=== PATIENT | female | born 1950 | race Caucasian/White ===

== ENCOUNTER → 2018-01-07 12:28 | Outpatient (CLI) | payer OTHER, SELFPAY ==
--- NOTE | 2018-01-07 | DI.US.S_ITS ---
PROCEDURE: US BREAST RT LIMITED COMPARISON: None. INDICATIONS: RIGHT BREAST LUMP FINDINGS: IMPRESSION: Dictated by: Sheldon Bermeo M.D. on 01/08/2018 at 7:51 Approved by: Sheldon Bermeo M.D. on 01/08/2018 at 7:52
--- NOTE | 2018-01-07 | DI.MG.S_ITS ---
BILATERAL DIGITAL DIAGNOSTIC MAMMOGRAM 3D/2D: 01/07/2018 CLINICAL: Right breast lump. Comparison is made to exams dated: 04/10/2016 mammogram, 08/15/2011 mammogram, and 07/10/2010 mammogram - [facility]. The tissue of both breasts is predominantly fatty. No significant masses, calcifications, or other findings are seen in either breast. IMPRESSION: INCOMPLETE: NEEDS ADDITIONAL IMAGING EVALUATION There is no abnormality seen in the right breast to correspond with the area of clinical concern, however, ultrasound is recommended. NOTE: For mammograms, a report in lay terms will be sent to the patient. Approximately 15% of breast malignancies will not be visualized mammographically. In the management of a palpable breast mass, a negative mammogram must not discourage biopsy of a clinically suspicious lesion. Electronically Signed By: Sheldon cloud/mague:01/08/2018 08:51:22 ACR BI-RADS Category 0: Incomplete [id number]
== END ==
PROVIDERS: PCP Internal Medicine; Visit Provider Internal Medicine
DX: R92.8 Other abnormal and inconclusive findings on diagnostic imaging of breast (principal); N63.10 Unspecified lump in the right breast, unspecified quadrant
CPT/HCPCS: 76642; 77066; G0279

== ENCOUNTER → 2019-03-03 09:32 | Outpatient (CLI) | payer OTHER, SELFPAY ==
--- NOTE | 2019-03-03 | DI.US.S_ITS ---
PROCEDURE: US PERIPH VENOUS LOW EXTREM RT INDICATIONS: RIGHT LEG PAIN TECHNIQUE: Real-time imaging, as well as color and pulse Doppler interrogation, were performed of the lower extremity deep veins from the inguinal ligament to the popliteal fossa. COMPARISON: None. FINDINGS: The common femoral, femoral and popliteal veins are normally compressible, and free of intraluminal thrombus. Color and pulse Doppler demonstrate normal phasic intraluminal flow. There is normal augmentation response to distal compression maneuver. IMPRESSION: No evidence of deep vein thrombosis of the right lower extremity. Dictated by: Rui Preston M.D. on 03/03/2019 at 13:15 Approved by: Rui Preston M.D. on 03/03/2019 at 13:19
== END ==
PROVIDERS: PCP Internal Medicine; Visit Provider Internal Medicine
DX: M79.604 Pain in right leg (principal)
CPT/HCPCS: 93971

== ENCOUNTER 2019-08-07 13:34 | Inpatient (IN) | payer MEDICARE, SELFPAY ==
[2019-08-07] VITALS (11 sets, daily range): BP systolic 106–157; BP diastolic 57–96; PULSE 70–188; RESP 18–38; TEMP 36.5–36.8; O2SAT 80–100; BMI 49.5; BMI 50.5
--- NOTE | 2019-08-07 13:57 | DI.CT.S_ITS ---
PROCEDURE: CT ANGIO CHEST PE PROTOCOL INDICATIONS: short of breath TECHNIQUE: After the administration of intravenous contrast, 2 mm thick sections acquired from the pulmonary apices to the posterior costophrenic angles. 3-dimensional maximum intensity projection (MIP) coronal and sagittal reformats were then acquired through the thorax. For radiation dose reduction, the following was used: automated exposure control, adjustment of mA and/or kV according to patient size. COMPARISON: None. FINDINGS: Image quality: Excellent. Pulmonary arteries: Segmental subsegmental emboli are present within the right lower lobe and the left lower lobe. No filling defects within the main right and left pulmonary arteries. No filling defects within the main pulmonary trunk. Lungs and pleura: Lungs are clear. No pleural effusions or pneumothorax. Central and peripheral airways are patent. Mediastinum: Heart size is mildly enlarged, without pericardial effusion. No leftward interventricular septal bowing. No mediastinal or hilar adenopathy. Thoracic aorta is normal in caliber and enhancement. Scattered atheromatous calcifications are present within the aortic arch. Esophagus is normal in caliber, without hiatal hernia. Bones and chest wall: No suspicious bony lesions. Ribs and thoracic spine appear intact throughout. Thyroid gland is partially visualized and is unremarkable. No axillary or supraclavicular adenopathy. Abdomen: Visualized upper abdominal solid organs appear normal in the early arterial phase of enhancement. IMPRESSION: 1. Bilateral lower lobe segmental and subsegmental pulmonary emboli as above. No leftward septal bowing to suggest right heart strain. However, echocardiogram recommended. This finding was discussed with Dr. Wiley at 1:59 PM on 08/07/19 [place] time. Dictated by: Corrine Zaman M.D. on 08/07/2019 at 13:54 Approved by: Corrine Zaman M.D. on 08/07/2019 at 14:00
[2019-08-07 14:04] LABS: Add Manual Diff / Slide Review NO; Basophils Absolute Auto 0 /uL (0-100); Basophils Percent Auto 0.4 % (0-2); Eosinophils Absolute Auto 100 /uL (0-450); Eosinophils Percent Auto 0.5 % (2-4); Hematocrit 38.3 % (36-46); Hemoglobin 12.9 g/dL (12.0-16.0); Lymphocytes Absolute Auto 2000 /uL (1100-4500); Lymphocytes Percent Auto 20.2 % (25-40); Mean Corpuscular HGB Conc 33.6 % (30-36); Mean Corpuscular Hemoglobin 28.6 PG (26-34); Mean Corpuscular Volume 84.9 fL (80-100); Monocytes Absolute Auto 800 /uL (0-900); Monocytes Percent Auto 8.4 % (3-14); Neutrophils Absolute Auto 6800 /uL (1500-7000); Neutrophils Percent Auto 70.5 % (50-75); Platelet Count 328 X10^3/uL (150-400); Red Blood Cell Count 4.51 X10^6/uL (4.0-5.2); Red Cell Distribution Width 15.3 % (11.6-14.8); White Blood Cell Count 9.7 X10^3/uL (4.5-11.0)
--- NOTE | 2019-08-07 14:05 | ED_ITS ---
HPI - SOB/Dyspnea General Chief Complaint: Shortness of Breath/Dyspnea Stated Complaint: shortness of breath Time Seen by Provider: 08/07/19 13:37 Source: patient Mode of arrival: Ambulatory Limitations: no limitations History of Present Illness HPI Narrative: Patient is a 68-year-old female with no known past medical history presenting with increasing shortness of breath with exertion. She says previously she has had some shortness of breath with exertion but it's been when she has been ill with a bronchitis. She does have a nebulizer at home her medicine but she did try using it last night she said it didn't help much. She has not had any fever or chills she has she denies any orthopnea no chest pain. However with very minimal exertion she gets extremely short of breath and this is very atypical for her. She denies any recent travel. Complaint: shortness of breath Relieving factors: oxygen and rest Exacerbating factors: exertion Related Data Home Medications Medication Instructions Recorded Confirmed Respironics Dreamstation BIPAP #1 ea 12/23/18 12/23/18 thyroid (pork) [[employer] Thyroid] 90 mg PO DAILY 08/07/19 08/07/19 venlafaxine [Effexor XR] 225 mg PO QAM 08/07/19 08/07/19 Previous Rx's Medication Instructions Recorded montelukast 10 mg tablet 10 mg PO DAILY #30 tab 02/09/18 Allergies Allergy/AdvReac Type Severity Reaction Status Date / Time amoxicillin [AMOXICILLIN] Allergy Severe HIVES Verified 08/07/19 13:40 NSAIDS (Non-Steroidal Allergy Severe ANAPHYLAXIS Verified 08/07/19 13:40 Anti-Inflamma [NSAIDS (NON-STEROIDAL ANTI-INFLAMMA] oxycodone [OXYCODONE] Allergy Intermediate AMNESIA Verified 08/07/19 13:40 Penicillins [PENICILLINS] Allergy Intermediate HIVES Verified 08/07/19 13:40 Sulfa (Sulfonamide Allergy Intermediate ITCH Verified 08/07/19 13:40 Antibiotics) [SULFA (SULFONAMIDE ANTIBIOTICS)] cephalexin [From KEFLEX] Allergy Mild ITCHY Verified 08/07/19 13:40 meperidine [MEPERIDINE] AdvReac Mild AMNESIA Verified 08/07/19 13:40 Review of Systems Review of Systems ROS Unobtainable: All systems reviewed & are unremarkable except as noted in HPI and below Constitutional Constitutional: Denies chills, Denies fever(s), Denies lethargy and Denies weakness Eyes Eyes: Denies change in vision, Denies eye discharge, Denies irritation and Denies loss of vision ENT Ears, Nose, Mouth, and Throat: Denies change in voice, Denies neck pain and Denies sore throat Cardiovascular Cardiovascular: Denies chest pain, Denies irregular heart rhythm, Denies lightheadedness, Denies palpitations, Reports dyspnea on exertion and Denies orthopnea Respiratory Respiratory: Denies cough, Denies hemoptysis, Denies excessive phlegm production, Reports dyspnea on exertion and Denies wheezing Gastrointestinal Gastrointestinal: Denies abdominal pain, Denies change in bowel habits, Denies diarrhea, Denies nausea and Denies vomiting Genitourinary Genitourinary: Denies hematuria, Denies flank pain, Denies urinary incontinence and Denies urinary urgency Musculoskeletal Musculoskeletal: Denies neck pain Integumentary/Breasts Skin/Breast: Denies pruritus, Denies erythema, Denies rash and Denies wounds Neurologic Neurologic: Denies loss of vision and Denies weakness Endocrine Endocrine: Denies palpitations Allergic/Immunologic Allergic/Immunologic: Denies wheezing Patient History Medical History (Updated 08/07/19 @ 17:24 by Merle Neville MD) Depression (Acute) Hypothyroidism (Acute) Morbid obesity with BMI of 40.0-44.9, adult (Inactive) Morbid obesity with body mass index (BMI) of 50.0 to 59.9 in adult (Chronic) Obstructive sleep apnea of adult (Chronic) Primary insomnia (Resolved) Snoring (Resolved) Surgical History (Updated 08/07/19 @ 17:21 by Merle Neville MD) H/O exploratory laparotomy (Acute) Family History (Updated 08/07/19 @ 17:23 by Merle Neville MD) Father Leukemia Brother Diabetes mellitus Sister Diabetes mellitus Breast cancer Mother Ovarian cancer Social History household members: none lives independently: Yes caregiver/support person: No Smoking Status: Never smoker alcohol intake: current substance use type: does not use Smoking Status: Never smoker Substance Use Type: does not use Exam Initial Vital Signs Initial Vital Signs: Vital Signs Temperature 98.2 F 08/07/19 13:41 Pulse Rate 130 H 08/07/19 13:41 Respiratory Rate 38 H 08/07/19 13:41 Blood Pressure 157/87 H 08/07/19 13:41 Pulse Oximetry 80 L 08/07/19 13:41 GENERAL: Overweight female and in [no acute] distress. HEENT: Head atraumatic,EOMI, pupils reactive, asymmetric CARDIOVASCULAR: Regular rate and rhythm without murmurs, rubs or gallops. RESPIRATORY: Breath sounds equal bilaterally, no wheezes rales or rhonchi. Patient was ambulatory to her room in the emergency department and was obviously extremely dyspneic ABDOMEN: Soft, nontender. Normoactive bowel sounds all 4 quadrants. No guarding or rebound. EXTREMITIES: Normal range of motion, no clubbing or edema. Neurovascularly intact NEUROLOGICAL: Alert and oriented x4.Normal gait and speech. SKIN: Warm, dry, no laceration, no petechiae, no rashes or lesions. Course Orders Ordered: ED Orders 08/07/19 13:50 B Type Natriuretic Peptide Stat Complete Blood Count AUTO DIFF Stat Comprehensive Metabolic Panel Stat Lactate (Lactic Acid) Stat Magnesium Stat Partial Thromboplastin Time Stat Procalcitonin Stat Prothrombin Time INR Stat Troponin & CK Cardiac Panel Stat 08/07/19 13:55 Consult to Respiratory Therapy Evaluate & Treat Arterial Blood Gas Stat 08/07/19 13:57 CT angio chest PE protocol Stat 08/07/19 15:00 PTT [Partial Thromboplastin Time] Q6H Urine Microscopic Stat 08/07/19 21:00 PTT [Partial Thromboplastin Time] Q6H Enoxaparin Sodium (Lovenox) 140 mg 1 mg/kg (140 mg) SUBCUT Q12H [facility] Montelukast Sodium (Singulair) 10 mg PO DAILY [facility] Discontinued Medications Enoxaparin Sodium (Lovenox) 140 mg 1 mg/kg (140 mg) SUBCUT NOW ONE Stop: 08/07/19 15:31 Last Admin: 08/07/19 15:21 Dose: 140 mg Documented by: RINA Enoxaparin Sodium (Lovenox) 140 mg 1 mg/kg (140 mg) SUBCUT BID [facility] Heparin Sodium (Porcine) (Heparin) 7,500 unit IV NOW ONE Stop: 08/07/19 14:55 Last Admin: 08/07/19 18:17 Dose: Not Given Documented by: BALDEMAR Heparin Sodium/Dextrose (Heparin Drip) 25,000 unit in 500 mls @ 24 mls/hr IV CONT ANA; Protocol Last Admin: 08/07/19 18:18 Dose: Not Given Documented by: CGIBSON Vital Signs Vital signs: Vital Signs - 8 hr 08/07/19 13:41 08/07/19 15:00 Temperature 98.2 F Pulse Rate 130 H 91 H Respiratory Rate 38 H 23 Blood Pressure 157/87 H Pulse Oximetry 80 L 94 MDM - SOB/Dyspnea Lab Data Attestation: I reviewed the patient's lab results. Result diagrams: 08/07/19 13:50 08/07/19 13:50 Labs: Lab Results 08/07/19 08/07/19 08/07/19 Range/Units 13:50 13:50 13:50 WBC 9.7 (4.5-11.0) X10^3/uL RBC 4.51 (4.0-5.2) X10^6/uL Hgb 12.9 (12.0-16.0) g/dL Hct 38.3 (36-46) % MCV 84.9 (80-100) fL MCH 28.6 (26-34) PG MCHC 33.6 (30-36) % RDW 15.3 H (11.6-14.8) % Plt Count 328 (150-400) X10^3/uL Neut % (Auto) 70.5 (50-75) % Lymph % (Auto) 20.2 L (25-40) % [place] % (Auto) 8.4 (3-14) % Eos % (Auto) 0.5 L (2-4) % Baso % (Auto) 0.4 (0-2) % Neut # (Auto) 6800 (5875-1123) /uL Lymph # (Auto) 2000 (5492-3230) /uL [place] # (Auto) 800 (0-900) /uL Eos # (Auto) 100 (0-450) /uL Baso # (Auto) 0 (0-100) /uL PT 13.0 H (10.1-12.7) SECONDS INR 1.1 (0.9-1.3) APTT 36 (26.4-36.2) SECONDS ABG pH (7.35-7.45) ABG pCO2 (35-45) mmHg ABG pO2 (80-100) mmHg ABG HCO3 (22-26) mmol/L ABG Total CO2 (21-31) mmol/L ABG O2 Saturation (95-100) % ABG Base Excess (-2-2) mmol/L FiO2 Sodium (137-145) mmol/L Potassium (3.4-5.1) mmol/L Chloride (98-107) mmol/L Carbon Dioxide (22-32) mmol/L BUN (7-17) mg/dL Creatinine (0.52-1.04) mg/dL Estimated GFR (>60) mL/min BUN/Creatinine Ratio (6-22) Glucose (80-110) mg/dL Lactate (0.7-2.1) mmol/L Calcium (8.4-10.2) mg/dL Magnesium 2.2 (1.6-2.3) mg/dL Total Bilirubin (0.2-1.3) mg/dL AST (14-36) IU/L ALT (<35) IU/L Alkaline Phosphatase (38-126) U/L Total Creatine Kinase 74 (30-135) U/L CK-MB (CK-2) TNP CK-MB (CK-2) Rel Index TNP Troponin I 0.330 H* (0.01-0.034) ng/mL B-Natriuretic Peptide 210 H (<100) Total Protein (6.3-8.2) g/dL Albumin (3.5-5.0) g/dL Globulin (1.7-4.1) g/dL Albumin/Globulin Ratio (1.0-2.8) Procalcitonin (<0.5) ng/mL Urine RBC (0-5/HPF) Urine WBC (0-5/HPF) Ur Squamous Epith Cells (0-5/HPF) Urine Bacteria (None) Ur Culture Indicated? 08/07/19 08/07/19 08/07/19 Range/Units 13:50 13:50 13:50 WBC (4.5-11.0) X10^3/uL RBC (4.0-5.2) X10^6/uL Hgb (12.0-16.0) g/dL Hct (36-46) % MCV (80-100) fL MCH (26-34) PG MCHC (30-36) % RDW (11.6-14.8) % Plt Count (150-400) X10^3/uL Neut % (Auto) (50-75) % Lymph % (Auto) (25-40) % [place] % (Auto) (3-14) % Eos % (Auto) (2-4) % Baso % (Auto) (0-2) % Neut # (Auto) (6492-9102) /uL Lymph # (Auto) (4795-4981) /uL [place] # (Auto) (0-900) /uL Eos # (Auto) (0-450) /uL Baso # (Auto) (0-100) /uL PT (10.1-12.7) SECONDS INR (0.9-1.3) APTT (26.4-36.2) SECONDS ABG pH (7.35-7.45) ABG pCO2 (35-45) mmHg ABG pO2 (80-100) mmHg ABG HCO3 (22-26) mmol/L ABG Total CO2 (21-31) mmol/L ABG O2 Saturation (95-100) % ABG Base Excess (-2-2) mmol/L FiO2 Sodium 140 (137-145) mmol/L Potassium 4.3 (3.4-5.1) mmol/L Chloride 102 (98-107) mmol/L Carbon Dioxide 24 (22-32) mmol/L BUN 20 H (7-17) mg/dL Creatinine 0.90 (0.52-1.04) mg/dL Estimated GFR > 60.0 (>60) mL/min BUN/Creatinine Ratio 22.2 H (6-22) Glucose 133 H (80-110) mg/dL Lactate 2.6 H (0.7-2.1) mmol/L Calcium 9.7 (8.4-10.2) mg/dL Magnesium (1.6-2.3) mg/dL Total Bilirubin 1.1 (0.2-1.3) mg/dL AST 34 (14-36) IU/L ALT 32 (<35) IU/L Alkaline Phosphatase 118 (38-126) U/L Total Creatine Kinase (30-135) U/L CK-MB (CK-2) CK-MB (CK-2) Rel Index Troponin I (0.01-0.034) ng/mL B-Natriuretic Peptide (<100) Total Protein 7.9 (6.3-8.2) g/dL Albumin 4.8 (3.5-5.0) g/dL Globulin 3.1 (1.7-4.1) g/dL Albumin/Globulin Ratio 1.5 (1.0-2.8) Procalcitonin < 0.05 (<0.5) ng/mL Urine RBC (0-5/HPF) Urine WBC (0-5/HPF) Ur Squamous Epith Cells (0-5/HPF) Urine Bacteria (None) Ur Culture Indicated? 08/07/19 08/07/19 Range/Units 13:55 15:00 WBC (4.5-11.0) X10^3/uL RBC (4.0-5.2) X10^6/uL Hgb (12.0-16.0) g/dL Hct (36-46) % MCV (80-100) fL MCH (26-34) PG MCHC (30-36) % RDW (11.6-14.8) % Plt Count (150-400) X10^3/uL Neut % (Auto) (50-75) % Lymph % (Auto) (25-40) % [place] % (Auto) (3-14) % Eos % (Auto) (2-4) % Baso % (Auto) (0-2) % Neut # (Auto) (7446-7640) /uL Lymph # (Auto) (0359-0949) /uL [place] # (Auto) (0-900) /uL Eos # (Auto) (0-450) /uL Baso # (Auto) (0-100) /uL PT (10.1-12.7) SECONDS INR (0.9-1.3) APTT (26.4-36.2) SECONDS ABG pH 7.46 H (7.35-7.45) ABG pCO2 31.1 L (35-45) mmHg ABG pO2 59 L (80-100) mmHg ABG HCO3 22 (22-26) mmol/L ABG Total CO2 23 (21-31) mmol/L ABG O2 Saturation 92 L (95-100) % ABG Base Excess -2.0 (-2-2) mmol/L FiO2 21 Sodium (137-145) mmol/L Potassium (3.4-5.1) mmol/L Chloride (98-107) mmol/L Carbon Dioxide (22-32) mmol/L BUN (7-17) mg/dL Creatinine (0.52-1.04) mg/dL Estimated GFR (>60) mL/min BUN/Creatinine Ratio (6-22) Glucose (80-110) mg/dL Lactate (0.7-2.1) mmol/L Calcium (8.4-10.2) mg/dL Magnesium (1.6-2.3) mg/dL Total Bilirubin (0.2-1.3) mg/dL AST (14-36) IU/L ALT (<35) IU/L Alkaline Phosphatase (38-126) U/L Total Creatine Kinase (30-135) U/L CK-MB (CK-2) CK-MB (CK-2) Rel Index Troponin I (0.01-0.034) ng/mL B-Natriuretic Peptide (<100) Total Protein (6.3-8.2) g/dL Albumin (3.5-5.0) g/dL Globulin (1.7-4.1) g/dL Albumin/Globulin Ratio (1.0-2.8) Procalcitonin (<0.5) ng/mL Urine RBC None seen (0-5/HPF) Urine WBC 0-1/hpf (0-5/HPF) Ur Squamous Epith Cells 1-5 /hpf (0-5/HPF) Urine Bacteria Few (2-10) H (None) Ur Culture Indicated? Cult not indicated Urine Dip Bedside Urine Glucose Negative Bedside Urine Bilirubin - Negative Bedside Urine Ketone - Negative Urine Specific Reubens 1.005 Bedside Urine Occult Blood ++ Bedside Urine pH 6.5 Bedside Urine Protein +/- 15 Bedside Urine Urobilinogen - Negative Bedside Urine Nitrite - Negative Bedside Urine Leukocytes - Negative Esterase Imaging Data CT scan - chest: Radiologist's impression: PROCEDURE: CT ANGIO CHEST PE PROTOCOL INDICATIONS: short of breath TECHNIQUE: After the administration of intravenous contrast, 2 mm thick sections acquired from the pulmonary apices to the posterior costophrenic angles. 3-dimensional maximum intensity projection (MIP) coronal and sagittal reformats were then acquired through the thorax. For radiation dose reduction, the following was used: automated exposure control, adjustment of mA and/or kV according to patient size. COMPARISON: None. FINDINGS: Image quality: Excellent. Pulmonary arteries: Segmental subsegmental emboli are present within the right lower lobe and the left lower lobe. No filling defects within the main right and left pulmonary arteries. No filling defects within the main pulmonary trunk. Lungs and pleura: Lungs are clear. No pleural effusions or pneumothorax. Central and peripheral airways are patent. Mediastinum: Heart size is mildly enlarged, without pericardial effusion. No leftward interventricular septal bowing. No mediastinal or hilar adenopathy. Thoracic aorta is normal in caliber and enhancement. Scattered atheromatous calcifications are pre sent within the aortic arch. Esophagus is normal in caliber, without hiatal hernia. Bones and chest wall: No suspicious bony lesions. Ribs and thoracic spine appear intact throughout. Thyroid gland is partially visualized and is unremarkable. No axillary or supraclavicular adenopathy. Abdomen: Visualized upper abdominal solid organs appear normal in the early arterial phase of enhancement. IMPRESSION: 1. Bilateral lower lobe segmental and subsegmental pulmonary emboli as above. No leftward septal bowing to suggest right heart strain. However, echocardiogram recommended. This finding was discussed with Dr. Wiley at 1:59 PM on 08/07/19 [place] time. Dictated by: Corrine Zaman M.D. on 08/07/2019 at 13:54 Approved by: Corrine Zaman M.D. on 08/07/2019 at 14:00 ECG Data Attestation: I personally reviewed and interpreted this ECG as follows: Prior ECG tracings: available for review Interpretation: Sinus rhythm rate 97 p.r. interval 157 QRS [address] elevation depression or T-wave inversions similar to previous EKG in [facility] Narrative Medical decision making narrative: Patient upon arrival was quite dyspneic with exertion. She is found to have bilateral subsegmental PEs with elevated troponin. Troponin release thought to be due secondary to his stress. There are no signs of right heart strain on CT. She is normotensive and at rest does not require any oxygen. She has no known risk factors for pulmonary embolism. Dr. neville updated on patient's symptoms test results requested Lovenox 140 mg twice a day. Discharge Plan Departure Patient Disposition: Admitted As Inpatient Clinical Impression: Pulmonary embolism Qualifiers: Pulmonary embolism type: other Chronicity: acute Acute cor pulmonale presence: without acute cor pulmonale Qualified Code(s): I26.99 - Other pulmonary embolism without acute cor pulmonale Discharge Date/Time: 08/07/19 16:40 Admit Date/Time: 08/07/19 15:15 Admit Provider: Merle Neville
[2019-08-07 14:08] LABS: INR 1.1 (0.9-1.3)
[2019-08-07 14:09] LABS: Lactate (Lactic Acid) 2.6 mmol/L (0.7-2.1)
[2019-08-07 14:11] LABS: PTT Partial Thromboplastin Tim 36 SECONDS (26.4-36.2)
[2019-08-07 14:12] LABS: Fractionated Inspired Oxygen 21; HCO3 ABG 22 mmol/L (22-26); Oxygen Saturation ABG 92 % (95-100); PCO2 ABG 31.1 mmHg (35-45); PO2 ABG 59 mmHg (80-100); TCO2 ABG 23 mmol/L (21-31); pH ABG 7.46 (7.35-7.45)
[2019-08-07 14:14] LABS: Alanine Aminotransferase 32 IU/L (<35); Albumin 4.8 g/dL (3.5-5.0); Albumin Globulin Ratio 1.5 (1.0-2.8); Alkaline Phosphatase 118 U/L (38-126); Aspartate Aminotransferase 34 IU/L (14-36); BUN Creatinine Ratio 22.2 (6-22); Bilirubin Total 1.1 mg/dL (0.2-1.3); Blood Urea Nitrogen 20 mg/dL (7-17); Calcium 9.7 mg/dL (8.4-10.2); Carbon Dioxide 24 mmol/L (22-32); Chloride 102 mmol/L (98-107); Creatine Kinase 74 U/L (30-135); Estimated Glomerular Filt Rate > 60.0 mL/min (>60); Globulin 3.1 g/dL (1.7-4.1); Glucose 133 mg/dL (80-110); HEMOLYSIS < 15 (0-50); Magnesium 2.2 mg/dL (1.6-2.3); Potassium 4.3 mmol/L (3.4-5.1); Sodium 140 mmol/L (137-145); Total Protein 7.9 g/dL (6.3-8.2)
[2019-08-07 14:28] LABS: B Type Natriuretic Peptide 210 (<100)
[2019-08-07 14:32] LABS: Procalcitonin < 0.05 ng/mL (<0.5)
[2019-08-07 15:14] LABS: RBC Urine None Seen (0-5/HPF)
[2019-08-07] MEDS: ENOXAPARIN 150 MG/ML SYRINGE 140 MG SUBCUT (15:21)
[2019-08-07 15:36] LABS: Bacteria Urine Few (2-10); Culture Indicated Urine Cult Not Indicated; Squamous Epithelial Cell Urine 1-5 /HPF (0-5/HPF); WBC Urine 0-1/HPF (0-5/HPF)
[2019-08-07 15:59] LABS: Reflexed Lactate in 2 Hours Y
--- NOTE | 2019-08-07 17:19 | PM.HP.1 ---
History of Present Illness History of Present Illness Date Patient Seen: 08/07/19 Chief complaint: shortness of breath Narrative: The patient is a 68-year-old female with a history of obstructive sleep apnea, depression, allergic rhinitis, morbid obesity who was in her usual state of health until 3 days prior to admission. Patient describes feeling fatigued, 2 days ago she noted being very short of breath with minimal activity. She has not had any chest pain or palpitations. She denies any fever or chills. She was seen in February for a right lower extremity pain following a fall but has had no swelling or pain in her lower extremities since that time. She does have chronic arthritis throughout her body. Otherwise she has no or other complaints. Patient has had no recent travel, surgeries, or other risk factors for DVT and PE. The patient was evaluated in the emergency department. She was found to be hypoxic with activity. She underwent a CT angio which revealed bilateral subsegmental pulmonary emboli. Patient is admitted to the hospital at this time for further evaluation. Patient History Medical History (Updated 08/07/19 @ 17:24 by Merle Neville MD) Depression (Acute) Hypothyroidism (Acute) Morbid obesity with BMI of 40.0-44.9, adult (Inactive) Morbid obesity with body mass index (BMI) of 50.0 to 59.9 in adult (Chronic) Obstructive sleep apnea of adult (Chronic) Primary insomnia (Resolved) Snoring (Resolved) Surgical History (Updated 08/07/19 @ 17:21 by Merle Neville MD) H/O exploratory laparotomy (Acute) Family & Social History Family History (Updated 08/07/19 @ 17:23 by Merle Neville MD) Father Leukemia Brother Diabetes mellitus Sister Diabetes mellitus Breast cancer Mother Ovarian cancer Social History: lives independently Yes caregiver/support person No Safety & Behavioral: Feels Safe in Current Yes Environment Been Physically Hurt or No Threatened By a Person Tobacco & Substance use: Smoking Status Never smoker alcohol intake current Substance Use Type does not use Meds Home Medications and Allergies Home Medications Medication Instructions Recorded Confirmed Type montelukast 10 mg tablet 10 mg PO DAILY #30 tab 02/09/18 12/23/18 Rx Respironics Dreamstation BIPAP #1 ea 12/23/18 12/23/18 History Allergies Allergy/AdvReac Type Severity Reaction Status Date / Time amoxicillin [AMOXICILLIN] Allergy Severe HIVES Verified 08/07/19 13:40 NSAIDS (Non-Steroidal Allergy Severe ANAPHYLAXIS Verified 08/07/19 13:40 Anti-Inflamma [NSAIDS (NON-STEROIDAL ANTI-INFLAMMA] oxycodone [OXYCODONE] Allergy Intermediate AMNESIA Verified 08/07/19 13:40 Penicillins [PENICILLINS] Allergy Intermediate HIVES Verified 08/07/19 13:40 Sulfa (Sulfonamide Allergy Intermediate ITCH Verified 08/07/19 13:40 Antibiotics) [SULFA (SULFONAMIDE ANTIBIOTICS)] cephalexin [From KEFLEX] Allergy Mild ITCHY Verified 08/07/19 13:40 meperidine [MEPERIDINE] AdvReac Mild AMNESIA Verified 08/07/19 13:40 Review of Systems Review of Systems ROS Unobtainable: All systems reviewed & are unremarkable except as noted in HPI and below Exam Vital Signs (past 8 hours): - 08/07/19 13:41 08/07/19 15:00 08/07/19 15:28 Temperature 98.2 F Pulse Rate 130 H 91 H 90 Respiratory Rate 38 H 23 18 Blood Pressure 157/87 H Blood Pressure [Left Arm] Blood Pressure [Right Arm] 140/87 Pulse Oximetry 80 L 94 94 08/07/19 15:29 08/07/19 16:35 Temperature 97.7 F Pulse Rate 86 Respiratory Rate 25 H 19 Blood Pressure 133/84 Blood Pressure [Left Arm] 126/65 Blood Pressure [Right Arm] Pulse Oximetry 95 98 Oxygen Delivery Method Room Air Oxygen Flow Rate 2 Narrative Exam Narrative: Pleasant female resting comfortably in no obvious distress on oxygen HEENT: Normocephalic atraumatic, extraocular muscles are intact, oropharynx is clear, neck is supple, there is no adenopathy, no JVD Lungs: Clear to auscultation Cardiac exam: Regular rate and rhythm normal S1-S2 with a 2/6 systolic ejection murmur Abdomen: Soft nontender nondistended, midline surgical incision well-healed, small ventral hernia easily palpated, soft, no hepatosplenomegaly Lower extremities: No edema Neuro exam: Cranial nerves 2 12 are intact, sensation grossly intact, strength is symmetric and equal in upper and lower extremities reflexes are brisk and equal, gait is non Psychiatric exam: Patient is awake alert and appropriate, mood is normal, no hallucinations, no active delusions. Objective Labs Result Diagrams: 08/07/19 13:50 08/07/19 13:50 Labs: Laboratory Results - last 24 hr 08/07/19 08/07/19 08/07/19 13:50 13:50 13:50 WBC 9.7 RBC 4.51 Hgb 12.9 Hct 38.3 MCV 84.9 MCH 28.6 MCHC 33.6 RDW 15.3 H Plt Count 328 Neut % (Auto) 70.5 Lymph % (Auto) 20.2 L [place] % (Auto) 8.4 Eos % (Auto) 0.5 L Baso % (Auto) 0.4 Neut # (Auto) 6800 Lymph # (Auto) 2000 [place] # (Auto) 800 Eos # (Auto) 100 Baso # (Auto) 0 PT 13.0 H INR 1.1 APTT 36 ABG pH ABG pCO2 ABG pO2 ABG HCO3 ABG Total CO2 ABG O2 Saturation ABG Base Excess FiO2 Sodium Potassium Chloride Carbon Dioxide BUN Creatinine Estimated GFR BUN/Creatinine Ratio Glucose Lactate Calcium Magnesium 2.2 Total Bilirubin AST ALT Alkaline Phosphatase Total Creatine Kinase 74 CK-MB (CK-2) TNP CK-MB (CK-2) Rel Index TNP Troponin I 0.330 H* B-Natriuretic Peptide 210 H Total Protein Albumin Globulin Albumin/Globulin Ratio Procalcitonin Urine RBC Urine WBC Ur Squamous Epith Cells Urine Bacteria Ur Culture Indicated? 08/07/19 08/07/19 08/07/19 13:50 13:50 13:50 WBC RBC Hgb Hct MCV MCH MCHC RDW Plt Count Neut % (Auto) Lymph % (Auto) [place] % (Auto) Eos % (Auto) Baso % (Auto) Neut # (Auto) Lymph # (Auto) [place] # (Auto) Eos # (Auto) Baso # (Auto) PT INR APTT ABG pH ABG pCO2 ABG pO2 ABG HCO3 ABG Total CO2 ABG O2 Saturation ABG Base Excess FiO2 Sodium 140 Potassium 4.3 Chloride 102 Carbon Dioxide 24 BUN 20 H Creatinine 0.90 Estimated GFR > 60.0 BUN/Creatinine Ratio 22.2 H Glucose 133 H Lactate 2.6 H Calcium 9.7 Magnesium Total Bilirubin 1.1 AST 34 ALT 32 Alkaline Phosphatase 118 Total Creatine Kinase CK-MB (CK-2) CK-MB (CK-2) Rel Index Troponin I B-Natriuretic Peptide Total Protein 7.9 Albumin 4.8 Globulin 3.1 Albumin/Globulin Ratio 1.5 Procalcitonin < 0.05 Urine RBC Urine WBC Ur Squamous Epith Cells Urine Bacteria Ur Culture Indicated? 08/07/19 08/07/19 13:55 15:00 WBC RBC Hgb Hct MCV MCH MCHC RDW Plt Count Neut % (Auto) Lymph % (Auto) [place] % (Auto) Eos % (Auto) Baso % (Auto) Neut # (Auto) Lymph # (Auto) [place] # (Auto) Eos # (Auto) Baso # (Auto) PT INR APTT ABG pH 7.46 H ABG pCO2 31.1 L ABG pO2 59 L ABG HCO3 22 ABG Total CO2 23 ABG O2 Saturation 92 L ABG Base Excess -2.0 FiO2 21 Sodium Potassium Chloride Carbon Dioxide BUN Creatinine Estimated GFR BUN/Creatinine Ratio Glucose Lactate Calcium Magnesium Total Bilirubin AST ALT Alkaline Phosphatase Total Creatine Kinase CK-MB (CK-2) CK-MB (CK-2) Rel Index Troponin I B-Natriuretic Peptide Total Protein Albumin Globulin Albumin/Globulin Ratio Procalcitonin Urine RBC None seen Urine WBC 0-1/hpf Ur Squamous Epith Cells 1-5 /hpf Urine Bacteria Few (2-10) H Ur Culture Indicated? Cult not indicated Assessment & Plan Assessment & Plan narrative: Impression 1. Acute respiratory failure, secondary to bilateral pulmonary emboli -patient is been markedly symptomatic with activity -patient desaturated to 80% with walking in the emergency department, oxygen level improved with 2 L of oxygen -patient has been started on Lovenox 140 milligrams/kilogram b.i.d. -will obtain cardiac echo in the morning -will obtain ultrasound of her lower extremity to rule out significant clot burden in the need for possible IVC filter placement 2. Obstructive sleep apnea, present on admission -patient typically uses BiPAP at night which is with her sister. She will have the BiPAP machine brought in. -continue oxygen for now 3. Depression, chronic -will continue Effexor, will await med reconciliation to resume her home dose 4. Hypothyroidism, present on admission -resume armor thyroid once her doses available 5. Morbid obesity Patient will be brought in under observation. Anticipate she'll be discharged within 48 hours. Patient will be ready to discharge home once she is no longer requiring oxygen for activity. Will obtain her ultrasound and echo tomorrow. Consider Xarelto for home therapy once her oxygenation has improved.
--- NOTE | 2019-08-07 17:38 | PC.NURSE ---
Pt placed on tele. From ICU- tele shows NSR 87 No ectopy
--- NOTE | 2019-08-07 18:12 | PC.NURSE ---
Admit note: Joy brought to rm 211 via gurney, able to ambulate from door to bed, slightly SOB with activity. 2L O2 saturation 98%, she denies SOB after rest period. Other VS stable. Denies pain. Dr Neville in room to see her, new orders given. PT/PTT cancelled as heparin drip was not initiated in ER. Patient oriented x 3 and situation. I instructed her to call nurse before getting OOB for safety reasons, instructed to call staff for any other needs/concerns. Denies recent falls. Denies any wounds to skin. 2 IV's to her AC's are saline locked, sites CDI. Oriented to call button & hospital room. Alarm active for safety.
[2019-08-07 18:48] LABS: Lactate 2HR (Lactic Acid Rflx) 1.3 mmol/L (0.7-2.1)
[2019-08-07] MEDS: SODIUM CHLORIDE 0.9% FLUSH 10 ML IV (20:40)
--- NOTE | 2019-08-07 21:01 | PC.NURSE ---
Pt with HR sustained SVT 190s. Nurse called and notified on acute care. Print out in binder.
[2019-08-07] MEDS: METOPROLOL TARTRATE 5 MG/5 ML INJ IV (21:10)
[2019-08-07 21:17] LABS: Add Manual Diff / Slide Review NO; Basophils Absolute Auto 100 /uL (0-100); Basophils Percent Auto 0.5 % (0-2); Eosinophils Absolute Auto 100 /uL (0-450); Hematocrit 36.1 % (36-46); Hemoglobin 12.3 g/dL (12.0-16.0); Lymphocytes Absolute Auto 2900 /uL (1100-4500); Lymphocytes Percent Auto 26.8 % (25-40); Mean Corpuscular HGB Conc 34.2 % (30-36); Mean Corpuscular Hemoglobin 28.6 PG (26-34); Mean Corpuscular Volume 83.8 fL (80-100); Monocytes Absolute Auto 1300 /uL (0-900); Monocytes Percent Auto 11.5 % (3-14); Neutrophils Absolute Auto 6600 /uL (1500-7000); Neutrophils Percent Auto 60.2 % (50-75); Platelet Count 291 X10^3/uL (150-400); Red Cell Distribution Width 15.2 % (11.6-14.8); White Blood Cell Count 10.9 X10^3/uL (4.5-11.0)
[2019-08-07 21:32] LABS: Alanine Aminotransferase 28 IU/L (<35); Albumin 4.2 g/dL (3.5-5.0); Albumin Globulin Ratio 1.4 (1.0-2.8); Alkaline Phosphatase 92 U/L (38-126); Aspartate Aminotransferase 31 IU/L (14-36); BUN Creatinine Ratio 23.8 (6-22); Bilirubin Total 0.8 mg/dL (0.2-1.3); Blood Urea Nitrogen 19 mg/dL (7-17); Calcium 9.3 mg/dL (8.4-10.2); Carbon Dioxide 26 mmol/L (22-32); Chloride 103 mmol/L (98-107); Estimated Glomerular Filt Rate > 60.0 mL/min (>60); Glucose 126 mg/dL (80-110); HEMOLYSIS 20 (0-50); Potassium 4.2 mmol/L (3.4-5.1); Sodium 137 mmol/L (137-145); Total Protein 7.2 g/dL (6.3-8.2)
[2019-08-07 21:45] LABS: Troponin I 0.248 ng/mL (0.01-0.034)
--- NOTE | 2019-08-07 21:45 | PM.EVENT ---
Event Note Date Patient Seen: 08/07/19 Time Patient Seen: 21:20 Event Note: Rapid response called due to patient going into SVT in the 180s. Patient seen and examined, she is in no distress, stating she is confused as to why this is happening. Stated she was upset at her mobile phone, otherwise just resting in bed. She denies chest pain or feeling palpitations and is on oxygen. She reports very mild shortness of breath. ECG reviewed by me indicated SVT. CBC, and TSH ordered and are pending. Troponin was 0.243 decreased from her admission Troponin of 0.333. She was administered Lopressor 5 mg IV X 1 and her rate dropped into the 70s. Will assess whether she should be transferred to the unit for closer monitoring. Currently, she is in sinus rhythm and appears stable.
--- NOTE | 2019-08-07 22:00 | PC.NURSE ---
Addendum entered by Kary Fournier R.N. 08/07/19 23:23: Since rapid response, this patient's HR has been in the 70's & 80's. Rhythm sinus. SOB with conversation, denies SOB at rest. Remains on 2.5L O2 with saturation 97%, respirations 18-20/minute at rest. RT in room to help her set up & put on BiPap. Full report handed off to Taina LOPEZ RN. Original Note: RAPID RESPONSE: At 2105 MAINTENANCE ENGINEER [employer] called to report 211's heart rate was tachy up to 190's. I found patient awake, alert, speech clear, denied chest pain or increased SOB, denied dizziness. Apical HR fast, unable to count accurate HR with stethoscope, per pulse ox HR is 180-188 bpm. Rapid response initiated by Zahra VALENTIN. 2L O2 sat 95%, O2 increased to 4L. Gen JAVED responded to rapid response in addition to CORN HUSKER MACHINE OPERATOR, lab engineer, RT & charge loader. I was unable to obtain BP via auto cuff/monitor, manual BP 152/96. RT did EKG. Heart rhythm sinus tach per code cart monitor. Niranjan ordered me to give Metoprolol 5 mg IV which I did. While pushing med HR slowed to 130's, after med pushed I flushed IV slowly with NS, when flushing IV HR dropped quickly to 70 bpm, rhythm sinus. Gen Ureña ordered stat TSH which I notified lab about. BP's stable at 122/70, 140/86 & 145/57. Pulse 85 per quality engineering manager, rhythm sinus. Patient never lost consciousness, after event I explained what happened. I asked her to rest, and asked if she would like me to call anyone for her. She said no--not unless I am moved to ICU--there is no reason to make them worry. Eliseo Fracno from lab called to notify of repeat Troponin result of 0.248.
[2019-08-07 22:27] LABS: Thyroid Stimulating Hormone 4.34 uIU/mL (0.47-4.68)
[2019-08-08] VITALS (10 sets, daily range): BP systolic 117–158; BP diastolic 56–83; PULSE 78–91; RESP 16–20; TEMP 36.2–37.3; O2SAT 92–97
--- NOTE | 2019-08-08 01:52 | PC.NURSE ---
Patient is alert and oriented. Breath sounds CTA with sat of 95-95% on oxygen at 2.5L/min bled into home bipap. Denies SOB at rest but does still get SOB with exertion. HRR and telemetry reading was SR. BP elevated at 152/74. Denies nausea. BT present and abdomen is soft. Voiding on toilet; denies dysuria or frequency but states she does have urgency with incontinence at times. Able to turn self in bed. Out of bed with 1 assist + walker as has some weakness/unsteadiness due to bad knee. Trace bilateral ankle edema. Denies pain. Fall risk score is moderate; bed alarm is activated.
[2019-08-08 05:22] LABS: Add Manual Diff / Slide Review NO; Basophils Absolute Auto 0 /uL (0-100); Basophils Percent Auto 0.3 % (0-2); Eosinophils Absolute Auto 100 /uL (0-450); Eosinophils Percent Auto 1.9 % (2-4); Hematocrit 36.1 % (36-46); Hemoglobin 11.8 g/dL (12.0-16.0); Lymphocytes Absolute Auto 2500 /uL (1100-4500); Lymphocytes Percent Auto 31.2 % (25-40); Mean Corpuscular HGB Conc 32.8 % (30-36); Mean Corpuscular Hemoglobin 28.1 PG (26-34); Mean Corpuscular Volume 85.7 fL (80-100); Monocytes Absolute Auto 1000 /uL (0-900); Monocytes Percent Auto 12.2 % (3-14); Neutrophils Absolute Auto 4400 /uL (1500-7000); Neutrophils Percent Auto 54.4 % (50-75); Platelet Count 277 X10^3/uL (150-400); Red Blood Cell Count 4.21 X10^6/uL (4.0-5.2); Red Cell Distribution Width 15.7 % (11.6-14.8)
[2019-08-08 05:23] LABS: INR 1.2 (0.9-1.3); Prothrombin Time 13.4 SECONDS (10.1-12.7)
[2019-08-08 05:26] LABS: PTT Partial Thromboplastin Tim 38 SECONDS (26.4-36.2)
[2019-08-08 05:28] LABS: BUN Creatinine Ratio 24.4 (6-22); Blood Urea Nitrogen 22 mg/dL (7-17); Calcium 9.6 mg/dL (8.4-10.2); Carbon Dioxide 30 mmol/L (22-32); Chloride 104 mmol/L (98-107); Estimated Glomerular Filt Rate > 60.0 mL/min (>60); Glucose 128 mg/dL (80-110); HEMOLYSIS < 15 (0-50); Potassium 4.4 mmol/L (3.4-5.1); Sodium 140 mmol/L (137-145)
[2019-08-08 05:46] LABS: Troponin I 0.149 ng/mL (0.01-0.034)
[2019-08-08] MEDS: SODIUM CHLORIDE 0.9% FLUSH 10 ML IV ×3 (08:30→21:50)
[2019-08-08] MEDS: ENOXAPARIN 150 MG/ML SYRINGE 140 MG SUBCUT (08:35)
--- NOTE | 2019-08-08 12:22 | DIET.PN ---
Dietary Progress Note Assessment: Mrs. Chung is a 68 yof with a history of obstructive sleep apnea, depression, allergic rhinitis, morbid obesity. Patient describes feeling fatigued, and a few days ago she noted being very short of breath with minimal activity. She has had a moderate decrease in intake with some mild nausea and recent weight loss, but feels this is improving. She states most of her weight loss has been intentional. She reports following a generally healthy, vegetarian diet. She does use butter and cheese. HT: 167.64 cm WT: 140.3 kg BMI: 49.9 Labs: Gluc: 133, 126, 128 Trop 1: 0.248, 0.149 MNA: 10 Cristhian: 21 Nutrition Diagnosis: Inadequate energy intake r/t decreased ability to consume sufficient energy aeb pt report estimated energy intake from diet less than needs based on EER, decreased appetite/lack of interest in food, nausea, DX shortness of breath. Interventions: Discussed patients usual intake. Pt reports improvement in appetite. Will provide ONS if PO's <70%. Diet Order: General (vegetarian) EER: 1800 elvira 2 30call/kg IBW; 77g pro @ 1.3 g/kg IBW Monitoring/Evaluations: PO's, weight, need for ONS
--- NOTE | 2019-08-08 14:06 | DI.US.S_ITS ---
PROCEDURE: US [facility] VENOUS LOW EXTREM BI INDICATIONS: P.E. TECHNIQUE: Real-time imaging, as well as color and pulse Doppler interrogation, were performed of the deep veins of both legs from the inguinal ligament to the popliteal fossa. COMPARISON: [facility], , [facility] VENOUS LOW EXTREM RT, 03/03/2019, 9:42. FINDINGS: Right: The common femoral, femoral and popliteal veins are normally compressible, and free of intraluminal thrombus. Color and pulse Doppler demonstrate normal phasic intravascular flow. There is normal augmentation response to distal compression maneuver. Left: The common femoral, femoral and popliteal veins are normally compressible, and free of intraluminal thrombus. Color and pulse Doppler demonstrate normal phasic intravascular flow. There is normal augmentation response to distal compression maneuver. IMPRESSION: No evidence of deep vein thrombosis of the bilateral lower extremities. Dictated by: Rui Preston M.D. on 08/08/2019 at 14:26 Approved by: Rui Preston M.D. on 08/08/2019 at 14:26
--- NOTE | 2019-08-08 14:07 | PM.PN.1 ---
Subjective Subjective Date Patient Seen: 08/08/19 Interval history: Patient is 68-year-old female admitted with symptoms of acute dyspnea due to unprovoked pulmonary embolism. Patient reports improvement in her breathing. She had episode of acute SVT last night terminated with IV metoprolol. She has not had any recurrent SVT. She has not had chest pain. Exam Vital Signs (past 8 hours): - 08/08/19 08:00 08/08/19 11:51 Temperature 97.1 F L 97.5 F L Pulse Rate 78 82 Respiratory Rate 18 18 Blood Pressure 141/75 H 135/64 Pulse Oximetry 97 94 Oxygen Delivery Method Room Air Oxygen Flow Rate 0 Narrative Exam Narrative: General: Alert and pleasant female in no acute distress Lungs: Clear to auscultation Heart: Regular rhythm Abdomen: Soft and nontender Extremities: No edema Objective Labs Result Diagrams: 08/08/19 04:55 08/08/19 04:55 Labs: Laboratory Results - last 24 hr 08/07/19 08/07/19 08/07/19 13:50 13:50 13:50 WBC 9.7 RBC 4.51 Hgb 12.9 Hct 38.3 MCV 84.9 MCH 28.6 MCHC 33.6 RDW 15.3 H Plt Count 328 Neut % (Auto) 70.5 Lymph % (Auto) 20.2 L [place] % (Auto) 8.4 Eos % (Auto) 0.5 L Baso % (Auto) 0.4 Neut # (Auto) 6800 Lymph # (Auto) 2000 [place] # (Auto) 800 Eos # (Auto) 100 Baso # (Auto) 0 PT 13.0 H INR 1.1 APTT 36 ABG pH ABG pCO2 ABG pO2 ABG HCO3 ABG Total CO2 ABG O2 Saturation ABG Base Excess FiO2 Sodium Potassium Chloride Carbon Dioxide BUN Creatinine Estimated GFR BUN/Creatinine Ratio Glucose Lactate Calcium Magnesium 2.2 Total Bilirubin AST ALT Alkaline Phosphatase Total Creatine Kinase 74 CK-MB (CK-2) TNP CK-MB (CK-2) Rel Index TNP Troponin I 0.330 H* B-Natriuretic Peptide 210 H Total Protein Albumin Globulin Albumin/Globulin Ratio Procalcitonin TSH Urine RBC Urine WBC Ur Squamous Epith Cells Urine Bacteria Ur Culture Indicated? 08/07/19 08/07/19 08/07/19 13:50 13:50 13:50 WBC RBC Hgb Hct MCV MCH MCHC RDW Plt Count Neut % (Auto) Lymph % (Auto) [place] % (Auto) Eos % (Auto) Baso % (Auto) Neut # (Auto) Lymph # (Auto) [place] # (Auto) Eos # (Auto) Baso # (Auto) PT INR APTT ABG pH ABG pCO2 ABG pO2 ABG HCO3 ABG Total CO2 ABG O2 Saturation ABG Base Excess FiO2 Sodium 140 Potassium 4.3 Chloride 102 Carbon Dioxide 24 BUN 20 H Creatinine 0.90 Estimated GFR > 60.0 BUN/Creatinine Ratio 22.2 H Glucose 133 H Lactate 2.6 H Calcium 9.7 Magnesium Total Bilirubin 1.1 AST 34 ALT 32 Alkaline Phosphatase 118 Total Creatine Kinase CK-MB (CK-2) CK-MB (CK-2) Rel Index Troponin I B-Natriuretic Peptide Total Protein 7.9 Albumin 4.8 Globulin 3.1 Albumin/Globulin Ratio 1.5 Procalcitonin < 0.05 TSH Urine RBC Urine WBC Ur Squamous Epith Cells Urine Bacteria Ur Culture Indicated? 08/07/19 08/07/19 08/07/19 13:55 15:00 16:25 WBC RBC Hgb Hct MCV MCH MCHC RDW Plt Count Neut % (Auto) Lymph % (Auto) [place] % (Auto) Eos % (Auto) Baso % (Auto) Neut # (Auto) Lymph # (Auto) [place] # (Auto) Eos # (Auto) Baso # (Auto) PT INR APTT ABG pH 7.46 H ABG pCO2 31.1 L ABG pO2 59 L ABG HCO3 22 ABG Total CO2 23 ABG O2 Saturation 92 L ABG Base Excess -2.0 FiO2 21 Sodium Potassium Chloride Carbon Dioxide BUN Creatinine Estimated GFR BUN/Creatinine Ratio Glucose Lactate 1.3 Calcium Magnesium Total Bilirubin AST ALT Alkaline Phosphatase Total Creatine Kinase CK-MB (CK-2) CK-MB (CK-2) Rel Index Troponin I B-Natriuretic Peptide Total Protein Albumin Globulin Albumin/Globulin Ratio Procalcitonin TSH Urine RBC None seen Urine WBC 0-1/hpf Ur Squamous Epith Cells 1-5 /hpf Urine Bacteria Few (2-10) H Ur Culture Indicated? Cult not indicated 08/07/19 08/07/19 08/07/19 21:05 21:05 21:05 WBC 10.9 RBC 4.30 Hgb 12.3 Hct 36.1 MCV 83.8 MCH 28.6 MCHC 34.2 RDW 15.2 H Plt Count 291 Neut % (Auto) 60.2 Lymph % (Auto) 26.8 [place] % (Auto) 11.5 Eos % (Auto) 1.0 L Baso % (Auto) 0.5 Neut # (Auto) 6600 Lymph # (Auto) 2900 [place] # (Auto) 1300 H Eos # (Auto) 100 Baso # (Auto) 100 PT INR APTT ABG pH ABG pCO2 ABG pO2 ABG HCO3 ABG Total CO2 ABG O2 Saturation ABG Base Excess FiO2 Sodium 137 Potassium 4.2 Chloride 103 Carbon Dioxide 26 BUN 19 H Creatinine 0.80 Estimated GFR > 60.0 BUN/Creatinine Ratio 23.8 H Glucose 126 H Lactate Calcium 9.3 Magnesium Total Bilirubin 0.8 AST 31 ALT 28 Alkaline Phosphatase 92 Total Creatine Kinase CK-MB (CK-2) CK-MB (CK-2) Rel Index Troponin I 0.248 H* B-Natriuretic Peptide Total Protein 7.2 Albumin 4.2 Globulin 3.0 Albumin/Globulin Ratio 1.4 Procalcitonin TSH 4.34 Urine RBC Urine WBC Ur Squamous Epith Cells Urine Bacteria Ur Culture Indicated? 08/08/19 08/08/19 08/08/19 04:55 04:55 04:55 WBC 8.0 RBC 4.21 Hgb 11.8 L Hct 36.1 MCV 85.7 MCH 28.1 MCHC 32.8 RDW 15.7 H Plt Count 277 Neut % (Auto) 54.4 Lymph % (Auto) 31.2 [place] % (Auto) 12.2 Eos % (Auto) 1.9 L Baso % (Auto) 0.3 Neut # (Auto) 4400 Lymph # (Auto) 2500 [place] # (Auto) 1000 H Eos # (Auto) 100 Baso # (Auto) 0 PT 13.4 H INR 1.2 APTT 38 H D ABG pH ABG pCO2 ABG pO2 ABG HCO3 ABG Total CO2 ABG O2 Saturation ABG Base Excess FiO2 Sodium 140 Potassium 4.4 Chloride 104 Carbon Dioxide 30 BUN 22 H Creatinine 0.90 Estimated GFR > 60.0 BUN/Creatinine Ratio 24.4 H Glucose 128 H Lactate Calcium 9.6 Magnesium Total Bilirubin AST ALT Alkaline Phosphatase Total Creatine Kinase CK-MB (CK-2) CK-MB (CK-2) Rel Index Troponin I 0.149 H* B-Natriuretic Peptide Total Protein Albumin Globulin Albumin/Globulin Ratio Procalcitonin TSH Urine RBC Urine WBC Ur Squamous Epith Cells Urine Bacteria Ur Culture Indicated? Assessment & Plan Assessment & Plan narrative: Patient is 68-year-old female admitted with symptoms of acute dyspnea due to unprovoked pulmonary embolism. 1. Acute pulmonary embolism, present on admission -bilateral segmental and subsegmental pulmonary embolism on CT angio, no evidence of right heart strain on CT -shortness of breath and hypoxia are improving with therapy -no obvious precipitating factors the patient has severe obesity and knee OA but states she has remained active and has not been sedentary -bilateral venous duplex lower extremity ultrasound, rule out DVT -ambulate as tolerated 2. Acute hypoxic respiratory failure, present on admission -secondary to pulmonary embolism -patient desaturated to 80% with walking in the emergency department, oxygen level improved with 2 L of oxygen -improving, current O2 sat 93% on room air 3. Obstructive sleep apnea, present on admission -continue patient's BiPAP therapy 4. Depression, chronic -continue Effexor, will await med reconciliation to resume her home dose 5. Hypothyroidism, present on admission -resume armor thyroid once her doses available 6. Severe obesity 7. Paroxysmal SVT -patient had episode of acute SVT on night of admission with ventricular rate 180, this was terminated by IV metoprolol, and has not recurred, this is likely secondary to acute PE and hypoxia -continue telemetry monitoring Continue hospital care for acute PE. Patient improving and likely will be able to discharge tomorrow 08/09. Quality VTE Deep Vein Thrombosis/Pulmonary Embolism Present on Admission: Yes
--- NOTE | 2019-08-08 14:52 | CM.DPC ---
Addendum entered by Hodan Smith 08/08/19 14:57: Patient has h/o depression, morbid obesity, and sleep apnea. Original Note: DCP/continued: Reviewed chart. Patient is a 68yr old female admitted to [facility] with SOB. PCP is Lisa Colon. Primary payor is 1)Medicare 2)Self Pay. Met with patient explained CM/SW role. Patient napping at time of visit. Patient took off Bipap during assessment. Patient reports that she resides alone in [place]. Patient has all needed DME and uses cane on occasion. Patient drives on regular basis. At this time there are no identified d/c planning needs. CM team to continue to follow. P: Anticipate home when stable. [facility] Discharge Planning/Care Management CM Discharge Assessment Start: 08/08/19 14:48 Freq: Status: Active Protocol: Document 08/08/19 14:49 KJS (Rec: 08/08/19 14:52 KJS [id number]) Discharge Planning Assessment Assigned Defective Cigarette Slitter [facility] Contact Information Marlene Snow (sister) [phone] Advance Directives? Yes History Provided By Patient,Medical Record Prior Living Arrangements House Household Members none Type of transporation used prior to Drives own vehicle admit Independent with ADL's Yes: Uses cane prn Is patient alert and oriented? Yes Caregiver for Another No DME Already Rented / Owned Cane Comment Bipap for night/sleep use. Barriers to Discharge No Discharge Plan Home Transportation Arrangement Family can provide transport. Whiteboard Updated in Patient Room with Yes name and ext. # of Defective Cigarette Slitter Review Status In Process Next Review Type Continued Stay Review
[2019-08-08] MEDS: VENLAFAXINE ER 75 MG CAP 225 MG PO (18:38)
[2019-08-08] MEDS: APIXABAN 5 MG TABLET 10 MG PO (21:50)
--- NOTE | 2019-08-08 23:32 | PC.NURSE ---
Addendum entered by Taina Ko R.N. 08/09/19 02:59: O2 sat still at 94% on bipap 1L/min oxygen so decreased O2 to 0.5L/min Addendum entered by Taina Ko R.N. 08/09/19 01:59: Currently asleep with bipap + 2L/min oxygen bled in and sat is 94% so decreased oxygen to 1L/min Addendum entered by Taina Ko R.N. 08/09/19 01:21: Noted to have sat of 89-90% while asleep on bipap so O2 started and bled into bipap line. Patient up to bathroom and when back to bed O2 sat on RA was 83% and took 3 minutes resting for sat to be back at 92%. Placed back on bipap + oxygen. Original Note: Patient is alert and oriented. Breath sounds CTA (did have expiratory wheezing initially but resolved with rest); RA sat is 90-93%. Still has SOB with activity and conversation. Will be going on home bipap overnight and will leave on continuous pulse oximetry to monitor for any desats. HRR with last telemetry reading of SR. BP elevated at 150/80. Denies nausea. BT present and abdomen is soft. Chronic urinary urgency and stress incontinence but denies dysuria or frequency. Able to move self in bed. Assisted when out of bed using walker and SBA due to weakness in right knee (chronic). Denies pain. Trace bilateral ankle edema. Fall risk score is moderate; bed alarm is activated for safety.
[2019-08-09 04:55] VITALS: BP 155/81; PULSE 77; RESP 22; TEMP 36.6; O2SAT 97
[2019-08-09 07:40] VITALS: BP 143/75; PULSE 77; RESP 20; TEMP 36.3; O2SAT 94
[2019-08-09] MEDS: SODIUM CHLORIDE 0.9% FLUSH 10 ML IV (08:38)
[2019-08-09] MEDS: MONTELUKAST 10 MG TABLET PO (08:41)
[2019-08-09] MEDS: VENLAFAXINE ER 75 MG CAP 225 MG PO (08:41)
[2019-08-09] MEDS: ENOXAPARIN 80 MG/0.8 ML SYRINGE 140 MG SUBCUT (08:43)
[2019-08-09 09:32] VITALS: O2SAT 94
--- NOTE | 2019-08-09 09:32 | PM.DS.1 ---
History of Present Illness History of Present Illness Chief complaint: shortness of breath Narrative: The patient is a 68-year-old female with a history of obstructive sleep apnea, depression, allergic rhinitis, morbid obesity who was in her usual state of health until 3 days prior to admission. Patient describes feeling fatigued, 2 days ago she noted being very short of breath with minimal activity. She has not had any chest pain or palpitations. She denies any fever or chills. She was seen in February for a right lower extremity pain following a fall but has had no swelling or pain in her lower extremities since that time. She does have chronic arthritis throughout her body. Otherwise she has no or other complaints. Patient has had no recent travel, surgeries, or other risk factors for DVT and PE. The patient was evaluated in the emergency department. She was found to be hypoxic with activity. She underwent a CT angio which revealed bilateral subsegmental pulmonary emboli. Patient is admitted to the hospital at this time for further evaluation. Discharge Providers Provider Date of admission: 08/07/19 15:15 Discharge Date: 08/09/19 Primary care physician: Lisa Colon MD Consults: 08/07/19 13:55 Consult to Respiratory Therapy Evaluate & Treat Comment: Physician Instructions: Evaluate and treat 08/07/19 17:32 Consult to Dietitian, Adult Routine Comment: Reason For Exam: recent weight loss without trying Discharge provider: Alexis Sadler MD Summary Hospital Course Discharge Diagnosis: 1. Acute pulmonary embolism, bilateral lower lobe segmental and subsegmental 2. Acute hypoxic respiratory failure 3. Obstructive sleep apnea 4. Paroxysmal SVT secondary to PE and hypoxia 5. Depression 6. Severe obesity Hospital Course: Patient admitted due to PE and hypoxia with respiratory failure. She presented with dyspnea without pleuritic chest pain. She was started on Lovenox injections then switched to Eliquis on day 2 of hospitalization. Patient felt she had more improvement of symptoms on the Lovenox and requested to go back on Lovenox and then switch to Eliquis once she completes Lovenox treatment. She also had episode of SVT on the evening of admission which has not recurred. Vascular ultrasound was negative for DVT. She is being discharged on 6 more days of Lovenox injection then instructed to start on Eliquis 12 hours after her Lovenox dose. There were no clear precipitating factors for her pulmonary embolism. Patient is advised to remain on anticoagulant therapy for at least 6 months but to consider indefinite anticoagulation therapy due to her higher risk of recurrent thromboembolism. Further management and direction of PCP. On day of discharge patient had O2 sat of 94% at rest. She drops her O2 sats to low 80s with exertion but recovers quickly within a few minutes of rest. I expect her dyspnea and O2 sats to gradually improve over the course of the next couple weeks. She is instructed to take it easy with light activity as tolerated until recheck by her PCP next week. Status at Discharge Cognitive/behavioral status at discharge: oriented Functional status at discharge: independent ambulation Time Spent with Patient Time spent: Greater than 30 minutes Exam Vital Signs (past 8 hours): - 08/09/19 04:55 08/09/19 07:40 08/09/19 09:32 Temperature 97.9 F 97.4 F L Pulse Rate 77 77 Respiratory Rate 22 20 Blood Pressure 155/81 H 143/75 H Pulse Oximetry 97 94 94 Oxygen Delivery Method Room Air Oxygen Flow Rate 0 Objective Labs Result Diagrams: 08/08/19 04:55 08/08/19 04:55 Discharge Plan Discharge Plan Patient Disposition: Home Discharge orders & Medications Prescriptions: New enoxaparin [Lovenox] 80 mg/0.8 mL syringe 140 mg SUBCUT Q12H 6 Days Qty: 16.8 RF: 0 Eliquis 5 mg tablet 5 mg PO BID Qty: 60 RF: 0 Continued montelukast 10 mg tablet 10 mg PO DAILY Qty: 30 RF: 2 venlafaxine [Effexor XR] 150 mg Capsule,Extended Release 24hr 225 mg PO QAM RF: 0 thyroid (pork) [[employer] Thyroid] 90 mg Tablet 90 mg PO DAILY RF: 0 (DME) Respironics Dreamstation BIPAP Qty: 1 RF: 0 Follow up/Referrals: Lisa Colon MD [Primary Care Provider] - Diet/Activity/Treatments Diet: Diet as Tolerated Visit Report/Discharge Packet Instructions: DI for Pulmonary Embolism, How to Prevent Falls, Enoxaparin Injection, Apixaban Visit Report Forms: Stroke Signs & Symptoms Discharge Data Primary Care Provider: Lisa Colon Quality VTE Deep Vein Thrombosis/Pulmonary Embolism Present on Admission: Yes
--- NOTE | 2019-08-09 09:43 | PC.NURSE ---
Assisted pt OOB with SBA. Pt demonstrated proper use of FWW. She denies dizziness/lightheadedness upon standing and with ambulation. Pt was on RA during ambulation with SPO2 monitoring. Pt walked to BR and then hallway and back to bed (~50ft). Breathing was labored/tachypneic with RR 30s. SPO2 decreased to 85% and sustained there during walking. Pt was able to walk back to her room and positioned in bed for comfort with HOB semi-fowlers. Pt required approximately 3 minutes of recovery time before SPO2 increased back to 90%, but remains on RA. Reported to Dr. Sadler and primary RN who is on rounds at bedside at this time.
--- NOTE | 2019-08-09 09:52 | PC.NURSE ---
Addendum entered by Dara Morales R.N. 08/09/19 14:47: Pt left unit at 1447 via wheelchair with JENELLE Vega escort. Pt in no distress. Addendum entered by Dara Morales R.N. 08/09/19 14:42: At 1437, Dr. Sadler notified of CT scan results, Dr in to see pt. Pt does have slight small bump and slight pink to right anterior forehead. VSS, afebrile. Addendum entered by Dara Morales R.N. 08/09/19 14:34: After CT scan, pt brought back to unit into room 211, settled into chair. Awaiting CT scan results. Addendum entered by Dara Morales R.N. 08/09/19 14:19: JENELLE Vega who brought pt down to ED entrance for discharge, helped pt into car and Gary reports that pt had said she had hit her head on the metal support bars while in the shower. Pt remained waiting in car while JENELLE Vega updates this RN with current information of pt hitting her head. Dr. Sadler notified at 1412, order for CT head placed by Dr. VegaRN notified to bring pt back out of car from discharge and straight to CT scan. Addendum entered by Dara Morales R.N. 08/09/19 14:06: No further voiced concerns, pt had indep shower using shower chair after lunch. Pt's friend present to drive her home. Pt left unit in no distress with all belongings at 1403 via wheelchair with RN escort. Addendum entered by Dara Morales R.N. 08/09/19 11:36: At 1120, discharge summary packet reviewed with pt, questions answered. F/U appointment called to PCP and made for this Sunday 08/12 at 1000 Am, pt aware. Plan for lunch then, shower and pt's friend will pick her up around 1345. Original Note: Day Shift- Pt A&OX4, able to make needs known using call light. Denies pain or nausea, chest pain or pressure. Slight SOB on rest intermittent, SOBOE. Plan for ambulation O2 sat trial. Lovenox teaching complete and pt able to properly demonstrate lovenox administration, instructions added to discharge summary. Pt states is comfortable with performing the sq injections at home. Call light within reach.
[2019-08-09] MEDS: THYROID, PORK 60 MG TABLET 90 MG PO (11:10)
--- NOTE | 2019-08-09 14:24 | DI.CT.S_ITS ---
PROCEDURE: CT HEAD/BRAIN WO CON INDICATIONS: ground level fall TECHNIQUE: Noncontrast 4.5 mm thick angled axial sections acquired from the foramen magnum to the vertex, with coronal and sagittal reformats. For radiation dose reduction, the following was used: automated exposure control, adjustment of mA and/or kV according to patient size. COMPARISON: None. FINDINGS: Image quality: Excellent. CSF spaces: Basal cisterns are patent. No extra-axial fluid collections. The ventricles are symmetric in size and shape. Brain: No intracranial bleeds or masses. There is cerebral volume loss for age, with resultant ventricular and sulcal prominence. There are periventricular and deep white matter chronic small vessel ischemic changes. There is intracranial internal carotid artery atherosclerosis. Skull and face: Calvarium and visualized facial bones appear intact, without suspicious lesions. Sinuses: Visualized sinuses and mastoids are clear. IMPRESSION: No trauma found, no intracranial hemorrhage present. Dictated by: Jp Zavala M.D. on 08/09/2019 at 14:32 Approved by: Jp Zavala M.D. on 08/09/2019 at 14:33
--- NOTE | 2019-08-09 14:34 | PC.NURSE ---
Pt transferred to w/c independently as was being escorted to [facility] for d/c by this RN. After transferring from w/c to car, pt states I forgot to mention that I bumped by head 'ever so slightly' on the shower bar while leaning forward to get my washcloth. Pt reports feeling a bruise forming on right side of forehead. No obvious bruising noted at this time. Pt requests to wait in car for further instruction. Notified primary RN and reported to Dr. Sadler who orders head CT. Assisted pt from car to w/c and escorted to CT and then back to acute care rm 211 to await results. Pt is in no acute distress.
[2019-08-09 14:43] VITALS: BP 141/82; PULSE 83; RESP 22
== END 2019-08-09 14:47 | disposition home or self-care (01) | DRG 175 ==
LOC: ED 15:14 → AC 15:16
PROVIDERS: Nurse Practitioner Family; Admitting Provider Internal Medicine; Emergency Provider Emergency Medicine; PCP Internal Medicine; Visit Provider Internal Medicine
DX: I26.94 Multiple subsegmental thrombotic pulmonary emboli without acute cor pulmonale (principal); J96.01 Acute respiratory failure with hypoxia; I21.A1 Myocardial infarction type 2; Z68.43 Body mass index [BMI] 50.0-59.9, adult; I47.1 Supraventricular tachycardia; E66.01 Morbid (severe) obesity due to excess calories; G47.33 Obstructive sleep apnea (adult) (pediatric); E03.9 Hypothyroidism, unspecified; F32.9 Major depressive disorder, single episode, unspecified; S00.83XA Contusion of other part of head, initial encounter; W01.198A Fall on same level from slipping, tripping and stumbling with subsequent striking against other object, initial encounter; Y93.E1 Activity, personal bathing and showering; Y92.231 Patient bathroom in hospital as the place of occurrence of the external cause
CPT/HCPCS: 36415; 36600; 70450; 71275; 80048; 80053; 81003; 81015; 82550; 82805; 83605; 83735; 83880; 84145; 84443; 84484; 85025; 85610; 85730; 93005; 93970; 94762; 96372; 99285; J1650; Q9967

== ENCOUNTER → 2019-08-12 16:32 | Outpatient (ROUT) | payer MEDICARE, SELFPAY ==
[2019-08-07 17:16] VITALS: BMI 50.5
[2019-08-12 16:41] LABS: Add Manual Diff / Slide Review NO; Basophils Absolute Auto 0 /uL (0-100); Basophils Percent Auto 0.3 % (0-2); Eosinophils Absolute Auto 100 /uL (0-450); Eosinophils Percent Auto 1.6 % (2-4); Hematocrit 35.6 % (36-46); Hemoglobin 11.8 g/dL (12.0-16.0); Lymphocytes Absolute Auto 1700 /uL (1100-4500); Lymphocytes Percent Auto 21.5 % (25-40); Mean Corpuscular Hemoglobin 28.2 PG (26-34); Mean Corpuscular Volume 85.5 fL (80-100); Monocytes Absolute Auto 900 /uL (0-900); Monocytes Percent Auto 10.8 % (3-14); Neutrophils Absolute Auto 5200 /uL (1500-7000); Neutrophils Percent Auto 65.8 % (50-75); Platelet Count 301 X10^3/uL (150-400); Red Blood Cell Count 4.17 X10^6/uL (4.0-5.2); Red Cell Distribution Width 15.4 % (11.6-14.8); White Blood Cell Count 7.9 X10^3/uL (4.5-11.0)
[2019-08-12 16:49] LABS: Alanine Aminotransferase 26 IU/L (<35); Albumin 4.3 g/dL (3.5-5.0); Albumin Globulin Ratio 1.7 (1.0-2.8); Alkaline Phosphatase 107 U/L (38-126); Amylase 56 U/L (30-110); Aspartate Aminotransferase 33 IU/L (14-36); BUN Creatinine Ratio 21.3 (6-22); Blood Urea Nitrogen 17 mg/dL (7-17); Calcium 9.6 mg/dL (8.4-10.2); Carbon Dioxide 27 mmol/L (22-32); Chloride 100 mmol/L (98-107); Estimated Glomerular Filt Rate > 60.0 mL/min (>60); Globulin 2.6 g/dL (1.7-4.1); Glucose 97 mg/dL (80-110); HEMOLYSIS < 15 (0-50); Lipase 57 U/L (23-300); Potassium 4.4 mmol/L (3.4-5.1); Sodium 137 mmol/L (137-145); Total Protein 6.9 g/dL (6.3-8.2)
[2019-08-12 16:58] LABS: B Type Natriuretic Peptide < 100 (<100)
== END ==
PROVIDERS: PCP Internal Medicine; Visit Provider Internal Medicine
DX: R79.89 Other specified abnormal findings of blood chemistry (principal); R10.9 Unspecified abdominal pain; R06.00 Dyspnea, unspecified
CPT/HCPCS: 80053; 82150; 83690; 83880; 85025

== ENCOUNTER → 2019-09-27 12:53 | Outpatient (CLI) | payer MEDICARE, SELFPAY ==
[2019-08-07 17:16] VITALS: BMI 50.5
--- NOTE | 2019-09-27 | DI.MG.S_ITS ---
BILATERAL DIGITAL DIAGNOSTIC MAMMOGRAM 3D/2D: 09/27/2019 CLINICAL: Palpable left breast lump. Comparison is made to exams dated: 01/07/2018 mammogram - [facility], 04/10/2016 mammogram, and [facility]. The tissue of both breasts is predominantly fatty. There are two adjacent regions of grouped calcifications in the right breast central to the nipple middle depth. No other significant masses, calcifications, or other findings are seen in either breast. IMPRESSION: SUSPICIOUS OF MALIGNANCY The grouped calcifications in the right breast are at a low suspicion for malignancy. A double stereotactic biopsy is recommended. There is no mammographic finding in the left breast to correspond with the palpable area. A targeted ultrasound of the left breast is recommended and will be performed immediately following this exam. This exam was interpreted at Station ID: [id number]. NOTE: For mammograms, a report in lay terms will be sent to the patient. Approximately 15% of breast malignancies will not be visualized mammographically. In the management of a palpable breast mass, a negative mammogram must not discourage biopsy of a clinically suspicious lesion. Electronically Signed By: Corrine fernandez/:09/27/2019 14:23:52 letter sent: Biopsy Required ACR BI-RADS Category 4a: Suspicious abnormality - low suspicion for malignancy 3344F
--- NOTE | 2019-09-27 | DI.US.S_ITS ---
ULTRASOUND OF LEFT BREAST: 09/27/2019 CLINICAL: Palpable left breast lump. Comparison is made to exams dated: 09/27/2019 mammogram, 01/07/2018 ultrasound, 01/07/2018 mammogram - [facility], and [facility] Ultrasound of the left breast was performed on the area of interest. Bella scale images of the real-time examination were reviewed. There is a 0.7 cm x 0.2 cm irregular mass within the skin of the the left breast at 4 o'clock middle depth. This corresponds as palpated. IMPRESSION: BENIGN There is no sonographic evidence of malignancy. The 0.7 cm x 0.2 cm irregular mass in the left breast is consistent with a sebaceous cyst and is benign. Clinical follow up recommended. A 1 year screening mammogram is recommended. This exam was interpreted at Station ID: [id number]. Electronically Signed By: Corrine fernandez/:09/27/2019 16:41:45 letter sent: Clinical Evaluation Ultrasound BI-RADS: 2 Benign
== END ==
PROVIDERS: PCP Internal Medicine; Referring Provider Internal Medicine; Visit Provider Internal Medicine
DX: R92.8 Other abnormal and inconclusive findings on diagnostic imaging of breast (principal); R92.1 Mammographic calcification found on diagnostic imaging of breast; N63.23 Unspecified lump in the left breast, lower outer quadrant
CPT/HCPCS: 76642; 77066; G0279

== ENCOUNTER → 2019-10-21 15:54 | Outpatient (CLI) | payer MEDICARE, SELFPAY ==
[2019-08-07 17:16] VITALS: BMI 50.5
[2019-10-21 18:42] LABS: Carcinoembryonic Antigen 1.7 ng/mL (0.1-3.0)
[2019-10-25 16:00] LABS: CA 15-3 4 U/mL (< 32); Cancer Antigen 27.29 14 U/mL (< 38)
== END ==
PROVIDERS: PCP Internal Medicine; Referring Provider Internal Medicine; Visit Provider Internal Medicine
DX: C50.919 Malignant neoplasm of unspecified site of unspecified female breast (principal)
CPT/HCPCS: 36415; 82378; 86300

== ENCOUNTER → 2020-03-26 12:21 | Outpatient (CLI) | payer MEDICARE, SELFPAY ==
[2019-08-07 17:16] VITALS: BMI 50.5
--- NOTE | 2020-03-26 12:32 | DI.CT.S_ITS ---
PROCEDURE: CT ANGIO CHEST PE PROTOCOL INDICATIONS: PERSONAL HISTORY PULM EMBOLISM TECHNIQUE: After the administration of intravenous contrast, 2 mm thick sections acquired from the pulmonary apices to the posterior costophrenic angles. 3-dimensional maximum intensity projection (MIP) coronal and sagittal reformats were then acquired through the thorax. For radiation dose reduction, the following was used: automated exposure control, adjustment of mA and/or kV according to patient size. COMPARISON: [facility], CR, CHEST 2 VIEW, 02/10/2017, 12:00. [facility], CT, CT ANGIO CHEST PE PROTOCOL, 08/07/2019, 14:28. FINDINGS: Image quality: Suboptimal opacification of pulmonary arteries. Pulmonary arteries: Large filling defects involving the right lobar artery and bilateral segmental arteries are largely resolved. Subtle filling defects involving the right lower lobe subsegmental arteries may. Pulmonary arteries are normal in size. Lungs and pleura: Lungs are clear. No pleural effusions or pneumothorax. Central and peripheral airways are patent. Mediastinum: Heart size is normal, without pericardial effusion. No mediastinal or hilar adenopathy. Thoracic aorta is normal in caliber and enhancement. Esophagus is normal in caliber. There is a small hiatal hernia. Bones and chest wall: No suspicious bony lesions. Ribs and thoracic spine appear intact throughout. Thyroid gland is normal . No axillary or supraclavicular adenopathy. Abdomen: Visualized upper abdominal solid organs appear normal in the early arterial phase of enhancement. IMPRESSION: 1. There is significant improvement since the last exam. Large filling defects in central pulmonary arteries bilaterally seen on the last exam are no longer present. There are small filling defects in subsegmental arteries of the right lower lobe, suspicious for mild residual PE or chronic PE. 2. Mild mosaic attenuation in lungs bilaterally. Differential diagnosis include hypersensitivity pneumonitis, small airway disease and chronic thromboembolic pulmonary hypertension (CTEPH). Dictated by: Shaan Hutchins M.D. on 03/26/2020 at 15:44 Approved by: Shaan Hutchins M.D. on 03/26/2020 at 16:06
[2020-03-26 13:13] LABS: Hemoglobin A1C% w Est Avg Glu 5.6 % (4.0-6.0)
[2020-03-26 13:40] LABS: Alanine Aminotransferase 21 IU/L (<35); Albumin 4.2 g/dL (3.5-5.0); Albumin Globulin Ratio 1.3 (1.0-2.8); Alkaline Phosphatase 109 U/L (38-126); Aspartate Aminotransferase 21 IU/L (14-36); BUN Creatinine Ratio 25.3 (6-22); Bilirubin Total 0.8 mg/dL (0.2-1.3); Blood Urea Nitrogen 20 mg/dL (7-17); Calcium 9.6 mg/dL (8.4-10.2); Carbon Dioxide 25 mmol/L (22-32); Chloride 105 mmol/L (98-107); Estimated Glomerular Filt Rate > 60.0 mL/min (>60); Globulin 3.3 g/dL (1.7-4.1); Glucose 103 mg/dL (80-110); HEMOLYSIS < 15 (0-50); Potassium 4.1 mmol/L (3.4-5.1); Sodium 138 mmol/L (137-145); Total Protein 7.5 g/dL (6.3-8.2)
[2020-03-26 14:23] LABS: TSH w/ Reflex to FT4 5.28 uIU/mL (0.47-4.68)
[2020-03-26 14:54] LABS: Free T4, Direct Thyroxine 0.87 ng/dL (0.78-2.19)
[2020-03-30 14:12] LABS: Antithrombin Activity 165 % (75-135); Antithrombin Antigen 120 % (72-124); Protein C-Functional 158 % (73-180); Protein S-Functional 138 % (63-140)
[2020-03-31 06:11] LABS: Dil Russell Viper Venom Conf 1.1 ratio (0.8-1.2); Dilute Russell Viper Venom 81.3 sec (0.0-47.0); Dilute Russell Viper Venom Mix 55.1 sec (0.0-47.0); Lupus Reflex Interpretation Comment: (.); PTT-LA 38.5 sec (0.0-51.9)
[2020-04-17 08:02] LABS: Cardiolipin IgA NEGATIVE
[2020-04-17 08:03] LABS: Interpretation NEGATIVE
== END ==
PROVIDERS: PCP Internal Medicine; Referring Provider Internal Medicine; Visit Provider Internal Medicine
DX: Z09 Encounter for follow-up examination after completed treatment for conditions other than malignant neoplasm (principal); Z86.711 Personal history of pulmonary embolism; R91.8 Other nonspecific abnormal finding of lung field; C50.911 Malignant neoplasm of unspecified site of right female breast; E03.9 Hypothyroidism, unspecified; E78.5 Hyperlipidemia, unspecified
CPT/HCPCS: 36415; 71275; 80053; 81241; 83036; 83520; 84439; 84443; 85300; 85301; 85303; 85306; 85598; 85613; 86147

== ENCOUNTER → 2020-06-05 12:06 | Outpatient (CLI) | payer MEDICARE, SELFPAY ==
[2019-08-07 17:16] VITALS: BMI 50.5
[2020-06-06 14:42] LABS: COVID19 Sendout Not Detected (Not Detect)
== END ==
PROVIDERS: PCP Internal Medicine; Visit Provider Nurse Practitioner
DX: Z11.59 Encounter for screening for other viral diseases (principal)
CPT/HCPCS: 87635

== ENCOUNTER → 2020-06-05 15:03 | Outpatient (CLI) | payer MEDICARE, SELFPAY ==
[2019-08-07 17:16] VITALS: BMI 50.5
--- NOTE | 2020-06-05 | DI.ECHO.S_ITS ---
[facility]---------+ [facility] +---------+ : : [address] [place] : : : : [id number] : : : : Phone: [phone]+ Echocardiogram Report + + :Name: UZIEL SHARMA Study Date: 06/05/2020 Height: 66 in : :[facility] Weight: 315 lb : : Gender: Female BSA: 2.4 m2 : :: 1950 Age: 69 yrs BP: 156/92 mmHg: :Reason For Study: PULMONARY EMBOLISM WITHOUT COR PULMONALE : :Ordering Physician: CB LO : : Performed By: Norah Bah : :Referring: CB LO MD : + + Interpretation Summary The ejection fraction is estimated to be 60-65%. The right ventricle is normal in size and function. The calculated aortic valve area is 1.8 cm2. Pulmonary artery pressures cannot be estimated because of the lack of a measurable TR jet velocity but the IVC suggests a CVP of around 3 mmHg. Procedure: A two-dimensional transthoracic echocardiogram with color flow and Doppler was performed. The study quality was technically adequate. There is no prior echocardiogram noted for this patient. The patient was in sinus rhythm with heart rates between 83-90 bpm during the exam. Left Ventricle: The left ventricle is normal in size. Left ventricular wall thickness is mildly increased. The ejection fraction is estimated to be 60- 65%. Left ventricular wall motion is normal. Diastolic parameters suggest probable normal left ventricular diastolic function and normal filling pressures. Right Ventricle: The right ventricle is normal in size and function. Atria: Both atria are normal in size. There is no Doppler evidence for an interatrial shunt. Mitral Valve: The mitral valve is normal in structure and function. There is trace mitral regurgitation. Aortic Valve: The aortic valve is not well visualized. There is mild aortic valve sclerosis. The peak aortic velocity is 2.6 m/sec. The aortic valve mean gradient is 13 mmHg. The calculated aortic valve area is 1.8 cm2. No aortic regurgitation is present. Tricuspid Valve: The tricuspid valve is not well visualized, but is grossly normal. Pulmonary artery pressures cannot be estimated because of the lack of a measurable TR jet velocity but the IVC suggests a CVP of around 3 mmHg. No tricuspid regurgitation. Pulmonic Valve: The pulmonic valve is not well visualized. There is trace pulmonic regurgitation. Great Vessels: The aortic root is normal size. The ascending aorta is at the upper limits of normal in size. The IVC is of normal diameter and collapses greater than 50% with a sniff. This suggests a low right atrial pressure of 3 mm Hg. Pericardium/ Pleura There is no pericardial effusion. There is an anterior echo-free space consistent with a fat pad. There is no pleural effusion. MMode/2D Measurements & Calculations LVIDd: 4.8 cm LVOT diam: 2.1 cm LVIDs: 3.0 cm Ao root diam: 2.8 cm FS: 37.2 % asc Aorta Diam: 3.4 cm IVSd: 1.1 cm Ao Arch Diam (Prox Trans): 3.2 cm LVPWd: 1.2 cm LV butler. diameter/BSA (cm/m^2): 2.0 LV sys. diameter/BSA (cm/m^2): 1.2 LA A2 area: 21.2 cm2 RA long axis: 4.8 cm LA A4 area: 15.5 cm2 RA area: 12.2 cm2 LA length (vol): 5.4 cm RA vol: 26.6 ml LA vol: 51.7 ml RA : 11.0 ml/m2 LA vol index: 21.3 ml/m2 IVC diam: 1.8 cm RVD1 (basal): 3.2 cm TAPSE: 1.8 cm Doppler Measurements & Calculations Ao V2 max: 255.0 cm/sec LVOT Max Chas: 131.0 cm/sec Ao V2 mean: 167.0 cm/sec LV V1 max P.9 mmHg Ao max P.0 mmHg LV V1 VTI: 24.6 cm Ao mean P.9 mmHg INGRID(I,D): 2.0 cm2 Ao V2 VTI: 44.3 cm INGRID(V,D): 1.8 cm2 sev ratio: 0.55 INGRID indexed to BSA (cm^2/m^2): 0.82 MV E max chas: 85.2 cm/sec PA V2 max: 100.1 cm/sec MV A max chas: 83.6 cm/sec PA V2 mean: 63.7 cm/sec MV E/A: 1.0 PA mean P.0 mmHg Med Peak E' Chas: 6.6 cm/sec PA pr(Accel): 55.0 mmHg E/E' med: 12.9 Lat Peak E' Chas: 7.1 cm/sec E/E' lat: 12.0 E/e' average: 12.5 MV dec time: 0.17 sec SV(LVOT): 87.6 ml Reading Physician:04:34 PM
== END ==
PROVIDERS: PCP Internal Medicine; Referring Provider Internal Medicine Pulmonary Disease; Visit Provider Internal Medicine Pulmonary Disease
DX: I26.99 Other pulmonary embolism without acute cor pulmonale (principal)
CPT/HCPCS: 93306

== ENCOUNTER → 2020-06-07 11:07 | Outpatient (CLI) | payer MEDICARE, SELFPAY ==
[2019-08-07 17:16] VITALS: BMI 50.5
--- NOTE | 2020-06-07 | DI.RAD.S_ITS ---
PROCEDURE: XR CHEST 2V INDICATIONS: Other disorders of lung TECHNIQUE: 2 views of the chest were acquired. COMPARISON: [facility], CR, CHEST 2 VIEW, 02/10/2017, 12:00. [facility], CT, CT ANGIO CHEST PE PROTOCOL, 08/07/2019, 14:28. FINDINGS: Surgical changes and devices: None. Lungs and pleura: There is right hemidiaphragm elevation and right basilar atelectasis. Lungs are clear. No pleural effusions or pneumothorax. Mediastinum: Mediastinal contours are normal. Heart size is normal. Bones and chest wall: No suspicious bony abnormalities. Soft tissues appear unremarkable. IMPRESSION: No acute cardiopulmonary disease. Dictated by: Shaan Hutchins M.D. on 06/07/2020 at 12:25 Approved by: Shaan Hutchins M.D. on 06/07/2020 at 12:26
--- NOTE | 2020-06-07 | DI.NM.S_ITS ---
PROCEDURE: NM PUL VENT AND PERFUSION RADIOPHARMACEUTICAL: Less than 4 mCi Tc-99m DTPA aerosol by inhalation and 9.8 mCi Tc-99m MAA intravenously. INDICATIONS: Other disorders of lung TECHNIQUE: Ventilation images were obtained first with Tc-99m DTPA aerosol. Subsequently, perfusion images were acquired after intravenous injection of Tc-99m MAA. Anterior, posterior, TOURE, INDIAN, RPO, LPO, left and right lateral views were obtained. COMPARISON: [facility], CT, CT ANGIO CHEST PE PROTOCOL, 03/26/2020, 13:44. [facility], CR, XR CHEST 2V, 06/07/2020, 11:50. FINDINGS: The comparison chest x-ray dated 06/07/2020 demonstrates no pulmonary infiltrate or pleural effusion. Technetium 99m DTPA aerosol ventilation images demonstrate mild central airway deposition of aerosol. There is otherwise for physiological distribution activity bilaterally. Perfusion images demonstrate no pleural based, segmental or subsegmental ventilation perfusion mismatches. Minor non pleural-based perfusion irregularities are noted. There is is swallowed activity in stomach. IMPRESSION: 1. Very low probability for pulmonary embolism. 2. Mild central airway deposition of aerosol may be secondary to reactive airway disease. Dictated by: Shaan Hutchins M.D. on 06/07/2020 at 15:22 Approved by: Shaan Hutchins M.D. on 06/07/2020 at 15:29
--- NOTE | 2020-06-15 17:23 | PM.PFT.1 ---
Pulmonary Function Test Referral & Results Date Patient Seen: 06/07/20 Requesting provider: Lorri Alvarenga Results: The spirometry demonstrates an FVC of 2.66 L which is 81% of predicted. The FEV1 was measured at 2.16 L which is 86% of predicted. The FEV1/FVC ratio was 81 which is 106% of predicted. Following the administration of bronchodilator there was no appreciable change. Lung volumes show an SVC of 2.70 L which is 87% of predicted. The diffusing capacity was measured at 21.64 which is 80% of predicted. No hemoglobin value was provided, so no correction for potential anemia could be made, if appropriate. The maximum voluntary ventilation was reduced Interpretation: This study demonstrates normal spirometry but reduced diffusing capacity as above. This suggest element of disease at the capillary alveolar level
== END ==
PROVIDERS: PCP Internal Medicine; Referring Provider Internal Medicine Critical Care Medicine; Visit Provider Internal Medicine Pulmonary Disease
DX: J98.4 Other disorders of lung (principal); R06.00 Dyspnea, unspecified; Z87.891 Personal history of nicotine dependence
CPT/HCPCS: 71046; 78582; 94060; 94726; 94729; A9539; A9540

== ENCOUNTER → 2020-08-09 10:09 | Outpatient (CLI) | payer MEDICARE, SELFPAY ==
[2019-08-07 17:16] VITALS: BMI 50.5
[2020-08-09 10:34] LABS: COVID19 -Nasal RAPID Negative (Negative)
== END ==
PROVIDERS: PCP Internal Medicine; Visit Provider Physician Assistant
DX: R50.9 Fever, unspecified (principal); Z20.828 Contact with and (suspected) exposure to other viral communicable diseases; N30.01 Acute cystitis with hematuria
CPT/HCPCS: 87086; 87635

== ENCOUNTER → 2020-09-07 11:39 | Outpatient (CLI) | payer OTHER, SELFPAY ==
[2020-08-23 11:34] VITALS: BMI 50.5
[2020-09-07 14:34] LABS: COVID19 -Nasal RAPID Negative (Negative)
== END ==
PROVIDERS: PCP Internal Medicine; Visit Provider Physician Assistant
DX: Z20.822 Contact with and (suspected) exposure to COVID-19 (principal)
CPT/HCPCS: 87635

== ENCOUNTER → 2020-10-02 14:54 | Outpatient (ROUT) | payer OTHER, SELFPAY ==
[2020-08-23 11:34] VITALS: BMI 50.5
[2020-10-02 16:15] LABS: TSH w/ Reflex to FT4 3.21 uIU/mL (0.47-4.68)
== END ==
PROVIDERS: PCP Internal Medicine; Visit Provider Internal Medicine
DX: E03.9 Hypothyroidism, unspecified (principal)
CPT/HCPCS: 84443

== ENCOUNTER → 2020-11-01 14:15 | Outpatient (CLI) | payer OTHER, SELFPAY ==
[2020-08-23 11:34] VITALS: BMI 50.5
== END ==
PROVIDERS: PCP Internal Medicine; Referring Provider Internal Medicine; Visit Provider Internal Medicine
DX: M85.852 Other specified disorders of bone density and structure, left thigh (principal); Z78.0 Asymptomatic menopausal state; E07.9 Disorder of thyroid, unspecified; Z82.62 Family history of osteoporosis; Z85.3 Personal history of malignant neoplasm of breast
CPT/HCPCS: 77080

== ENCOUNTER → 2020-11-26 18:20 | Outpatient (CLI) | payer OTHER, SELFPAY ==
[2020-08-23 11:34] VITALS: BMI 50.5
== END ==
PROVIDERS: PCP Internal Medicine; Visit Provider Physician Assistant
DX: N30.01 Acute cystitis with hematuria (principal)
CPT/HCPCS: 87077; 87086; 87186

== ENCOUNTER → 2020-12-03 13:49 | Outpatient (CLI) | payer OTHER, SELFPAY ==
[2020-08-23 11:34] VITALS: BMI 50.5
[2020-12-03 15:59] LABS: COVID19 -Nasal RAPID Negative (Negative)
== END ==
PROVIDERS: PCP Internal Medicine; Visit Provider Student in an Organized Health Care Education/Training Program
DX: Z20.822 Contact with and (suspected) exposure to COVID-19 (principal)
CPT/HCPCS: 87635; C9803

== ENCOUNTER 2020-12-05 12:31 | Day surgery (SDC) | payer OTHER, SELFPAY ==
[2020-08-23 11:34] VITALS: BMI 50.5
--- NOTE | 2020-12-04 19:21 | PM.PREOP ---
Pre-operative Note COVID-19 COVID-19 status: Negative Interval Note History & Physical reviewed/Exam performed by Physician: Yes Changes to H&P: No
--- NOTE | 2020-12-05 07:55 | P.OP_ITS ---
Operative Date/Time/Diagnoses Date of procedure: 12/05/20 Time of procedure: 12:45 Procedure & Clinicians Procedure: Preoperative diagnoses: 1. Left advanced Nuclear sclerotic cataract 2. Astigmatism which is to be corrected with a toric intraocular lens implant. 3. Morbid obesity. 4. History of resolved pulmonary embolism on Eliquis which she has stopped for 2 days for surgery. 5. History of breast cancer with lymphedema. 6. Sarcoidosis. Postoperative diagnoses: 1. Cataract removal with phacoemulsification with toric posterior chamber intraocular lens implant placed. Procedure: Phacoemulsification with posterior chamber toric intraocular lens implant. Surgeon: Carol Warren MD Complications: None Specimen: None Implant: [id number]+19.5 [place] 092. Blood loss: None Anesthesia: Retrobulbar with monitored standby Description of procedure: Patient presents with a complaint of decreased vision distance and near due to cataract which is affecting activities of daily living. The patient wants surgery to improve vision and astigmatism. She unde rstands extra risk of surgery during the COVID-19 epidemic and desires to proceed. She is tested negative for covered 19 virus within 72 hours of the procedure. She is morbidly obese and is a challenge to position. The patient was taken to the operating room and proparacaine drops placed. Indelible ink jimenez were placed at the 90 and 180 degree meridian. The patient was placed on the operating room table and given IV sedation. A retrobulbar block insert consisting of 6 cc of 2% xylocaine without epinephrine mixed half and half with 0.5% Marcaine with 1 cc of hyaluronidase added is placed between the medial and lateral 1/3 of the inferior orbital rim. The eye is manually massaged for 30 sec, prepped using Betadine solution, and draped in the usual sterile fashion. Temporal approach was made, a 1 mm side-port incision was made 90? from the proposed corneal wound. Phenylephrine 1.5% mixed with 1% xylocaine 0.2 cc was placed into the anterior chamber. Viscoat followed by Boubacar was then placed. A 2.6 mm clear incision with a 2.6 mm blade was placed at the 170 degree meridian. A 360 degree capsulorrhexis style capsulotomy was then performed with a cystitome needle on a Healon. Hydrodelineation and hydrodissection were performed. The phacoemulsification unit is introduced, and sculpting used to groove the central lens. It is then removed in chopping mode. Epi nucleus is removed with epinuclear mode and irrigation aspiration was used to remove the peripheral cortex. The posterior capsule is polished. The intraocular lens is selected, inspected, power confirmed, and placed in the posterior chamber at the desired meridian of 092 degrees. The pupil was not constricted. The wound was stromally hydrated and tested for leaks, there was none and it was left sutureless. Vigamox 0.1 cc was placed into the anterior chamber. Kenalog 0.2 cc was placed in the superior subconjunctival space. A drop of antibiotic and was placed and the eye was patched and shielded. The patient was stable and returned to the recovery room in excellent condition. Dictated by: Carol Warren MD Copy to: [facility] Same procedure as scheduled: Yes
[2020-12-05 12:52] VITALS: BP 163/78; PULSE 99; RESP 16; TEMP 37.4; O2SAT 97; BMI 52.2
[2020-12-05] MEDS: PROPARACAINE 0.5% OPHTH SOL 2 DROPS EYE-OP (12:55)
[2020-12-05] MEDS: CATARACT EYE COMPOUND (10 DROPS/SYRINGE) 3 DROPS EYE-OP (13:00)
[2020-12-05] MEDS: LIDOCAINE 2% 4 ML, BUPIVACAINE 0.5% (PF) 4 ML, HYALURONIDASE 150 UNIT INJ (14:12)
[2020-12-05] MEDS: TRIAMCINOLONE 50 MG/5 ML VIAL INJ (14:13)
[2020-12-05] MEDS: PHENYLEPHRINE/LIDOCAINE VIAL (OR) 0.2 ML EYE-OP (14:13)
[2020-12-05] MEDS: MOXIFLOXACIN INJ 4 MG/0.8 ML VIAL 0.5 MG EYE-OP (14:14)
[2020-12-05] MEDS: HYALURONATE SODIUM 10 MG/ML SYRINGE INJ (14:14)
[2020-12-05] MEDS: BALANCED SALT IRRIG SOLN NO.2 500 ML, EPINEPHrine 1 MG IRR (14:14)
[2020-12-05] MEDS: CHONDROIDTIN/SOD HYALURONATE 1.05 ML SYRINGE INTRAOCULA (14:15)
[2020-12-05] MEDS: ERYTHROMYCIN OPHTH 1 GM OINT 1 APPLIC EYE-LEFT (14:15)
[2020-12-05 14:40] VITALS: BP 179/83; PULSE 77; RESP 18; TEMP 36.6; O2SAT 100
== END 2020-12-05 14:55 | disposition home or self-care (01) ==
LOC: OR 12:33
PROVIDERS: PCP Internal Medicine; Referring Provider Ophthalmology; Visit Provider Ophthalmology
PROC: (CPT 66984; principal; 2020-12-05 13:15)
DX: H25.12 Age-related nuclear cataract, left eye (principal); H52.202 Unspecified astigmatism, left eye; Z86.711 Personal history of pulmonary embolism; Z79.01 Long term (current) use of anticoagulants; D86.9 Sarcoidosis, unspecified
CPT/HCPCS: 66984; J0171; J2704; J3301; J3470; V2787

== ENCOUNTER 2020-12-13 14:30 | Outpatient (RCR) | payer OTHER, SELFPAY ==
[2020-08-23 11:34] VITALS: BMI 50.5
--- NOTE | 2020-10-11 17:55 | PT.OIE ---
Current Diagnoses Malignant neoplasm of unspecified site of unspecified female breast (10/11/20) Lymphedema, not elsewhere classified (10/11/20) Soft tissue disorder, unspecified (10/11/20) Past Medical History (Last Updated 08/09/20 @ 10:37 by Donya Leal PA-C) Depression Febrile illness Hypothyroidism Morbid obesity with BMI of 40.0-44.9, adult Morbid obesity with body mass index (BMI) of 50.0 to 59.9 in adult Obstructive sleep apnea of adult Primary insomnia Snoring UTI (urinary tract infection) Past Surgical History (Last Updated 08/07/19 @ 17:21 by Merle Neville MD) H/O exploratory laparotomy Visit Care Team Role Provider Type Avani Chavez MD Primary Care Provider Physician Specialty: Internal Medicine Address: [address] [place] [address], [facility] Email: [email or web address] Ramya Murphy PA-C Attending Provider Non-Staff Referring Provider Specialty: Medical Address: [address] [place] [address], [place]: [id number], [place], [address] Email: Physical Therapy Initial Evaluation PT-OP-A Visit Information Start: 10/04/20 08:09 Freq: Status: Active Protocol: Document 10/11/20 14:33 SAK (Rec: 10/11/20 15:05 SAK [id number]) Out-Patient Physical Therapy Visit Information Visit Information Visit Type Initial Evaluation Visit Start Time 14:33 Visit Stop Time 15:56 Total Visit Minutes 83 Visit Number 1 Number of FORENSIC ECONOMIST Visits 0 Evaluation Information Evaluation Date 10/11/20 Precautions Precautions Patient to start radiation therapy soon; has prep appointment 10/15/20 PT-OP-B Current Condition Start: 10/04/20 08:09 Freq: Status: Active Protocol: Document 10/11/20 14:33 SAK (Rec: 10/11/20 15:05 SAK [id number]) Current Condition History of Current Condition Onset Date 1 month Current Complaints cording, pain, swelling right UE History of Current Condition lumpectomy 09/11/20, started to notice cording in right UE 7- 10 days after procedure, extending to wrist Also feels tightness and pain posterior upper arm. Reports had slight infection at lumpectomy surgery site, took antibiotics . Painful to lay on right. Assessment for radiation . Doing oral chemo; causing vision difficulty, hot flashes, difficulty sleeping. Looked up how to deal with lymphatic cording online and has been doing a stretching exercise with some improvement . Prior Treatments and Tests RCR right UE without biceps reattachment. wrist pain right 1 month with no injury right handed. Future Testing and Treatments Planned radiation to start soon as above Treatment Goals Patient/Caregiver Goals decrease/eliminate cording and swelling, be able to use right UE normally Prior Functional Status Baseline Function- ADL's Independent Baseline Function- Mobility Independent Baseline Function- Work/School retired Baseline Function- Recreation/Hobbies no limitation Current Functional Impairments (Reported) Functional Limitations- ADL's difficulty to reach overhead and behind her back Functional Limitations- Recreation/ doesn't tolerate well Hobbies PT-OP-C Subjective Start: 10/04/20 08:09 Freq: Status: Active Protocol: Document 10/11/20 14:33 [facility] (Rec: 10/11/20 17:39 [facility] [id number]) Patient Questionnaires Quick Dash- Upper Extremity Quick Dash UE Score 41 PT-OP-F Manual Assessment Start: 10/04/20 08:09 Freq: Status: Active Protocol: Document 10/11/20 14:33 SAK (Rec: 10/11/20 17:39 [facility] [id number]) Manual Assessments Soft Tissue Assessment Soft Tissue Mobility Assessment axillary cording palpable right axilla, extending to mid forearm PT-OP-J Posture/Palpation/Skin Start: 10/04/20 08:09 Freq: Status: Active Protocol: Document 10/11/20 14:33 SAK (Rec: 10/11/20 17:39 [facility] [id number]) Palpation Assessment Location right UE Palpation Location axilla to mid forearm Palpation Details axillary/lymphatic cording PT-OP-K Range of Motion Start: 10/04/20 08:09 Freq: Status: Active Protocol: Document 10/11/20 14:33 SAK (Rec: 10/11/20 17:39 SAK [id number]) Shoulder Goniometric Range of Motion Shoulder ROM Limitations Shoulder ROM Limitations Soft Tissue Tightness,Swelling Comments left shoulder WNL. Right shoulder flex 165, abduction 155, internal rotation to L4, ER 35 deg. Difficult to reach overhead, behind back, and into backseat of car PT-OP-N Lymphedema Start: 10/04/20 08:09 Freq: Status: Active Protocol: Document 10/11/20 14:33 [facility] (Rec: 10/11/20 17:39 [facility] [id number]) Lymphedema Measurements Upper Extremity Circumference Measurements Right Affected MCP 20.9 cm Dorsum of Hand 22 cm Wrist 19.9 cm 5 cm From Wrist Crease 24.3 cm 10 cm From Wrist Crease 28 cm 15 cm From Wrist Crease 31 cm 20 cm From Wrist Crease 32.4 cm 25 cm From Wrist Crease 39 cm 30 cm From Wrist Crease 40.8 cm 35 cm From Wrist Crease 45.1 cm 40 cm From Wrist Crease 46.5 cm Axilla 48.4 cm Left Unaffected MCP 19.5 cm Dorsum of Hand 22 cm Wrist 18.1 cm 5 cm From Wrist Crease 22.8 cm 10 cm From Wrist Crease 26.5 cm 15 cm From Wrist Crease 29.5 cm 20 cm From Wrist Crease 32 cm 25 cm From Wrist Crease 34.7 cm 30 cm From Wrist Crease 39.6 cm 35 cm From Wrist Crease 42.6 cm 40 cm From Wrist Crease 43.9 cm Axilla 52.4 cm PT-OP-Q Treatments Start: 10/04/20 08:09 Freq: Status: Active Protocol: Document 10/11/20 14:33 [facility] (Rec: 10/11/20 17:39 [facility] [id number]) Lymphedema Treatment Manual Lymphatic Drainage Location for right UE lymphedema Duration 10 Comments abbreviated for time due to eval today Lymphedema Wrapping Body Location right UE Materials Tubigrip size F fingers to elbow, size G wrist to axilla. Patient to bring daughter next session for instruction on lymphedema wrapping Sequential Lymphedema Exercises Location issued written instructions Comments emphasis on instruction and practice of ther ex for management of axillary cording with written instructions issued Compression Garment Assessment Compression Garment Assessment Details discussed and given infomration Patient Education Lymphedema Prevention issued handout and discussed Lymphedema Precautions issued handout and discussed Compression Garments issued written information Self Manual Lymphatic Drainage instucted and issued written handout and website Sequential Lymphedema Exercises issued handout for stretching for axillary cording management PT-OP-T Assessment and Plan Start: 10/04/20 08:09 Freq: Status: Active Protocol: Document 10/11/20 14:33 [facility] (Rec: 10/11/20 17:39 [facility] [id number]) Physical Therapy Assessment Rehab Potential Rehabilitation Potential Good Evaluation Complexity Number of Personal Factors/Comorbidities 1-2 Number of Body Systems Impaired 3 Clinical Presentation at Evaluation Evolving Impairments Impairments Edema,ROM,Soft Tissue Mobility Goals Three Impairment patient unable to reach overhead, out to side, or behind her back Short Term Goal (STG) Instruct patient in ROM exercises STG Duration 11/04/20 Usp Goal (LTG) Patient will demonstrate normal ROM of her right UE to allow her to reach overhead, out to side, and behind her back without restriction for purposes of ADL's and usual functional activities LTG Duration 12/2620 Two Impairment right axillary cording extending axilla to wrist Short Term Goal (STG) decrease axillary cording by 50% STG Duration 11/04/20 Erp Pm Goal (LTG) eliminate axillary cording LTG Duration 01/09/21 One Impairment Lymphedema right UE Short Term Goal (STG) Patient to be instructed in all aspects of lymphedema care to include skin care, manual lymphatic drainage, sequential lymphedema exercises and compression STG Duration 11/04/20 Usp Goal (LTG) Patient lymphedema to decrease to stable level (no increase or decrease more than 1 cm over the course of 1 week), be independent with all aspects of self-care for lymphedema and obtain appropriate compression garment(s). LTG Duration 01/09/21 Assessment Summary Assessment Patient presents to PT with function-limiting lymphedema, axillary cording extending from axilla to wrist, and limitations all in right UE s/ p lumpectomy. She will be soon starting radiation treatment which has the potential to exacerbate these impairments. Feel she will benefit from physical therapy to decrease her lymphedema and axillary cording, teach her to self-manage, and return her right UE ROM to normal. Treatment duration may need to be extended as we see how she responds to radiation treatment and it's potential complications. Physical Therapy Plan Frequency and Duration Frequency of Treatment 20 Duration of Treatment 12 weeks Plan of Care Start Date 10/11/20 Plan of Care End Date 01/09/21 Therapeutic Interventions Therapeutic Interventions Home Exercise Program, Lymphedema Management,Manual Therapy,Patient/Caregiver Education,Self-Care/Home Management,Soft Tissue Mobilization,Taping, Therapeutic Exercises Next Visit Focus/Plan Next Note Type Treatment Note Next Visit Plan Continue lymphedema management including education of patient's daughter in lymphedema bandaging, and manual lymphatic drainage. Further discussion of compression options. Review HEP and progress with sequential lymphedema exercises. Manual techniques to axillary cording.
--- NOTE | 2020-10-11 17:55 | PT.OPPOC ---
Physical, Occupational & Speech Therapy At [facility] Current Diagnoses Malignant neoplasm of unspecified site of unspecified female breast (10/11/20) Lymphedema, not elsewhere classified (10/11/20) Soft tissue disorder, unspecified (10/11/20) Visit Care Team Role Provider Type Avani Chavez MD Primary Care Provider Physician Specialty: Internal Medicine Address: [address] [place] [address], [facility] Email: [email or web address] Ramya Murphy PA-C Attending Provider Non-Staff Referring Provider Specialty: Medical Address: [address] [place] [address], [place]: [id number], [place], [address] Email: Plan Of Care PT-OP-T Assessment and Plan Start: 10/04/20 08:09 Freq: Status: Active Protocol: Document 10/11/20 14:33 [facility] (Rec: 10/11/20 17:39 [facility] [id number]) Physical Therapy Assessment Rehab Potential Rehabilitation Potential Good Evaluation Complexity Number of Personal Factors/Comorbidities 1-2 Number of Body Systems Impaired 3 Clinical Presentation at Evaluation Evolving Impairments Impairments Edema,ROM,Soft Tissue Mobility Goals Three Impairment patient unable to reach overhead, out to side, or behind her back Short Term Goal (STG) Instruct patient in ROM exercises STG Duration 11/04/20 Senior Living Goal (LTG) Patient will demonstrate normal ROM of her right UE to allow her to reach overhead, out to side, and behind her back without restriction for purposes of ADL's and usual functional activities LTG Duration 12/2620 Two Impairment right axillary cording extending axilla to wrist Short Term Goal (STG) decrease axillary cording by 50% STG Duration 11/04/20 Senior Living Goal (LTG) eliminate axillary cording LTG Duration 01/09/21 One Impairment Lymphedema right UE Short Term Goal (STG) Patient to be instructed in all aspects of lymphedema care to include skin care, manual lymphatic drainage, sequential lymphedema exercises and compression STG Duration 11/04/20 Rn Rehabilitation Goal (LTG) Patient lymphedema to decrease to stable level (no increase or decrease more than 1 cm over the course of 1 week), be independent with all aspects of self-care for lymphedema and obtain appropriate compression garment(s). LTG Duration 01/09/21 Assessment Summary Assessment Patient presents to PT with function-limiting lymphedema, axillary cording extending from axilla to wrist, and limitations all in right UE s/ p lumpectomy. She will be soon starting radiation treatment which has the potential to exacerbate these impairments. Feel she will benefit from physical therapy to decrease her lymphedema and axillary cording, teach her to self-manage, and return her right UE ROM to normal. Treatment duration may need to be extended as we see how she responds to radiation treatment and it's potential complications. Physical Therapy Plan Frequency and Duration Frequency of Treatment 20 Duration of Treatment 12 weeks Plan of Care Start Date 10/11/20 Plan of Care End Date 01/09/21 Therapeutic Interventions Therapeutic Interventions Home Exercise Program, Lymphedema Management,Manual Therapy,Patient/Caregiver Education,Self-Care/Home Management,Soft Tissue Mobilization,Taping, Therapeutic Exercises Next Visit Focus/Plan Next Note Type Treatment Note Next Visit Plan Continue lymphedema management including education of patient's daughter in lymphedema bandaging, and manual lymphatic drainage. Further discussion of compression options. Review HEP and progress with sequential lymphedema exercises. Manual techniques to axillary cording. Plan of Care Dates Plan of Care Start Date 10/11/20 Plan of Care End Date 01/09/21 Electronically Signed by: Whit Ruiz PT 10/11/20 [id number] Please Sign and Return: I have reviewed this Plan of Care and certify that the skilled therapy services above are required to meet the patient?s needs. Physician Signature Date Printed Name and Credentials Clinical Instructor Signature Printed Name and Credentials
--- NOTE | 2020-10-22 16:23 | PT.OTN ---
Current Diagnoses Malignant neoplasm of unspecified site of unspecified female breast (10/22/20) Lymphedema, not elsewhere classified (10/22/20) Soft tissue disorder, unspecified (10/22/20) Physical Therapy Treatment Note PT-OP-A Visit Information Start: 10/04/20 08:09 Freq: Status: Active Protocol: Document 10/22/20 16:08 SAK (Rec: 10/22/20 16:23 SAK [id number]) Out-Patient Physical Therapy Visit Information Visit Information Visit Type Treatment Note Visit Start Time 14:40 Visit Stop Time 15:55 Total Visit Minutes 75 Visit Number 2 Number of ONLINE CONTENT COORDINATOR Visits 0 Evaluation Information Evaluation Date 10/11/20 Precautions Precautions Will be doing 20 radiation visits in 1 month, start date not scheduled yet. PT-OP-B Current Condition Start: 10/04/20 08:09 Freq: Status: Active Protocol: Document 10/11/20 14:33 SAK (Rec: 10/11/20 15:05 [facility] [id number]) Current Condition History of Current Condition Onset Date 1 month Current Complaints cording, pain, swelling right UE History of Current Condition lumpectomy 09/11/20, started to notice cording in right UE 7- 10 days after procedure, extending to wrist Also feels tightness and pain posterior upper arm. Reports had slight infection at lumpectomy surgery site, took antibiotics . Painful to lay on right. Assessment for radiation . Doing oral chemo; causing vision difficulty, hot flashes, difficulty sleeping. Looked up how to deal with lymphatic cording online and has been doing a stretching exercise with some improvement . Prior Treatments and Tests RCR right UE without biceps reattachment. wrist pain right 1 month with no injury right handed. Future Testing and Treatments Planned radiation to start soon as above Treatment Goals Patient/Caregiver Goals decrease/eliminate cording and swelling, be able to use right UE normally Prior Functional Status Baseline Function- ADL's Independent Baseline Function- Mobility Independent Baseline Function- Work/School retired Baseline Function- Recreation/Hobbies no limitation Current Functional Impairments (Reported) Functional Limitations- ADL's difficulty to reach overhead and behind her back Functional Limitations- Recreation/ doesn't tolerate well Hobbies PT-OP-C Subjective Start: 10/04/20 08:09 Freq: Status: Active Protocol: Document 10/22/20 16:08 [facility] (Rec: 10/22/20 16:23 [facility] [id number]) OP-PT Subjective Patient Comments Patient Comments Brings daughter for training in massage and bandaging. States her daughter has been massaging her arm and patient has been massaging her chest. Didn't tolerate wearing Tubigrip, states it rolled down. PT-OP-F Manual Assessment Start: 10/04/20 08:09 Freq: Status: Active Protocol: Document 10/11/20 14:33 SAK (Rec: 10/11/20 17:39 [facility] [id number]) Manual Assessments Soft Tissue Assessment Soft Tissue Mobility Assessment axillary cording palpable right axilla, extending to mid forearm PT-OP-J Posture/Palpation/Skin Start: 10/04/20 08:09 Freq: Status: Active Protocol: Document 10/11/20 14:33 SAK (Rec: 10/11/20 17:39 [facility] [id number]) Palpation Assessment Location right UE Palpation Location axilla to mid forearm Palpation Details axillary/lymphatic cording PT-OP-K Range of Motion Start: 10/04/20 08:09 Freq: Status: Active Protocol: Document 10/11/20 14:33 SAK (Rec: 10/11/20 17:39 [facility] [id number]) Shoulder Goniometric Range of Motion Shoulder ROM Limitations Shoulder ROM Limitations Soft Tissue Tightness,Swelling Comments left shoulder WNL. Right shoulder flex 165, abduction 155, internal rotation to L4, ER 35 deg. Difficult to reach overhead, behind back, and into backseat of car PT-OP-N Lymphedema Start: 10/04/20 08:09 Freq: Status: Active Protocol: Document 10/22/20 16:08 [facility] (Rec: 10/22/20 16:23 [facility] [id number]) Lymphedema Measurements Upper Extremity Circumference Measurements Right Affected MCP 21.2 cm Dorsum of Hand 20.7 cm Wrist 24.5 cm 5 cm From Wrist Crease 20.4 cm 10 cm From Wrist Crease 31.9 cm 15 cm From Wrist Crease 32.1 cm 20 cm From Wrist Crease 37 cm 25 cm From Wrist Crease 41.6 cm 30 cm From Wrist Crease 43.5 cm 35 cm From Wrist Crease 46 cm 40 cm From Wrist Crease 47 cm Axilla 51 cm PT-OP-Q Treatments Start: 10/04/20 08:09 Freq: Status: Active Protocol: Document 10/22/20 16:08 [facility] (Rec: 10/22/20 16:23 [facility] [id number]) Self-Care/Home Management Treatment Education Other Education Education of patient's daughter in MLD and UE bandaging. Lymphedema Treatment Manual Lymphatic Drainage Location for right UE lymphedema Duration 25 Comments with instruction of daughter Lymphedema Wrapping Body Location right UE Materials Tricofix size F, Artiflex (2 rolls), Comprilan (6,8,10). Other Patient instructed to do ROM ex right UE wearing compression bandaging Sequential Lymphedema Exercises Location verbal review Compression Garment Assessment Compression Garment Assessment Details further discussion Patient Education Self Manual Lymphatic Drainage instructed patient and daughter, given info re Cancer Rehab PT youtube ch PT-OP-T Assessment and Plan Start: 10/04/20 08:09 Freq: Status: Active Protocol: Document 10/22/20 16:08 [facility] (Rec: 10/22/20 16:23 [facility] [id number]) Physical Therapy Assessment Goals Three Impairment patient unable to reach overhead, out to side, or behind her back Short Term Goal (STG) Instruct patient in ROM exercises STG Duration 11/04/20 Assisted Goal (LTG) Patient will demonstrate normal ROM of her right UE to allow her to reach overhead, out to side, and behind her back without restriction for purposes of ADL's and usual functional activities LTG Duration 12/2620 Two Impairment right axillary cording extending axilla to wrist Short Term Goal (STG) decrease axillary cording by 50% STG Duration 11/04/20 Building Maintenance Supervisor Goal (LTG) eliminate axillary cording LTG Duration 01/09/21 One Impairment Lymphedema right UE Short Term Goal (STG) Patient to be instructed in all aspects of lymphedema care to include skin care, manual lymphatic drainage, sequential lymphedema exercises and compression STG Duration 11/04/20 Building Maintenance Supervisor Goal (LTG) Patient lymphedema to decrease to stable level (no increase or decrease more than 1 cm over the course of 1 week), be independent with all aspects of self-care for lymphedema and obtain appropriate compression garment(s). LTG Duration 01/09/21 Assessment Summary Assessment Patient circumferential measurements increased right UE most measurements since last seen, should benefit from bandaging. Complete MLD performed with instruction of daughter, and daughter also instructed in lymlphedma bandaging. Daughter demonstrated good understanding. Physical Therapy Plan Frequency and Duration Frequency of Treatment 20 Duration of Treatment 12 weeks Plan of Care Start Date 10/11/20 Plan of Care End Date 01/09/21 Therapeutic Interventions Therapeutic Interventions Home Exercise Program, Lymphedema Management,Manual Therapy,Patient/Caregiver Education,Self-Care/Home Management,Soft Tissue Mobilization,Taping, Therapeutic Exercises Next Visit Focus/Plan Next Note Type Treatment Note Next Visit Plan Continue lymphedema management , review self MLD and bandaging. Show compression sleeve options. Review HEP and progress with sequential lymphedema exercises. Manual techniques to axillary cording .
--- NOTE | 2020-10-25 16:49 | PT.OTN ---
Current Diagnoses Malignant neoplasm of unspecified site of unspecified female breast (10/25/20) Lymphedema, not elsewhere classified (10/25/20) Soft tissue disorder, unspecified (10/25/20) Physical Therapy Treatment Note PT-OP-A Visit Information Start: 10/04/20 08:09 Freq: Status: Active Protocol: Document 10/25/20 13:47 SAK (Rec: 10/25/20 13:53 SAK [id number]) Out-Patient Physical Therapy Visit Information Visit Information Visit Type Treatment Note Visit Start Time 13:45 Visit Stop Time 15:10 Total Visit Minutes 85 Visit Number 3 Number of POOL LIFEGUARD Visits 0 Precautions Precautions Will be doing 20 radiation visits in 1 month, start date not scheduled yet. PT-OP-B Current Condition Start: 10/04/20 08:09 Freq: Status: Active Protocol: Document 10/11/20 14:33 SAK (Rec: 10/11/20 15:05 SAK [id number]) Current Condition History of Current Condition Onset Date 1 month Current Complaints cording, pain, swelling right UE History of Current Condition lumpectomy 09/11/20, started to notice cording in right UE 7- 10 days after procedure, extending to wrist Also feels tightness and pain posterior upper arm. Reports had slight infection at lumpectomy surgery site, took antibiotics . Painful to lay on right. Assessment for radiation . Doing oral chemo; causing vision difficulty, hot flashes, difficulty sleeping. Looked up how to deal with lymphatic cording online and has been doing a stretching exercise with some improvement . Prior Treatments and Tests RCR right UE without biceps reattachment. wrist pain right 1 month with no injury right handed. Future Testing and Treatments Planned radiation to start soon as above Treatment Goals Patient/Caregiver Goals decrease/eliminate cording and swelling, be able to use right UE normally Prior Functional Status Baseline Function- ADL's Independent Baseline Function- Mobility Independent Baseline Function- Work/School retired Baseline Function- Recreation/Hobbies no limitation Current Functional Impairments (Reported) Functional Limitations- ADL's difficulty to reach overhead and behind her back Functional Limitations- Recreation/ doesn't tolerate well Hobbies PT-OP-C Subjective Start: 10/04/20 08:09 Freq: Status: Active Protocol: Document 10/25/20 13:47 SAK (Rec: 10/25/20 13:53 SAK [id number]) OP-PT Subjective Patient Comments Patient Comments Daughter bandaging her every day, sleeping with it on. Doing self-massage. Feels swelling is decreased, getting used to wearinf the compression. PT-OP-F Manual Assessment Start: 10/04/20 08:09 Freq: Status: Active Protocol: Document 10/11/20 14:33 SAK (Rec: 10/11/20 17:39 SAK [id number]) Manual Assessments Soft Tissue Assessment Soft Tissue Mobility Assessment axillary cording palpable right axilla, extending to mid forearm PT-OP-J Posture/Palpation/Skin Start: 10/04/20 08:09 Freq: Status: Active Protocol: Document 10/11/20 14:33 SAK (Rec: 10/11/20 17:39 SAK [id number]) Palpation Assessment Location right UE Palpation Location axilla to mid forearm Palpation Details axillary/lymphatic cording PT-OP-K Range of Motion Start: 10/04/20 08:09 Freq: Status: Active Protocol: Document 10/11/20 14:33 SAK (Rec: 10/11/20 17:39 [facility] [id number]) Shoulder Goniometric Range of Motion Shoulder ROM Limitations Shoulder ROM Limitations Soft Tissue Tightness,Swelling Comments left shoulder WNL. Right shoulder flex 165, abduction 155, internal rotation to L4, ER 35 deg. Difficult to reach overhead, behind back, and into backseat of car PT-OP-N Lymphedema Start: 10/04/20 08:09 Freq: Status: Active Protocol: Document 10/25/20 13:47 [facility] (Rec: 10/25/20 16:49 [facility] [id number]) Lymphedema Measurements Upper Extremity Circumference Measurements Right Affected MCP 21.2 cm Dorsum of Hand 23 cm Wrist 19.3 cm 5 cm From Wrist Crease 23.7 cm 10 cm From Wrist Crease 27.3 cm 15 cm From Wrist Crease 31 cm 20 cm From Wrist Crease 32.1 cm 25 cm From Wrist Crease 35.2 cm 30 cm From Wrist Crease 40.5 cm 35 cm From Wrist Crease 43 cm 40 cm From Wrist Crease 46.4 cm Elbow Joint 49 cm PT-OP-Q Treatments Start: 10/04/20 08:09 Freq: Status: Active Protocol: Document 10/25/20 13:47 [facility] (Rec: 10/25/20 16:49 [facility] [id number]) Cardio Equipment Recumbent Stepper (Sci-Fit) Duration (Minutes) 5 Resistance 1 Seat Position 8 Lymphedema Treatment Manual Lymphatic Drainage Location for right UE lymphedema Duration 25 Lymphedema Wrapping Body Location right UE Materials Tricofix size F, Artiflex (2 rolls), Comprilan (6,8,10). Other instructed in correction of bandaging for improved compression Sequential Lymphedema Exercises Location verbal review PT-OP-T Assessment and Plan Start: 10/04/20 08:09 Freq: Status: Active Protocol: Document 10/25/20 13:47 [facility] (Rec: 10/25/20 13:53 [facility] [id number]) Physical Therapy Assessment Goals Three Impairment patient unable to reach overhead, out to side, or behind her back Short Term Goal (STG) Instruct patient in ROM exercises STG Duration 11/04/20 Skilled Nursing Goal (LTG) Patient will demonstrate normal ROM of her right UE to allow her to reach overhead, out to side, and behind her back without restriction for purposes of ADL's and usual functional activities LTG Duration 12/2620 Two Impairment right axillary cording extending axilla to wrist Short Term Goal (STG) decrease axillary cording by 50% STG Duration 11/04/20 Skilled Nursing Goal (LTG) eliminate axillary cording LTG Duration 01/09/21 One Impairment Lymphedema right UE Short Term Goal (STG) Patient to be instructed in all aspects of lymphedema care to include skin care, manual lymphatic drainage, sequential lymphedema exercises and compression STG Duration 11/04/20 Special Effects Specialist Goal (LTG) Patient lymphedema to decrease to stable level (no increase or decrease more than 1 cm over the course of 1 week), be independent with all aspects of self-care for lymphedema and obtain appropriate compression garment(s). LTG Duration 01/09/21 Assessment Summary Assessment Patient circumferential measurements mostly decreased in right UE, except for increases noted in hand and distanl forearm; evaluation of compression bandaging by daughter revealed not enough layers at hand and distal forearm, otherwise adequate job of bandaging. Patient able to tolerate 5 min on Sci- Fit today after bandaging to facilitate lymphatic flow. Physical Therapy Plan Frequency and Duration Frequency of Treatment 20 Duration of Treatment 12 weeks Plan of Care Start Date 10/11/20 Plan of Care End Date 01/09/21 Therapeutic Interventions Therapeutic Interventions Home Exercise Program, Lymphedema Management,Manual Therapy,Patient/Caregiver Education,Self-Care/Home Management,Soft Tissue Mobilization,Taping, Therapeutic Exercises Next Visit Focus/Plan Next Note Type Treatment Note Next Visit Plan Continue lyphedema managmeent per POC.
--- NOTE | 2020-10-29 10:58 | PT-OP ANOTE ---
Cancelled PT appointment due to feeling ill after radiation treatment
--- NOTE | 2020-10-30 16:51 | PT.OTN ---
Current Diagnoses Malignant neoplasm of unspecified site of unspecified female breast (10/30/20) Lymphedema, not elsewhere classified (10/30/20) Soft tissue disorder, unspecified (10/30/20) Physical Therapy Treatment Note PT-OP-A Visit Information Start: 10/04/20 08:09 Freq: Status: Active Protocol: Document 10/30/20 13:48 SAK (Rec: 10/30/20 14:05 SAK [id number]) Out-Patient Physical Therapy Visit Information Visit Information Visit Type Treatment Note Visit Start Time 13:50 Visit Stop Time 15:00 Total Visit Minutes 70 Visit Number 4 Number of HEEL COVER SOFTENER Visits 0 Precautions Precautions So far skin doing ok with radiation. States had to cancel due to diverticulitis. Sore left lower quadrant, has history of this and trying to manage on own. Will contact physician if doesn't subside PT-OP-B Current Condition Start: 10/04/20 08:09 Freq: Status: Active Protocol: Document 10/11/20 14:33 SAK (Rec: 10/11/20 15:05 [facility] [id number]) Current Condition History of Current Condition Onset Date 1 month Current Complaints cording, pain, swelling right UE History of Current Condition lumpectomy 09/11/20, started to notice cording in right UE 7- 10 days after procedure, extending to wrist Also feels tightness and pain posterior upper arm. Reports had slight infection at lumpectomy surgery site, took antibiotics . Painful to lay on right. Assessment for radiation . Doing oral chemo; causing vision difficulty, hot flashes, difficulty sleeping. Looked up how to deal with lymphatic cording online and has been doing a stretching exercise with some improvement . Prior Treatments and Tests RCR right UE without biceps reattachment. wrist pain right 1 month with no injury right handed. Future Testing and Treatments Planned radiation to start soon as above Treatment Goals Patient/Caregiver Goals decrease/eliminate cording and swelling, be able to use right UE normally Prior Functional Status Baseline Function- ADL's Independent Baseline Function- Mobility Independent Baseline Function- Work/School retired Baseline Function- Recreation/Hobbies no limitation Current Functional Impairments (Reported) Functional Limitations- ADL's difficulty to reach overhead and behind her back Functional Limitations- Recreation/ doesn't tolerate well Hobbies PT-OP-C Subjective Start: 10/04/20 08:09 Freq: Status: Active Protocol: Document 10/30/20 13:48 SAK (Rec: 10/30/20 16:50 SAK [id number]) OP-PT Subjective Patient Comments Patient Comments States her bandages were painful after last session, removed and hasn't worn again. States she has been searing her wrist and thumb splint which seems to keep swelling in hand and forearm down; asks if she can use instead of bandaging. PT-OP-F Manual Assessment Start: 10/04/20 08:09 Freq: Status: Active Protocol: Document 10/11/20 14:33 SAK (Rec: 10/11/20 17:39 SAK [id number]) Manual Assessments Soft Tissue Assessment Soft Tissue Mobility Assessment axillary cording palpable right axilla, extending to mid forearm PT-OP-J Posture/Palpation/Skin Start: 10/04/20 08:09 Freq: Status: Active Protocol: Document 10/11/20 14:33 SAK (Rec: 10/11/20 17:39 SAK [id number]) Palpation Assessment Location right UE Palpation Location axilla to mid forearm Palpation Details axillary/lymphatic cording PT-OP-K Range of Motion Start: 10/04/20 08:09 Freq: Status: Active Protocol: Document 10/11/20 14:33 SAK (Rec: 10/11/20 17:39 SAK [id number]) Shoulder Goniometric Range of Motion Shoulder ROM Limitations Shoulder ROM Limitations Soft Tissue Tightness,Swelling Comments left shoulder WNL. Right shoulder flex 165, abduction 155, internal rotation to L4, ER 35 deg. Difficult to reach overhead, behind back, and into backseat of car PT-OP-N Lymphedema Start: 10/04/20 08:09 Freq: Status: Active Protocol: Document 10/30/20 13:48 SAK (Rec: 10/30/20 16:50 SAK [id number]) Lymphedema Measurements Upper Extremity Circumference Measurements Right Affected MCP 21.2 cm Dorsum of Hand 22.6 cm Wrist 19.5 cm 5 cm From Wrist Crease 23.6 cm 10 cm From Wrist Crease 27.1 cm 15 cm From Wrist Crease 31.4 cm 20 cm From Wrist Crease 32 cm 25 cm From Wrist Crease 37 cm 30 cm From Wrist Crease 40.4 cm 35 cm From Wrist Crease 43 cm 40 cm From Wrist Crease 45.1 cm Elbow Joint 47.7 cm PT-OP-Q Treatments Start: 10/04/20 08:09 Freq: Status: Active Protocol: Document 10/30/20 13:48 [facility] (Rec: 10/30/20 16:50 [facility] [id number]) Therapeutic Exercises Sitting Exercises pulleys Sitting Exercise Name shoulder flex, abduction Reps/Minutes 5x 10 Comments with deep breathing Lymphedema Treatment Manual Lymphatic Drainage Location for right UE lymphedema Duration 25 Lymphedema Wrapping Body Location right UE Materials Tricofix size F proximal forearm to axilla, channel foam 1/3 forearm wrist to elbow under splint., Artiflex 1 roll covering same area, Comprilan (8,10). Other modification of bandaging per patient request. Sequential Lymphedema Exercises Location right UE Duration 5 min Patient Education Self Manual Lymphatic Drainage patient highly compliant per her report PT-OP-T Assessment and Plan Start: 10/04/20 08:09 Freq: Status: Active Protocol: Document 10/30/20 13:48 [facility] (Rec: 10/30/20 16:50 [facility] [id number]) Physical Therapy Assessment Goals Three Impairment patient unable to reach overhead, out to side, or behind her back Short Term Goal (STG) Instruct patient in ROM exercises STG Duration 11/04/20 Correction Goal (LTG) Patient will demonstrate normal ROM of her right UE to allow her to reach overhead, out to side, and behind her back without restriction for purposes of ADL's and usual functional activities LTG Duration 12/2620 Two Impairment right axillary cording extending axilla to wrist Short Term Goal (STG) decrease axillary cording by 50% STG Duration 11/04/20 Correction Goal (LTG) eliminate axillary cording LTG Duration 01/09/21 One Impairment Lymphedema right UE Short Term Goal (STG) Patient to be instructed in all aspects of lymphedema care to include skin care, manual lymphatic drainage, sequential lymphedema exercises and compression STG Duration 11/04/20 [employer] Goal (LTG) Patient lymphedema to decrease to stable level (no increase or decrease more than 1 cm over the course of 1 week), be independent with all aspects of self-care for lymphedema and obtain appropriate compression garment(s). LTG Duration 01/09/21 Assessment Summary Assessment Patient circumferential measurements minimally changed in hand and forearm, decreased in proximal UE. Good decrease in axillary cording. Modification of bandaging per patient request. Patient uncomfortable today due to diverticulitis and will contact physician if doesn't improve; abdominal techniques not done due to this pain. Physical Therapy Plan Frequency and Duration Frequency of Treatment 20 Duration of Treatment 12 weeks Plan of Care Start Date 10/11/20 Plan of Care End Date 01/09/21 Therapeutic Interventions Therapeutic Interventions Home Exercise Program, Lymphedema Management,Manual Therapy,Patient/Caregiver Education,Self-Care/Home Management,Soft Tissue Mobilization,Taping, Therapeutic Exercises Next Visit Focus/Plan Next Note Type Treatment Note Next Visit Plan Assess response to modification of bandaging. Continue lymphedema management . Further discussion of compression options.
--- NOTE | 2020-11-05 14:04 | PT-OP ANOTE ---
cancelled due to pain
--- NOTE | 2020-11-07 16:40 | PT.OTN ---
Current Diagnoses Malignant neoplasm of unspecified site of unspecified female breast (11/07/20) Lymphedema, not elsewhere classified (11/07/20) Soft tissue disorder, unspecified (11/07/20) Physical Therapy Treatment Note PT-OP-A Visit Information Start: 10/04/20 08:09 Freq: Status: Active Protocol: Document 11/07/20 15:15 SAK (Rec: 11/07/20 15:33 SAK [id number]) Out-Patient Physical Therapy Visit Information Visit Information Visit Type Treatment Note Visit Start Time 15:17 Visit Stop Time 16:10 Total Visit Minutes 53 Visit Number 5 PT-OP-B Current Condition Start: 10/04/20 08:09 Freq: Status: Active Protocol: Document 10/11/20 14:33 SAK (Rec: 10/11/20 15:05 SAK [id number]) Current Condition History of Current Condition Onset Date 1 month Current Complaints cording, pain, swelling right UE History of Current Condition lumpectomy 09/11/20, started to notice cording in right UE 7- 10 days after procedure, extending to wrist Also feels tightness and pain posterior upper arm. Reports had slight infection at lumpectomy surgery site, took antibiotics . Painful to lay on right. Assessment for radiation . Doing oral chemo; causing vision difficulty, hot flashes, difficulty sleeping. Looked up how to deal with lymphatic cording online and has been doing a stretching exercise with some improvement . Prior Treatments and Tests RCR right UE without biceps reattachment. wrist pain right 1 month with no injury right handed. Future Testing and Treatments Planned radiation to start soon as above Treatment Goals Patient/Caregiver Goals decrease/eliminate cording and swelling, be able to use right UE normally Prior Functional Status Baseline Function- ADL's Independent Baseline Function- Mobility Independent Baseline Function- Work/School retired Baseline Function- Recreation/Hobbies no limitation Current Functional Impairments (Reported) Functional Limitations- ADL's difficulty to reach overhead and behind her back Functional Limitations- Recreation/ doesn't tolerate well Hobbies PT-OP-C Subjective Start: 10/04/20 08:09 Freq: Status: Active Protocol: Document 11/07/20 15:15 SAK (Rec: 11/07/20 15:33 SAK [id number]) OP-PT Subjective Patient Comments Patient Comments Spasms in between shoulder blades since Thursday, nothing helping except vibrator for brief relief . Took Hydromorphone last night. Trying to get trigger point injection scheduled as has benefited from previously, has requested muscle relaxant from physician, waiting for call back. Doesn't tolerate wrapping, pressure too much. PT-OP-F Manual Assessment Start: 10/04/20 08:09 Freq: Status: Active Protocol: Document 10/11/20 14:33 SAK (Rec: 10/11/20 17:[address] [facility] [id number]) Manual Assessments Soft Tissue Assessment Soft Tissue Mobility Assessment axillary cording palpable right axilla, extending to mid forearm PT-OP-J Posture/Palpation/Skin Start: 10/04/20 08:09 Freq: Status: Active Protocol: Document 10/11/20 14:33 SAK (Rec: 10/11/20 17:39 SAK [id number]) Palpation Assessment Location right UE Palpation Location axilla to mid forearm Palpation Details axillary/lymphatic cording PT-OP-K Range of Motion Start: 10/04/20 08:09 Freq: Status: Active Protocol: Document 10/11/20 14:33 SAK (Rec: 10/11/20 17:[address] [facility] [id number]) Shoulder Goniometric Range of Motion Shoulder ROM Limitations Shoulder ROM Limitations Soft Tissue Tightness,Swelling Comments left shoulder WNL. Right shoulder flex 165, abduction 155, internal rotation to L4, ER 35 deg. Difficult to reach overhead, behind back, and into backseat of car PT-OP-N Lymphedema Start: 10/04/20 08:09 Freq: Status: Active Protocol: Document 11/07/20 15:[address] [facility] (Rec: 11/07/20 16:[address] [facility] [id number]) Lymphedema Measurements Upper Extremity Circumference Measurements Right Affected MCP 21.3 cm Dorsum of Hand 22.6 cm Wrist 19.4 cm 5 cm From Wrist Crease 22.8 cm 10 cm From Wrist Crease 27.1 cm 15 cm From Wrist Crease 31 cm 20 cm From Wrist Crease 31.5 cm 25 cm From Wrist Crease 34 cm 30 cm From Wrist Crease 41 cm 35 cm From Wrist Crease 44 cm 40 cm From Wrist Crease 45.2 cm Axilla 48.2 cm PT-OP-Q Treatments Start: 10/04/20 08:09 Freq: Status: Active Protocol: Document 11/07/20 15:[address] [facility] (Rec: 11/07/20 15:[address] [facility] [id number]) Lymphedema Treatment Lymphedema Wrapping Other refused due to poor tolerance Patient Education Compression Garments discussed and shown options Self Manual Lymphatic Drainage patient independent Sequential Lymphedema Exercises not tolerating exercises at this time due to upper back pain and muscle spa Other Other circumferential measurements taken, plus additional measurements to help identify appropriate compression sleeve . After discussion and showing patient options, recommend Jobst Tory Lite Arm Sleeve size large regular length 15-20 mm Hg. Patient to order. PT-OP-T Assessment and Plan Start: 10/04/20 08:09 Freq: Status: Active Protocol: Document 11/07/20 15:[address] [facility] (Rec: 11/07/20 15:[address] [facility] [id number]) Physical Therapy Assessment Goals Three Impairment patient unable to reach overhead, out to side, or behind her back Short Term Goal (STG) Instruct patient in ROM exercises STG Duration 11/04/20 Usp Goal (LTG) Patient will demonstrate normal ROM of her right UE to allow her to reach overhead, out to side, and behind her back without restriction for purposes of ADL's and usual functional activities LTG Duration 12/2620 Two Impairment right axillary cording extending axilla to wrist Short Term Goal (STG) decrease axillary cording by 50% STG Duration 11/04/20 Usp Goal (LTG) eliminate axillary cording LTG Duration 01/09/21 One Impairment Lymphedema right UE Short Term Goal (STG) Patient to be instructed in all aspects of lymphedema care to include skin care, manual lymphatic drainage, sequential lymphedema exercises and compression STG Duration 11/04/20 Usp Goal (LTG) Patient lymphedema to decrease to stable level (no increase or decrease more than 1 cm over the course of 1 week), be independent with all aspects of self-care for lymphedema and obtain appropriate compression garment(s). LTG Duration 01/09/21 Assessment Summary Assessment Patient tolerating compression bandaging poorly even with modification. Her measurements are stable and feel she would tolerate a compression sleeve with light compression the best. She is doing self-MLD, can't tolerate lymphedema exercises at this time due to pain and spasms. Tolerating radiation well. Recommend Jobst Tory LIte Arm Sleeve size large regular length at 15-20 mm Hg; patient given infomration and plans to order. Physical Therapy Plan Frequency and Duration Frequency of Treatment 20 Duration of Treatment 12 weeks Plan of Care Start Date 10/11/20 Plan of Care End Date 01/09/21 Therapeutic Interventions Therapeutic Interventions Home Exercise Program, Lymphedema Management,Manual Therapy,Patient/Caregiver Education,Self-Care/Home Management,Soft Tissue Mobilization,Taping, Therapeutic Exercises Next Visit Focus/Plan Next Note Type Treatment Note Next Visit Plan MLD, compression garment discussion as needed.
--- NOTE | 2020-11-12 12:16 | PT-OP ANOTE ---
cancelled due to radiation appointment rescheduled and now conflicting with PT appointment.
--- NOTE | 2020-11-13 14:24 | PT.OTN ---
Current Diagnoses Malignant neoplasm of unspecified site of unspecified female breast (11/13/20) Lymphedema, not elsewhere classified (11/13/20) Soft tissue disorder, unspecified (11/13/20) Physical Therapy Treatment Note PT-OP-A Visit Information Start: 10/04/20 08:09 Freq: Status: Active Protocol: Document 11/13/20 11:25 SAK (Rec: 11/13/20 11:39 SAK [id number]) Out-Patient Physical Therapy Visit Information Visit Information Visit Type Treatment Note Visit Start Time 11:20 Visit Stop Time 12:06 Total Visit Minutes 46 Visit Number 6 PT-OP-B Current Condition Start: 10/04/20 08:09 Freq: Status: Active Protocol: Document 10/11/20 14:33 SAK (Rec: 10/11/20 15:05 SAK [id number]) Current Condition History of Current Condition Onset Date 1 month Current Complaints cording, pain, swelling right UE History of Current Condition lumpectomy 09/11/20, started to notice cording in right UE 7- 10 days after procedure, extending to wrist Also feels tightness and pain posterior upper arm. Reports had slight infection at lumpectomy surgery site, took antibiotics . Painful to lay on right. Assessment for radiation . Doing oral chemo; causing vision difficulty, hot flashes, difficulty sleeping. Looked up how to deal with lymphatic cording online and has been doing a stretching exercise with some improvement . Prior Treatments and Tests RCR right UE without biceps reattachment. wrist pain right 1 month with no injury right handed. Future Testing and Treatments Planned radiation to start soon as above Treatment Goals Patient/Caregiver Goals decrease/eliminate cording and swelling, be able to use right UE normally Prior Functional Status Baseline Function- ADL's Independent Baseline Function- Mobility Independent Baseline Function- Work/School retired Baseline Function- Recreation/Hobbies no limitation Current Functional Impairments (Reported) Functional Limitations- ADL's difficulty to reach overhead and behind her back Functional Limitations- Recreation/ doesn't tolerate well Hobbies PT-OP-C Subjective Start: 10/04/20 08:09 Freq: Status: Active Protocol: Document 11/13/20 11:25 SAK (Rec: 11/13/20 11:39 SAK [id number]) OP-PT Subjective Patient Comments Patient Comments Called [facility] for appointment to order Jobst compression sleeve as unable to order online. PT-OP-F Manual Assessment Start: 10/04/20 08:09 Freq: Status: Active Protocol: Document 10/11/20 14:33 SAK (Rec: 10/11/20 17:39 SAK [id number]) Manual Assessments Soft Tissue Assessment Soft Tissue Mobility Assessment axillary cording palpable right axilla, extending to mid forearm PT-OP-J Posture/Palpation/Skin Start: 10/04/20 08:09 Freq: Status: Active Protocol: Document 10/11/20 14:33 SAK (Rec: 10/11/20 17:39 SAK [id number]) Palpation Assessment Location right UE Palpation Location axilla to mid forearm Palpation Details axillary/lymphatic cording PT-OP-K Range of Motion Start: 10/04/20 08:09 Freq: Status: Active Protocol: Document 10/11/20 14:33 SAK (Rec: 10/11/20 17:39 SAK [id number]) Shoulder Goniometric Range of Motion Shoulder ROM Limitations Shoulder ROM Limitations Soft Tissue Tightness,Swelling Comments left shoulder WNL. Right shoulder flex 165, abduction 155, internal rotation to L4, ER 35 deg. Difficult to reach overhead, behind back, and into backseat of car PT-OP-N Lymphedema Start: 10/04/20 08:09 Freq: Status: Active Protocol: Document 11/13/20 11:25 SAK (Rec: 11/13/20 14:24 SAK [id number]) Lymphedema Measurements Upper Extremity Circumference Measurements Right Affected MCP 21.4 cm Dorsum of Hand 23.6 cm Wrist 19.8 cm 5 cm From Wrist Crease 24.3 cm 10 cm From Wrist Crease 28 cm 15 cm From Wrist Crease 31.4 cm 20 cm From Wrist Crease 31.8 cm 25 cm From Wrist Crease 33 cm 30 cm From Wrist Crease 40.3 cm 35 cm From Wrist Crease 42.3 cm 40 cm From Wrist Crease 44.3 cm 45 cm From Wrist Crease 46.3 cm PT-OP-Q Treatments Start: 10/04/20 08:09 Freq: Status: Active Protocol: Document 11/13/20 11:25 SAK (Rec: 11/13/20 14:24 SAK [id number]) Lymphedema Treatment Manual Lymphatic Drainage Location for right UE lymphedema Duration 25 Patient Education Sequential Lymphedema Exercises resume ther ex gently Other Other circumferential measurements right UE PT-OP-T Assessment and Plan Start: 10/04/20 08:09 Freq: Status: Active Protocol: Document 11/13/20 11:25 [facility] (Rec: 11/13/20 11:39 [facility] [id number]) Physical Therapy Assessment Goals Three Impairment patient unable to reach overhead, out to side, or behind her back Short Term Goal (STG) Instruct patient in ROM exercises STG Duration 11/04/20 Correction Goal (LTG) Patient will demonstrate normal ROM of her right UE to allow her to reach overhead, out to side, and behind her back without restriction for purposes of ADL's and usual functional activities LTG Duration 12/2620 Two Impairment right axillary cording extending axilla to wrist Short Term Goal (STG) decrease axillary cording by 50% STG Duration 11/04/20 Correction Goal (LTG) eliminate axillary cording LTG Duration 01/09/21 One Impairment Lymphedema right UE Short Term Goal (STG) Patient to be instructed in all aspects of lymphedema care to include skin care, manual lymphatic drainage, sequential lymphedema exercises and compression STG Duration 11/04/20 Cashier Receptionist Goal (LTG) Patient lymphedema to decrease to stable level (no increase or decrease more than 1 cm over the course of 1 week), be independent with all aspects of self-care for lymphedema and obtain appropriate compression garment(s). LTG Duration 01/09/21 Progress Towards Goals Progress Towards Goals Progressing Toward Goals Assessment Summary Assessment small increases in circumferential measurements in forearm, decrease in upper arm today, possibly due to increase focus on self-massage upper arm, or due to not wearing wrist and thumb splint which apply some compression. Patient pursuing compression sleeve. No axillary cording palpable today; good progress. Physical Therapy Plan Frequency and Duration Frequency of Treatment 20 Duration of Treatment 12 weeks Plan of Care Start Date 10/11/20 Plan of Care End Date 01/09/21 Therapeutic Interventions Therapeutic Interventions Home Exercise Program, Lymphedema Management,Manual Therapy,Patient/Caregiver Education,Self-Care/Home Management,Soft Tissue Mobilization,Taping, Therapeutic Exercises Next Visit Focus/Plan Next Note Type Treatment Note Next Visit Plan Continue lymphedema management , assure patient able to order compression sleeve. Review HEP
--- NOTE | 2020-11-14 16:14 | PT.OTN ---
Current Diagnoses Malignant neoplasm of unspecified site of unspecified female breast (11/14/20) Lymphedema, not elsewhere classified (11/14/20) Soft tissue disorder, unspecified (11/14/20) Physical Therapy Treatment Note PT-OP-A Visit Information Start: 10/04/20 08:09 Freq: Status: Active Protocol: Document 11/14/20 15:13 SAK (Rec: 11/14/20 15:25 SAK [id number]) Out-Patient Physical Therapy Visit Information Visit Information Visit Type Treatment Note Visit Start Time 15:15 Visit Stop Time 16:00 Total Visit Minutes 45 Visit Number 7 PT-OP-B Current Condition Start: 10/04/20 08:09 Freq: Status: Active Protocol: Document 10/11/20 14:33 SAK (Rec: 10/11/20 15:05 SAK [id number]) Current Condition History of Current Condition Onset Date 1 month Current Complaints cording, pain, swelling right UE History of Current Condition lumpectomy 09/11/20, started to notice cording in right UE 7- 10 days after procedure, extending to wrist Also feels tightness and pain posterior upper arm. Reports had slight infection at lumpectomy surgery site, took antibiotics . Painful to lay on right. Assessment for radiation . Doing oral chemo; causing vision difficulty, hot flashes, difficulty sleeping. Looked up how to deal with lymphatic cording online and has been doing a stretching exercise with some improvement . Prior Treatments and Tests RCR right UE without biceps reattachment. wrist pain right 1 month with no injury right handed. Future Testing and Treatments Planned radiation to start soon as above Treatment Goals Patient/Caregiver Goals decrease/eliminate cording and swelling, be able to use right UE normally Prior Functional Status Baseline Function- ADL's Independent Baseline Function- Mobility Independent Baseline Function- Work/School retired Baseline Function- Recreation/Hobbies no limitation Current Functional Impairments (Reported) Functional Limitations- ADL's difficulty to reach overhead and behind her back Functional Limitations- Recreation/ doesn't tolerate well Hobbies PT-OP-C Subjective Start: 10/04/20 08:09 Freq: Status: Active Protocol: Document 11/14/20 15:13 SAK (Rec: 11/14/20 15:25 SAK [id number]) OP-PT Subjective Patient Comments Patient Comments Patient reports talked with [facility] who encouraged her to order online, but again reports she had difficulty. PT-OP-F Manual Assessment Start: 10/04/20 08:09 Freq: Status: Active Protocol: Document 10/11/20 14:33 SAK (Rec: 10/11/20 17:39 SAK [id number]) Manual Assessments Soft Tissue Assessment Soft Tissue Mobility Assessment axillary cording palpable right axilla, extending to mid forearm PT-OP-J Posture/Palpation/Skin Start: 10/04/20 08:09 Freq: Status: Active Protocol: Document 10/11/20 14:33 SAK (Rec: 10/11/20 17:39 SAK [id number]) Palpation Assessment Location right UE Palpation Location axilla to mid forearm Palpation Details axillary/lymphatic cording PT-OP-K Range of Motion Start: 10/04/20 08:09 Freq: Status: Active Protocol: Document 10/11/20 14:33 SAK (Rec: 10/11/20 17:39 SAK [id number]) Shoulder Goniometric Range of Motion Shoulder ROM Limitations Shoulder ROM Limitations Soft Tissue Tightness,Swelling Comments left shoulder WNL. Right shoulder flex 165, abduction 155, internal rotation to L4, ER 35 deg. Difficult to reach overhead, behind back, and into backseat of car PT-OP-N Lymphedema Start: 10/04/20 08:09 Freq: Status: Active Protocol: Document 11/13/20 11:25 SAK (Rec: 11/13/20 14:24 SAK [id number]) Lymphedema Measurements Upper Extremity Circumference Measurements Right Affected MCP 21.4 cm Dorsum of Hand 23.6 cm Wrist 19.8 cm 5 cm From Wrist Crease 24.3 cm 10 cm From Wrist Crease 28 cm 15 cm From Wrist Crease 31.4 cm 20 cm From Wrist Crease 31.8 cm 25 cm From Wrist Crease 33 cm 30 cm From Wrist Crease 40.3 cm 35 cm From Wrist Crease 42.3 cm 40 cm From Wrist Crease 44.3 cm 45 cm From Wrist Crease 46.3 cm PT-OP-Q Treatments Start: 10/04/20 08:09 Freq: Status: Active Protocol: Document 11/14/20 15:13 SAK (Rec: 11/14/20 16:14 SAK [id number]) Lymphedema Treatment Manual Lymphatic Drainage Location for right UE lymphedema Duration 30 Comments including extra time on area of fibrosis just distal to elbow. Patient Education Compression Garments advised on options for ordering, Class I Self Manual Lymphatic Drainage patient independent Sequential Lymphedema Exercises reviewed Other Other no measurements done today PT-OP-T Assessment and Plan Start: 10/04/20 08:09 Freq: Status: Active Protocol: Document 11/14/20 15:13 [facility] (Rec: 11/14/20 15:25 [facility] [id number]) Physical Therapy Assessment Goals Three Impairment patient unable to reach overhead, out to side, or behind her back Short Term Goal (STG) Instruct patient in ROM exercises STG Duration 11/04/20 Computer Systems Technology Instructor Goal (LTG) Patient will demonstrate normal ROM of her right UE to allow her to reach overhead, out to side, and behind her back without restriction for purposes of ADL's and usual functional activities LTG Duration 12/2620 Two Impairment right axillary cording extending axilla to wrist Short Term Goal (STG) decrease axillary cording by 50% STG Duration 11/04/20 Computer Systems Technology Instructor Goal (LTG) eliminate axillary cording LTG Duration 01/09/21 One Impairment Lymphedema right UE Short Term Goal (STG) Patient to be instructed in all aspects of lymphedema care to include skin care, manual lymphatic drainage, sequential lymphedema exercises and compression STG Duration 11/04/20 Care Home Goal (LTG) Patient lymphedema to decrease to stable level (no increase or decrease more than 1 cm over the course of 1 week), be independent with all aspects of self-care for lymphedema and obtain appropriate compression garment(s). LTG Duration 01/09/21 Progress Towards Goals Progress Towards Goals Progressing Toward Goals Assessment Summary Assessment Patient continues to be compliant with HEP and self- massage. Having difficulty with ordering compression sleeve, patient to try again, if unable will contact [facility] for assistance. At this time patient doesn't feel the need for lymphedema pump at this time. Physical Therapy Plan Frequency and Duration Frequency of Treatment 20 Duration of Treatment 12 weeks Plan of Care Start Date 10/11/20 Plan of Care End Date 01/09/21 Therapeutic Interventions Therapeutic Interventions Home Exercise Program, Lymphedema Management,Manual Therapy,Patient/Caregiver Education,Self-Care/Home Management,Soft Tissue Mobilization,Taping, Therapeutic Exercises Next Visit Focus/Plan Next Note Type Treatment Note Next Visit Plan Circumferential measurements, continue lymphedema management . Once patient receives compression sleeve and PT able to evaluate for correct fit, anticipate follow-up appointment then discharge if all goes well.
--- NOTE | 2020-11-19 15:14 | PT.OTN ---
Current Diagnoses Malignant neoplasm of unspecified site of unspecified female breast (11/19/20) Lymphedema, not elsewhere classified (11/19/20) Soft tissue disorder, unspecified (11/19/20) Physical Therapy Treatment Note PT-OP-A Visit Information Start: 10/04/20 08:09 Freq: Status: Active Protocol: Document 11/19/20 14:23 SAK (Rec: 11/19/20 14:27 SAK [id number]) Out-Patient Physical Therapy Visit Information Visit Information Visit Type Treatment Note Visit Note Patient had to leave early for another appointment Visit Start Time 14:25 Visit Stop Time 15:00 Total Visit Minutes 35 Visit Number 8 PT-OP-B Current Condition Start: 10/04/20 08:09 Freq: Status: Active Protocol: Document 10/11/20 14:33 SAK (Rec: 10/11/20 15:05 SAK [id number]) Current Condition History of Current Condition Onset Date 1 month Current Complaints cording, pain, swelling right UE History of Current Condition lumpectomy 09/11/20, started to notice cording in right UE 7- 10 days after procedure, extending to wrist Also feels tightness and pain posterior upper arm. Reports had slight infection at lumpectomy surgery site, took antibiotics . Painful to lay on right. Assessment for radiation . Doing oral chemo; causing vision difficulty, hot flashes, difficulty sleeping. Looked up how to deal with lymphatic cording online and has been doing a stretching exercise with some improvement . Prior Treatments and Tests RCR right UE without biceps reattachment. wrist pain right 1 month with no injury right handed. Future Testing and Treatments Planned radiation to start soon as above Treatment Goals Patient/Caregiver Goals decrease/eliminate cording and swelling, be able to use right UE normally Prior Functional Status Baseline Function- ADL's Independent Baseline Function- Mobility Independent Baseline Function- Work/School retired Baseline Function- Recreation/Hobbies no limitation Current Functional Impairments (Reported) Functional Limitations- ADL's difficulty to reach overhead and behind her back Functional Limitations- Recreation/ doesn't tolerate well Hobbies PT-OP-C Subjective Start: 10/04/20 08:09 Freq: Status: Active Protocol: Document 11/14/20 15:13 SAK (Rec: 11/14/20 15:25 SAK [id number]) OP-PT Subjective Patient Comments Patient Comments Patient reports talked with [facility] who encouraged her to order online, but again reports she had difficulty. PT-OP-F Manual Assessment Start: 10/04/20 08:09 Freq: Status: Active Protocol: Document 10/11/20 14:33 SAK (Rec: 10/11/20 17:39 SAK [id number]) Manual Assessments Soft Tissue Assessment Soft Tissue Mobility Assessment axillary cording palpable right axilla, extending to mid forearm PT-OP-J Posture/Palpation/Skin Start: 10/04/20 08:09 Freq: Status: Active Protocol: Document 10/11/20 14:33 SAK (Rec: 10/11/20 17:39 SAK [id number]) Palpation Assessment Location right UE Palpation Location axilla to mid forearm Palpation Details axillary/lymphatic cording PT-OP-K Range of Motion Start: 10/04/20 08:09 Freq: Status: Active Protocol: Document 10/11/20 14:33 SAK (Rec: 10/11/20 17:39 SAK [id number]) Shoulder Goniometric Range of Motion Shoulder ROM Limitations Shoulder ROM Limitations Soft Tissue Tightness,Swelling Comments left shoulder WNL. Right shoulder flex 165, abduction 155, internal rotation to L4, ER 35 deg. Difficult to reach overhead, behind back, and into backseat of car PT-OP-N Lymphedema Start: 10/04/20 08:09 Freq: Status: Active Protocol: Document 11/13/20 11:25 SAK (Rec: 11/13/20 14:24 SAK [id number]) Lymphedema Measurements Upper Extremity Circumference Measurements Right Affected MCP 21.4 cm Dorsum of Hand 23.6 cm Wrist 19.8 cm 5 cm From Wrist Crease 24.3 cm 10 cm From Wrist Crease 28 cm 15 cm From Wrist Crease 31.4 cm 20 cm From Wrist Crease 31.8 cm 25 cm From Wrist Crease 33 cm 30 cm From Wrist Crease 40.3 cm 35 cm From Wrist Crease 42.3 cm 40 cm From Wrist Crease 44.3 cm 45 cm From Wrist Crease 46.3 cm PT-OP-Q Treatments Start: 10/04/20 08:09 Freq: Status: Active Protocol: Document 11/19/20 14:23 SAK (Rec: 04/05/21 14:27 [facility] [id number]) Lymphedema Treatment Manual Lymphatic Drainage Location for right UE lymphedema Duration 30 Comments including extra time on area of fibrosis just distal to elbow. Other Other circumferential measurements PT-OP-T Assessment and Plan Start: 10/04/20 08:09 Freq: Status: Active Protocol: Document 11/19/20 14:23 [facility] (Rec: 11/19/20 14:27 [facility] [id number]) Physical Therapy Assessment Goals Three Impairment patient unable to reach overhead, out to side, or behind her back Short Term Goal (STG) Instruct patient in ROM exercises STG Duration 11/04/20 Conference Planner Goal (LTG) Patient will demonstrate normal ROM of her right UE to allow her to reach overhead, out to side, and behind her back without restriction for purposes of ADL's and usual functional activities LTG Duration 12/2620 Two Impairment right axillary cording extending axilla to wrist Short Term Goal (STG) decrease axillary cording by 50% STG Duration 11/04/20 Nursing Home Goal (LTG) eliminate axillary cording LTG Duration 01/09/21 One Impairment Lymphedema right UE Short Term Goal (STG) Patient to be instructed in all aspects of lymphedema care to include skin care, manual lymphatic drainage, sequential lymphedema exercises and compression STG Duration 11/04/20 Nursing Home Goal (LTG) Patient lymphedema to decrease to stable level (no increase or decrease more than 1 cm over the course of 1 week), be independent with all aspects of self-care for lymphedema and obtain appropriate compression garment(s). LTG Duration 01/09/21 Assessment Summary Assessment Patient measurements mostly stable. Had to leave early for trigger point injection appointment in neck region; patient advised to inform physician that she has lymphedema as pain is on left side. Patient has ordered 1 arm sleeve. Physical Therapy Plan Frequency and Duration Frequency of Treatment 20 Duration of Treatment 12 weeks Plan of Care Start Date 10/11/20 Plan of Care End Date 01/09/21 Therapeutic Interventions Therapeutic Interventions Home Exercise Program, Lymphedema Management,Manual Therapy,Patient/Caregiver Education,Self-Care/Home Management,Soft Tissue Mobilization,Taping, Therapeutic Exercises Next Visit Focus/Plan Next Note Type Treatment Note Next Visit Plan Continue lymphedema management .
--- NOTE | 2020-11-20 15:43 | PT.OTN ---
Current Diagnoses Malignant neoplasm of unspecified site of unspecified female breast (11/20/20) Lymphedema, not elsewhere classified (11/20/20) Soft tissue disorder, unspecified (11/20/20) Physical Therapy Treatment Note PT-OP-A Visit Information Start: 10/04/20 08:09 Freq: Status: Active Protocol: Document 11/20/20 14:31 SAK (Rec: 11/20/20 14:43 SAK [id number]) Out-Patient Physical Therapy Visit Information Visit Information Visit Type Treatment Note Visit Start Time 14:30 Visit Stop Time 15:25 Total Visit Minutes 55 Visit Number 9 PT-OP-B Current Condition Start: 10/04/20 08:09 Freq: Status: Active Protocol: Document 10/11/20 14:33 SAK (Rec: 10/11/20 15:05 SAK [id number]) Current Condition History of Current Condition Onset Date 1 month Current Complaints cording, pain, swelling right UE History of Current Condition lumpectomy 09/11/20, started to notice cording in right UE 7- 10 days after procedure, extending to wrist Also feels tightness and pain posterior upper arm. Reports had slight infection at lumpectomy surgery site, took antibiotics . Painful to lay on right. Assessment for radiation . Doing oral chemo; causing vision difficulty, hot flashes, difficulty sleeping. Looked up how to deal with lymphatic cording online and has been doing a stretching exercise with some improvement . Prior Treatments and Tests RCR right UE without biceps reattachment. wrist pain right 1 month with no injury right handed. Future Testing and Treatments Planned radiation to start soon as above Treatment Goals Patient/Caregiver Goals decrease/eliminate cording and swelling, be able to use right UE normally Prior Functional Status Baseline Function- ADL's Independent Baseline Function- Mobility Independent Baseline Function- Work/School retired Baseline Function- Recreation/Hobbies no limitation Current Functional Impairments (Reported) Functional Limitations- ADL's difficulty to reach overhead and behind her back Functional Limitations- Recreation/ doesn't tolerate well Hobbies PT-OP-C Subjective Start: 10/04/20 08:09 Freq: Status: Active Protocol: Document 11/20/20 14:31 SAK (Rec: 11/20/20 14:43 SAK [id number]) OP-PT Subjective Patient Comments Patient Comments Had 4 injections yesterday, plans 1x/wk x 4 wks, then PT. Hasn't received compression sleeve yet. second vaccine 11/22/20, cataract surgery 12/05/20 for first eye. Wrist pain persists, patient wearing spliint but doesn't seem to be helping, encouraged to talk with doctor, see orthotpedist and possibly hand specialist for therapy; she is in agreement and will pursue. Last radiation 11/22/20. PT-OP-F Manual Assessment Start: 10/04/20 08:09 Freq: Status: Active Protocol: Document 10/11/20 14:33 SAK (Rec: 10/11/20 17:39 SAK [id number]) Manual Assessments Soft Tissue Assessment Soft Tissue Mobility Assessment axillary cording palpable right axilla, extending to mid forearm PT-OP-J Posture/Palpation/Skin Start: 10/04/20 08:09 Freq: Status: Active Protocol: Document 10/11/20 14:33 SAK (Rec: 10/11/20 17:39 SAK [id number]) Palpation Assessment Location right UE Palpation Location axilla to mid forearm Palpation Details axillary/lymphatic cording PT-OP-K Range of Motion Start: 10/04/20 08:09 Freq: Status: Active Protocol: Document 10/11/20 14:33 SAK (Rec: 10/11/20 17:39 SAK [id number]) Shoulder Goniometric Range of Motion Shoulder ROM Limitations Shoulder ROM Limitations Soft Tissue Tightness,Swelling Comments left shoulder WNL. Right shoulder flex 165, abduction 155, internal rotation to L4, ER 35 deg. Difficult to reach overhead, behind back, and into backseat of car PT-OP-N Lymphedema Start: 10/04/20 08:09 Freq: Status: Active Protocol: Document 11/13/20 11:25 SAK (Rec: 11/13/20 14:24 SAK [id number]) Lymphedema Measurements Upper Extremity Circumference Measurements Right Affected MCP 21.4 cm Dorsum of Hand 23.6 cm Wrist 19.8 cm 5 cm From Wrist Crease 24.3 cm 10 cm From Wrist Crease 28 cm 15 cm From Wrist Crease 31.4 cm 20 cm From Wrist Crease 31.8 cm 25 cm From Wrist Crease 33 cm 30 cm From Wrist Crease 40.3 cm 35 cm From Wrist Crease 42.3 cm 40 cm From Wrist Crease 44.3 cm 45 cm From Wrist Crease 46.3 cm PT-OP-Q Treatments Start: 10/04/20 08:09 Freq: Status: Active Protocol: Document 11/20/20 14:31 [facility] (Rec: 11/20/20 14:43 [facility] [id number]) Lymphedema Treatment Manual Lymphatic Drainage Location for right UE lymphedema, right superior chest Duration 40 Comments including extra time on area of fibrosis just proximal to elbow and MLD right superior chest region. No axillary cording palpable. Lymphedema Wrapping Other Tubigrip size E to hand and distal forearm Patient Education Compression Garments compression tank or shirt for chest swelling Self Manual Lymphatic Drainage patient indep and compliant Sequential Lymphedema Exercises patient indep and compliant Other Other no circumferential measurements due to just measured yesterday. chest just superior to breast appears swollen, possibly due to effects of radiation; patient encouraged to wear compression tank top or shirt Gentle STM to UT and c/s to decrease muscle tension to facilitate lymphatic drainage PT-OP-T Assessment and Plan Start: 10/04/20 08:09 Freq: Status: Active Protocol: Document 11/20/20 14:31 [facility] (Rec: 11/20/20 14:43 [facility] [id number]) Physical Therapy Assessment Goals Three Impairment patient unable to reach overhead, out to side, or behind her back Short Term Goal (STG) Instruct patient in ROM exercises STG Duration 11/04/20 [facility] Goal (LTG) Patient will demonstrate normal ROM of her right UE to allow her to reach overhead, out to side, and behind her back without restriction for purposes of ADL's and usual functional activities LTG Duration 12/2620 Two Impairment right axillary cording extending axilla to wrist Short Term Goal (STG) decrease axillary cording by 50% STG Duration 11/04/20 Yarn Worker Goal (LTG) eliminate axillary cording LTG Duration 01/09/21 One Impairment Lymphedema right UE Short Term Goal (STG) Patient to be instructed in all aspects of lymphedema care to include skin care, manual lymphatic drainage, sequential lymphedema exercises and compression STG Duration 11/04/20 Yarn Worker Goal (LTG) Patient lymphedema to decrease to stable level (no increase or decrease more than 1 cm over the course of 1 week), be independent with all aspects of self-care for lymphedema and obtain appropriate compression garment(s). LTG Duration 01/09/21 Progress Towards Goals Progress Towards Goals Progressing Toward Goals Assessment Summary Assessment No UE circumferential measurements today due to measurement yesterday, though noted some swelling superior to breast today, patient enccouraged to wear compression tank top or shirt to provide some compression to region; possibly effects from radiation. Will need to monitor. Physical Therapy Plan Frequency and Duration Frequency of Treatment 20 Duration of Treatment 12 weeks Plan of Care Start Date 10/11/20 Plan of Care End Date 01/09/21 Therapeutic Interventions Therapeutic Interventions Home Exercise Program, Lymphedema Management,Manual Therapy,Patient/Caregiver Education,Self-Care/Home Management,Soft Tissue Mobilization,Taping, Therapeutic Exercises Next Visit Focus/Plan Next Note Type Progress Note Next Visit Plan circumferential measurements, assess area of swelling chest and further discuss compression options for that region, evaluate compression garment if received and educate patient in donning, doffing, and care. Evaluate need for further PT for lymphedema
--- NOTE | 2020-12-13 15:26 | PT.OTN ---
Current Diagnoses Malignant neoplasm of unspecified site of unspecified female breast (12/13/20) Lymphedema, not elsewhere classified (12/13/20) Soft tissue disorder, unspecified (12/13/20) Physical Therapy Treatment Note PT-OP-A Visit Information Start: 10/04/20 08:09 Freq: Status: Active Protocol: Document 12/13/20 15:13 SAK (Rec: 12/13/20 15:25 SAK [id number]) Out-Patient Physical Therapy Visit Information Visit Information Visit Type Treatment Note Visit Start Time 14:30 Visit Stop Time 15:10 Total Visit Minutes 40 Visit Number 10 PT-OP-B Current Condition Start: 10/04/20 08:09 Freq: Status: Active Protocol: Document 10/11/20 14:33 SAK (Rec: 10/11/20 15:05 SAK [id number]) Current Condition History of Current Condition Onset Date 1 month Current Complaints cording, pain, swelling right UE History of Current Condition lumpectomy 09/11/20, started to notice cording in right UE 7- 10 days after procedure, extending to wrist Also feels tightness and pain posterior upper arm. Reports had slight infection at lumpectomy surgery site, took antibiotics . Painful to lay on right. Assessment for radiation . Doing oral chemo; causing vision difficulty, hot flashes, difficulty sleeping. Looked up how to deal with lymphatic cording online and has been doing a stretching exercise with some improvement . Prior Treatments and Tests RCR right UE without biceps reattachment. wrist pain right 1 month with no injury right handed. Future Testing and Treatments Planned radiation to start soon as above Treatment Goals Patient/Caregiver Goals decrease/eliminate cording and swelling, be able to use right UE normally Prior Functional Status Baseline Function- ADL's Independent Baseline Function- Mobility Independent Baseline Function- Work/School retired Baseline Function- Recreation/Hobbies no limitation Current Functional Impairments (Reported) Functional Limitations- ADL's difficulty to reach overhead and behind her back Functional Limitations- Recreation/ doesn't tolerate well Hobbies PT-OP-C Subjective Start: 10/04/20 08:09 Freq: Status: Active Protocol: Document 12/13/20 15:13 SAK (Rec: 12/13/20 15:25 SAK [id number]) OP-PT Subjective Patient Comments Patient Comments Patient reports she finally received her compression sleeve, put it on once, but wants PT evaluation of donning and fit. States she hasn't worn compression on her upper arm for awhile, contionues to wear tubigrip on forearm, and is interested in how her swelling is. Completed her radiation 11/22/20, had first cataract surgery 12/05/20. Is feeling ready for discharge from PT for her lymphedema after today's treatment. PT-OP-F Manual Assessment Start: 10/04/20 08:09 Freq: Status: Active Protocol: Document 10/11/20 14:33 SAK (Rec: 10/11/20 17:39 SAK [id number]) Manual Assessments Soft Tissue Assessment Soft Tissue Mobility Assessment axillary cording palpable right axilla, extending to mid forearm PT-OP-J Posture/Palpation/Skin Start: 10/04/20 08:09 Freq: Status: Active Protocol: Document 10/11/20 14:33 SAK (Rec: 10/11/20 17:39 SAK [id number]) Palpation Assessment Location right UE Palpation Location axilla to mid forearm Palpation Details axillary/lymphatic cording PT-OP-K Range of Motion Start: 10/04/20 08:09 Freq: Status: Active Protocol: Document 10/11/20 14:33 SAK (Rec: 10/11/20 17:39 SAK [id number]) Shoulder Goniometric Range of Motion Shoulder ROM Limitations Shoulder ROM Limitations Soft Tissue Tightness,Swelling Comments left shoulder WNL. Right shoulder flex 165, abduction 155, internal rotation to L4, ER 35 deg. Difficult to reach overhead, behind back, and into backseat of car PT-OP-N Lymphedema Start: 10/04/20 08:09 Freq: Status: Active Protocol: Document 11/13/20 11:25 SAK (Rec: 11/13/20 14:24 SAK [id number]) Lymphedema Measurements Upper Extremity Circumference Measurements Right Affected MCP 21.4 cm Dorsum of Hand 23.6 cm Wrist 19.8 cm 5 cm From Wrist Crease 24.3 cm 10 cm From Wrist Crease 28 cm 15 cm From Wrist Crease 31.4 cm 20 cm From Wrist Crease 31.8 cm 25 cm From Wrist Crease 33 cm 30 cm From Wrist Crease 40.3 cm 35 cm From Wrist Crease 42.3 cm 40 cm From Wrist Crease 44.3 cm 45 cm From Wrist Crease 46.3 cm PT-OP-Q Treatments Start: 10/04/20 08:09 Freq: Status: Active Protocol: Document 12/13/20 15:13 [facility] (Rec: 12/13/20 15:25 [facility] [id number]) Lymphedema Treatment Compression Garment Assessment Compression Garment Assessment Details Jobst Lite compression sleeve 15-20 mmHg, assisted with donning. Good fit, slightly long but able to smooth fabric for good fit. Patient continues to wear splint on hand which is more comfortable than bandaging, has not yet obtained a compression glove; agreeable to obtain glove if seems sleeve pushing fluid into hand. Obtain 20-30mm Hg sleeve if edema appears to be worsening. Patient Education Lymphedema Precautions wear sleeve during day, especially when active and with plan travel. Compression Garments recommended tank/ shapewear but patient prefers not to wear. Self Manual Lymphatic Drainage patient indep and compliant Sequential Lymphedema Exercises patient indep and compliant Other Other circumferential measurements Patient instructed in use of GeriJoy [place] donning aid but did not work well for patient. PT-OP-T Assessment and Plan Start: 10/04/20 08:09 Freq: Status: Active Protocol: Document 12/13/20 15:13 [facility] (Rec: 12/13/20 15:25 [facility] [id number]) Physical Therapy Assessment Goals Three Impairment patient unable to reach overhead, out to side, or behind her back Short Term Goal (STG) Instruct patient in ROM exercises STG Duration goal met Rounding Machine Tender Goal (LTG) Patient will demonstrate normal ROM of her right UE to allow her to reach overhead, out to side, and behind her back without restriction for purposes of ADL's and usual functional activities LTG Duration goal met Two STG Duration goal met LTG Duration goal met One STG Duration goal met [facility] Goal (LTG) Increase in edema distal upper arm due to not wearing compression on that part of arm, but now has compression sleeve, goal mostly met LTG Duration mostly met. Assessment Summary Assessment Patient circumferential measurements mostly stable except for increase distal upper arm where she hasn't recently been wearing compression. Good fit of compression sleeve, patient independent with other aspects of lymphedema care. Ready for discharge to self- management. Physical Therapy Plan Discharge Physical Therapy Discharge Reasons Goals Met Discharge Comments Patient to start PT for neck pain in a few weeks.
== END 2020-12-14 07:35 | disposition home or self-care (01) ==
LOC: PHYS 14:30
PROVIDERS: PCP Internal Medicine; Referring Provider Physician Assistant; Visit Provider Physician Assistant
DX: C50.919 Malignant neoplasm of unspecified site of unspecified female breast (principal); I89.0 Lymphedema, not elsewhere classified; M79.9 Soft tissue disorder, unspecified
CPT/HCPCS: 97110; 97140; 97162; 97535

== ENCOUNTER → 2020-12-17 13:45 | Outpatient (CLI) | payer OTHER, SELFPAY ==
[2020-08-23 11:34] VITALS: BMI 50.5
[2020-12-17 17:30] LABS: COVID19 -Nasal RAPID Negative (Negative)
== END ==
PROVIDERS: PCP Internal Medicine; Visit Provider Student in an Organized Health Care Education/Training Program
DX: Z01.812 Encounter for preprocedural laboratory examination (principal); Z20.822 Contact with and (suspected) exposure to COVID-19
CPT/HCPCS: 87635; C9803

== ENCOUNTER 2020-12-19 07:29 | Day surgery (SDC) | payer OTHER, SELFPAY ==
[2020-08-23 11:34] VITALS: BMI 50.5
--- NOTE | 2020-12-18 17:37 | PM.PREOP ---
Pre-operative Note COVID-19 COVID-19 status: Negative Interval Note History & Physical reviewed/Exam performed by Physician: Yes Changes to H&P: No
--- NOTE | 2020-12-19 07:50 | PM.OP.1 ---
Operative Date/Time/Diagnoses Date of procedure: 12/19/20 Time of procedure: 08:45
--- NOTE | 2020-12-19 07:51 | P.OP_ITS ---
Procedure & Clinicians Procedure: Preoperative diagnoses: 1. Right significant nuclear sclerotic and cortical cataract. 2. Morbidly obese. 3. Sarcoidosis 4. Previous pulmonary embolism now off anticoagulation. 5. Anxiety. 6. Lymphedema Postoperative diagnoses: 1. Cataract removed by phacoemulsification with placement of posterior chamber intraocular lens. Procedure: Phacoemulsification with posterior chamber intraocular lens implant Surgeon: Carol Warren MD Complications: None Specimen: None Implant: [id number] Blood loss: None Anesthesia: Retrobulbar with monitored standby Description of procedure: Patient presents with a complaint of decreased vision due to cataract which is affecting activities of daily living with decreased vision for driving and reading. The patient wants surgery to improve vision. She understands the extra risk of surgery to remove a COVID-19 epidemic and desires to proceed. She has tested negative for active iris within 72 hours of the surgery. This is her 2nd eye and she is recovering well from her for surgery. Her Eliquis has been stopped since prior to her for surgery and is not due to be restarted if she is now clinically stable after previous pulmonary embolism. The patient was taken to the operating room and given IV sedation. A retrobulbar block consisting of 6 cc of 2% xylocaine without epinephrine mixed half and half with 0.5% Marcaine with 1 cc of hyaluronidase added is placed between the medial and lateral 1/3 of the inferior orbital rim. The eye is m anually massaged for 30 sec, prepped using Betadine solution, and draped in the usual sterile fashion. Temporal approach was made, a 1 mm side-port incision was made 90? from the proposed clear corneal incision position. Phenylephrine 1.5% mixed with 1% xylocaine 0.2 cc was placed into the anterior chamber. Viscoat followed by [place] was then placed. A 2.6 mm clear incision with a 2.6 mm blade was placed. A 360 degree capsulorrhexis style capsulotomy was then performed with a cystitome needle on a Illumitexon. Hydrodelineation and hydrodissection were performed. The phacoemulsification unit is introduced, and sculpting notice used to groove the central lens. It is then removed in chopping mode. Epi nucleus is removed with epinuclear mode and irrigation aspiration was used to remove the peripheral cortex. The posterior capsule is polished. The intraocular lens is selected, inspected, power confirmed, and placed in the posterior chamber. The wound was stromally hydrated and tested for leaks, there was none and it was left sutureless. Vigamox 0.1 cc was placed into the anterior chamber. Kenalog 0.2 cc was placed in the superior subconjunctival space. A drop of antibiotic and was placed and the eye was patched and shielded. The patient was stable and returned to the recovery room in excellent condition. Dictated by: Carol Warren MD Copy to: [facility] Same procedure as scheduled: Yes
[2020-12-19] MEDS: PROPARACAINE 0.5% OPHTH SOL 2 DROPS EYE-OP (08:13)
[2020-12-19 08:17] VITALS: BP 172/76; PULSE 90; RESP 18; TEMP 36.4; O2SAT 98; BMI 50.6
[2020-12-19] MEDS: CATARACT EYE COMPOUND (10 DROPS/SYRINGE) 3 DROPS EYE-OP (08:23)
--- NOTE | 2020-12-19 08:26 | SUR.OPER ---
Supine on eye stretcher, head on extension cradle secured with tape. Arms tucked at sides with blanket. Pillow under knees.
[2020-12-19] MEDS: PHENYLEPHRINE/LIDOCAINE VIAL (OR) 0.2 ML EYE-OP (09:06)
[2020-12-19] MEDS: LIDOCAINE 2% 4 ML, BUPIVACAINE 0.5% (PF) 4 ML, HYALURONIDASE 150 UNIT INJ (09:07)
[2020-12-19] MEDS: TRIAMCINOLONE 50 MG/5 ML VIAL INJ (09:09)
[2020-12-19] MEDS: BALANCED SALT IRRIG SOLN NO.2 500 ML, EPINEPHrine 1 MG IRR (09:09)
[2020-12-19] MEDS: CHONDROIDTIN/SOD HYALURONATE 1.05 ML SYRINGE INTRAOCULA (09:10)
[2020-12-19] MEDS: HYALURONATE SODIUM 10 MG/ML SYRINGE INJ (09:10)
[2020-12-19] MEDS: ERYTHROMYCIN OPHTH 1 GM OINT 1 APPLIC EYE-RIGHT (09:11)
[2020-12-19] MEDS: MOXIFLOXACIN INJ 4 MG/0.8 ML VIAL 0.5 MG EYE-OP (09:12)
[2020-12-19 09:40] VITALS: BP 168/87; PULSE 74; RESP 16; TEMP 37; O2SAT 99
== END 2020-12-19 09:53 | disposition home or self-care (01) ==
PROVIDERS: PCP Internal Medicine; Referring Provider Internal Medicine; Visit Provider Ophthalmology
PROC: (CPT 66984; principal; 2020-12-19 08:45)
DX: H25.811 Combined forms of age-related cataract, right eye (principal); E66.01 Morbid (severe) obesity due to excess calories; D86.9 Sarcoidosis, unspecified; Z86.711 Personal history of pulmonary embolism; F41.9 Anxiety disorder, unspecified
CPT/HCPCS: 66984; J0171; J2250; J2704; J3301; J3470

== ENCOUNTER 2021-01-22 13:45 | Outpatient (RCR) | payer OTHER, SELFPAY ==
[2020-08-23 11:34] VITALS: BMI 50.5
--- NOTE | 2020-12-26 16:56 | PT.OIE ---
Current Diagnoses Other cervical disc degeneration, unspecified cervical region (12/26/20) Myalgia, other site (12/26/20) Past Medical History (Last Updated 12/05/20 @ 12:17 by Ethel Warren, RN) Breast cancer Depression Febrile illness Hypothyroidism Lymphedema Morbid obesity with BMI of 40.0-44.9, adult Morbid obesity with body mass index (BMI) of 50.0 to 59.9 in adult Obstructive sleep apnea of adult Primary insomnia Sarcoidosis Snoring UTI (urinary tract infection) Past Surgical History (Last Updated 12/05/20 @ 13:27 by Ethel Warren, RN) H/O exploratory laparotomy S/P lumpectomy, right breast Visit Care Team Role Provider Type Avani Chavez MD Family Provider Physician Primary Care Provider Specialty: Internal Medicine Address: [address] [place] [address], [id number] Email: [email or web address] Chinese Ze Saldana MD Attending Provider Physician Referring Provider Specialty: Physical Medicine and Rehab Address: [address] [place] [address], [id number] Email: [email or web address] Physical Therapy Initial Evaluation PT-OP-A Visit Information Start: 12/26/20 08:05 Freq: Status: Active Protocol: Document 12/26/20 11:17 SAK (Rec: 12/26/20 11:56 SAK [id number]) Out-Patient Physical Therapy Visit Information Visit Information Visit Type Initial Evaluation Visit Start Time 11:15 Visit Stop Time 12:13 Total Visit Minutes 58 Visit Number 1 Evaluation Information Evaluation Date 12/26/20 Precautions Precautions Just had second cataract surgery. PT-OP-B Current Condition Start: 12/26/20 08:05 Freq: Status: Active Protocol: Document 12/26/20 11:17 SAK (Rec: 12/26/20 11:56 SAK [id number]) Current Condition History of Current Condition Onset Date 5 weeks ago Current Complaints neck pain History of Current Condition 5 weeks ago onset severe pain in her neck for no known reason. 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 Had 3 sets of trigger point injections by Dr. Saldana recently with 80% improvement in pain. Still feeling stiff and sore, would like to be able to turn her head further and look up and down without an increase in pain. Denies numbness or tingling. Patient recently seen for lymphedema treatment , compliant to HEP and wearing compression sleeve. Prior Treatments and Tests x-rays at Dr. Saldana's office arthritis and bone spurs in cervical spine. Treatment Goals Patient/Caregiver Goals be able to move her neck further without pain PT-OP-C Subjective Start: 12/26/20 08:05 Freq: Status: Active Protocol: Document 12/26/20 11:17 [facility] (Rec: 12/26/20 16:56 [facility] [id number]) Patient Questionnaires Neck Disability Index NDI Score 32 OP-PT Pain Assessment Pain Assessment Grid Paper Pain Assessment Grid Completed Yes Location bilateral c/s and periscapular region right Intensity 3 Description Aching,Pressure,Pulling,Tender ,Tightness Frequency Frequent Pain Aggravating Factors Changing Position,Activity Pain Alleviating Factors Inactivity PT-OP-H Neuro Start: 12/26/20 08:05 Freq: Status: Active Protocol: Document 12/26/20 11:17 [facility]AK (Rec: 12/26/20 16:56 [facility] [id number]) Sensation Evaluation Gross Sensation Gross Sensation WNL Comments Summary Comments denies N/T PT-OP-J Posture/Palpation/Skin Start: 12/26/20 08:05 Freq: Status: Active Protocol: Document 12/26/20 11:17 [facility] (Rec: 12/26/20 16:56 [facility] [id number]) Posture Evaluation Position Sitting Head/C-Spine Posture Forward Head T-Spine Posture Increased Kyphosis L-Spine Posture Increased Lordosis Shoulder Posture (L) Rounded,(R) Rounded Scapula Posture (L) Protracted,(R) Protracted Arm Posture (L) Internally Rotated,(R) Internally Rotated Pelvis Posture Anteriorly Tilted Comments Posture Comments hinging noted C5-6 with extension, dowager's hump evident Palpation Assessment Location c/s Palpation Findings Soft Tissue Tightness,Muscle Guarding,Tenderness Skin Assessment Other Assessments Skin Assessment Comments skin intact PT-OP-K Range of Motion Start: 12/26/20 08:05 Freq: Status: Active Protocol: Document 12/26/20 11:17 [facility] (Rec: 12/26/20 16:56 [facility] [id number]) Cervical Spine Range of Motion Cervical Spine Active Degrees Testing Position Sitting Flexion 28 Extension 35 Rotation Left 46 Rotation Right 45 Lateral Flexion Left 27 Lateral Flexion Right 24 ROM Limitations Soft Tissue Tightness,Pain Comments worst pain with c/s flexion Shoulder Goniometric Range of Motion Shoulder Right Shoulder ROM WFL No Testing Position Sitting Comments WFL except with internal rotation stiff and decreased motion as compared to left. Left T4, right T12 Left Shoulder ROM WFL Yes Testing Position Sitting PT-OP-L Special Tests Start: 12/26/20 08:05 Freq: Status: Active Protocol: Document 12/26/20 11:17 [facility] (Rec: 12/26/20 16:56 [facility] [id number]) Special Tests Cervical Spine Special Tests Traction Test Results positive for decreased pain Foraminal Compression Test Results negtive PT-OP-M Strength Start: 12/26/20 08:05 Freq: Status: Active Protocol: Document 12/26/20 11:17 [facility] (Rec: 12/26/20 16:56 [facility] [id number]) Cervical Spine Strength Cervical Spine Manual Muscle Testing Flexion (C1-2) 4+ Good+ Extension 4+ Good+ Rotation Left 4+ Good+ Rotation Right 4+ Good+ Lateral Flexion Left (C3) 4+ Good+ Lateral Flexion Right (C3) 4+ Good+ Shoulder Strength Shoulder Manual Muscle Testing Right Flexion 4- Good- Extension 4 Good Abduction (C5) 4- Good- External Rotation 4 Good Internal Rotation 4 Good Left Flexion 5 Normal Extension 5 Normal Abduction (C5) 5 Normal Adduction 5 Normal External Rotation 4+ Good+ Internal Rotation 5 Normal Elbow/Forearm Strength Elbow and Forearm Manual Muscle Testing Left Flexion (C6) 5 Normal Extension (C7) 5 Normal Right Flexion (C6) 4+ Good+ Extension (C7) 4+ Good+ PT-OP-Q Treatments Start: 12/26/20 08:05 Freq: Status: Active Protocol: Document 12/26/20 11:17 [facility] (Rec: 12/26/20 16:56 [facility] [id number]) Self-Care/Home Management Treatment Education Patient Education Home Exercise Program,Joint Protection,Pain Management, Posture Other Education use of gentle heat ok, monitor arm for any change in lymphedema PT-OP-R Modalities Start: 12/26/20 08:05 Freq: Status: Active Protocol: Document 12/26/20 11:17 [facility] (Rec: 12/26/20 16:56 [facility] [id number]) Hot Pack/Cold Pack Treatment Hot Pack Patient Position Hooklying Treatment Duration (minutes) 15 Patient Tolerance Good Comments extra towel layer PT-OP-T Assessment and Plan Start: 12/26/20 08:05 Freq: Status: Active Protocol: Document 12/26/20 11:17 [facility] (Rec: 12/26/20 16:56 [facility] [id number]) Physical Therapy Assessment Rehab Potential Rehabilitation Potential Good Evaluation Complexity Number of Personal Factors/Comorbidities 1-2 Number of Body Systems Impaired 3 Clinical Presentation at Evaluation Evolving Impairments Impairments Activity Tolerance,Pain,ROM Goals Three Impairment neck ROM limited making turning for driving and ADL's difficult Long-Term Goal (LTG) Improve neck ROM to WNL to allow patient to perform ADL's and turn neck for driving with ease LTG Duration 02/24/21 Two Impairment neck disability index score 32 % Long-Term Goal (LTG) Neck disability index score decreased to no greater than 10% LTG Duration 02/24/21 One Impairment pain cervical spine and periscapular region 3/10 Long-Term Goal (LTG) Decrease pain to no greater than 1/10 with all usual activities LTG Duration 02/24/21 Assessment Summary Assessment Patient presents with function -limiting pain and limited motion in her neck which appears due to arthritic changes, postural habits, weakness. Trigger point injections were highly effective for her but she has some persistent pain and limited motion. Feel patient would benefit from physical therapy to decrease her pain, improve her ROM and her ability to do her usual activities. She agrees with POC and is highly motivated Physical Therapy Plan Frequency and Duration Frequency of Treatment 1x/Week Duration of Treatment 8 weeks Plan of Care Start Date 12/26/20 Plan of Care End Date 02/24/21 Next Visit Focus/Plan Next Note Type Treatment Note Next Visit Plan Review HEP, progress as tolerated for postural correction and c/s stabilization to include wall posture, rows, shoulder ext, chin tuck, MWM techniques.
--- NOTE | 2020-12-26 16:57 | PT.OPPOC ---
Physical, Occupational & Speech Therapy At [facility] Current Diagnoses Other cervical disc degeneration, unspecified cervical region (12/26/20) Myalgia, other site (12/26/20) Visit Care Team Role Provider Type Avani Chavez MD Family Provider Physician Primary Care Provider Specialty: Internal Medicine Address: [address] [place] [address], [address] Email: [email or web address] Ze Saldana MD Attending Provider Physician Referring Provider Specialty: Physical Medicine and Rehab Address: [address] [place] [address], [address] Email: [email or web address] Plan Of Care PT-OP-T Assessment and Plan Start: 12/26/20 08:05 Freq: Status: Active Protocol: Document 12/26/20 11:17 [facility] (Rec: 12/26/20 16:56 [facility] [id number]) Physical Therapy Assessment Rehab Potential Rehabilitation Potential Good Evaluation Complexity Number of Personal Factors/Comorbidities 1-2 Number of Body Systems Impaired 3 Clinical Presentation at Evaluation Evolving Impairments Impairments Activity Tolerance,Pain,ROM Goals Three Impairment neck ROM limited making turning for driving and ADL's difficult Sleep Medicine Physician Goal (LTG) Improve neck ROM to WNL to allow patient to perform ADL's and turn neck for driving with ease LTG Duration 02/24/21 Two Impairment neck disability index score 32 % Sleep Medicine Physician Goal (LTG) Neck disability index score decreased to no greater than 10% LTG Duration 02/24/21 One Impairment pain cervical spine and periscapular region 3/10 Assisted Goal (LTG) Decrease pain to no greater than 1/10 with all usual activities LTG Duration 02/24/21 Assessment Summary Assessment Patient presents with function -limiting pain and limited motion in her neck which appears due to arthritic changes, postural habits, weakness. Trigger point injections were highly effective for her but she has some persistent pain and limited motion. Feel patient would benefit from physical therapy to decrease her pain, improve her ROM and her ability to do her usual activities. She agrees with POC and is highly motivated Physical Therapy Plan Frequency and Duration Frequency of Treatment 1x/Week Duration of Treatment 8 weeks Plan of Care Start Date 12/26/20 Plan of Care End Date 02/24/21 Next Visit Focus/Plan Next Note Type Treatment Note Next Visit Plan Review HEP, progress as tolerated for postural correction and c/s stabilization to include wall posture, rows, shoulder ext, chin tuck, MWM techniques. Plan of Care Dates Plan of Care Start Date 12/26/20 Plan of Care End Date 02/24/21 Electronically Signed by: Whit Ruiz, PT 12/26/20 [id number] Please Sign and Return: I have reviewed this Plan of Care and certify that the skilled therapy services above are required to meet the patient?s needs. Physician Signature Date Printed Name and Credentials Clinical Instructor Signature Printed Name and Credentials
--- NOTE | 2020-12-31 12:51 | PT.OTN ---
Current Diagnoses Other cervical disc degeneration, unspecified cervical region (12/31/20) Myalgia, other site (12/31/20) Physical Therapy Treatment Note PT-OP-A Visit Information Start: 12/26/20 08:05 Freq: Status: Active Protocol: Document 12/31/20 11:26 [facility] (Rec: 12/31/20 11:42 [facility] [id number]) Out-Patient Physical Therapy Visit Information Visit Information Visit Type Initial Evaluation Visit Start Time 11:15 Visit Stop Time 12:13 Total Visit Minutes 58 Visit Number 2 Evaluation Information Evaluation Date 12/26/20 Precautions Precautions No new c/o. Compliant to HEP, not sure if doing right. PT-OP-B Current Condition Start: 12/26/20 08:05 Freq: Status: Active Protocol: Document 12/26/20 11:17 [facility] (Rec: 12/26/20 11:56 [facility] [id number]) Current Condition History of Current Condition Onset Date 5 weeks ago Current Complaints neck pain History of Current Condition 5 weeks ago onset severe pain in her neck for no known reason. 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 Had 3 sets of trigger point injections by Dr. Saldana recently with 80% improvement in pain. Still feeling stiff and sore, would like to be able to turn her head further and look up and down without an increase in pain. Denies numbness or tingling. Patient recently seen for lymphedema treatment , compliant to HEP and wearing compression sleeve. Prior Treatments and Tests x-rays at Dr. Saldana's office arthritis and bone spurs in cervical spine. Treatment Goals Patient/Caregiver Goals be able to move her neck further without pain PT-OP-C Subjective Start: 12/26/20 08:05 Freq: Status: Active Protocol: Document 12/31/20 11:26 [facility] (Rec: 12/31/20 11:42 [facility] [id number]) OP-PT Subjective Patient Comments Patient Comments No new c/o. PT-OP-H Neuro Start: 12/26/20 08:05 Freq: Status: Active Protocol: Document 12/26/20 11:17 [facility] (Rec: 12/26/20 16:56 [facility] [id number]) Sensation Evaluation Gross Sensation Gross Sensation WNL Comments Summary Comments denies N/T PT-OP-J Posture/Palpation/Skin Start: 12/26/20 08:05 Freq: Status: Active Protocol: Document 12/26/20 11:17 [facility] (Rec: 12/26/20 16:56 [facility] [id number]) Posture Evaluation Position Sitting Head/C-Spine Posture Forward Head T-Spine Posture Increased Kyphosis L-Spine Posture Increased Lordosis Shoulder Posture (L) Rounded,(R) Rounded Scapula Posture (L) Protracted,(R) Protracted Arm Posture (L) Internally Rotated,(R) Internally Rotated Pelvis Posture Anteriorly Tilted Comments Posture Comments hinging noted C5-6 with extension, dowager's hump evident Palpation Assessment Location c/s Palpation Findings Soft Tissue Tightness,Muscle Guarding,Tenderness Skin Assessment Other Assessments Skin Assessment Comments skin intact PT-OP-K Range of Motion Start: 12/26/20 08:05 Freq: Status: Active Protocol: Document 12/26/20 11:17 [facility] (Rec: 12/26/20 16:56 [facility] [id number]) Cervical Spine Range of Motion Cervical Spine Active Degrees Testing Position Sitting Flexion 28 Extension 35 Rotation Left 46 Rotation Right 45 Lateral Flexion Left 27 Lateral Flexion Right 24 ROM Limitations Soft Tissue Tightness,Pain Comments worst pain with c/s flexion Shoulder Goniometric Range of Motion Shoulder Right Shoulder ROM WFL No Testing Position Sitting Comments WFL except with internal rotation stiff and decreased motion as compared to left. Left T4, right T12 Left Shoulder ROM WFL Yes Testing Position Sitting PT-OP-L Special Tests Start: 12/26/20 08:05 Freq: Status: Active Protocol: Document 12/26/20 11:17 [facility] (Rec: 12/26/20 16:56 [facility] [id number]) Special Tests Cervical Spine Special Tests Traction Test Results positive for decreased pain Foraminal Compression Test Results negtive PT-OP-M Strength Start: 12/26/20 08:05 Freq: Status: Active Protocol: Document 12/26/20 11:17 [facility] (Rec: 12/26/20 16:56 [facility] [id number]) Cervical Spine Strength Cervical Spine Manual Muscle Testing Flexion (C1-2) 4+ Good+ Extension 4+ Good+ Rotation Left 4+ Good+ Rotation Right 4+ Good+ Lateral Flexion Left (C3) 4+ Good+ Lateral Flexion Right (C3) 4+ Good+ Shoulder Strength Shoulder Manual Muscle Testing Right Flexion 4- Good- Extension 4 Good Abduction (C5) 4- Good- External Rotation 4 Good Internal Rotation 4 Good Left Flexion 5 Normal Extension 5 Normal Abduction (C5) 5 Normal Adduction 5 Normal External Rotation 4+ Good+ Internal Rotation 5 Normal Elbow/Forearm Strength Elbow and Forearm Manual Muscle Testing Left Flexion (C6) 5 Normal Extension (C7) 5 Normal Right Flexion (C6) 4+ Good+ Extension (C7) 4+ Good+ PT-OP-Q Treatments Start: 12/26/20 08:05 Freq: Status: Active Protocol: Document 12/31/20 11:26 [facility] (Rec: 12/31/20 11:42 [facility] [id number]) Therapeutic Exercises Supine Exercises chin tuck Reps/Minutes 3x5 Sitting Exercises c/s rotation Reps/Minutes 2x10 c/s SB Reps/Minutes 2x10 rows Reps/Minutes 5x5 chin tuck Reps/Minutes 3x5 Standing Exercises shoulder extension Resistance L1 TB Reps/Minutes 5x5 wall posture Reps/Minutes 5x5 Manual Therapy Treatment Soft Tissue Mobilization c/s , UT, LS Mobilization Type Myofascial Release,Strumming Intensity/Depth Moderate Body Position Supine PT-OP-R Modalities Start: 12/26/20 08:05 Freq: Status: Active Protocol: Document 12/31/20 11:26 [facility] (Rec: 12/31/20 11:42 [facility] [id number]) Hot Pack/Cold Pack Treatment Hot Pack Patient Position Hooklying Treatment Duration (minutes) 15 Patient Tolerance Good Comments extra towel layer PT-OP-T Assessment and Plan Start: 12/26/20 08:05 Freq: Status: Active Protocol: Document 12/31/20 11:26 [facility] (Rec: 12/31/20 11:42 [facility] [id number]) Physical Therapy Assessment Goals Three Impairment neck ROM limited making turning for driving and ADL's difficult Artist Relationship Manager Goal (LTG) Improve neck ROM to WNL to allow patient to perform ADL's and turn neck for driving with ease LTG Duration 02/24/21 Two Impairment neck disability index score 32 % Artist Relationship Manager Goal (LTG) Neck disability index score decreased to no greater than 10% LTG Duration 02/24/21 One Impairment pain cervical spine and periscapular region 3/10 Artist Relationship Manager Goal (LTG) Decrease pain to no greater than 1/10 with all usual activities LTG Duration 02/24/21 Assessment Summary Assessment Mod cues for correct muscle activation sequence with wall posture, and theraband exercises. Demonstrated improved understanding of all HEP after review and cues. Decreased muscle tension c/s, UT after manual techniques. Physical Therapy Plan Frequency and Duration Frequency of Treatment 1x/Week Duration of Treatment 8 weeks Plan of Care Start Date 12/26/20 Plan of Care End Date 02/24/21 Next Visit Focus/Plan Next Note Type Treatment Note Next Visit Plan Continue ther ex for postural correction and stabilization, ROM. Manual techniques and modalities as needed for pain management
--- NOTE | 2021-01-07 13:04 | PT.OTN ---
Current Diagnoses Other cervical disc degeneration, unspecified cervical region (01/07/21) Myalgia, other site (01/07/21) Physical Therapy Treatment Note PT-OP-A Visit Information Start: 12/26/20 08:05 Freq: Status: Active Protocol: Document 01/07/21 11:37 SAK (Rec: 01/07/21 11:40 SAK [id number]) Out-Patient Physical Therapy Visit Information Visit Information Visit Type Initial Evaluation Visit Start Time 11:25 Visit Stop Time 12:10 Total Visit Minutes 45 Visit Number 3 PT-OP-B Current Condition Start: 12/26/20 08:05 Freq: Status: Active Protocol: Document 12/26/20 11:17 SAK (Rec: 12/26/20 11:56 SAK [id number]) Current Condition History of Current Condition Onset Date 5 weeks ago Current Complaints neck pain History of Current Condition 5 weeks ago onset severe pain in her neck for no known reason. 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 Had 3 sets of trigger point injections by Dr. Saldana recently with 80% improvement in pain. Still feeling stiff and sore, would like to be able to turn her head further and look up and down without an increase in pain. Denies numbness or tingling. Patient recently seen for lymphedema treatment , compliant to HEP and wearing compression sleeve. Prior Treatments and Tests x-rays at Dr. Saldana's office arthritis and bone spurs in cervical spine. Treatment Goals Patient/Caregiver Goals be able to move her neck further without pain PT-OP-C Subjective Start: 12/26/20 08:05 Freq: Status: Active Protocol: Document 01/07/21 11:37 SAK (Rec: 01/07/21 11:40 SAK [id number]) OP-PT Subjective Patient Comments Patient Comments Neck a little looser, sometimes can get a little pop out of it which feels good Isn't waking her up at night. Compliant to HEP, feels good . PT-OP-H Neuro Start: 12/26/20 08:05 Freq: Status: Active Protocol: Document 12/26/20 11:17 SAK (Rec: 12/26/20 16:56 SAK [id number]) Sensation Evaluation Gross Sensation Gross Sensation WNL Comments Summary Comments denies N/T PT-OP-J Posture/Palpation/Skin Start: 12/26/20 08:05 Freq: Status: Active Protocol: Document 12/26/20 11:17 [facility] (Rec: 12/26/20 16:56 [facility] [id number]) Posture Evaluation Position Sitting Head/C-Spine Posture Forward Head T-Spine Posture Increased Kyphosis L-Spine Posture Increased Lordosis Shoulder Posture (L) Rounded,(R) Rounded Scapula Posture (L) Protracted,(R) Protracted Arm Posture (L) Internally Rotated,(R) Internally Rotated Pelvis Posture Anteriorly Tilted Comments Posture Comments hinging noted C5-6 with extension, dowager's hump evident Palpation Assessment Location c/s Palpation Findings Soft Tissue Tightness,Muscle Guarding,Tenderness Skin Assessment Other Assessments Skin Assessment Comments skin intact PT-OP-K Range of Motion Start: 12/26/20 08:05 Freq: Status: Active Protocol: Document 12/26/20 11:17 [facility] (Rec: 12/26/20 16:56 [facility] [id number]) Cervical Spine Range of Motion Cervical Spine Active Degrees Testing Position Sitting Flexion 28 Extension 35 Rotation Left 46 Rotation Right 45 Lateral Flexion Left 27 Lateral Flexion Right 24 ROM Limitations Soft Tissue Tightness,Pain Comments worst pain with c/s flexion Shoulder Goniometric Range of Motion Shoulder Right Shoulder ROM WFL No Testing Position Sitting Comments WFL except with internal rotation stiff and decreased motion as compared to left. Left T4, right T12 Left Shoulder ROM WFL Yes Testing Position Sitting PT-OP-L Special Tests Start: 12/26/20 08:05 Freq: Status: Active Protocol: Document 12/26/20 11:17 [facility] (Rec: 12/26/20 16:56 [facility] [id number]) Special Tests Cervical Spine Special Tests Traction Test Results positive for decreased pain Foraminal Compression Test Results negtive PT-OP-M Strength Start: 12/26/20 08:05 Freq: Status: Active Protocol: Document 12/26/20 11:17 [facility] (Rec: 12/26/20 16:56 [facility] [id number]) Cervical Spine Strength Cervical Spine Manual Muscle Testing Flexion (C1-2) 4+ Good+ Extension 4+ Good+ Rotation Left 4+ Good+ Rotation Right 4+ Good+ Lateral Flexion Left (C3) 4+ Good+ Lateral Flexion Right (C3) 4+ Good+ Shoulder Strength Shoulder Manual Muscle Testing Right Flexion 4- Good- Extension 4 Good Abduction (C5) 4- Good- External Rotation 4 Good Internal Rotation 4 Good Left Flexion 5 Normal Extension 5 Normal Abduction (C5) 5 Normal Adduction 5 Normal External Rotation 4+ Good+ Internal Rotation 5 Normal Elbow/Forearm Strength Elbow and Forearm Manual Muscle Testing Left Flexion (C6) 5 Normal Extension (C7) 5 Normal Right Flexion (C6) 4+ Good+ Extension (C7) 4+ Good+ PT-OP-Q Treatments Start: 12/26/20 08:05 Freq: Status: Active Protocol: Document 01/07/21 11:37 SAK (Rec: 01/07/21 11:40 SAK [id number]) Therapeutic Exercises Supine Exercises c/s rotation Reps/Minutes 3x each after MWM chin tuck Reps/Minutes 3x5 Manual Therapy Treatment Soft Tissue Mobilization c/s , UT, LS Mobilization Type Myofascial Release,Strumming Intensity/Depth Moderate Body Position Supine Other Other Manual Treatments MWM with eye motions for rotation PT-OP-R Modalities Start: 12/26/20 08:05 Freq: Status: Active Protocol: Document 01/07/21 11:37 SAK (Rec: 01/07/21 13:04 SAK [id number]) Hot Pack/Cold Pack Treatment Hot Pack Patient Position Hooklying Treatment Duration (minutes) 15 Patient Tolerance Good Comments extra towel layer PT-OP-T Assessment and Plan Start: 12/26/20 08:05 Freq: Status: Active Protocol: Document 01/07/21 11:37 [facility] (Rec: 01/07/21 11:40 [facility] [id number]) Physical Therapy Assessment Impairments Impairments Activity Tolerance,Pain,ROM Goals Three Impairment neck ROM limited making turning for driving and ADL's difficult Telecom Field Technician Goal (LTG) Improve neck ROM to WNL to allow patient to perform ADL's and turn neck for driving with ease LTG Duration 02/24/21 Two Impairment neck disability index score 32 % Telecom Field Technician Goal (LTG) Neck disability index score decreased to no greater than 10% LTG Duration 02/24/21 One Impairment pain cervical spine and periscapular region 3/10 Prison Goal (LTG) Decrease pain to no greater than 1/10 with all usual activities LTG Duration 02/24/21 Physical Therapy Plan Frequency and Duration Frequency of Treatment 1x/Week Duration of Treatment 8 weeks Plan of Care Start Date 12/26/20 Plan of Care End Date 02/24/21 Therapeutic Interventions Therapeutic Interventions Home Exercise Program, Lymphedema Management,Manual Therapy,Patient/Caregiver Education,Self-Care/Home Management,Soft Tissue Mobilization,Taping, Therapeutic Exercises Next Visit Focus/Plan Next Note Type Treatment Note Next Visit Plan Continue ther ex for postural correction and stabilization, ROM. Manual techniques and modalities as needed for pain management
--- NOTE | 2021-01-07 13:06 | PT.OTN ---
Current Diagnoses Other cervical disc degeneration, unspecified cervical region (01/07/21) Myalgia, other site (01/07/21) Physical Therapy Treatment Note PT-OP-A Visit Information Start: 12/26/20 08:05 Freq: Status: Active Protocol: Document 01/07/21 11:37 SAK (Rec: 01/07/21 11:40 SAK [id number]) Out-Patient Physical Therapy Visit Information Visit Information Visit Type Initial Evaluation Visit Start Time 11:25 Visit Stop Time 12:10 Total Visit Minutes 45 Visit Number 3 PT-OP-B Current Condition Start: 12/26/20 08:05 Freq: Status: Active Protocol: Document 12/26/20 11:17 SAK (Rec: 12/26/20 11:56 SAK [id number]) Current Condition History of Current Condition Onset Date 5 weeks ago Current Complaints neck pain History of Current Condition 5 weeks ago onset severe pain in her neck for no known reason. 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 Had 3 sets of trigger point injections by Dr. Saldana recently with 80% improvement in pain. Still feeling stiff and sore, would like to be able to turn her head further and look up and down without an increase in pain. Denies numbness or tingling. Patient recently seen for lymphedema treatment , compliant to HEP and wearing compression sleeve. Prior Treatments and Tests x-rays at Dr. Saldana's office arthritis and bone spurs in cervical spine. Treatment Goals Patient/Caregiver Goals be able to move her neck further without pain PT-OP-C Subjective Start: 12/26/20 08:05 Freq: Status: Active Protocol: Document 01/07/21 11:37 SAK (Rec: 01/07/21 11:40 SAK [id number]) OP-PT Subjective Patient Comments Patient Comments Neck a little looser, sometimes can get a little pop out of it which feels good Isn't waking her up at night. Compliant to HEP, feels good . PT-OP-H Neuro Start: 12/26/20 08:05 Freq: Status: Active Protocol: Document 12/26/20 11:17 SAK (Rec: 12/26/20 16:56 SAK [id number]) Sensation Evaluation Gross Sensation Gross Sensation WNL Comments Summary Comments denies N/T PT-OP-J Posture/Palpation/Skin Start: 12/26/20 08:05 Freq: Status: Active Protocol: Document 12/26/20 11:17 [facility] (Rec: 12/26/20 16:56 [facility] [id number]) Posture Evaluation Position Sitting Head/C-Spine Posture Forward Head T-Spine Posture Increased Kyphosis L-Spine Posture Increased Lordosis Shoulder Posture (L) Rounded,(R) Rounded Scapula Posture (L) Protracted,(R) Protracted Arm Posture (L) Internally Rotated,(R) Internally Rotated Pelvis Posture Anteriorly Tilted Comments Posture Comments hinging noted C5-6 with extension, dowager's hump evident Palpation Assessment Location c/s Palpation Findings Soft Tissue Tightness,Muscle Guarding,Tenderness Skin Assessment Other Assessments Skin Assessment Comments skin intact PT-OP-K Range of Motion Start: 12/26/20 08:05 Freq: Status: Active Protocol: Document 12/26/20 11:17 [facility] (Rec: 12/26/20 16:56 [facility] [id number]) Cervical Spine Range of Motion Cervical Spine Active Degrees Testing Position Sitting Flexion 28 Extension 35 Rotation Left 46 Rotation Right 45 Lateral Flexion Left 27 Lateral Flexion Right 24 ROM Limitations Soft Tissue Tightness,Pain Comments worst pain with c/s flexion Shoulder Goniometric Range of Motion Shoulder Right Shoulder ROM WFL No Testing Position Sitting Comments WFL except with internal rotation stiff and decreased motion as compared to left. Left T4, right T12 Left Shoulder ROM WFL Yes Testing Position Sitting PT-OP-L Special Tests Start: 12/26/20 08:05 Freq: Status: Active Protocol: Document 12/26/20 11:17 [facility] (Rec: 12/26/20 16:56 [facility] [id number]) Special Tests Cervical Spine Special Tests Traction Test Results positive for decreased pain Foraminal Compression Test Results negtive PT-OP-M Strength Start: 12/26/20 08:05 Freq: Status: Active Protocol: Document 12/26/20 11:17 [facility] (Rec: 12/26/20 16:56 [facility] [id number]) Cervical Spine Strength Cervical Spine Manual Muscle Testing Flexion (C1-2) 4+ Good+ Extension 4+ Good+ Rotation Left 4+ Good+ Rotation Right 4+ Good+ Lateral Flexion Left (C3) 4+ Good+ Lateral Flexion Right (C3) 4+ Good+ Shoulder Strength Shoulder Manual Muscle Testing Right Flexion 4- Good- Extension 4 Good Abduction (C5) 4- Good- External Rotation 4 Good Internal Rotation 4 Good Left Flexion 5 Normal Extension 5 Normal Abduction (C5) 5 Normal Adduction 5 Normal External Rotation 4+ Good+ Internal Rotation 5 Normal Elbow/Forearm Strength Elbow and Forearm Manual Muscle Testing Left Flexion (C6) 5 Normal Extension (C7) 5 Normal Right Flexion (C6) 4+ Good+ Extension (C7) 4+ Good+ PT-OP-Q Treatments Start: 12/26/20 08:05 Freq: Status: Active Protocol: Document 01/07/21 11:37 SAK (Rec: 01/07/21 11:40 SAK [id number]) Therapeutic Exercises Supine Exercises c/s rotation Reps/Minutes 3x each after MWM chin tuck Reps/Minutes 3x5 Manual Therapy Treatment Soft Tissue Mobilization c/s , UT, LS Mobilization Type Myofascial Release,Strumming Intensity/Depth Moderate Body Position Supine Other Other Manual Treatments MWM with eye motions for rotation PT-OP-R Modalities Start: 12/26/20 08:05 Freq: Status: Active Protocol: Document 01/07/21 11:37 SAK (Rec: 01/07/21 13:04 SAK [id number]) Hot Pack/Cold Pack Treatment Hot Pack Patient Position Hooklying Treatment Duration (minutes) 15 Patient Tolerance Good Comments extra towel layer PT-OP-T Assessment and Plan Start: 12/26/20 08:05 Freq: Status: Active Protocol: Document 01/07/21 11:37 [facility] (Rec: 01/07/21 11:40 [facility] [id number]) Physical Therapy Assessment Impairments Impairments Activity Tolerance,Pain,ROM Goals Three Impairment neck ROM limited making turning for driving and ADL's difficult Change House Attendant Goal (LTG) Improve neck ROM to WNL to allow patient to perform ADL's and turn neck for driving with ease LTG Duration 02/24/21 Two Impairment neck disability index score 32 % Change House Attendant Goal (LTG) Neck disability index score decreased to no greater than 10% LTG Duration 02/24/21 One Impairment pain cervical spine and periscapular region 3/10 Detention Goal (LTG) Decrease pain to no greater than 1/10 with all usual activities LTG Duration 02/24/21 Assessment Summary Assessment Patient making progress with decreasing pain, improved sleep. Was more stiff today. Demonstrated good understanding of MWM technique ; ROM improved to left more than right today. Physical Therapy Plan Frequency and Duration Frequency of Treatment 1x/Week Duration of Treatment 8 weeks Plan of Care Start Date 12/26/20 Plan of Care End Date 02/24/21 Therapeutic Interventions Therapeutic Interventions Home Exercise Program, Lymphedema Management,Manual Therapy,Patient/Caregiver Education,Self-Care/Home Management,Soft Tissue Mobilization,Taping, Therapeutic Exercises Next Visit Focus/Plan Next Note Type Treatment Note Next Visit Plan Continue ther ex for postural correction and stabilization, ROM. Manual techniques and modalities as needed for pain management
--- NOTE | 2021-01-15 15:22 | PT-OP ANOTE ---
cancelled PT due to just not up for it today.
--- NOTE | 2021-01-22 16:20 | PT.OTN ---
Current Diagnoses Other cervical disc degeneration, unspecified cervical region (01/22/21) Myalgia, other site (01/22/21) Physical Therapy Treatment Note PT-OP-A Visit Information Start: 12/26/20 08:05 Freq: Status: Active Protocol: Document 01/22/21 13:45 SAK (Rec: 01/22/21 13:55 SAK [id number]) Out-Patient Physical Therapy Visit Information Visit Information Visit Type Treatment Note Visit Start Time 13:50 Visit Stop Time 14:30 Total Visit Minutes 40 Visit Number 3 PT-OP-B Current Condition Start: 12/26/20 08:05 Freq: Status: Active Protocol: Document 12/26/20 11:17 SAK (Rec: 12/26/20 11:56 SAK [id number]) Current Condition History of Current Condition Onset Date 5 weeks ago Current Complaints neck pain History of Current Condition 5 weeks ago onset severe pain in her neck for no known reason. 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 Had 3 sets of trigger point injections by Dr. Saldana recently with 80% improvement in pain. Still feeling stiff and sore, would like to be able to turn her head further and look up and down without an increase in pain. Denies numbness or tingling. Patient recently seen for lymphedema treatment , compliant to HEP and wearing compression sleeve. Prior Treatments and Tests x-rays at Dr. Saldana's office arthritis and bone spurs in cervical spine. Treatment Goals Patient/Caregiver Goals be able to move her neck further without pain PT-OP-C Subjective Start: 12/26/20 08:05 Freq: Status: Active Protocol: Document 01/22/21 13:45 SAK (Rec: 01/22/21 13:55 SAK [id number]) OP-PT Subjective Patient Comments Patient Comments Neck depends on the day, right side really bothering her today. Feels like may be reaching plateau with her neck , requests today be last day. Hoping to do PT on her right hand. PT-OP-H Neuro Start: 12/26/20 08:05 Freq: Status: Active Protocol: Document 12/26/20 11:17 SAK (Rec: 12/26/20 16:56 SAK [id number]) Sensation Evaluation Gross Sensation Gross Sensation WNL Comments Summary Comments denies N/T PT-OP-J Posture/Palpation/Skin Start: 12/26/20 08:05 Freq: Status: Active Protocol: Document 12/26/20 11:17 [facility] (Rec: 12/26/20 16:56 [facility] [id number]) Posture Evaluation Position Sitting Head/C-Spine Posture Forward Head T-Spine Posture Increased Kyphosis L-Spine Posture Increased Lordosis Shoulder Posture (L) Rounded,(R) Rounded Scapula Posture (L) Protracted,(R) Protracted Arm Posture (L) Internally Rotated,(R) Internally Rotated Pelvis Posture Anteriorly Tilted Comments Posture Comments hinging noted C5-6 with extension, dowager's hump evident Palpation Assessment Location c/s Palpation Findings Soft Tissue Tightness,Muscle Guarding,Tenderness Skin Assessment Other Assessments Skin Assessment Comments skin intact PT-OP-K Range of Motion Start: 12/26/20 08:05 Freq: Status: Active Protocol: Document 12/26/20 11:17 [facility] (Rec: 12/26/20 16:56 [facility] [id number]) Cervical Spine Range of Motion Cervical Spine Active Degrees Testing Position Sitting Flexion 28 Extension 35 Rotation Left 46 Rotation Right 45 Lateral Flexion Left 27 Lateral Flexion Right 24 ROM Limitations Soft Tissue Tightness,Pain Comments worst pain with c/s flexion Shoulder Goniometric Range of Motion Shoulder Right Shoulder ROM WFL No Testing Position Sitting Comments WFL except with internal rotation stiff and decreased motion as compared to left. Left T4, right T12 Left Shoulder ROM WFL Yes Testing Position Sitting PT-OP-L Special Tests Start: 12/26/20 08:05 Freq: Status: Active Protocol: Document 12/26/20 11:17 [facility] (Rec: 12/26/20 16:56 [facility] [id number]) Special Tests Cervical Spine Special Tests Traction Test Results positive for decreased pain Foraminal Compression Test Results negtive PT-OP-M Strength Start: 12/26/20 08:05 Freq: Status: Active Protocol: Document 12/26/20 11:17 [facility] (Rec: 12/26/20 16:56 [facility] [id number]) Cervical Spine Strength Cervical Spine Manual Muscle Testing Flexion (C1-2) 4+ Good+ Extension 4+ Good+ Rotation Left 4+ Good+ Rotation Right 4+ Good+ Lateral Flexion Left (C3) 4+ Good+ Lateral Flexion Right (C3) 4+ Good+ Shoulder Strength Shoulder Manual Muscle Testing Right Flexion 4- Good- Extension 4 Good Abduction (C5) 4- Good- External Rotation 4 Good Internal Rotation 4 Good Left Flexion 5 Normal Extension 5 Normal Abduction (C5) 5 Normal Adduction 5 Normal External Rotation 4+ Good+ Internal Rotation 5 Normal Elbow/Forearm Strength Elbow and Forearm Manual Muscle Testing Left Flexion (C6) 5 Normal Extension (C7) 5 Normal Right Flexion (C6) 4+ Good+ Extension (C7) 4+ Good+ PT-OP-Q Treatments Start: 12/26/20 08:05 Freq: Status: Active Protocol: Document 01/22/21 13:45 [facility] (Rec: 01/22/21 13:55 [facility] [id number]) Therapeutic Exercises Supine Exercises c/s rotation Reps/Minutes 3x each after MWM Sidelying Exercises open book Reps/Minutes 5x Manual Therapy Treatment Soft Tissue Mobilization c/s , UT, LS Mobilization Type Myofascial Release,Strumming Intensity/Depth Moderate Body Position Supine Other Other Manual Treatments MWM with eye motions for rotation PT-OP-R Modalities Start: 12/26/20 08:05 Freq: Status: Active Protocol: Document 01/22/21 13:45 [facility] (Rec: 01/22/21 13:55 [facility] [id number]) Hot Pack/Cold Pack Treatment Hot Pack Patient Position Hooklying Treatment Duration (minutes) 15 Patient Tolerance Good Comments extra towel layer PT-OP-T Assessment and Plan Start: 12/26/20 08:05 Freq: Status: Active Protocol: Document 01/22/21 13:45 [facility] (Rec: 01/22/21 13:55 [facility] [id number]) Physical Therapy Assessment Goals Three Impairment neck ROM limited making turning for driving and ADL's difficult Dietitian Research Goal (LTG) Improve neck ROM to WNL to allow patient to perform ADL's and turn neck for driving with ease 01/22/21: good goal progress LTG Duration 02/24/21 Two Impairment neck disability index score 32 % Longterm Goal (LTG) Neck disability index score decreased to no greater than 10% 01/22/21: NDI decreased to 24% LTG Duration 02/24/21 One Impairment pain cervical spine and periscapular region 10/24 Longterm Goal (LTG) Decrease pain to no greater than 1/10 with all usual activities 01/22/21: decreased to 2/10 LTG Duration 02/24/21 Progress Towards Goals Progress Towards Goals Progressing Toward Goals Physical Therapy Plan Discharge Physical Therapy Discharge Reasons Patient Request Discharge Comments Good goal progress, patient reports feeling she is able to self-manage, needs to seek PT for her right thumb and wrist , so requests discharge from PT for her neck at this time.
== END 2021-01-23 07:43 | disposition home or self-care (01) ==
LOC: PHYS 13:45
PROVIDERS: Family Provider Internal Medicine; PCP Internal Medicine; Referring Provider Physical Medicine & Rehabilitation Pain Medicine; Visit Provider Physical Medicine & Rehabilitation Pain Medicine
DX: M79.18 Myalgia, other site (principal); M50.30 Other cervical disc degeneration, unspecified cervical region
CPT/HCPCS: 97010; 97110; 97140; 97162; 97535

== ENCOUNTER 2021-05-26 23:24 | Inpatient (IN) | payer OTHER, SELFPAY ==
[2020-08-23 11:34] VITALS: BMI 50.5
[2021-05-26 23:35] VITALS: PULSE 94; O2SAT 96
[2021-05-26 23:36] VITALS: BP 141/90; PULSE 116; RESP 40; TEMP 36.6; O2SAT 80; BMI 52.9
--- NOTE | 2021-05-26 23:36 | ED_ITS ---
HPI - SOB/Dyspnea General Chief Complaint: Shortness of Breath/Dyspnea Stated Complaint: sob x1 day Time Seen by Provider: 05/26/21 23:28 History of Present Illness HPI Narrative: 70-year-old female former smoker with a history of reactive airway disease, bilateral pulmonary embolism, breast cancer presents with a chief complaint of sudden onset and increasing the severe shortness of breath over the past day. She states that she has had no other symptoms such as runny nose, sore throat or cough. She has had no fever or chills. She denies any nausea or vomiting. She states this feels just like when she had a pulmonary embolism a few years ago which was thought to be related to a new diagnosis of breast cancer. She had surgery to address the cancer in August. She stopped taking her Eliquis about 4 months ago. Related Data Home Medications Medication Instructions Recorded Confirmed Respironics Dreamstation BIPAP #1 ea 12/23/18 09/07/20 thyroid (pork) 90 mg tablet ([employer]OR 90 mg PO DAILY 08/07/19 12/19/20 Thyroid) venlafaxine 150 mg 225 mg PO QAM 08/07/19 12/19/20 capsule,extended release 24 hr (Effexor XR) anastrozole 1 mg tablet 1 mg PO DAILY 12/05/20 12/19/20 montelukast 10 mg tablet 10 mg PO DAILY PRN 12/05/20 12/19/20 Allergies Allergy/AdvReac Type Severity Reaction Status Date / Time amoxicillin [AMOXICILLIN] Allergy Severe HIVES Verified 12/19/20 08:04 NSAIDS (Non-Steroidal Allergy Severe ANAPHYLAXIS Verified 12/19/20 08:04 Anti-Inflamma [NSAIDS (NON-STEROIDAL ANTI-INFLAMMA] Penicillins [PENICILLINS] Allergy Intermediate HIVES Verified 12/19/20 08:04 Sulfa (Sulfonamide Allergy Intermediate ITCH Verified 12/19/20 08:04 Antibiotics) [SULFA (SULFONAMIDE ANTIBIOTICS)] cephalexin [From KEFLEX] Allergy Mild ITCHY Verified 12/19/20 08:04 oxycodone [OXYCODONE] AdvReac Intermediate AMNESIA Verified 12/19/20 08:04 meperidine [MEPERIDINE] AdvReac Mild AMNESIA Verified 12/19/20 08:04 Review of Systems Review of Systems Narrative: GENERAL: Denies chills, fatigue, malaise, fever, sweats. HEENT: Denies sinus pain, ear pain, sore throat, difficulty swallowing, dizziness. RESPIRATORY: see HPI. CARDIOVASCULAR: Denies chest pain, palpitations, orthopnea, edema, GASTROINTESTINAL: Denies nausea, vomiting, abdominal pain, diarrhea, constipation, melena. : Denies dysuria, frequency, incontinence, hematuria, urinary retention. MUSCULOSKELETAL: denies weakness, joint pain, or bony pain SKIN: Denies rash, skin lesions, or other NEUROLOGIC: Denies weakness, headache, numbness, change in speech, confusion, seizures, incoordination. PSYCHIATRIC: No concerning psychosocial issues. 12 point review of systems is negative except for those stated above Patient History Medical History Breast cancer Depression Febrile illness Hypothyroidism Lymphedema Morbid obesity with BMI of 40.0-44.9, adult Morbid obesity with body mass index (BMI) of 50.0 to 59.9 in adult Obstructive sleep apnea of adult Primary insomnia Sarcoidosis Snoring UTI (urinary tract infection) Surgical History H/O exploratory laparotomy S/P lumpectomy, right breast Family History Father Leukemia Brother Diabetes mellitus Sister Diabetes mellitus Breast cancer Mother Ovarian cancer Social History household members: children and none lives independently: Yes caregiver/support person: No Smoking Status: Former smoker alcohol intake: current substance use type: does not use Smoking Status: Former smoker alcohol intake frequency: a few times a month Substance Use Type: does not use Exam Narrative Exam Narrative: GENERAL: [70 year old patient appears stated age. Well-developed patient, in obvious distress, increased work of breathing with conversational dyspnea, initial pulse ox in the low 80s on room air HEAD: Atraumatic. Normocephalic. EYES: Pupils equal round and reactive. Extraocular motions intact. No scleral icterus. No injection or drainage. ENT: Nose without bleeding, purulent drainage. Throat without erythema, tonsillar hypertrophy or exudate. Airway patent. NECK: Trachea midline. Non tender CARDIOVASCULAR: Regular rate and rhythm without murmurs, gallops, or rubs. RESPIRATORY: Increased work of by with tachypnea and rapid shallow breathing in the absence of wheezing, rales or rhonchi. GASTROINTESTINAL: Abdomen soft, non-tender, nondistended. EXTREMITIES: No edema or joint tenderness. BACK: Nontender without deformity or crepitance. No flank tenderness. NEURO: AOx3. 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/PCR) Stat 05/26/21 23:36 Arterial Blood Gas Stat Blood Culture Stat 05/26/21 23:50 C-Reactive Protein Quant Stat Complete Blood Count AUTO DIFF Stat Comprehensive Metabolic Panel Stat Ferritin Stat Lactate (Lactic Acid) Stat Magnesium Stat NT-proBNP (BNP-Adult 18+) Stat Prothrombin Time INR Stat Troponin & CK Cardiac Panel Stat 05/27/21 EKG-12 Lead Stat 05/27/21 00:14 CT angio chest PE protocol Stat Discontinued Medications Enoxaparin Sodium (Enoxaparin 100 Mg/Ml Syringe) 100 mg SUBCUT NOW ONE Stop: 05/27/21 01:31 Enoxaparin Sodium (Enoxaparin 40 Mg/0.4 Ml Syringe) 40 mg SUBCUT NOW ONE Stop: 05/27/21 01:31 Vital Signs Vital signs: Vital Signs - 8 hr 05/26/21 23:35 05/26/21 23:36 05/27/21 00:00 Temperature 97.9 F Pulse Rate 94 H 116 H 90 Respiratory Rate 40 H Blood Pressure 141/90 H Pulse Oximetry 96 80 L 95 05/27/21 00:03 05/27/21 00:30 05/27/21 00:57 Temperature Pulse Rate 84 78 80 Respiratory Rate Blood Pressure 146/70 H 158/77 H Pulse Oximetry 96 95 98 05/27/21 01:00 Temperature Pulse Rate 84 Respiratory Rate Blood Pressure 161/86 H Pulse Oximetry 97 MDM - SOB/Dyspnea Lab Data Result diagrams: 05/26/21 23:50 05/26/21 23:50 Labs: Lab Results 05/26/21 05/26/21 05/26/21 Range/Units 23:35 23:35 23:36 WBC (4.5-11.0) X10^3/uL RBC (4.0-5.2) X10^6/uL Hgb (12.0-16.0) g/dL Hct (36-46) % MCV (80-100) fL MCH (26-34) PG MCHC (30-36) % RDW (11.6-14.8) % Plt Count (150-400) X10^3/uL Neut % (Auto) (50-75) % Lymph % (Auto) (25-40) % Ceiba % (Auto) (3-14) % Eos % (Auto) (2-4) % Baso % (Auto) (0-2) % Neut # (Auto) (7397-6636) /uL Lymph # (Auto) (8335-7305) /uL Ceiba # (Auto) (0-900) /uL Eos # (Auto) (0-450) /uL Baso # (Auto) (0-100) /uL PT (10.1-12.7) SECONDS INR (0.9-1.3) ABG pH 7.41 (7.35-7.45) ABG pCO2 39.8 (35-45) mmHg ABG pO2 81 (80-100) mmHg ABG HCO3 25 (22-26) mmol/L ABG Total CO2 27 (21-31) mmol/L ABG O2 Saturation 96 (95-100) % ABG Base Excess 1.0 (-2-2) mmol/L FiO2 28 Sodium (137-145) mmol/L Potassium (3.4-5.1) mmol/L Chloride (98-107) mmol/L Carbon Dioxide (22-32) mmol/L BUN (7-17) mg/dL Creatinine (0.52-1.04) mg/dL Estimated GFR (>60) mL/min BUN/Creatinine Ratio (6-22) Glucose (80-110) mg/dL Lactate (0.7-2.1) mmol/L Calcium (8.4-10.2) mg/dL Magnesium (1.6-2.3) mg/dL Ferritin (11-264) ng/mL Total Bilirubin (0.2-1.3) mg/dL AST (14-36) IU/L ALT (<35) IU/L Alkaline Phosphatase (38-126) U/L Total Creatine Kinase (30-135) U/L CK-MB (CK-2) CK-MB (CK-2) Rel Index Troponin I (0.01-0.034) ng/mL C-Reactive Protein (<1.0) mg/dL NT-Pro-B Natriuret Pep (<125) pg/mL Total Protein (6.3-8.2) g/dL Albumin (3.5-5.0) g/dL Globulin (1.7-4.1) g/dL Albumin/Globulin Ratio (1.0-2.8) SARS-CoV-2 (PCR) Cancelled Negative 05/26/21 05/26/21 05/26/21 Range/Units 23:50 23:50 23:50 WBC 9.1 (4.5-11.0) X10^3/uL RBC 4.37 (4.0-5.2) X10^6/uL Hgb 9.7 L (12.0-16.0) g/dL Hct 31.4 L (36-46) % MCV 71.8 L (80-100) fL MCH 22.2 L (26-34) PG MCHC 31.0 (30-36) % RDW 19.7 H (11.6-14.8) % Plt Count 347 (150-400) X10^3/uL Neut % (Auto) 76.5 H (50-75) % Lymph % (Auto) 14.3 L (25-40) % Ceiba % (Auto) 8.3 (3-14) % Eos % (Auto) 0.7 L (2-4) % Baso % (Auto) 0.2 (0-2) % Neut # (Auto) 6900 (5696-1758) /uL Lymph # (Auto) 1300 (7897-8763) /uL Ceiba # (Auto) 800 (0-900) /uL Eos # (Auto) 100 (0-450) /uL Baso # (Auto) 0 (0-100) /uL PT 12.6 (10.1-12.7) SECONDS INR 1.1 (0.9-1.3) ABG pH (7.35-7.45) ABG pCO2 (35-45) mmHg ABG pO2 (80-100) mmHg ABG HCO3 (22-26) mmol/L ABG Total CO2 (21-31) mmol/L ABG O2 Saturation (95-100) % ABG Base Excess (-2-2) mmol/L FiO2 Sodium 138 (137-145) mmol/L Potassium 4.0 (3.4-5.1) mmol/L Chloride 105 (98-107) mmol/L Carbon Dioxide 27 (22-32) mmol/L BUN 20 H (7-17) mg/dL Creatinine 0.83 (0.52-1.04) mg/dL Estimated GFR > 60.0 (>60) mL/min BUN/Creatinine Ratio 24.1 H (6-22) Glucose 146 H (80-110) mg/dL Lactate (0.7-2.1) mmol/L Calcium 9.0 (8.4-10.2) mg/dL Magnesium (1.6-2.3) mg/dL Ferritin (11-264) ng/mL Total Bilirubin 0.5 (0.2-1.3) mg/dL AST 19 (14-36) IU/L ALT 14 (<35) IU/L Alkaline Phosphatase 113 (38-126) U/L Total Creatine Kinase (30-135) U/L CK-MB (CK-2) CK-MB (CK-2) Rel Index Troponin I (0.01-0.034) ng/mL C-Reactive Protein 1.9 H (<1.0) mg/dL NT-Pro-B Natriuret Pep (<125) pg/mL Total Protein 7.1 (6.3-8.2) g/dL Albumin 4.1 (3.5-5.0) g/dL Globulin 3.0 (1.7-4.1) g/dL Albumin/Globulin Ratio 1.4 (1.0-2.8) SARS-CoV-2 (PCR) 05/26/21 05/26/21 Range/Units 23:50 23:50 WBC (4.5-11.0) X10^3/uL RBC (4.0-5.2) X10^6/uL Hgb (12.0-16.0) g/dL Hct (36-46) % MCV (80-100) fL MCH (26-34) PG MCHC (30-36) % RDW (11.6-14.8) % Plt Count (150-400) X10^3/uL Neut % (Auto) (50-75) % Lymph % (Auto) (25-40) % Ceiba % (Auto) (3-14) % Eos % (Auto) (2-4) % Baso % (Auto) (0-2) % Neut # (Auto) (7777-7546) /uL Lymph # (Auto) (1043-2722) /uL Ceiba # (Auto) (0-900) /uL Eos # (Auto) (0-450) /uL Baso # (Auto) (0-100) /uL PT (10.1-12.7) SECONDS INR (0.9-1.3) ABG pH (7.35-7.45) ABG pCO2 (35-45) mmHg ABG pO2 (80-100) mmHg ABG HCO3 (22-26) mmol/L ABG Total CO2 (21-31) mmol/L ABG O2 Saturation (95-100) % ABG Base Excess (-2-2) mmol/L FiO2 Sodium (137-145) mmol/L Potassium (3.4-5.1) mmol/L Chloride (98-107) mmol/L Carbon Dioxide (22-32) mmol/L BUN (7-17) mg/dL Creatinine (0.52-1.04) mg/dL Estimated GFR (>60) mL/min BUN/Creatinine Ratio (6-22) Glucose (80-110) mg/dL Lactate 1.4 (0.7-2.1) mmol/L Calcium (8.4-10.2) mg/dL Magnesium 2.1 (1.6-2.3) mg/dL Ferritin 8 L (11-264) ng/mL Total Bilirubin (0.2-1.3) mg/dL AST (14-36) IU/L ALT (<35) IU/L Alkaline Phosphatase (38-126) U/L Total Creatine Kinase 35 (30-135) U/L CK-MB (CK-2) TNP CK-MB (CK-2) Rel Index TNP Troponin I 0.038 H (0.01-0.034) ng/mL C-Reactive Protein (<1.0) mg/dL NT-Pro-B Natriuret Pep 169 H (<125) pg/mL Total Protein (6.3-8.2) g/dL Albumin (3.5-5.0) g/dL Globulin (1.7-4.1) g/dL Albumin/Globulin Ratio (1.0-2.8) SARS-CoV-2 (PCR) Imaging Data CT scan - chest: Radiologist's Impression: Launch?Image [address] [address] [address] Scan Report Signed Patient: Joy Chung MR#: [id number] : 1950 Acct:[id number] Age/Sex: 70 / F Date of Service: 05/27/21 Loc: ED Accession Number: [id number] ?? Procedure: CT angio chest PE protocol Ordering Provider: Ambrosio Drake D.O. PROCEDURE:? CT ANGIO CHEST PE PROTOCOL ? INDICATIONS:? short of breath, hypoxemia, history of PE, feels the same ? TECHNIQUE:? After the administration of intravenous contrast, 2 mm thick sections acquired from the pulmonary apices to the posterior costophrenic angles.? 3-dimensional maximum intensity projection (MIP) coronal and sagittal reformats were then acquired through the thorax.? For radiation dose reduction, the following was used:? automated exposure control, adjustment of mA and/or kV according to patient size.? ? COMPARISON:? [facility], CT, CT ANGIO CHEST PE PROTOCOL, 03/26/2020, 13:44.? [facility], CT, CT ANGIO CHEST PE PROTOCOL, 08/07/2019, 14:28. ? FINDINGS:? Image quality:? There is suboptimal timing of contrast bolus limiting evaluation of the pulmonary arteries. The pulmonary arteries were adequately visualized to level of the? mid segmental pulmonary arteries. ? Pulmonary arteries:? There are acute pulmonary emboli identified in the right lower lobe extending from the proximal lobar to mid segmental pulmonary arteries of the right lower lobe.? There also acute pulmonary emboli identified in the right upper lobe extending from the distal right main pulmonary artery to the mid segmental pulmonary arteries.? Acute pulmonary emboli noted in the mid segmental pulmonary arteries of the left upper and left lower lobes.? Persistent mild enlargement of the main pulmonary artery. ? Lungs and pleura:? Mild patchy peripheral airspace opacities of the right upper lobe right middle lobe without focal consolidations.? Minimal dependent atelectasis of the bilateral lung bases.? No septal thickening or nodularity.? No pneumothorax or pleural effusion.? Central and peripheral airways are patent.? ? Mediastinum:? Heart size is normal, without pericardial effusion.? No evidence for acute right-sided heart strain.? No mediastinal or hilar adenopathy.? Thoracic aorta is normal in caliber and enhancement.? Esophagus is normal in caliber, with small hiatal hernia.? ? Bones and chest wall:? No suspicious bony lesions.? Ribs and thoracic spine appear intact throughout.? Thyroid gland is unremarkable.? No axillary or supraclavicular adenopathy.? ? Abdomen:? Visualized upper abdominal solid organs appear normal in the early arterial phase of enhancement.? Redemonstration of gastric lap band. ? IMPRESSION:? ? 1. Acute bilateral pulmonary emboli extending from the distal right main pulmonary artery to the mid segmental pulmonary arteries of the right upper lobe as well as the proximal lobar to mid segmental pulmonary arteries of the right lower lobe.? Additional acute pulmonary emboli noted in the mid segmental pulmonary arteries of the left upper and left lower lobes. ? 2. Persistent mild enlargement of the main pulmonary artery without evidence for acute right-sided heart strain.? Findings likely related to sequela of chronic pulmonary arterial hypertension. ? 3. Scattered patchy peripheral airspace opacities of the right upper lobe and right middle lobe which may represent an infectious or inflammatory process; however, early pulmonary infarction not excluded given presence of pulmonary emboli. ? Findings were discussed with Dr. Drake at 0104hrs ? Dictated by: Kendall Hall M.D. on 05/27/2021 at 0:51 ? ? Approved by: Kendall Hall M.D. on 05/27/2021 at 1:04 ? ECG Data Interpretation: EKG is normal sinus rhythm rate [88] and free of any signs of ischemia or ectopy. No ST segmental elevation or depression. No T wave inversions MDM Narrative Medical decision making narrative: Patient with B/L PE and no evidence of massive PE, stable vitals. No evidence of heart strain by labs, EKG, or imaging. She does require supplemental oxygen and does take some time to recover after exertion. Patient requires hospitalization for stabilization and further characterization of her condition Discharge Plan Departure Patient Disposition: Admitted As Inpatient Clinical Impression: Pulmonary embolism Qualifiers: Pulmonary embolism type: unspecified Chronicity: acute Acute cor pulmonale presence: unspecified Qualified Code(s): I26.99 - Other pulmonary embolism with out acute cor pulmonale Admit Date/Time: 05/27/21 01:15 Admit Provider: Lalita Polanco
[2021-05-27] VITALS (16 sets, daily range): BP systolic 110–184; BP diastolic 68–90; PULSE 60–90; RESP 17–21; TEMP 36.3–36.6; O2SAT 92–99; BMI 52.8
[2021-05-27 00:12] LABS: Add Manual Diff / Slide Review NO; Basophils Absolute Auto 0 /uL (0-100); Basophils Percent Auto 0.2 % (0-2); Eosinophils Absolute Auto 100 /uL (0-450); Eosinophils Percent Auto 0.7 % (2-4); Hematocrit 31.4 % (36-46); Hemoglobin 9.7 g/dL (12.0-16.0); Lymphocytes Absolute Auto 1300 /uL (1100-4500); Lymphocytes Percent Auto 14.3 % (25-40); Mean Corpuscular Hemoglobin 22.2 PG (26-34); Mean Corpuscular Volume 71.8 fL (80-100); Monocytes Absolute Auto 800 /uL (0-900); Monocytes Percent Auto 8.3 % (3-14); Neutrophils Absolute Auto 6900 /uL (1500-7000); Neutrophils Percent Auto 76.5 % (50-75); Platelet Count 347 X10^3/uL (150-400); Red Blood Cell Count 4.37 X10^6/uL (4.0-5.2); Red Cell Distribution Width 19.7 % (11.6-14.8); White Blood Cell Count 9.1 X10^3/uL (4.5-11.0)
--- NOTE | 2021-05-27 00:14 | DI.CT.S_ITS ---
PROCEDURE: CT ANGIO CHEST PE PROTOCOL INDICATIONS: short of breath, hypoxemia, history of PE, feels the same TECHNIQUE: After the administration of intravenous contrast, 2 mm thick sections acquired from the pulmonary apices to the posterior costophrenic angles. 3-dimensional maximum intensity projection (MIP) coronal and sagittal reformats were then acquired through the thorax. For radiation dose reduction, the following was used: automated exposure control, adjustment of mA and/or kV according to patient size. COMPARISON: [facility], CT, CT ANGIO CHEST PE PROTOCOL, 03/26/2020, 13:44. [facility], CT, CT ANGIO CHEST PE PROTOCOL, 08/07/2019, 14:28. FINDINGS: Image quality: There is suboptimal timing of contrast bolus limiting evaluation of the pulmonary arteries. The pulmonary arteries were adequately visualized to level of the mid segmental pulmonary arteries. Pulmonary arteries: There are acute pulmonary emboli identified in the right lower lobe extending from the proximal lobar to mid segmental pulmonary arteries of the right lower lobe. There also acute pulmonary emboli identified in the right upper lobe extending from the distal right main pulmonary artery to the mid segmental pulmonary arteries. Acute pulmonary emboli noted in the mid segmental pulmonary arteries of the left upper and left lower lobes. Persistent mild enlargement of the main pulmonary artery. Lungs and pleura: Mild patchy peripheral airspace opacities of the right upper lobe right middle lobe without focal consolidations. Minimal dependent atelectasis of the bilateral lung bases. No septal thickening or nodularity. No pneumothorax or pleural effusion. Central and peripheral airways are patent. Mediastinum: Heart size is normal, without pericardial effusion. No evidence for acute right-sided heart strain. No mediastinal or hilar adenopathy. Thoracic aorta is normal in caliber and enhancement. Esophagus is normal in caliber, with small hiatal hernia. Bones and chest wall: No suspicious bony lesions. Ribs and thoracic spine appear intact throughout. Thyroid gland is unremarkable. No axillary or supraclavicular adenopathy. Abdomen: Visualized upper abdominal solid organs appear normal in the early arterial phase of enhancement. Redemonstration of gastric lap band. IMPRESSION: 1. Acute bilateral pulmonary emboli extending from the distal right main pulmonary artery to the mid segmental pulmonary arteries of the right upper lobe as well as the proximal lobar to mid segmental pulmonary arteries of the right lower lobe. Additional acute pulmonary emboli noted in the mid segmental pulmonary arteries of the left upper and left lower lobes. 2. Persistent mild enlargement of the main pulmonary artery without evidence for acute right-sided heart strain. Findings likely related to sequela of chronic pulmonary arterial hypertension. 3. Scattered patchy peripheral airspace opacities of the right upper lobe and right middle lobe which may represent an infectious or inflammatory process; however, early pulmonary infarction not excluded given presence of pulmonary emboli. Findings were discussed with Dr. Drake at 0104hrs Dictated by: Kendall Hall M.D. on 05/27/2021 at 0:51 Approved by: Kendall Hall M.D. on 05/27/2021 at 1:04
[2021-05-27 00:16] LABS: INR 1.1 (0.9-1.3); Prothrombin Time 12.6 SECONDS (10.1-12.7)
[2021-05-27 00:19] LABS: Lactate (Lactic Acid) 1.4 mmol/L (0.7-2.1)
[2021-05-27 00:21] LABS: Creatine Kinase 35 U/L (30-135); Magnesium 2.1 mg/dL (1.6-2.3)
[2021-05-27 00:23] LABS: Alanine Aminotransferase 14 IU/L (<35); Albumin 4.1 g/dL (3.5-5.0); Albumin Globulin Ratio 1.4 (1.0-2.8); Alkaline Phosphatase 113 U/L (38-126); Aspartate Aminotransferase 19 IU/L (14-36); BUN Creatinine Ratio 24.1 (6-22); Bilirubin Total 0.5 mg/dL (0.2-1.3); Blood Urea Nitrogen 20 mg/dL (7-17); Carbon Dioxide 27 mmol/L (22-32); Chloride 105 mmol/L (98-107); Estimated Glomerular Filt Rate > 60.0 mL/min (>60); Glucose 146 mg/dL (80-110); HEMOLYSIS < 15 (0-50); Sodium 138 mmol/L (137-145); Total Protein 7.1 g/dL (6.3-8.2)
[2021-05-27 00:35] LABS: NT-proBNP (BNP-Adult 18+) 169 pg/mL (<125); Troponin I 0.038 ng/mL (0.01-0.034)
[2021-05-27 00:38] LABS: C-Reactive Protein Quant 1.9 mg/dL (<1.0)
[2021-05-27 00:40] LABS: COVID19 - ADMIT (NP swab/PCR) Negative (Negative)
[2021-05-27 00:52] LABS: Fractionated Inspired Oxygen 28; HCO3 ABG 25 mmol/L (22-26); Oxygen Saturation ABG 96 % (95-100); PCO2 ABG 39.8 mmHg (35-45); PO2 ABG 81 mmHg (80-100); TCO2 ABG 27 mmol/L (21-31)
[2021-05-27 00:53] LABS: pH ABG 7.41 (7.35-7.45)
[2021-05-27 00:57] LABS: Ferritin 8 ng/mL (11-264)
[2021-05-27] MEDS: ENOXAPARIN 40 MG/0.4 ML SYRINGE SUBCUT ×3 (01:55→22:14)
[2021-05-27] MEDS: ENOXAPARIN 100 MG/ML SYRINGE SUBCUT ×3 (01:55→22:14)
--- NOTE | 2021-05-27 01:56 | PM.HP.1 ---
History of Present Illness History of Present Illness Date Patient Seen: 05/27/21 Time Patient Seen: 01:54 Chief complaint: sob x1 day Narrative: Joy Chung is a 70-year-old female former smoker with a history of reactive airway disease, bilateral pulmonary embolism(2018), breast cancer, lymphedema, obstructive sleep apnea, hypothyroidism, depression, and morbid obesitywho presented to the ED with a chief complaint of sudden onset and increasing the severe shortness of breath over the past day.? She states that she has had no other symptoms such as runny nose, sore throat, cough, fever, body aches or chills. She denies abd pain, nausea, vomiting, melena, hematuria, or hematemesis.? No increase in her lower extremity swelling, denies chest pain, irregular or palpitations. Patient denies recent changes in her medication than otherwise stated, recent travel, illness injury or trauma. She states this feels just like when she had a pulmonary embolism a few years ago which was thought to be related to a new diagnosis of breast cancer Diagonsis .? She had surgery to address the cancer in August.? She stopped taking her Eliquis about 4 months ago. Upon admit patient is hemodynamically stable temp 97.9?, BP 161/86, HR 84, patient is tachypneic with an RR of 40 requiring 2 L nasal cannula for an O2 saturation of 97%. ED reported that the patient came in satting in the 80s and that quickly desats to the 70s to 80s on room air with any physical activity -like moving from the bed to the commode. Patient has no white count, or left shift. Patient does have an HGB of 9.7 HCT 31.4, MCV 71.8, MCH 22.2, ferritin 8-these are decreased from patient's baseline. Patient has a glucose of 146, lactate of 1.4, BNP of 169, and a troponin of 0.038. CT of the chest demonstrates acute bilateral PEs. Patient admitted for acute respiratory failure with hypoxia secondary to recurrent acute bilateral pulmonary embolisms hemodynamically stable. Patient History Medical History Breast cancer Depression Febrile illness Hypothyroidism Lymphedema Morbid obesity with BMI of 40.0-44.9, adult Morbid obesity with body mass index (BMI) of 50.0 to 59.9 in adult Obstructive sleep apnea of adult Primary insomnia Sarcoidosis Snoring UTI (urinary tract infection) Surgical History H/O exploratory laparotomy S/P lumpectomy, right breast Family & Social History Family History Father Leukemia Brother Diabetes mellitus Sister Diabetes mellitus Breast cancer Mother Ovarian cancer Social History: household members children,none lives independently Yes caregiver/support person No Safety & Behavioral: Feels Safe in Current Yes Environment Tobacco & Substance use: Smoking Status Former smoker alcohol intake current alcohol intake frequency a few times a month Substance Use Type does not use Meds Home Medications and Allergies Home Medications Medication Instructions Recorded Confirmed Type Respironics Dreamstation BIPAP #1 ea 12/23/18 09/07/20 History thyroid (pork) 90 mg tablet ([employer] 90 mg PO DAILY 08/07/19 05/27/21 History Thyroid) venlafaxine 150 mg 225 mg PO QAM 08/07/19 05/27/21 History capsule,extended release 24 hr (Effexor XR) anastrozole 1 mg tablet 1 mg PO DAILY 12/05/20 05/27/21 History Allergies Allergy/AdvReac Type Severity Reaction Status Date / Time amoxicillin [AMOXICILLIN] Allergy Severe HIVES Verified 12/19/20 08:04 NSAIDS (Non-Steroidal Allergy Severe ANAPHYLAXIS Verified 12/19/20 08:04 Anti-Inflamma [NSAIDS (NON-STEROIDAL ANTI-INFLAMMA] Penicillins [PENICILLINS] Allergy Intermediate HIVES Verified 12/19/20 08:04 Sulfa (Sulfonamide Allergy Intermediate ITCH Verified 12/19/20 08:04 Antibiotics) [SULFA (SULFONAMIDE ANTIBIOTICS)] cephalexin [From KEFLEX] Allergy Mild ITCHY Verified 12/19/20 08:04 oxycodone [OXYCODONE] AdvReac Intermediate AMNESIA Verified 12/19/20 08:04 meperidine [MEPERIDINE] AdvReac Mild AMNESIA Verified 12/19/20 08:04 Review of Systems Review of Systems Narrative: All 12 point systems reviewed with the patient and are negative except otherwise documented. Exam Vital Signs (past 8 hours): - 05/26/21 23:35 05/26/21 23:36 05/27/21 00:00 Temperature 97.9 F Pulse Rate 94 H 116 H 90 Respiratory Rate 40 H Blood Pressure 141/90 H Pulse Oximetry 96 80 L 95 05/27/21 00:03 05/27/21 00:30 05/27/21 00:57 Temperature Pulse Rate 84 78 80 Respiratory Rate Blood Pressure 146/70 H 158/77 H Pulse Oximetry 96 95 98 05/27/21 01:00 Temperature Pulse Rate 84 Respiratory Rate Blood Pressure 161/86 H Pulse Oximetry 97 Oxygen Delivery Method Room Air Oxygen Flow Rate 2 Narrative Exam Narrative: General: Patient is a well-developed, well-nourished pleasant morbidly obese female in mild respiratory distress at this time. HEENT: Normocephalic, atraumatic, extraocular muscles intact, oral pharynx is clear and mucous membranes are moist. Neck is supple and symmetric, trachea is midline, no adenopathy, no thyroid enlargement, nontender, no masses palpated. Negative for JVD Chest: Normal AP diameter and contour without kyphoscoliosis, no nasal flaring, retractions, or tachypneic labored Lungs: Auscultation of all lung steinberg are clear without adventitious sounds, wheezes, rhonchi, or rales. Cardio: S1 & S2 with regular rate and rhythm without murmur, rubs, or gallops, no carotid bruit, no cardiac pulsations present. Abdomen: Soft nontender, negative for organomegaly, or masses. Bowel sounds are present in all 4 quadrants without guarding or rebound, no CVA tenderness. Musculoskeletal: Muscle strength and tone are equal within normal limits, no deformity, crepitus, effusions, cyanosis, or clubbing present. Full range of motion intact radial and pedal pulses are normal. Bilateral chronic lower ext edema non pitting +1, Right arm chronic lymph edema p/o right breast surgery-no B/P, lab draws in RIGHT ARM Skin: Warm dry and intact without rashes, ulcerations or petechiae. Neuro: Alert and orientated x3, strength is +5/5 in all extremities, sensation to touch intact, no gross deficits noted of cranial nerves. Psych: Patient has a well-kept appearance, appropriate affect, mental status attitude thought context and judgment are appropriate for age. Objective Labs Result Diagrams: 05/26/21 23:50 05/26/21 23:50 Labs: Laboratory Results - last 24 hr 05/26/21 05/26/21 05/26/21 23:35 23:35 23:36 WBC RBC Hgb Hct MCV MCH MCHC RDW Plt Count Neut % (Auto) Lymph % (Auto) [place] % (Auto) Eos % (Auto) Baso % (Auto) Neut # (Auto) Lymph # (Auto) [place] # (Auto) Eos # (Auto) Baso # (Auto) PT INR ABG pH 7.41 ABG pCO2 39.8 ABG pO2 81 ABG HCO3 25 ABG Total CO2 27 ABG O2 Saturation 96 ABG Base Excess 1.0 FiO2 28 Sodium Potassium Chloride Carbon Dioxide BUN Creatinine Estimated GFR BUN/Creatinine Ratio Glucose Lactate Calcium Magnesium Ferritin Total Bilirubin AST ALT Alkaline Phosphatase Total Creatine Kinase CK-MB (CK-2) CK-MB (CK-2) Rel Index Troponin I C-Reactive Protein NT-Pro-B Natriuret Pep Total Protein Albumin Globulin Albumin/Globulin Ratio SARS-CoV-2 (PCR) Cancelled Negative 05/26/21 05/26/21 05/26/21 23:50 23:50 23:50 WBC 9.1 RBC 4.37 Hgb 9.7 L Hct 31.4 L MCV 71.8 L MCH 22.2 L MCHC 31.0 RDW 19.7 H Plt Count 347 Neut % (Auto) 76.5 H Lymph % (Auto) 14.3 L [place] % (Auto) 8.3 Eos % (Auto) 0.7 L Baso % (Auto) 0.2 Neut # (Auto) 6900 Lymph # (Auto) 1300 [place] # (Auto) 800 Eos # (Auto) 100 Baso # (Auto) 0 PT 12.6 INR 1.1 ABG pH ABG pCO2 ABG pO2 ABG HCO3 ABG Total CO2 ABG O2 Saturation ABG Base Excess FiO2 Sodium 138 Potassium 4.0 Chloride 105 Carbon Dioxide 27 BUN 20 H Creatinine 0.83 Estimated GFR > 60.0 BUN/Creatinine Ratio 24.1 H Glucose 146 H Lactate Calcium 9.0 Magnesium Ferritin Total Bilirubin 0.5 AST 19 ALT 14 Alkaline Phosphatase 113 Total Creatine Kinase CK-MB (CK-2) CK-MB (CK-2) Rel Index Troponin I C-Reactive Protein 1.9 H NT-Pro-B Natriuret Pep Total Protein 7.1 Albumin 4.1 Globulin 3.0 Albumin/Globulin Ratio 1.4 SARS-CoV-2 (PCR) 05/26/21 05/26/21 23:50 23:50 WBC RBC Hgb Hct MCV MCH MCHC RDW Plt Count Neut % (Auto) Lymph % (Auto) [place] % (Auto) Eos % (Auto) Baso % (Auto) Neut # (Auto) Lymph # (Auto) [place] # (Auto) Eos # (Auto) Baso # (Auto) PT INR ABG pH ABG pCO2 ABG pO2 ABG HCO3 ABG Total CO2 ABG O2 Saturation ABG Base Excess FiO2 Sodium Potassium Chloride Carbon Dioxide BUN Creatinine Estimated GFR BUN/Creatinine Ratio Glucose Lactate 1.4 Calcium Magnesium 2.1 Ferritin 8 L Total Bilirubin AST ALT Alkaline Phosphatase Total Creatine Kinase 35 CK-MB (CK-2) TNP CK-MB (CK-2) Rel Index TNP Troponin I 0.038 H C-Reactive Protein NT-Pro-B Natriuret Pep 169 H Total Protein Albumin Globulin Albumin/Globulin Ratio SARS-CoV-2 (PCR) Assessment & Plan Assessment & Plan narrative: Joy Chung is a 70-year-old female former smoker with a history of reactive airway disease, bilateral pulmonary embolism(2019), breast cancer, lymphedema, obstructive sleep apnea, hypothyroidism, depression, and morbid obesitywho presented to the ED with a chief complaint of sudden onset and increasing the severe shortness of breath over the past day. Patient admitted for acute respiratory failure with hypoxia secondary to recurrent acute bilateral pulmonary embolisms hemodynamically stable. 1. Acute respiratory failure with hypoxia, secondary to recurrent bilateral pulmonary emboli, hemodynamically stable, acute, in the setting of history of bilateral PEs, and breast cancer, chronic, present on admission -temp 97.9?, BP 161/86, HR 84,RR of 40, 2L N/C O2 saturation of 97%. glucose of 146, lactate of 1.4, BNP of 169, and a troponin of 0.038. -CT of the chest demonstrates acute bilateral PEs. -patient desaturated to 80% with walking in the emergency department, oxygen level improved with 2 L of oxygen -patient has been started on Lovenox 140 milligrams/kilogram?b.i.d. -will obtain cardiac echo in the morning -will obtain ultrasound of her lower extremity to rule out significant clot burden in the need for possible IVC filter placement -repeat trop in am 2. Elevated blood pressure without the diagnosis of hypertension, acute, present on admission -initial 161/86, 158/77, 184/88 -allowing for mild permissive hypertension in the setting of PEs -metoprolol 5 mg IV to be given if SBP>180 or DBP >100 3. Obstructive sleep apnea, acute on chronic, present on admission -respiratory consult -patient typically uses BiPAP at night. -continue oxygen for now as needed to maintain 02sat >90% 3. Depression, chronic, present on admission -will continue Effexor, will await med reconciliation to resume her home dose 4. Hypothyroidism aquired, chronic, present on admission -resume armor thyroid once her doses available 5. Morbid obesity as evidence by BMI of 52.9, acute on chronic, present on admission -consideration will be given for dietary counseling 6. Anemia, acute on chronic, present on admission -patient's hemoglobin has been between 11 and 12 -Initial: HGB of 9.7 HCT 31.4, MCV 71.8, MCH 22.2, ferritin 8 Ordered: Iron, monitor for bleeding, trend H&H 7. Brest Cancer (dx 2018, surgery Rt Breast 08/2020), resulting in subsequent right arm lymphedema, chronic, present on admission -NO BLOOD PRESSURES OR LAB DRAWS IN RIGHT ARM -patient to continue her as anastrozole Code status:Full Surrogate decision maker: Brina Chamberlain COVID PCR:Negative COVID vaccination: Pfizer 2020 DVT/VTE prophylaxis:Lovenox 140mg Q12 Hrs Disposition: Patient admitted for observation estimated length of stay likely less than 2 midnights. I have utilized all available immediate resources to obtain, update, or review the patient's current medications. I confirmed that the patient's advanced care plan is present, Code status is documented and/or surrogate decision maker is listed in the patient's medical record. Time Spent With Patient Critical Care time: I spent a total of [] minutes of critical care time on this patient's care today; this time is exclusive of procedural time.
--- NOTE | 2021-05-27 01:58 | DI.ECHO.S_ITS ---
[facility] +---------+ : : [address] : : : : [id number] : : : : Phone: [phone]+ Echocardiogram Report + + :Name: UZIEL SHARMA Study Date: 05/27/2021 Height: 65 in : :[facility] ReadingLocation: Weight: 318 lb: : Gender: Female BSA: 2.4 m2 : :: 1950 Age: 70 yrs : :Reason For Study: SOB, recurrent bilateral PE : : Performed By: RICHARD SINGH : :Referring: YEMI MELLO : + + Interpretation Summary 1) Normal left ventricular thickness, size, wall motion, and systolic function (EF 60-65%). 2) The right ventricle grossly appears normal in size with probable normal systolic function. 3) There is mild aortic stenosis. 4) The right ventricular systolic pressure is estimated to be at least 31 mmHg based on an estimated right atrial pressure of 3 mm Hg. 5) The aortic arch is mild-moderately enlarged at 4.3cm. 6) Compared to the Echo done 06/05/2020, aortic arch is enlarged on this study. Procedure: A two-dimensional transthoracic echocardiogram with color flow and Doppler was performed. The apical views were difficult to obtain and are suboptimal in quality. Comparison is made with the echocardiogram of 06/05/2020. Fair image quality despite patient being supine and short of breath. The patient was in normal sinus rhythm during the exam. Left Ventricle: The left ventricle is normal in size. There is mild concentric left ventricular hypertrophy. Left ventricular systolic function appears normal without focal wall motion abnormalities. The ejection fraction is estimated to be 60-65%. Right Ventricle: The right ventricle grossly appears normal in size with probable normal systolic function. Atria: Borderline left atrial enlargement. Right atrial size is normal. There is no Doppler evidence for an interatrial shunt. Mitral Valve: There is mild mitral annular calcification. There is trace mitral regurgitation. Aortic Valve: The aortic valve is trileaflet. The aortic valve opens well. The aortic valve is mildly calcified. There is mildly reduced leaflet mobility. AoV somewhat difficult to fully visualize. The peak aortic velocity is 2.2 m/sec. The aortic valve mean gradient is 11 mmHg. The peak aortic velocity on the previous exam was 2.6 m/sec. There is mild aortic stenosis. There is trace aortic regurgitation. Tricuspid Valve: The tricuspid valve is normal. There is mild tricuspid regurgitation. The right ventricular systolic pressure is estimated to be at least 31 mmHg based on an estimated right atrial pressure of 3 mm Hg. Pulmonic Valve: The pulmonic valve leaflets are thin and pliable; valve motion is normal. There is mild pulmonic regurgitation. Great Vessels: The aortic root is normal size. The ascending aorta is normal in size. The aortic arch is mild-moderately enlarged. The IVC is of normal diameter and collapses greater than 50% with a sniff. This suggests a low right atrial pressure of 3 mm Hg. Pericardium/ Pleura There is no pericardial effusion. There is an anterior echo-free space consistent with a fat pad. There is no pleural effusion. MMode/2D Measurements & Calculations LVIDd: 4.9 cm LVOT diam: 2.0 cm LVIDs: 3.7 cm Ao root diam: 2.7 cm FS: 25.2 % asc Aorta Diam: 3.3 cm IVSd: 1.1 cm Ao Arch Diam (Prox Trans): 4.3 cm LVPWd: 1.1 cm LV butler. diameter/BSA (cm/m^2): 2.0 LV sys. diameter/BSA (cm/m^2): 1.5 LA A2 area: 26.9 cm2 RA long axis: 4.7 cm LA A4 area: 22.4 cm2 RA area: 13.0 cm2 LA length (vol): 6.4 cm RA vol: 30.1 ml LA vol: 80.6 ml RA : 12.5 ml/m2 LA vol index: 33.4 ml/m2 RVD1 (basal): 4.4 cm TAPSE: 2.2 cm Doppler Measurements & Calculations Ao V2 max: 224.0 cm/sec LVOT Max Chas: 121.2 cm/sec Ao V2 mean: 158.6 cm/sec LV V1 max P.9 mmHg Ao max P.1 mmHg LV V1 VTI: 26.4 cm Ao mean P.9 mmHg INGRID(I,D): 1.8 cm2 Ao V2 VTI: 47.5 cm INGRID(V,D): 1.7 cm2 sev ratio: 0.56 INGRID indexed to BSA (cm^2/m^2): 0.74 MV E max chas: 92.2 cm/sec TR max chas: 262.3 cm/sec MV A max chas: 81.6 cm/sec TR max P.5 mmHg MV E/A: 1.1 PA V2 max: 98.0 cm/sec Med Peak E' Chas: 5.6 cm/sec PA V2 mean: 63.7 cm/sec E/E' med: 16.5 PA mean P.8 mmHg Lat Peak E' Chas: 7.2 cm/sec PA pr(Accel): 48.2 mmHg E/E' lat: 12.9 E/e' average: 14.7 MV dec time: 0.22 sec SV(LVOT): 84.6 ml Reading Physician:08:52 AM
--- NOTE | 2021-05-27 01:59 | DI.US.S_ITS ---
PROCEDURE: [facility] VENOUS LOW EXTREM BI INDICATIONS: RECURRENT BILATERAL PULMONARY EMBOLISM TECHNIQUE: Real-time imaging, as well as color and pulse Doppler interrogation, were performed of the deep veins of both legs from the inguinal ligament to the popliteal fossa. COMPARISON: [facility], , [facility] VENOUS LOW EXTREM BI, 08/08/2019, 14:44. FINDINGS: Right: The common femoral, femoral and popliteal veins are normally compressible, and free of intraluminal thrombus. Color and pulse Doppler demonstrate normal phasic intravascular flow. There is normal augmentation response to distal compression maneuver. Left: The common femoral, femoral and popliteal veins are normally compressible, and free of intraluminal thrombus. Color and pulse Doppler demonstrate normal phasic intravascular flow. There is normal augmentation response to distal compression maneuver. IMPRESSION: 1. No evidence of deep venous thrombosis in the right or left lower extremity. Dictated by: Deshaun Small M.D. on 05/27/2021 at 12:05 Approved by: Deshaun Small M.D. on 05/27/2021 at 12:06
[2021-05-27] MEDS: METOPROLOL TARTRATE 5 MG/5 ML INJ IV (03:57)
[2021-05-27 06:22] LABS: Add Manual Diff / Slide Review NO; Basophils Absolute Auto 0 /uL (0-100); Basophils Percent Auto 0.4 % (0-2); Eosinophils Absolute Auto 100 /uL (0-450); Eosinophils Percent Auto 0.9 % (2-4); Hemoglobin 9.4 g/dL (12.0-16.0); INR 1.2 (0.9-1.3); Lymphocytes Absolute Auto 1700 /uL (1100-4500); Lymphocytes Percent Auto 18.4 % (25-40); Mean Corpuscular HGB Conc 31.4 % (30-36); Mean Corpuscular Hemoglobin 22.4 PG (26-34); Mean Corpuscular Volume 71.5 fL (80-100); Monocytes Absolute Auto 800 /uL (0-900); Monocytes Percent Auto 9.3 % (3-14); Neutrophils Absolute Auto 6400 /uL (1500-7000); Platelet Count 324 X10^3/uL (150-400); Prothrombin Time 13.7 SECONDS (10.1-12.7); Red Cell Distribution Width 19.6 % (11.6-14.8)
[2021-05-27 06:25] LABS: PTT Partial Thromboplastin Tim 43 SECONDS (26.4-36.2)
[2021-05-27 06:26] LABS: BUN Creatinine Ratio 23.4 (6-22); Blood Urea Nitrogen 18 mg/dL (7-17); Calcium 9.2 mg/dL (8.4-10.2); Carbon Dioxide 30 mmol/L (22-32); Chloride 104 mmol/L (98-107); Estimated Glomerular Filt Rate > 60.0 mL/min (>60); Glucose 119 mg/dL (80-110); HEMOLYSIS < 15 (0-50); Potassium 4.7 mmol/L (3.4-5.1); Sodium 139 mmol/L (137-145)
[2021-05-27 06:31] LABS: HEMOLYSIS < 15 (0-50); Iron 24 ug/dL (37-170)
[2021-05-27 06:38] LABS: NT-proBNP (BNP-Adult 18+) 222 pg/mL (<125); Troponin I 0.044 ng/mL (0.01-0.034)
[2021-05-27 06:41] LABS: Hemoglobin A1C% w Est Avg Glu 5.6 % (4.0-6.0); Percent Iron Saturation 7 % (15-50); Total Iron Binding Capacity 360 ug/dL (265-497); Transferrin 300 mg/dL (206-381)
[2021-05-27] MEDS: MAGNESIUM HYDROXIDE 30 ML UDC PO (10:04)
--- NOTE | 2021-05-27 16:06 | CM.DANOTE ---
DCP/Assessment: Reviewed chart. Patient is a 70yr old female admitted to [facility] with SOB/bilateral pulmonary embolism. PCP is Dr. Chavez. Primary payor is 1)[employer] ADV. Met with patient explained role. Patient resting in bed with [address]. Patient reports that she resides in [place] with family. Patient indicates that she uses cane as needed at baseline. Patient hopes to d/c home in a few days and she does not anticipate any d/c planning needs. Patient reports that she is I in ADL's and drives on regular basis. Patient currently on 02 but does not have 02 at home. P: Home when stable. CM team to follow for d/c planning needs. KJS Discharge Planning/Care Management Advanced directive,confirm from FACILITY Start: 05/27/21 03:06 Freq: Q24H Status: Active Protocol: Document 05/27/21 03:06 TEDDY (Rec: 05/27/21 03:24 TEDDY [id number]) Advance Directive, confirm on record Time 01:50 Person contacted [facility] Copy received No CM Discharge Assessment Start: 05/27/21 16:02 Freq: Status: Active Protocol: Document 05/27/21 16:02 KJS (Rec: 05/27/21 16:06 KJS [id number]) Discharge Planning Assessment Assigned Director Of Income Tax [facility]AM[facility] [place] Contact Information Marlene & Corby Edy (sister ) # [phone] Advance Directives? No Advance Directives on File No History Provided By Patient,Medical Record Prior Living Arrangements House Household Members children,none Type of transporation used prior to Drives own vehicle admit Independent with ADL's Yes Is patient alert and oriented? Yes Caregiver for Another No DME Already Rented / Owned Cane Comment Uses cane on as needed basis. Barriers to Discharge No Discharge Plan Home Transportation Arrangement Family can provide transport. Additional Comment CM team to continue to follow. Whiteboard Updated in Patient Room with Yes name and ext. # of Director Of Income Tax Review Status In Process Next Review Type Continued Stay Review
[2021-05-27] MEDS: VENLAFAXINE ER 75 MG CAP 225 MG PO (22:30)
[2021-05-27] MEDS: ANASTROZOLE 1 MG TABLET PO (22:30)
[2021-05-28] MEDS: ACETAMINOPHEN 325 MG TABLET 650 MG PO (00:30)
[2021-05-28 04:37] VITALS: BP 142/70; PULSE 74; RESP 18; TEMP 36.6; O2SAT 94
[2021-05-28 08:10] VITALS: O2SAT 93
[2021-05-28] MEDS: VENLAFAXINE ER 75 MG CAP 150 MG PO (08:33)
[2021-05-28] MEDS: VENLAFAXINE ER 75 MG CAP PO (08:34)
[2021-05-28] MEDS: THYROID, PORK 30 MG TABLET 90 MG PO (08:35)
[2021-05-28] MEDS: THYROID, PORK 30 MG TABLET 15 MG PO (08:35)
[2021-05-28] MEDS: ANASTROZOLE 1 MG TABLET PO (08:53)
[2021-05-28 09:00] VITALS: BP 135/88; PULSE 76; RESP 16; TEMP 36.1; O2SAT 95
[2021-05-28 09:58] LABS: Add Manual Diff / Slide Review NO; Basophils Absolute Auto 0 /uL (0-100); Basophils Percent Auto 0.3 % (0-2); Eosinophils Absolute Auto 100 /uL (0-450); Eosinophils Percent Auto 1.4 % (2-4); Hematocrit 30.3 % (36-46); Hemoglobin 9.6 g/dL (12.0-16.0); Lymphocytes Absolute Auto 1100 /uL (1100-4500); Lymphocytes Percent Auto 18.9 % (25-40); Mean Corpuscular HGB Conc 31.6 % (30-36); Mean Corpuscular Hemoglobin 22.6 PG (26-34); Mean Corpuscular Volume 71.5 fL (80-100); Monocytes Absolute Auto 600 /uL (0-900); Monocytes Percent Auto 9.7 % (3-14); Neutrophils Absolute Auto 4200 /uL (1500-7000); Neutrophils Percent Auto 69.7 % (50-75); Platelet Count 315 X10^3/uL (150-400); Red Blood Cell Count 4.24 X10^6/uL (4.0-5.2); Red Cell Distribution Width 19.2 % (11.6-14.8)
[2021-05-28] MEDS: ENOXAPARIN 40 MG/0.4 ML SYRINGE SUBCUT ×2 (10:15→22:44)
[2021-05-28 10:16] LABS: BUN Creatinine Ratio 21.3 (6-22); Blood Urea Nitrogen 16 mg/dL (7-17); Carbon Dioxide 28 mmol/L (22-32); Chloride 104 mmol/L (98-107); Estimated Glomerular Filt Rate > 60.0 mL/min (>60); Glucose 123 mg/dL (80-110); HEMOLYSIS < 15 (0-50); Potassium 4.3 mmol/L (3.4-5.1); Sodium 137 mmol/L (137-145)
[2021-05-28] MEDS: ENOXAPARIN 100 MG/ML SYRINGE SUBCUT ×2 (10:16→22:44)
[2021-05-28 10:27] LABS: Troponin I < 0.012 ng/mL (0.01-0.034)
[2021-05-28 11:41] VITALS: BP 153/72; PULSE 74; RESP 18; TEMP 36.9; O2SAT 96
--- NOTE | 2021-05-28 12:47 | P.PN_ITS ---
Subjective Subjective Date Patient Seen: 05/28/21 Interval history: The patient is a 70-year-old female admitted to the hospital with bilateral pulmonary emboli. She continues to be hypoxic at night on CPAP. In addition when she ambulates she desaturates when on oxygen to 80%. At rest t he patient is not short of breath. She is not hypoxic at rest either.[id number] Exam Vital Signs (past 8 hours): - 05/28/21 08:10 05/28/21 09:00 Temperature 97.0 F L Pulse Rate 76 Respiratory Rate 16 Blood Pressure 135/88 Pulse Oximetry 93 95 Oxygen Delivery Method Room Air Oxygen Flow Rate 0 Narrative Exam Narrative: Pleasant female lying in bed in no acute distress Resp Other: Lungs clear to auscultation Cardio Other: Cardiac exam: Regular rate and rhythm normal S1-S2 GI Other: Abdomen soft nontender nondistended Extrem Other: Extremity no edema Objective Labs Result Diagrams: 05/28/21 09:27 05/28/21 09:27 Labs: Laboratory Results - last 24 hr 05/28/21 05/28/21 05/28/21 09:27 09:27 09:27 WBC 6.0 RBC 4.24 Hgb 9.6 L Hct 30.3 L MCV 71.5 L MCH 22.6 L MCHC 31.6 RDW 19.2 H Plt Count 315 Neut % (Auto) 69.7 Lymph % (Auto) 18.9 L [place] % (Auto) 9.7 Eos % (Auto) 1.4 L Baso % (Auto) 0.3 Neut # (Auto) 4200 Lymph # (Auto) 1100 [place] # (Auto) 600 Eos # (Auto) 100 Baso # (Auto) 0 Sodium 137 Potassium 4.3 Chloride 104 Carbon Dioxide 28 BUN 16 Creatinine 0.75 Estimated GFR > 60.0 BUN/Creatinine Ratio 21.3 Glucose 123 H Calcium 9.0 Troponin I < 0.012 PFSH Medical History Breast cancer Depression Febrile illness Hypothyroidism Lymphedema Morbid obesity with BMI of 40.0-44.9, adult Morbid obesity with body mass index (BMI) of 50.0 to 59.9 in adult Obstructive sleep apnea of adult Primary insomnia Sarcoidosis Snoring UTI (urinary tract infection) Surgical History H/O exploratory laparotomy S/P lumpectomy, right breast Family History Father Leukemia Brother Diabetes mellitus Sister Diabetes mellitus Breast cancer Mother Ovarian cancer Social History household members: children and none lives independently: Yes caregiver/support person: No Smoking Status: Former smoker alcohol intake: current substance use type: does not use Assessment & Plan Assessment & Plan narrative: Acute respiratory failure with hypoxia, secondary to recurrent bilateral pulmonary emboli, hemodynamically stable, acute, in the setting of history of bilateral PEs, and breast cancer, chronic, present on admission -temp 97.9?, BP 161/86, HR 84,RR of 40, 2L N/C O2 saturation of 97%. glucose of 146, lactate of 1.4, BNP of 169, and a troponin of 0.038.? -CT of the chest demonstrates acute bilateral PEs. ? ? -patient desaturated to 80% with walking in the emergency department, oxygen level improved with 2 L of oxygen -patient has been started on Lovenox 140 milligrams/kilogram?b.i.d. -will obtain cardiac echo in the morning -will obtain ultrasound of her lower extremity to rule out significant clot burden in the need for possible IVC filter placement -repeat trop in am, repeat Troponin 0.012 -Suspect demand ischemia related to PE, no NV -Continue Lovenox for now -Anticipate discharge home on oral medication once she is no longer hypoxic with exertion 2. Elevated blood pressure without the diagnosis of hypertension, acute, present on admission -initial 161/86, 158/77, 184/88 -needs to start treatment for hypertension -will start MARK-I 3. Obstructive sleep apnea, acute on chronic, present on admission -respiratory consult -patient typically uses CPAP at night. -continue oxygen for now as needed to maintain 02sat >90% -hypoxic at night, she may need to have a bleed in of oxygen 3. Depression, chronic, present on admission -will continue Effexor, will await med reconciliation to resume her home dose 4. Hypothyroidism aquired, chronic, present on admission -resume armor thyroid once her doses available 5. Morbid obesity as evidence by BMI of 52.9, acute on chronic, present on admission -consideration will be given for dietary counseling 6. Anemia, acute on chronic, present on admission -patient's hemoglobin has been between 11 and 12 -Initial: HGB of 9.7 HCT 31.4, MCV 71.8, MCH 22.2, ferritin 8 Ordered: Iron, monitor for bleeding, trend H&H 7. Brest Cancer (dx 2018, surgery Rt Breast 08/2020), resulting in subsequent right arm lymphedema, chronic, present on admission -NO BLOOD PRESSURES OR LAB DRAWS IN RIGHT ARM -patient to continue her as anastrozole Code status:Shot Hole Shooter Spent With Patient Critical Care time: I spent a total of [] minutes of critical care time on this patient's care today; this time is exclusive of procedural time.
--- NOTE | 2021-05-28 13:41 | PC.NURSE ---
Day shift: Discussed w/ Pt the new MD order for Lisinopril and that it was for her increased BP. Pt said that she did not want to start taking a new medication and that she didn't think that she needed it because her BP is usually normal.
[2021-05-28 15:31] VITALS: BP 159/74; PULSE 76; RESP 18; TEMP 36; O2SAT 95
--- NOTE | 2021-05-28 17:09 | PC.NURSE ---
Addendum entered by Janette Machado R.N. 05/28/21 21:57: Pt assisted w/shower w/assistance of [employer] SpO2 stayed 94% RA Pt states she is feeling better. Tele NSR per ICU staff. Condition remains essentially unchanged. Call light w/in reach. Pt call appropriately for needs. Continue w/plan of care. Original Note: Pt sitting in chair. Denies any discomfort or nausea. Lungs clear, SpO2 93% RA while in chair. HL LAC & left hand intact/patent. Tele shows NSR per ICU staff. Call light w/in reach, pt calls appropriately for needs.
[2021-05-28 20:21] VITALS: BP 128/69; PULSE 107; RESP 20; TEMP 36.2; O2SAT 93
[2021-05-29 00:28] VITALS: BP 147/72; PULSE 77; RESP 16; TEMP 36.3; O2SAT 92
[2021-05-29 06:00] VITALS: BP 139/70; PULSE 67; RESP 18; TEMP 36.1; O2SAT 98
[2021-05-29] MEDS: THYROID, PORK 30 MG TABLET 90 MG PO (06:31)
[2021-05-29 06:47] LABS: Add Manual Diff / Slide Review NO; Basophils Absolute Auto 0 /uL (0-100); Basophils Percent Auto 0.4 % (0-2); Eosinophils Absolute Auto 100 /uL (0-450); Eosinophils Percent Auto 1.4 % (2-4); Hematocrit 32.3 % (36-46); Hemoglobin 10.1 g/dL (12.0-16.0); Lymphocytes Absolute Auto 1800 /uL (1100-4500); Lymphocytes Percent Auto 22.5 % (25-40); Mean Corpuscular HGB Conc 31.3 % (30-36); Mean Corpuscular Hemoglobin 22.6 PG (26-34); Mean Corpuscular Volume 72.1 fL (80-100); Monocytes Absolute Auto 800 /uL (0-900); Monocytes Percent Auto 9.5 % (3-14); Neutrophils Absolute Auto 5300 /uL (1500-7000); Neutrophils Percent Auto 66.2 % (50-75); Platelet Count 351 X10^3/uL (150-400); Red Blood Cell Count 4.49 X10^6/uL (4.0-5.2); Red Cell Distribution Width 19.4 % (11.6-14.8)
[2021-05-29 06:55] LABS: BUN Creatinine Ratio 26.7 (6-22); Blood Urea Nitrogen 24 mg/dL (7-17); Calcium 9.2 mg/dL (8.4-10.2); Carbon Dioxide 27 mmol/L (22-32); Chloride 101 mmol/L (98-107); Estimated Glomerular Filt Rate > 60.0 mL/min (>60); Glucose 112 mg/dL (80-110); HEMOLYSIS < 15 (0-50); Potassium 4.4 mmol/L (3.4-5.1); Sodium 137 mmol/L (137-145)
[2021-05-29 09:19] VITALS: BP 156/87; PULSE 78; RESP 18; TEMP 36.3; O2SAT 95
[2021-05-29] MEDS: ANASTROZOLE 1 MG TABLET PO (10:11)
[2021-05-29] MEDS: VENLAFAXINE ER 75 MG CAP PO (10:12)
[2021-05-29] MEDS: VENLAFAXINE ER 75 MG CAP 150 MG PO (10:12)
[2021-05-29] MEDS: INFLUENZA HD VACCINE 0.7 ML SYRINGE IM (12:33)
[2021-05-29] MEDS: ENOXAPARIN 100 MG/ML SYRINGE SUBCUT (12:33)
[2021-05-29] MEDS: ENOXAPARIN 40 MG/0.4 ML SYRINGE SUBCUT (12:33)
[2021-05-29 12:55] VITALS: BP 156/84; PULSE 89; RESP 18; TEMP 36.7; O2SAT 95
--- NOTE | 2021-05-29 13:33 | CM.DPC ---
DCP Discharge Home Per MD, pt is medically stable to d/c home today pending her ability to ambulate or have activity without being hypoxic. Pt had PE and therefore safest medically for pt not to have to d/c home on new home oxygen or being hypoxic. Per RN and RT, will assess pt to determine if stable for d/c home today. Plan: SW to follow for assessment for activity tolerance without hypoxia to confirm plan of d/c home with family assist when medically stable. VAMSI Mcneal
[2021-05-29 15:25] VITALS: BP 157/86; PULSE 80; RESP 16; TEMP 36.2
--- NOTE | 2021-06-02 19:27 | P.DS_ITS ---
History of Present Illness History of Present Illness Date Patient Seen: 05/29/21 Chief complaint: sob x1 day Narrative: Joy Chung is a 70-year-old female former smoker with a history of r eactive airway disease, bilateral pulmonary embolism(2019), breast cancer, lymphedema, obstructive sleep apnea, hypothyroidism, depression, and morbid obesitywho presented to the ED with a chief complaint of sudden onset and increasing the severe shortness of breath over the past day.? She states that she has had no other symptoms such as runny nose, sore throat, cough, fever, body aches or chills. She denies abd pain, nausea, vomiting, melena, hematuria, or hematemesis.? No increase in her lower extremity swelling, denies chest pain, irregular or palpitations. Patient denies recent changes in her medication than otherwise stated, recent travel, illness injury or trauma.? She states this fee ls just like when she had a pulmonary embolism a few years ago which was thought to be related to a new diagnosis of breast cancer Diagonsis .? She had surgery to address the cancer in August.? She stopped taking her Eliquis about 4 months ago. Upon admit patient is hemodynamically stable temp 97.9?, BP 161/86, HR 84, patient is tachypneic with an RR of 40 requiring 2 L nasal cannula for an O2 s aturation of 97%.? ED reported that the patient came in satting in the 80s and that quickly desats to the 70s to 80s on room air with any physical activity - like moving from the bed to the commode.? Patient has no white count, or left shift.? Patient does have an HGB of 9.7 HCT 31.4, MCV 71.8, MCH 22.2, ferritin 8-these are decreased from patient's baseline.? Patient has a glucose of 146, lactate of 1.4, BNP of 169, and a troponin of 0.038.? CT of the chest demonstrates acute bilateral PEs.? Patient admitted for acute respiratory failure with hypoxia secondary to recurrent acute bilateral pulmonary embolisms hemodynamically stable. Discharge Providers Provider Date of admission: 05/27/21 01:15 Discharge Date: 05/29/21 Primary care physician: Avani Chavez MD Consults: 05/27/21 01:41 Consult to Discharge Planning Routine Comment: Recuurent Bilateral PE 05/27/21 02:07 Consult to Respiratory Therapy Evaluate & Treat Comment: ARF 2toBi PE, ANTON-CPAP Physician Instructions: Evaluate and treat Discharge provider: Merle Neville MD Summary Hospital Course Discharge Diagnosis: 1. Bilateral Pulmonary Emboli 2. Obstructive Sleep Apnea 3. Depression 4. Hypothyroidism 5. Morbid obesity, BMi 52.9 6. Breat Cancer 7. Hypertension Hospital Course: Patient was admitted to the hospital for treatment of bilateral Pulmonary Emboli. She remained hypoxic with activity. She was treated with Lovenox 140 mg twice daily. She may slow but steady progress and was ultimately able to be discharged home without needing oxygen. She had an echo during her hospital stay which revealed the following: ormal left ventricular thickness, size, wall motion, and systolic function (EF 60-65%). 2) The right ventricle grossly appears normal in size with probable normal systolic function. 3) There is mild aortic stenosis. 4) The right ventricular systolic pressure is estimated to be at least 31 mmHg based on an estimated right atrial pressure of 3 mm Hg. 5) The aortic arch is mild-moderately enlarged at 4.3cm. 6) Compared to the Echo done 06/05/2020, aortic arch is enlarged on this study. She was deemed appropriate for discharge home. Patient was transitioned to [facility] for treament of her PE. She will follow up with Dr. Avani Chavez next week for revaluation. Status at Discharge Cognitive/behavioral status at discharge: oriented Functional status at discharge: independent ambulation Overall status at discharge: patient is progressing back to baseline Exam Vital Signs (past 8 hours): Oxygen Delivery Method Room Air Oxygen Flow Rate 0 Narrative Exam Narrative: Pleasant female in no acute distress Resp Other: Lungs: decreased breath sounds but clear to auscultation Cardio Other: RRR nl Sl S2 GI Other: Abdomen: soft/ non tender/ nondistended Extrem Other: No Edema Objective Labs Result Diagrams: 05/29/21 06:20 05/29/21 06:20 [facility] Medical History Breast cancer Depression Febrile illness Hypothyroidism Lymphedema Morbid obesity with BMI of 40.0-44.9, adult Morbid obesity with body mass index (BMI) of 50.0 to 59.9 in adult Obstructive sleep apnea of adult Primary insomnia Sarcoidosis Snoring UTI (urinary tract infection) Surgical History H/O exploratory laparotomy S/P lumpectomy, right breast Family History Father Leukemia Brother Diabetes mellitus Sister Diabetes mellitus Breast cancer Mother Ovarian cancer Social History household members: children and none lives independently: Yes caregiver/support person: No Smoking Status: Former smoker alcohol intake: current substance use type: does not use Discharge Assessment & Plan Assessment and Plan Assessment: 1. Bilateral Pulmonary Emboli 2. Obstructive Sleep Apnea 3. Hypertension Plan of Treatment: Discharge home today. F/U with PCP regarding treatment of blood pressure F/U next week for evaluation post discharge for bilateral PE's Discharge Plan Discharge Plan Patient Disposition: Home Discharge orders & Medications Prescriptions: New Eliquis DVT-PE Treat 30D Start 5 mg (74 tabs) tablets,dose pack See Rx Instructions .ROUTE .COMPLEX Qty: 74 RF: 0 Continued venlafaxine [Effexor XR] 150 mg Capsule,Extended Release 24hr 225 mg PO QAM RF: 0 thyroid (pork) [[employer] ASSISTANT Thyroid] 90 mg Tablet 90 mg PO DAILY RF: 0 anastrozole 1 mg tablet 1 mg PO DAILY RF: 0 thyroid (pork) 15 mg Capsule 15 mg PO 2XW RF: 0 No Action (DME) Respironics Dreamstation BIPAP Qty: 1 RF: 0 Medication counseling provided by Pharmacist: Yes Follow up/Referrals: Avani Chavez MD [Primary Care Provider] - Discharge Health Status Multidrug resistant organism: No MDRO Diet/Activity/Treatments Diet: Diet as Tolerated Skin/Wound/Dressing Care Report to your healthcare provider any signs of infection, such as:: increased pain Discharge Data Primary Care Provider: Avani Chavez
== END 2021-05-29 16:40 | disposition home or self-care (01) | DRG 175 ==
LOC: ED 05-27 01:13 → AC 05-27 01:16
PROVIDERS: Internal Medicine; Admitting Provider Nurse Practitioner Family; Emergency Provider Emergency Medicine; Family Provider Internal Medicine; PCP Internal Medicine; Referring Provider Emergency Medicine; Visit Provider Nurse Practitioner Family
DX: I26.99 Other pulmonary embolism without acute cor pulmonale (principal); J96.01 Acute respiratory failure with hypoxia; Z68.43 Body mass index [BMI] 50.0-59.9, adult; I24.8 Other forms of acute ischemic heart disease; E66.01 Morbid (severe) obesity due to excess calories; I97.2 Postmastectomy lymphedema syndrome; G47.33 Obstructive sleep apnea (adult) (pediatric); F32.A Depression, unspecified; E03.9 Hypothyroidism, unspecified; C50.911 Malignant neoplasm of unspecified site of right female breast; I10 Essential (primary) hypertension; Z20.822 Contact with and (suspected) exposure to COVID-19; Z87.891 Personal history of nicotine dependence; Z23 Encounter for immunization
CPT/HCPCS: 36415; 36600; 71275; 80048; 80053; 82550; 82728; 82805; 83036; 83540; 83550; 83605; 83735; 83880; 84484; 85025; 85610; 85730; 86140; 87040; 87635; 90471; 90662; 93005; 93010; 93306; 93970; 94762; 96372; 99284; 99285; 99291; 99292; C9803; J1650; Q9967

== ENCOUNTER 2021-10-16 11:25 | Inpatient (IN) | payer OTHER, SELFPAY ==
[2021-05-27 01:34] VITALS: BMI 52.8
[2021-10-16] VITALS (44 sets, daily range): BP systolic 122–226; BP diastolic 70–111; PULSE 69–123; RESP 15–46; TEMP 36.2–37.6; O2SAT 92–100; BMI 50.5
[2021-10-16 12:12] LABS: Add Manual Diff / Slide Review NO; Basophils Absolute Auto 0 /uL (0-100); Basophils Percent Auto 0.1 % (0-2); Eosinophils Absolute Auto 0 /uL (0-450); Hematocrit 29.6 % (36-46); Hemoglobin 9.3 g/dL (12.0-16.0); Lymphocytes Absolute Auto 600 /uL (1100-4500); Lymphocytes Percent Auto 5.8 % (25-40); Mean Corpuscular HGB Conc 31.3 % (30-36); Mean Corpuscular Hemoglobin 20.9 PG (26-34); Mean Corpuscular Volume 66.7 fL (80-100); Monocytes Absolute Auto 500 /uL (0-900); Monocytes Percent Auto 4.6 % (3-14); Neutrophils Absolute Auto 9700 /uL (1500-7000); Neutrophils Percent Auto 89.5 % (50-75); Platelet Count 482 X10^3/uL (150-400); Red Blood Cell Count 4.44 X10^6/uL (4.0-5.2); Red Cell Distribution Width 19.7 % (11.6-14.8); White Blood Cell Count 10.8 X10^3/uL (4.5-11.0)
[2021-10-16 12:20] LABS: INR 1.3 (0.9-1.3); Prothrombin Time 14.5 SECONDS (10.1-12.7)
[2021-10-16 12:22] LABS: PTT Partial Thromboplastin Tim 35 SECONDS (26.4-36.2)
[2021-10-16 12:24] LABS: Alanine Aminotransferase 18 IU/L (<35); Albumin 4.8 g/dL (3.5-5.0); Albumin Globulin Ratio 1.3 (1.0-2.8); Alkaline Phosphatase 125 U/L (38-126); Aspartate Aminotransferase 27 IU/L (14-36); BUN Creatinine Ratio 27.2 (6-22); Bilirubin Total 0.8 mg/dL (0.2-1.3); Blood Urea Nitrogen 22 mg/dL (7-17); Calcium 9.6 mg/dL (8.4-10.2); Carbon Dioxide 24 mmol/L (22-32); Chloride 101 mmol/L (98-107); Estimated Glomerular Filt Rate > 60.0 mL/min (>60); Globulin 3.6 g/dL (1.7-4.1); Glucose 204 mg/dL (80-110); HEMOLYSIS < 15 (0-50); Lipase 122 U/L (23-300); Potassium 3.9 mmol/L (3.4-5.1); Sodium 135 mmol/L (137-145); Total Protein 8.4 g/dL (6.3-8.2)
[2021-10-16 12:42] LABS: Microcytosis 2+
--- NOTE | 2021-10-16 12:48 | ED_ITS ---
HPI - Nausea/Vomiting/Diarrhea <Angelia Harrison, [employer]-BC - Last Filed: 10/16/21 18:09> General Chief complaint: Nausea/Vomiting/Diarrhea Stated complaint: pain/heat in stomach, dry heaving, dehydrated Time Seen by Provider: 10/16/21 12:05 Source: patient and family Mode of arrival: Wheelchair Limitations: no limitations History of Present Illness HPI Narrative: The patient is a 7-year-old female former smoker with history of pulmonary embolism and breast cancer presents with a chief complaint of epigastric abdominal pain, severe vomiting since about 10:00 p.m. last night. She states that she got macro need [place], and her stomach issues started about 6 hours later. She is fully vaccinated for COVID, does have a booster. States that the pain felt like heat in her epigastric area, radiating down. She states she has had too many episodes of vomiting to count. She tried to take Pepto, but vomited 1 tablet and is able to keep the 2nd tab down. She was able to keep some Pedialyte down. She denies any diarrhea. Denies any dysuria urgency or frequency. She states that she has never felt like this before. She denies any abdominal history other than surgical history of a resection. She presents with her daughter. States that her pain is 8/10, epigastric and burning. Patient states that none of her friends or family at a farm house last night as she picked up something to go, so she is not sure if anybody else is sick. Related Data Home Medications Medication Instructions Recorded Confirmed Respironics Dreamstation BIPAP #1 ea 12/23/18 10/16/21 thyroid (pork) 90 mg tablet (VALVE SEATER OPERATOR 90 mg PO DAILY 08/07/19 10/16/21 Thyroid) venlafaxine 150 mg 225 mg PO QAM 08/07/19 10/16/21 capsule,extended release 24 hr (Effexor XR) anastrozole 1 mg tablet 1 mg PO DAILY 12/05/20 10/16/21 thyroid (pork) 15 mg capsule 15 mg PO 2XW 05/27/21 10/16/21 Previous Rx's Medication Instructions Recorded apixaban 5 mg (74 tabs) tablets in See Rx Instructions .ROUTE 05/29/21 a dose pack (Eliquis DVT-PE Treat .COMPLEX #74 ea 30D Start) Allergies Allergy/AdvReac Type Severity Reaction Status Date / Time amoxicillin [AMOXICILLIN] Allergy Severe HIVES Verified 10/16/21 14:07 NSAIDS (Non-Steroidal Allergy Severe ANAPHYLAXIS Verified 10/16/21 14:07 Anti-Inflamma [NSAIDS (NON-STEROIDAL ANTI-INFLAMMA] Penicillins [PENICILLINS] Allergy Intermediate HIVES Verified 10/16/21 14:07 Sulfa (Sulfonamide Allergy Intermediate ITCH Verified 10/16/21 14:07 Antibiotics) [SULFA (SULFONAMIDE ANTIBIOTICS)] cephalexin [From KEFLEX] Allergy Mild ITCHY Verified 10/16/21 14:07 oxycodone [OXYCODONE] AdvReac Intermediate AMNESIA Verified 10/16/21 14:07 meperidine [MEPERIDINE] AdvReac Mild AMNESIA Verified 10/16/21 14:07 Review of Systems <IJEOMA Mi-BC - Last Filed: 10/16/21 18:09> Review of Systems Narrative: GENERAL: Denies chills, fatigue, malaise, fever, sweats. HEENT: Denies sinus pain, ear pain, sore throat, difficulty swallowing, dizzine ss. RESPIRATORY: Denies dyspnea, cough, wheezing, hemoptysis, sputum. CARDIOVASCULAR: Denies chest pain, palpitations, orthopnea, edema, GASTROINTESTINAL: See HPI : Denies dysuria, frequency, incontinence, hematuria, urinary retention. MUSCULOSKELETAL: denies weakness, joint pain, or bony pain SKIN: Denies rash, skin lesions, or other NEUROLOGIC: Denies weakness, headache, numbness, change in speech, confusion, seizures, incoordination. PSYCHIATRIC: No concerning psychosocial issues. 12 point review of systems is negative except for those stated above Patient History <IJEOMA Mi- - Last Filed: 10/16/21 18:09> Medical History Breast cancer Depression Febrile illness Hypothyroidism Lymphedema Morbid obesity with BMI of 40.0-44.9, adult Morbid obesity with body mass index (BMI) of 50.0 to 59.9 in adult Obstructive sleep apnea of adult Primary insomnia Sarcoidosis Snoring UTI (urinary tract infection) Surgical History H/O exploratory laparotomy S/P lumpectomy, right breast Family History Father Leukemia Brother Diabetes mellitus Sister Diabetes mellitus Breast cancer Mother Ovarian cancer Social History household members: children lives independently: Yes caregiver/support person: No Smoking Status: Former smoker alcohol intake: current substance use type: does not use Smoking Status: Former smoker alcohol intake frequency: a few times a month Substance Use Type: does not use Exam <STACIA Mi - Last Filed: 10/16/21 18:09> Narrative Exam Narrative: GENERAL: This is a well-nourished, well-developed patient, appears to be in pain HEAD: Atraumatic. Normocephalic. No temporal or scalp tenderness. EYES: Pupils equal round and reactive. Extraocular motions intact. No scleral icterus. No injection or drainage. ENT: Nose without bleeding, purulent drainage or septal hematoma. Throat without erythema, tonsillar hypertrophy or exudate. Uvula midline. Airway patent. Dry mucous membranes noted NECK: Trachea midline. No JVD or lymphadenopathy. Supple, nontender, no meningeal signs. CARDIOVASCULAR: Regular rate and rhythm RESPIRATORY: Clear to auscultation. Breath sounds equal bilaterally. No wheezes, rales, or rhonchi. GASTROINTESTINAL: Abdomen diffusely tender to palpation, active bowel sounds all 4 quadrants slight guarding noted epigastric area, right upper quadrant tenderness to palpation all 4 quadrants EXTREMITIES: No clubbing, cyanosis, or edema. No joint tenderness, effusion, or edema noted. BACK: Nontender without deformity or crepitance. No flank tenderness. NEURO: AOx3. SKIN: No rash or erythema on visible skin Initial Vital Signs Initial Vital Signs: Vital Signs Pulse Rate 91 H 10/16/21 11:30 Respiratory Rate 20 10/16/21 11:30 Blood Pressure 221/102 H 10/16/21 11:30 Pulse Oximetry 95 10/16/21 11:30 <Ruth Wiley DO - Last Filed: 10/17/21 07:48> Initial Vital Signs Initial Vital Signs: Vital Signs Pulse Rate 91 H 10/16/21 11:30 Respiratory Rate 20 10/16/21 11:30 Blood Pressure 221/102 H 10/16/21 11:30 Pulse Oximetry 95 10/16/21 11:30 Scores <TERESA Mi - Last Filed: 10/16/21 18:09> GCS [place] coma scale eye opening: Spontaneous Anni coma scale verbal response: Orientated [place] coma scale motor response: Obey commands Anni coma scale total score: 15 <Ruth Wiley DO - Last Filed: 10/17/21 07:48> GCS Anni coma scale total score: 15 Course <STACIA Mi - Last Filed: 10/16/21 18:09> Orders Ordered: Anastrozole (Anastrozole 1 Mg Tablet) 1 mg PO DAILY [facility] Docusate Sodium (Docusate 100 Mg Capsule) 100 mg PO BID ANA Heparin Sodium (Porcine) (Heparin 5,000 Unit/Ml Vial) 5,000 unit SUBCUT BID ANA Clindamycin Phosphate (Cleocin) 900 mg in 50 mls @ 50 mls/hr IV Q8H ANA Last Infusion: 10/17/21 00:20 Dose: 0 mls/hr Documented by: Admin: 10/16/21 23:19 Dose: 50 mls/hr Documented by: Infusion: 10/16/21 17:10 Dose: 0 mls/hr Documented by: Admin: 10/16/21 16:49 Dose: 50 mls/hr Documented by: MATILDA Sodium Chloride (Normal Saline 0.9%) 1,000 mls @ 100 mls/hr IV CONT ANA Last Admin: 10/17/21 05:31 Dose: 100 mls/hr Documented by: Infusion: 10/17/21 05:31 Dose: 100 mls/hr Documented by: Admin: 10/16/21 21:34 Dose: 100 mls/hr Documented by: ROLA Labetalol HCl (Labetalol 20 Mg/4 Ml Syringe) 10 mg IV NOW PRN PRN Reason: SBP > 180 Last Admin: 10/16/21 16:46 Dose: 10 mg Documented by: JOSE E Morphine Sulfate (Morphine 2 Mg/Ml Inj) 2 mg IV Q4H PRN PRN Reason: Breakthrough pain only (8-10) Last Admin: 10/16/21 21:42 Dose: 2 mg Documented by: ROLA Naloxone HCl (Naloxone 0.4 Mg/Ml Vial) 0.2 mg IV Q2MIN PRN PRN Reason: Opiate Reversal Naloxone HCl (Naloxone 0.4 Mg/Ml Vial) 0.2 mg IV Q2MIN PRN PRN Reason: Opiate Reversal Ondansetron HCl (Ondansetron 4 Mg/2 Ml Inj) 4 mg IV Q8HR PRN PRN Reason: Nausea And Vomiting Last Admin: 10/16/21 21:45 Dose: 4 mg Documented by: ROLA Venlafaxine HCl (Venlafaxine Er 75 Mg Cap) 225 mg PO DAILY [facility] Last Admin: 10/16/21 21:30 Dose: 225 mg Documented by: ROLA Discontinued Medications Fentanyl (Fentanyl 250 Mcg/5 Ml Inj) 0 mcg IV Q5M PRN PRN Reason: Pain, Moderate (4-6) Last Admin: 10/16/21 18:58 Dose: 50 mcg Documented by: Admin: 10/16/21 18:50 Dose: 50 mcg Documented by: MICHELLE Hydromorphone HCl (Hydromorphone 2 Mg Inj) 0 mg IV Q5M PRN PRN Reason: Pain, Severe (7-10) Sodium Chloride (Normal Saline 0.9%) 1,000 mls @ 1,000 mls/hr IV BOLUS PRN PRN Reason: Fluid replacement Last Infusion: 10/16/21 16:21 Dose: 0 mls/hr Documented by: Admin: 10/16/21 13:57 Dose: 1,000 mls/hr Documented by: ISABELLE Lactated Ringer's (Lactated Ringers) 1,000 mls @ 42 mls/hr IV CONT [facility] Last Admin: 10/16/21 20:17 Dose: Not Given Documented by: VERNAT Midazolam HCl (Midazolam 2 Mg/2 Ml Vial) 2 mg IV NOW ONE Stop: 10/16/21 16:23 Last Admin: 10/16/21 16:43 Dose: 2 mg Documented by: JOSE E Morphine Sulfate (Morphine 4 Mg/Ml Inj) 4 mg IV NOW ONE Stop: 10/16/21 12:47 Last Admin: 10/16/21 13:14 Dose: 4 mg Documented by: ISABELLE Ondansetron HCl (Ondansetron 4 Mg/2 Ml Inj) 4 mg IV NOW ONE Stop: 10/16/21 12:47 Last Admin: 10/16/21 13:18 Dose: 4 mg Documented by: ISABELLE Ondansetron HCl (Ondansetron 4 Mg/2 Ml Inj) 4 mg IV NOW PRN PRN Reason: Nausea And Vomiting Oxycodone HCl (Oxycodone Ir 5 Mg Tablet) 5 mg PO PACUNOW PRN PRN Reason: Mild or moderate pain Last Admin: 10/16/21 19:02 Dose: 5 mg Documented by: FABIANOARTL Pantoprazole Sodium (Pantoprazole 40 Mg Vial) 40 mg IV NOW ONE Stop: 10/16/21 12:47 Last Admin: 10/16/21 13:21 Dose: 40 mg Documented by: ISABELLE Reevaluation(s) Reevaluation #1: Patient states that her pain is improved and route to CT scan. Denies other needs at this time. Time: 13:42 Vital Signs Vital signs: Vital Signs - 8 hr 10/16/21 11:30 10/16/21 11:47 10/16/21 11:50 Temperature Pulse Rate 91 H 100 H 91 H Respiratory Rate 20 22 20 Blood Pressure 221/102 H 221/102 H Pulse Oximetry 95 95 95 10/16/21 11:56 10/16/21 12:00 10/16/21 12:15 Temperature Pulse Rate 88 99 H 94 H Respiratory Rate Blood Pressure 209/96 H Pulse Oximetry 95 94 93 10/16/21 12:30 10/16/21 12:45 10/16/21 13:00 Temperature Pulse Rate 93 H 99 H 83 Respiratory Rate Blood Pressure Pulse Oximetry 94 97 97 10/16/21 13:08 10/16/21 13:15 10/16/21 13:30 Temperature 98.3 F Pulse Rate 87 88 Respiratory Rate Blood Pressure Pulse Oximetry 96 99 10/16/21 13:49 10/16/21 14:00 10/16/21 14:01 Temperature Pulse Rate 87 83 85 Respiratory Rate 18 Blood Pressure 226/103 H Pulse Oximetry 98 99 99 10/16/21 14:13 10/16/21 14:15 10/16/21 14:30 Temperature Pulse Rate 90 85 123 H Respiratory Rate 26 H 23 38 H Blood Pressure 214/98 H Pulse Oximetry 100 99 10/16/21 14:35 10/16/21 14:45 10/16/21 15:00 Temperature Pulse Rate 91 H 85 90 Respiratory Rate 28 H 24 24 Blood Pressure 185/81 H Pulse Oximetry 98 98 10/16/21 15:01 10/16/21 15:15 10/16/21 15:30 Temperature Pulse Rate 91 H 104 H 91 H Respiratory Rate 21 29 H 22 Blood Pressure 197/85 H Pulse Oximetry 98 98 97 10/16/21 15:31 10/16/21 15:45 Temperature Pulse Rate 91 H 93 H Respiratory Rate 22 22 Blood Pressure 205/89 H Pulse Oximetry 98 98 <Ruth Wiley, DO - Last Filed: 10/17/21 07:48> Orders Ordered: Anastrozole (Anastrozole 1 Mg Tablet) 1 mg PO DAILY [facility] Docusate Sodium (Docusate 100 Mg Capsule) 100 mg PO BID ANA Heparin Sodium (Porcine) (Heparin 5,000 Unit/Ml Vial) 5,000 unit SUBCUT BID ANA Clindamycin Phosphate (Cleocin) 900 mg in 50 mls @ 50 mls/hr IV Q8H ANA Last Infusion: 10/17/21 00:20 Dose: 0 mls/hr Documented by: Admin: 10/16/21 23:19 Dose: 50 mls/hr Documented by: Infusion: 10/16/21 17:10 Dose: 0 mls/hr Documented by: Admin: 10/16/21 16:49 Dose: 50 mls/hr Documented by: MATILDA Sodium Chloride (Normal Saline 0.9%) 1,000 mls @ 100 mls/hr IV CONT ANA Last Admin: 10/17/21 05:31 Dose: 100 mls/hr Documented by: Infusion: 10/17/21 05:31 Dose: 100 mls/hr Documented by: Admin: 10/16/21 21:34 Dose: 100 mls/hr Documented by: ROLA Labetalol HCl (Labetalol 20 Mg/4 Ml Syringe) 10 mg IV NOW PRN PRN Reason: SBP > 180 Last Admin: 10/16/21 16:46 Dose: 10 mg Documented by: [email or web address] Morphine Sulfate (Morphine 2 Mg/Ml Inj) 2 mg IV Q4H PRN PRN Reason: Breakthrough pain only (8-10) Last Admin: 10/16/21 21:42 Dose: 2 mg Documented by: ROLA Naloxone HCl (Naloxone 0.4 Mg/Ml Vial) 0.2 mg IV Q2MIN PRN PRN Reason: Opiate Reversal Naloxone HCl (Naloxone 0.4 Mg/Ml Vial) 0.2 mg IV Q2MIN PRN PRN Reason: Opiate Reversal Ondansetron HCl (Ondansetron 4 Mg/2 Ml Inj) 4 mg IV Q8HR PRN PRN Reason: Nausea And Vomiting Last Admin: 10/16/21 21:45 Dose: 4 mg Documented by: ROLA Venlafaxine HCl (Venlafaxine Er 75 Mg Cap) 225 mg PO DAILY [facility] Last Admin: 10/16/21 21:30 Dose: 225 mg Documented by: ROLA Discontinued Medications Fentanyl (Fentanyl 250 Mcg/5 Ml Inj) 0 mcg IV Q5M PRN PRN Reason: Pain, Moderate (4-6) Last Admin: 10/16/21 18:58 Dose: 50 mcg Documented by: Admin: 10/16/21 18:50 Dose: 50 mcg Documented by: MICHELLE Hydromorphone HCl (Hydromorphone 2 Mg Inj) 0 mg IV Q5M PRN PRN Reason: Pain, Severe (7-10) Sodium Chloride (Normal Saline 0.9%) 1,000 mls @ 1,000 mls/hr IV BOLUS PRN PRN Reason: Fluid replacement Last Infusion: 10/16/21 16:21 Dose: 0 mls/hr Documented by: Admin: 10/16/21 13:57 Dose: 1,000 mls/hr Documented by: ISABELLE Lactated Ringer's (Lactated Ringers) 1,000 mls @ 42 mls/hr IV CONT [facility] Last Admin: 10/16/21 20:17 Dose: Not Given Documented by: MEHUL Midazolam HCl (Midazolam 2 Mg/2 Ml Vial) 2 mg IV NOW ONE Stop: 10/16/21 16:23 Last Admin: 10/16/21 16:43 Dose: 2 mg Documented by: JOSE E Morphine Sulfate (Morphine 4 Mg/Ml Inj) 4 mg IV NOW ONE Stop: 10/16/21 12:47 Last Admin: 10/16/21 13:14 Dose: 4 mg Documented by: ISABELLE Ondansetron HCl (Ondansetron 4 Mg/2 Ml Inj) 4 mg IV NOW ONE Stop: 10/16/21 12:47 Last Admin: 10/16/21 13:18 Dose: 4 mg Documented by: ISABELLE Ondansetron HCl (Ondansetron 4 Mg/2 Ml Inj) 4 mg IV NOW PRN PRN Reason: Nausea And Vomiting Oxycodone HCl (Oxycodone Ir 5 Mg Tablet) 5 mg PO PACUNOW PRN PRN Reason: Mild or moderate pain Last Admin: 10/16/21 19:02 Dose: 5 mg Documented by: [email or web address] Pantoprazole Sodium (Pantoprazole 40 Mg Vial) 40 mg IV NOW ONE Stop: 10/16/21 12:47 Last Admin: 10/16/21 13:21 Dose: 40 mg Documented by: ISABELLE Vital Signs Vital signs: Vital Signs - 8 hr 10/16/21 11:30 10/16/21 11:47 10/16/21 11:50 Temperature Pulse Rate 91 H 100 H 91 H Respiratory Rate 20 22 20 Blood Pressure 221/102 H 221/102 H Pulse Oximetry 95 95 95 10/16/21 11:56 10/16/21 12:00 10/16/21 12:15 Temperature Pulse Rate 88 99 H 94 H Respiratory Rate Blood Pressure 209/96 H Pulse Oximetry 95 94 93 10/16/21 12:30 10/16/21 12:45 10/16/21 13:00 Temperature Pulse Rate 93 H 99 H 83 Respiratory Rate Blood Pressure Pulse Oximetry 94 97 97 10/16/21 13:08 10/16/21 13:15 10/16/21 13:30 Temperature 98.3 F Pulse Rate 87 88 Respiratory Rate Blood Pressure Pulse Oximetry 96 99 10/16/21 13:49 10/16/21 14:00 10/16/21 14:01 Temperature Pulse Rate 87 83 85 Respiratory Rate 18 Blood Pressure 226/103 H Pulse Oximetry 98 99 99 10/16/21 14:13 10/16/21 14:15 10/16/21 14:30 Temperature Pulse Rate 90 85 123 H Respiratory Rate 26 H 23 38 H Blood Pressure 214/98 H Pulse Oximetry 100 99 10/16/21 14:35 10/16/21 14:45 10/16/21 15:00 Temperature Pulse Rate 91 H 85 90 Respiratory Rate 28 H 24 24 Blood Pressure 185/81 H Pulse Oximetry 98 98 10/16/21 15:01 10/16/21 15:15 10/16/21 15:30 Temperature Pulse Rate 91 H 104 H 91 H Respiratory Rate 21 29 H 22 Blood Pressure 197/85 H Pulse Oximetry 98 98 97 10/16/21 15:31 10/16/21 15:45 Temperature Pulse Rate 91 H 93 H Respiratory Rate 22 22 Blood Pressure 205/89 H Pulse Oximetry 98 98 MDM - Nausea/Vomiting/Diarrhea <IJEOMA Mi-BC - Last Filed: 10/16/21 18:09> Lab Data Result diagrams: 10/17/21 04:45 10/16/21 12:05 Labs: Lab Results 10/16/21 10/16/21 10/16/21 Range/Units 12:05 12:05 12:05 WBC 10.8 (4.5-11.0) X10^3/uL RBC 4.44 (4.0-5.2) X10^6/uL Hgb 9.3 L (12.0-16.0) g/dL Hct 29.6 L (36-46) % MCV 66.7 L (80-100) fL MCH 20.9 L (26-34) PG MCHC 31.3 (30-36) % RDW 19.7 H (11.6-14.8) % Plt Count 482 H (150-400) X10^3/uL Neut % (Auto) 89.5 H (50-75) % Lymph % (Auto) 5.8 L (25-40) % [place] % (Auto) 4.6 (3-14) % Eos % (Auto) 0.0 L (2-4) % Baso % (Auto) 0.1 (0-2) % Neut # (Auto) 9700 H (6823-3968) /uL Lymph # (Auto) 600 L (7485-7347) /uL [place] # (Auto) 500 (0-900) /uL Eos # (Auto) 0 (0-450) /uL Baso # (Auto) 0 (0-100) /uL RBC Morphology Not Reportable Microcytosis 2+ H PT 14.5 H (10.1-12.7) SECONDS INR 1.3 (0.9-1.3) APTT 35 D (26.4-36.2) SECONDS Sodium 135 L (137-145) mmol/L Potassium 3.9 (3.4-5.1) mmol/L Chloride 101 (98-107) mmol/L Carbon Dioxide 24 (22-32) mmol/L BUN 22 H (7-17) mg/dL Creatinine 0.81 (0.52-1.04) mg/dL Estimated GFR > 60.0 (>60) mL/min BUN/Creatinine Ratio 27.2 H (6-22) Glucose 204 H (80-110) mg/dL Lactate (0.7-2.1) mmol/L Calcium 9.6 (8.4-10.2) mg/dL Total Bilirubin 0.8 (0.2-1.3) mg/dL AST 27 (14-36) IU/L ALT 18 (<35) IU/L Alkaline Phosphatase 125 (38-126) U/L Total Creatine Kinase (30-135) U/L CK-MB (CK-2) (<2.37) ng/mL CK-MB (CK-2) Rel Index (1.5-5.0) % Troponin I (0.01-0.034) ng/mL Total Protein 8.4 H (6.3-8.2) g/dL Albumin 4.8 (3.5-5.0) g/dL Globulin 3.6 (1.7-4.1) g/dL Albumin/Globulin Ratio 1.3 (1.0-2.8) Lipase 122 (23-300) U/L SARS-CoV-2 (PCR) (Negative) 10/16/21 10/16/21 10/16/21 Range/Units 12:05 12:05 15:41 WBC (4.5-11.0) X10^3/uL RBC (4.0-5.2) X10^6/uL Hgb (12.0-16.0) g/dL Hct (36-46) % MCV (80-100) fL MCH (26-34) PG MCHC (30-36) % RDW (11.6-14.8) % Plt Count (150-400) X10^3/uL Neut % (Auto) (50-75) % Lymph % (Auto) (25-40) % [place] % (Auto) (3-14) % Eos % (Auto) (2-4) % Baso % (Auto) (0-2) % Neut # (Auto) (0642-0807) /uL Lymph # (Auto) (6155-2693) /uL [place] # (Auto) (0-900) /uL Eos # (Auto) (0-450) /uL Baso # (Auto) (0-100) /uL RBC Morphology Microcytosis PT (10.1-12.7) SECONDS INR (0.9-1.3) APTT (26.4-36.2) SECONDS Sodium (137-145) mmol/L Potassium (3.4-5.1) mmol/L Chloride (98-107) mmol/L Carbon Dioxide (22-32) mmol/L BUN (7-17) mg/dL Creatinine (0.52-1.04) mg/dL Estimated GFR (>60) mL/min BUN/Creatinine Ratio (6-22) Glucose (80-110) mg/dL Lactate 1.5 (0.7-2.1) mmol/L Calcium (8.4-10.2) mg/dL Total Bilirubin (0.2-1.3) mg/dL AST (14-36) IU/L ALT (<35) IU/L Alkaline Phosphatase (38-126) U/L Total Creatine Kinase 122 (30-135) U/L CK-MB (CK-2) 5.83 H (<2.37) ng/mL CK-MB (CK-2) Rel Index 4.8 (1.5-5.0) % Troponin I 0.015 (0.01-0.034) ng/mL Total Protein (6.3-8.2) g/dL Albumin (3.5-5.0) g/dL Globulin (1.7-4.1) g/dL Albumin/Globulin Ratio (1.0-2.8) Lipase (23-300) U/L SARS-CoV-2 (PCR) Negative (Negative) Urine Dip Bedside Urine Glucose Negative Bedside Urine Bilirubin - Negative Bedside Urine Ketone +/- 5 Urine Specific [place] 1.015 Bedside Urine Occult Blood + Bedside Urine pH 6.0 Bedside Urine Protein + 30 Bedside Urine Urobilinogen - Negative Bedside Urine Nitrite - Negative Bedside Urine Leukocytes - Negative Esterase Imaging Data CT scan - abdomen/pelvis: Radiologist's Impression: [address] [place] [id number] Scan Report Signed Patient: Joy Chung MR#: [id number] : 1950 Acct:[id number] Age/Sex: 70 / F Date of Service: 10/16/21 Loc: ED Accession Number: [id number] ?? Procedure: CT abdomen pelvis w con Ordering Provider: Angelia Harrison- PROCEDURE:? CT ABDOMEN PELVIS W CON ? INDICATIONS:? abd pain, vomiting, hx resection ? TECHNIQUE:? After the administration of IV contrast, axial sections were acquired from the lung bases to the pubic symphysis.? Coronal and sagittal reformats were performed.? For radiation dose reduction, the following was used:? automated exposure control, adjustment of mA and/or kV according to patient size. ? COMPARISON:? [facility], CT, ABDOMEN/PELVIS WITH CONTRAST, 01/15/2017, 15:23. ? FINDINGS:? Image quality:? Excellent.? ? Lung bases:? There is mild dependent atelectasis bilaterally.? There is a small hiatal hernia.? Heart:? Heart is normal in size. ? ? ABDOMEN: Liver:? Medially within the posterior right hepatic lobe in segment 7, there is a subcapsular hypoattenuating region measuring up to 1.8 x 1.1 cm in transverse dimension which is nonspecific but appears unchanged compared to the prior study.? Anteriorly within segment 4A, there is an ill-defined region of mild hypervascular enhancement corresponding to a previous region of hyperdensity in ill-defined hypervascular enhancement.? The findings are also nonspecific with suggestive of a hemangioma and appears grossly similar in size to the prior study.1 Gallbladder:? Within normal limits without calcified gallstones.? ? Biliary ducts:? No biliary ductal dilatation.? ? Pancreas:? Unremarkable.? ? Spleen:? Normal in size.? ? Adrenal Glands:? No adrenal nodules.? ? Kidneys and Ureters:? No hydronephrosis.? Bilateral renal cysts are redemonstrated including left parapelvic cysts as well as additional low-density foci in the kidneys which are too small to characterize but likely represent cysts.? ? ? Stomach and Bowel:? Multiple distended loops of small bowel are demonstrated, measuring up to 3.4 cm with associated air-fluid levels.? These extend to a midline ventral abdominal wall hernia containing a herniated segment of small bowel where there is an associated transition point.? Small bowel loops are nondistended distal to the hernia.? Findings are consistent with a small-bowel obstruction.? No evidence of appendicitis.? Colon is normal in caliber.? Postsurgical changes are demonstrated in the descending colon consistent with prior partial colonic resection.? Colonic diverticulosis is demonstrated without acute diverticulitis.? A gastric lap band is redemonstrated. Peritoneum:? There is a small amount of intraperitoneal free fluid within the left paracolic gutter.? No free air.? ? Ventral Wall: ? There are multiple ventral abdominal hernias including a periumbilical midline hernia containing a short segment of small bowel.? The hernia defect measures approximately 3.5 cm in transverse dimension by 2.1 cm in craniocaudal dimension.? No associated bowel wall thickening within the hernia.? A small amount of free fluid is demonstrated within the hernia sac. Abdominal Nodes:? No retroperitoneal or mesenteric adenopathy by size criteria.? Vessels:? Aorta and inferior vena cava are normal in size.? ? PELVIS: Pelvic Organs:? Uterus is surgically absent.? ? Bladder:? Unremarkable.? ? Pelvic Nodes: No enlarged lymph nodes.? Miscellaneous: No inguinal hernias are seen. ? ? ? Bones:? Visualized osseous structures demonstrate no suspicious focal lesions. ? IMPRESSION:? ? 1. Dilated loops of small bowel with air-fluid levels extending to a periumbilical midline hernia containing a short segment of small bowel with an associated transition point.? The findings are consistent with bowel obstruction secondary to an incarcerated small bowel loop.? Findings discussed with IJEOMA Mi on 10/16/2021 at 2:20 p.m..? ? 2. Small amount of intraperitoneal free fluid is nonspecific but likely reactive. ? 3. Colonic diverticulosis without acute diverticulitis.? ? ? Dictated by: Deshaun Small M.D. on 10/16/2021 at 14:02 ? ? Approved by: Deshaun Small M.D. on 10/16/2021 at 14:30 ? MDM Narrative Medical decision making narrative: The patient is a 70-year-old female with history of PE on Eliquis, last dose yesterday who presents with a chief complaint of abdominal pain and vomiting. Given her exam, imaging was completed. Lab work is reassuring with no leukocytosis, she is anemic, though correlates with baseline. CT is concerning for incarcerated ventral hernia with obstruction. I spoke with Dr. Paez, who kindly agreed to see the patient. Given medical complexity including antic oagulation, she was admitted to hospitalist Dr. Neville. She states understanding, states appreciation and test negative <Ruth Wiley DO - Last Filed: 10/17/21 07:48> Lab Data Labs: Lab Results 10/16/21 10/16/21 10/16/21 Range/Units 12:05 12:05 12:05 WBC 10.8 (4.5-11.0) X10^3/uL RBC 4.44 (4.0-5.2) X10^6/uL Hgb 9.3 L (12.0-16.0) g/dL Hct 29.6 L (36-46) % MCV 66.7 L (80-100) fL MCH 20.9 L (26-34) PG MCHC 31.3 (30-36) % RDW 19.7 H (11.6-14.8) % Plt Count 482 H (150-400) X10^3/uL Neut % (Auto) 89.5 H (50-75) % Lymph % (Auto) 5.8 L (25-40) % [place] % (Auto) 4.6 (3-14) % Eos % (Auto) 0.0 L (2-4) % Baso % (Auto) 0.1 (0-2) % Neut # (Auto) 9700 H (7318-7024) /uL Lymph # (Auto) 600 L (4776-4752) /uL [place] # (Auto) 500 (0-900) /uL Eos # (Auto) 0 (0-450) /uL Baso # (Auto) 0 (0-100) /uL RBC Morphology Not Reportable Microcytosis 2+ H PT 14.5 H (10.1-12.7) SECONDS INR 1.3 (0.9-1.3) APTT 35 D (26.4-36.2) SECONDS Sodium 135 L (137-145) mmol/L Potassium 3.9 (3.4-5.1) mmol/L Chloride 101 (98-107) mmol/L Carbon Dioxide 24 (22-32) mmol/L BUN 22 H (7-17) mg/dL Creatinine 0.81 (0.52-1.04) mg/dL Estimated GFR > 60.0 (>60) mL/min BUN/Creatinine Ratio 27.2 H (6-22) Glucose 204 H (80-110) mg/dL Lactate (0.7-2.1) mmol/L Calcium 9.6 (8.4-10.2) mg/dL Total Bilirubin 0.8 (0.2-1.3) mg/dL AST 27 (14-36) IU/L ALT 18 (<35) IU/L Alkaline Phosphatase 125 (38-126) U/L Total Creatine Kinase (30-135) U/L CK-MB (CK-2) (<2.37) ng/mL CK-MB (CK-2) Rel Index (1.5-5.0) % Troponin I (0.01-0.034) ng/mL Total Protein 8.4 H (6.3-8.2) g/dL Albumin 4.8 (3.5-5.0) g/dL Globulin 3.6 (1.7-4.1) g/dL Albumin/Globulin Ratio 1.3 (1.0-2.8) Lipase 122 (23-300) U/L SARS-CoV-2 (PCR) (Negative) 10/16/21 10/16/21 10/16/21 Range/Units 12:05 12:05 15:41 WBC (4.5-11.0) X10^3/uL RBC (4.0-5.2) X10^6/uL Hgb (12.0-16.0) g/dL Hct (36-46) % MCV (80-100) fL MCH (26-34) PG MCHC (30-36) % RDW (11.6-14.8) % Plt Count (150-400) X10^3/uL Neut % (Auto) (50-75) % Lymph % (Auto) (25-40) % [place] % (Auto) (3-14) % Eos % (Auto) (2-4) % Baso % (Auto) (0-2) % Neut # (Auto) (1169-6454) /uL Lymph # (Auto) (5326-5339) /uL [place] # (Auto) (0-900) /uL Eos # (Auto) (0-450) /uL Baso # (Auto) (0-100) /uL RBC Morphology Microcytosis PT (10.1-12.7) SECONDS INR (0.9-1.3) APTT (26.4-36.2) SECONDS Sodium (137-145) mmol/L Potassium (3.4-5.1) mmol/L Chloride (98-107) mmol/L Carbon Dioxide (22-32) mmol/L BUN (7-17) mg/dL Creatinine (0.52-1.04) mg/dL Estimated GFR (>60) mL/min BUN/Creatinine Ratio (6-22) Glucose (80-110) mg/dL Lactate 1.5 (0.7-2.1) mmol/L Calcium (8.4-10.2) mg/dL Total Bilirubin (0.2-1.3) mg/dL AST (14-36) IU/L ALT (<35) IU/L Alkaline Phosphatase (38-126) U/L Total Creatine Kinase 122 (30-135) U/L CK-MB (CK-2) 5.83 H (<2.37) ng/mL CK-MB (CK-2) Rel Index 4.8 (1.5-5.0) % Troponin I 0.015 (0.01-0.034) ng/mL Total Protein (6.3-8.2) g/dL Albumin (3.5-5.0) g/dL Globulin (1.7-4.1) g/dL Albumin/Globulin Ratio (1.0-2.8) Lipase (23-300) U/L SARS-CoV-2 (PCR) Negative (Negative) Urine Dip Bedside Urine Glucose Negative Bedside Urine Bilirubin - Negative Bedside Urine Ketone +/- 5 Urine Specific [place] 1.015 Bedside Urine Occult Blood + Bedside Urine pH 6.0 Bedside Urine Protein + 30 Bedside Urine Urobilinogen - Negative Bedside Urine Nitrite - Negative Bedside Urine Leukocytes - Negative Esterase Discharge Plan Departure Patient Disposition: Admitted as Observation Clinical Impression: Obstructed ventral hernia Admit Date/Time: 10/16/21 15:45 Admit Provider: Alfredo Arana <Ruth Wiley, - Last Filed: 10/17/21 07:48> Cosign ED Attending Borisature Attestation: I was immediately available in the department for consultation. Documentation has been reviewed. I agree with assessment and plan.
[2021-10-16 13:02] LABS: Creatine Kinase 122 U/L (30-135)
[2021-10-16] MEDS: MORPHINE 4 MG/ML INJ IV (13:14)
[2021-10-16 13:15] LABS: Troponin I 0.015 ng/mL (0.01-0.034)
[2021-10-16 13:17] LABS: CKMB % Relative Index 4.8 % (1.5-5.0); Creatine Kinase MB 5.83 ng/mL (<2.37)
[2021-10-16] MEDS: ONDANSETRON 4 MG/2 ML INJ IV ×2 (13:18→21:45)
[2021-10-16] MEDS: PANTOPRAZOLE 40 MG VIAL IV (13:21)
--- NOTE | 2021-10-16 13:27 | DI.CT.S_ITS ---
PROCEDURE: CT ABDOMEN PELVIS W CON INDICATIONS: abd pain, vomiting, hx resection TECHNIQUE: After the administration of IV contrast, axial sections were acquired from the lung bases to the pubic symphysis. Coronal and sagittal reformats were performed. For radiation dose reduction, the following was used: automated exposure control, adjustment of mA and/or kV according to patient size. COMPARISON: [facility], CT, ABDOMEN/PELVIS WITH CONTRAST, 01/15/2017, 15:23. FINDINGS: Image quality: Excellent. Lung bases: There is mild dependent atelectasis bilaterally. There is a small hiatal hernia. Heart: Heart is normal in size. ABDOMEN: Liver: Medially within the posterior right hepatic lobe in segment 7, there is a subcapsular hypoattenuating region measuring up to 1.8 x 1.1 cm in transverse dimension which is nonspecific but appears unchanged compared to the prior study. Anteriorly within segment 4A, there is an ill-defined region of mild hypervascular enhancement corresponding to a previous region of hyperdensity in ill-defined hypervascular enhancement. The findings are also nonspecific with suggestive of a hemangioma and appears grossly similar in size to the prior study.1 Gallbladder: Within normal limits without calcified gallstones. Biliary ducts: No biliary ductal dilatation. Pancreas: Unremarkable. Spleen: Normal in size. Adrenal Glands: No adrenal nodules. Kidneys and Ureters: No hydronephrosis. Bilateral renal cysts are redemonstrated including left parapelvic cysts as well as additional low-density foci in the kidneys which are too small to characterize but likely represent cysts. Stomach and Bowel: Multiple distended loops of small bowel are demonstrated, measuring up to 3.4 cm with associated air-fluid levels. These extend to a midline ventral abdominal wall hernia containing a herniated segment of small bowel where there is an associated transition point. Small bowel loops are nondistended distal to the hernia. Findings are consistent with a small-bowel obstruction. No evidence of appendicitis. Colon is normal in caliber. Postsurgical changes are demonstrated in the descending colon consistent with prior partial colonic resection. Colonic diverticulosis is demonstrated without acute diverticulitis. A gastric lap band is redemonstrated. Peritoneum: There is a small amount of intraperitoneal free fluid within the left paracolic gutter. No free air. Ventral Wall: There are multiple ventral abdominal hernias including a periumbilical midline hernia containing a short segment of small bowel. The hernia defect measures approximately 3.5 cm in transverse dimension by 2.1 cm in craniocaudal dimension. No associated bowel wall thickening within the hernia. A small amount of free fluid is demonstrated within the hernia sac. Abdominal Nodes: No retroperitoneal or mesenteric adenopathy by size criteria. Vessels: Aorta and inferior vena cava are normal in size. PELVIS: Pelvic Organs: Uterus is surgically absent. Bladder: Unremarkable. Pelvic Nodes: No enlarged lymph nodes. Miscellaneous: No inguinal hernias are seen. Bones: Visualized osseous structures demonstrate no suspicious focal lesions. IMPRESSION: 1. Dilated loops of small bowel with air-fluid levels extending to a periumbilical midline hernia containing a short segment of small bowel with an associated transition point. The findings are consistent with bowel obstruction secondary to an incarcerated small bowel loop. Findings discussed with IJEOMA Mi on 10/16/2021 at 2:20 p.m.. 2. Small amount of intraperitoneal free fluid is nonspecific but likely reactive. 3. Colonic diverticulosis without acute diverticulitis. Dictated by: Deshaun Small M.D. on 10/16/2021 at 14:02 Approved by: Deshaun Small M.D. on 10/16/2021 at 14:30
[2021-10-16] MEDS: SODIUM CHLORIDE 0.9% 1,000 ML 1000 ML IV (13:57)
[2021-10-16 15:19] LABS: Lactate (Lactic Acid) 1.5 mmol/L (0.7-2.1)
--- NOTE | 2021-10-16 15:51 | P.CONS_ITS ---
History of Present Illness Consult details Date Patient Seen: 10/16/21 Time Patient Seen: 15:56 Chief complaint: pain/heat in stomach, dry heaving, dehydrated Narrative: 70-year-old woman with a history of previous abdominal surgery, presents with an incarcerated ventral hernia and associated small bowel obstruction. She developed worsening abdominal pain last night with associated nausea and vomiting. At admission today CT demonstrates a small-bowel obstruction the transition point is within a ventral hernia. History of an exploratory laparotomy for benign tumor. History of recurrent venous thromboembolism/PE takes Eliquis last dose yesterday. At admission afebrile low-grade tachycardia no leukocytosis. 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 08/07/19 05/27/21 History Thyroid) venlafaxine 150 mg 225 mg PO QAM 08/07/19 05/27/21 History capsule,extended release 24 hr (Effexor XR) anastrozole 1 mg tablet 1 mg PO DAILY 12/05/20 05/27/21 History thyroid (pork) 15 mg capsule 15 mg PO 2XW 05/27/21 05/27/21 History apixaban 5 mg (74 tabs) tablets in See Rx Instructions .ROUTE 05/29/21 Rx a dose pack (Eliquis DVT-PE Treat .COMPLEX #74 ea 30D Start) Allergies Allergy/AdvReac Type Severity Reaction Status Date / Time amoxicillin [AMOXICILLIN] Allergy Severe HIVES Verified 10/16/21 14:07 NSAIDS (Non-Steroidal Allergy Severe ANAPHYLAXIS Verified 10/16/21 14:07 Anti-Inflamma [NSAIDS (NON-STEROIDAL ANTI-INFLAMMA] Penicillins [PENICILLINS] Allergy Intermediate HIVES Verified 10/16/21 14:07 Sulfa (Sulfonamide Allergy Intermediate ITCH Verified 10/16/21 14:07 Antibiotics) [SULFA (SULFONAMIDE ANTIBIOTICS)] cephalexin [From KEFLEX] Allergy Mild ITCHY Verified 10/16/21 14:07 oxycodone [OXYCODONE] AdvReac Intermediate AMNESIA Verified 10/16/21 14:07 meperidine [MEPERIDINE] AdvReac Mild AMNESIA Verified 10/16/21 14:07 Exam Vital Signs (past 8 hours): - 10/16/21 11:30 10/16/21 11:47 10/16/21 11:50 Temperature Pulse Rate 91 H 100 H 91 H Respiratory Rate 20 22 20 Blood Pressure 221/102 H 221/102 H Pulse Oximetry 95 95 95 10/16/21 11:56 10/16/21 12:00 10/16/21 12:15 Temperature Pulse Rate 88 99 H 94 H Respiratory Rate Blood Pressure 209/96 H Pulse Oximetry 95 94 93 10/16/21 12:30 10/16/21 12:45 10/16/21 13:00 Temperature Pulse Rate 93 H 99 H 83 Respiratory Rate Blood Pressure Pulse Oximetry 94 97 97 10/16/21 13:08 10/16/21 13:15 10/16/21 13:30 Temperature 98.3 F Pulse Rate 87 88 Respiratory Rate Blood Pressure Pulse Oximetry 96 99 10/16/21 13:49 10/16/21 14:00 10/16/21 14:01 Temperature Pulse Rate 87 83 85 Respiratory Rate 18 Blood Pressure 226/103 H Pulse Oximetry 98 99 99 10/16/21 14:13 10/16/21 14:15 10/16/21 14:30 Temperature Pulse Rate 90 85 123 H Respiratory Rate 26 H 23 38 H Blood Pressure 214/98 H Pulse Oximetry 100 99 10/16/21 14:35 10/16/21 14:45 10/16/21 15:00 Temperature Pulse Rate 91 H 85 90 Respiratory Rate 28 H 24 24 Blood Pressure 185/81 H Pulse Oximetry 98 98 10/16/21 15:01 10/16/21 15:15 Temperature Pulse Rate 91 H 104 H Respiratory Rate 21 29 H Blood Pressure 197/85 H Pulse Oximetry 98 98 Oxygen Delivery Method Room Air Narrative Exam Narrative: General adult female alert oriented no acute distress Chest nonlabored respirations Abdomen massive obesity. Who well-healed midline incision. A tender to palpation midline supraumbilical there is a non reducible incisional hernia. Extremities warm well perfused Objective Labs Result Diagrams: 10/16/21 12:05 10/16/21 12:05 Labs: Laboratory Results - last 24 hr 10/16/21 10/16/21 10/16/21 12:05 12:05 12:05 WBC 10.8 RBC 4.44 Hgb 9.3 L Hct 29.6 L MCV 66.7 L MCH 20.9 L MCHC 31.3 RDW 19.7 H Plt Count 482 H Neut % (Auto) 89.5 H Lymph % (Auto) 5.8 L [place] % (Auto) 4.6 Eos % (Auto) 0.0 L Baso % (Auto) 0.1 Neut # (Auto) 9700 H Lymph # (Auto) 600 L [place] # (Auto) 500 Eos # (Auto) 0 Baso # (Auto) 0 RBC Morphology Not Reportable Microcytosis 2+ H PT 14.5 H INR 1.3 APTT 35 D Sodium 135 L Potassium 3.9 Chloride 101 Carbon Dioxide 24 BUN 22 H Creatinine 0.81 Estimated GFR > 60.0 BUN/Creatinine Ratio 27.2 H Glucose 204 H Lactate Calcium 9.6 Total Bilirubin 0.8 AST 27 ALT 18 Alkaline Phosphatase 125 Total Creatine Kinase CK-MB (CK-2) CK-MB (CK-2) Rel Index Troponin I Total Protein 8.4 H Albumin 4.8 Globulin 3.6 Albumin/Globulin Ratio 1.3 Lipase 122 10/16/21 10/16/21 12:05 12:05 WBC RBC Hgb Hct MCV MCH MCHC RDW Plt Count Neut % (Auto) Lymph % (Auto) [place] % (Auto) Eos % (Auto) Baso % (Auto) Neut # (Auto) Lymph # (Auto) [place] # (Auto) Eos # (Auto) Baso # (Auto) RBC Morphology Microcytosis PT INR APTT Sodium Potassium Chloride Carbon Dioxide BUN Creatinine Estimated GFR BUN/Creatinine Ratio Glucose Lactate 1.5 Calcium Total Bilirubin AST ALT Alkaline Phosphatase Total Creatine Kinase 122 CK-MB (CK-2) 5.83 H CK-MB (CK-2) Rel Index 4.8 Troponin I 0.015 Total Protein Albumin Globulin Albumin/Globulin Ratio Lipase PFSH Medical History Breast cancer Depression Febrile illness Hypothyroidism Lymphedema Morbid obesity with BMI of 40.0-44.9, adult Morbid obesity with body mass index (BMI) of 50.0 to 59.9 in adult Obstructive sleep apnea of adult Primary insomnia Sarcoidosis Snoring UTI (urinary tract infection) Surgical History H/O exploratory laparotomy S/P lumpectomy, right breast Family History Father Leukemia Brother Diabetes mellitus Sister Diabetes mellitus Breast cancer Mother Ovarian cancer Social History household members: children and none lives independently: Yes caregiver/support person: No Tobacco & Substance Use Smoking Status: Former smoker alcohol intake: current substance use type: does not use Assessment & Plan Assessment and plan (1) Ventral hernia with obstruction: Status: Acute Assessment & Plan narrative: 70-year-old woman previous abdominal surgery super morbid obesity with an incarcerated ventral hernia with small bowel obstruction. CT reviewed demonstrates small-bowel obstruction transition point is within the ventral hernia sac. Recommended that we proceed with an exploratory laparotomy lysis of adhesions and repair the ventral hernia. We discussed that the way in which the hernia is repaired will depend on the viability of the bowel, and whether not it is appropriate to use mesh. Operative risks including bleeding, infection hernia recurrence, damage to surrounding structures, bowel injury were discussed. Her questions have been answered and she is in agreement with this plan. Time Spent With Patient Critical Care time: I spent a total of [] minutes of critical care time on this patient's care today; this time is exclusive of procedural time.
[2021-10-16 16:21] LABS: COVID19 -Nasal RAPID Negative (Negative)
[2021-10-16] MEDS: MIDAZOLAM 2 MG/2 ML VIAL IV (16:43)
[2021-10-16] MEDS: LABETALOL 20 MG/4 ML SYRINGE 10 MG IV (16:46)
[2021-10-16] MEDS: CLINDAMYCIN 900 MG/50 ML PIGGYBACK 50 MG IV ×2 (16:49→23:19)
--- NOTE | 2021-10-16 17:26 | SUR.OPER ---
Supine on padded OR bed, head on pillow, arms secured on padded arm boards at <90 degrees abduction, legs uncrossed, safety belt at thigh, tape over blanket over lower legs.
--- NOTE | 2021-10-16 18:31 | PM.OP.1 ---
Operative Date/Time/Diagnoses Date of procedure: 10/16/21 Time of procedure: 18:31 Pre-op diagnosis: Incarcerated incisional ventral hernia with obstruction Post-op diagnosis: same Procedure & Clinicians Procedure: Exploratory laparotomy Repair of incarcerated ventral hernia with obstruction Same procedure as scheduled: Yes Indications: 70-year-old woman BMI 51 prior abdominal surgery with a incarcerated incisional ventral hernia with a small-bowel obstruction transition point is within the hernia Surgeon: Isaac Paez Anesthesia Type: General Operative Notes Findings: Viable small bowel within the hernia. Hernia defect 8 cm in maximal diameter Specimen(s): none sent Estimated Blood Loss (mL): 50 Procedure in detail: Patient was brought to the operative room placed supine on the table. Bilateral lower extremity compression devices were applied. She received clindamycin prior to skin incision. General anesthesia was induced she was intubated with an endotracheal tube. She was prepped and draped sterile fashion. Time-out performed. A midline incision superior to the umbilicus was made. Subcutaneous tissue was divided. There was a large hernia sac containing small bowel within the midline. The sac was opened in the hernia defect was entirely exposed. The small bowel was viable. Due to her obesity BMI 51 and her previous abdominal surgeries the fascia was under a great deal of tension and could not be reapproximated. Therefore a Bard Ventralex 8 x 4 cm patch was placed in underlay position it had an anti-adhesive barrier which was placed to the peritoneum. The mesh was then secured to the overlying fascia in interrupted fashion with Ethibond suture. A secondary layer of Bard soft large for mesh was then placed in an overlay fashion. Nineteen [place] Sushil drain was then placed into the anterior to the fascia. The subcutaneous tissue was reapproximated with 3-0 Vicryl skin closed with elke. She tolerated procedure transferred to recovery stable condition. Complications: none Post-operative Condition: stable Disposition: Acute Care
[2021-10-16] MEDS: fentaNYL 250 MCG/5 ML INJ IV ×2 (18:50→18:58)
[2021-10-16] MEDS: OXYCODONE IR 5 MG TABLET PO (19:02)
--- NOTE | 2021-10-16 20:00 | PM.HP.1 ---
History of Present Illness History of Present Illness Date Patient Seen: 10/16/21 Time Patient Seen: 19:30 Chief complaint: pain/heat in stomach, dry heaving, dehydrated Narrative: Pt presented with acute abdominal pain dry heaving dehydration found to have strangulated hernia now s/p repair by Dr. Paez. She does have hx of colon resection for benign tumor. Gets around ok with cane at baseline. Allergic to percocet davocet NSAIDs and Sulfas. Pt seen in postop she is feeling much better now. Patient History Medical History Breast cancer Depression Febrile illness Hypothyroidism Lymphedema Morbid obesity with BMI of 40.0-44.9, adult Morbid obesity with body mass index (BMI) of 50.0 to 59.9 in adult Obstructive sleep apnea of adult Primary insomnia Sarcoidosis Snoring UTI (urinary tract infection) Surgical History H/O exploratory laparotomy S/P lumpectomy, right breast Family & Social History Family History Father Leukemia Brother Diabetes mellitus Sister Diabetes mellitus Breast cancer Mother Ovarian cancer Social History: household members none,children Prior Living Arrangements House lives independently Yes caregiver/support person No Safety & Behavioral: Feels Safe in Current Yes Environment Been Physically Hurt or No Threatened By a Person Tobacco & Substance use: Smoking Status Former smoker alcohol intake current alcohol intake frequency a few times a month Substance Use Type does not use Meds Home Medications and Allergies Home Medications Medication Instructions Recorded Confirmed Type Respironics Dreamstation BIPAP #1 ea 12/23/18 10/16/21 History thyroid (pork) 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 08/07/19 10/16/21 History Thyroid) venlafaxine 150 mg 225 mg PO QAM 08/07/19 10/16/21 History capsule,extended release 24 hr (Effexor XR) anastrozole 1 mg tablet 1 mg PO DAILY 12/05/20 10/16/21 History thyroid (pork) 15 mg capsule 15 mg PO 2XW 05/27/21 10/16/21 History apixaban 5 mg (74 tabs) tablets in See Rx Instructions .ROUTE 05/29/21 10/16/21 Rx a dose pack (Eliquis DVT-PE Treat .COMPLEX #74 ea 30D Start) Allergies Allergy/AdvReac Type Severity Reaction Status Date / Time amoxicillin [AMOXICILLIN] Allergy Severe HIVES Verified 10/16/21 14:07 NSAIDS (Non-Steroidal Allergy Severe ANAPHYLAXIS Verified 10/16/21 14:07 Anti-Inflamma [NSAIDS (NON-STEROIDAL ANTI-INFLAMMA] Penicillins [PENICILLINS] Allergy Intermediate HIVES Verified 10/16/21 14:07 Sulfa (Sulfonamide Allergy Intermediate ITCH Verified 10/16/21 14:07 Antibiotics) [SULFA (SULFONAMIDE ANTIBIOTICS)] cephalexin [From KEFLEX] Allergy Mild ITCHY Verified 10/16/21 14:07 oxycodone [OXYCODONE] AdvReac Intermediate AMNESIA Verified 10/16/21 14:07 meperidine [MEPERIDINE] AdvReac Mild AMNESIA Verified 10/16/21 14:07 Review of Systems Review of Systems Narrative: all systems reviewed and negative except as otherwise documented in HPI Exam Vital Signs (past 8 hours): - 10/16/21 12:15 10/16/21 12:30 10/16/21 12:45 Temperature Pulse Rate 94 H 93 H 99 H Respiratory Rate Blood Pressure Pulse Oximetry 93 94 97 10/16/21 13:00 10/16/21 13:08 10/16/21 13:15 Temperature 98.3 F Pulse Rate 83 87 Respiratory Rate Blood Pressure Pulse Oximetry 97 96 10/16/21 13:30 10/16/21 13:49 10/16/21 14:00 Temperature Pulse Rate 88 87 83 Respiratory Rate Blood Pressure Pulse Oximetry 99 98 99 10/16/21 14:01 10/16/21 14:13 10/16/21 14:15 Temperature Pulse Rate 85 90 85 Respiratory Rate 18 26 H 23 Blood Pressure 226/103 H 214/98 H Pulse Oximetry 99 100 99 10/16/21 14:30 10/16/21 14:35 10/16/21 14:45 Temperature Pulse Rate 123 H 91 H 85 Respiratory Rate 38 H 28 H 24 Blood Pressure 185/81 H Pulse Oximetry 98 10/16/21 15:00 10/16/21 15:01 10/16/21 15:15 Temperature Pulse Rate 90 91 H 104 H Respiratory Rate 24 21 29 H Blood Pressure 197/85 H Pulse Oximetry 98 98 98 10/16/21 15:30 10/16/21 15:31 10/16/21 15:45 Temperature Pulse Rate 91 H 91 H 93 H Respiratory Rate 22 22 22 Blood Pressure 205/89 H Pulse Oximetry 97 98 98 10/16/21 16:00 10/16/21 16:23 10/16/21 16:46 Temperature 98.2 F Pulse Rate 90 105 H 98 H Respiratory Rate 22 15 Blood Pressure 193/98 H 200/104 H Pulse Oximetry 95 93 10/16/21 18:25 10/16/21 18:30 10/16/21 18:35 Temperature 97.1 F L Pulse Rate 75 77 78 Respiratory Rate 20 16 16 Blood Pressure 131/111 H 164/100 H 200/78 H Pulse Oximetry 97 96 97 10/16/21 18:50 10/16/21 19:05 10/16/21 19:12 Temperature 97.8 F Pulse Rate 69 70 73 Respiratory Rate 15 20 20 Blood Pressure 200/78 H 204/78 H Pulse Oximetry 98 97 97 10/16/21 19:18 10/16/21 19:22 Temperature 97.8 F Pulse Rate 73 75 Respiratory Rate 20 22 Blood Pressure 175/106 H 122/104 H Pulse Oximetry 99 96 Oxygen Delivery Method Room Air Narrative Exam Narrative: obese older woman lying in postop alert conversant Eyes General: appearance normal, both eyes and all related structures Resp Effort & Inspection: normal respiratory effort and able to speak in complete sentences Auscultation: clear to auscultation bilaterally Cardio Rate: regular rate Rhythm: regular rhythm Heart Sounds: S1 normal and S2 normal GI Other: active bowel sounds. midline incision under clean dry bandage with belly binder Skin General: no rashes or lesions noted Neuro General: patient alert, patient awake, patient oriented x3 and CN's II-XI intact bilaterally Extrem General: normal to inspection and full ROM Psych Appearance: grossly normal Mental Status: mental status grossly normal Speech and Movement: speech and movement normal Objective Labs Result Diagrams: 10/16/21 12:05 10/16/21 12:05 Labs: Laboratory Results - last 24 hr 10/16/21 10/16/21 10/16/21 12:05 12:05 12:05 WBC 10.8 RBC 4.44 Hgb 9.3 L Hct 29.6 L MCV 66.7 L MCH 20.9 L MCHC 31.3 RDW 19.7 H Plt Count 482 H Neut % (Auto) 89.5 H Lymph % (Auto) 5.8 L [place] % (Auto) 4.6 Eos % (Auto) 0.0 L Baso % (Auto) 0.1 Neut # (Auto) 9700 H Lymph # (Auto) 600 L [place] # (Auto) 500 Eos # (Auto) 0 Baso # (Auto) 0 RBC Morphology Not Reportable Microcytosis 2+ H PT 14.5 H INR 1.3 APTT 35 D Sodium 135 L Potassium 3.9 Chloride 101 Carbon Dioxide 24 BUN 22 H Creatinine 0.81 Estimated GFR > 60.0 BUN/Creatinine Ratio 27.2 H Glucose 204 H Lactate Calcium 9.6 Total Bilirubin 0.8 AST 27 ALT 18 Alkaline Phosphatase 125 Total Creatine Kinase CK-MB (CK-2) CK-MB (CK-2) Rel Index Troponin I Total Protein 8.4 H Albumin 4.8 Globulin 3.6 Albumin/Globulin Ratio 1.3 Lipase 122 SARS-CoV-2 (PCR) 10/16/21 10/16/21 10/16/21 12:05 12:05 15:41 WBC RBC Hgb Hct MCV MCH MCHC RDW Plt Count Neut % (Auto) Lymph % (Auto) [place] % (Auto) Eos % (Auto) Baso % (Auto) Neut # (Auto) Lymph # (Auto) [place] # (Auto) Eos # (Auto) Baso # (Auto) RBC Morphology Microcytosis PT INR APTT Sodium Potassium Chloride Carbon Dioxide BUN Creatinine Estimated GFR BUN/Creatinine Ratio Glucose Lactate 1.5 Calcium Total Bilirubin AST ALT Alkaline Phosphatase Total Creatine Kinase 122 CK-MB (CK-2) 5.83 H CK-MB (CK-2) Rel Index 4.8 Troponin I 0.015 Total Protein Albumin Globulin Albumin/Globulin Ratio Lipase SARS-CoV-2 (PCR) Negative Assessment & Plan Assessment & Plan narrative: #acute strangulated hernia s/p reduction and repair with mesh #BMI 51 strangulated small bowel was viable she is feeling much better postop pain control and encouraged mobilization will await BM #major depression single episode moderate stable continue home effexor 225 #hx of breast cancer stable continue home anastrazole #hx of bilateral PEs pt last dose of Eliquis was yesterday morning. Given obesity and immobility she is prime candidate for recurrence if not protected, will restart with heparin SQ for now can go back to lovenox on dc #hypothyroid continue home supplementation PCP: Avani Chavez MDM: cynthia Lozams [phone] code: full Diet: clear liquids Time Spent With Patient Critical Care time: I spent a total of [] minutes of critical care time on this patient's care today; this time is exclusive of procedural time.
[2021-10-16] MEDS: VENLAFAXINE ER 75 MG CAP 225 MG PO (21:30)
[2021-10-16] MEDS: SODIUM CHLORIDE 0.9% 1,000 ML 100 ML IV (21:34)
[2021-10-16] MEDS: MORPHINE 2 MG/ML INJ IV (21:42)
[2021-10-17] VITALS (15 sets, daily range): BP systolic 173–184; BP diastolic 76–85; PULSE 82–93; RESP 16–18; TEMP 36.9–37.4; O2SAT 92–96
[2021-10-17 05:25] LABS: Basophils Absolute Auto 0 /uL (0-100); Basophils Percent Auto 0.1 % (0-2); Eosinophils Absolute Auto 0 /uL (0-450); Eosinophils Percent Auto 0.1 % (2-4); Hematocrit 28.1 % (36-46); Hemoglobin 8.7 g/dL (12.0-16.0); Lymphocytes Absolute Auto 600 /uL (1100-4500); Lymphocytes Percent Auto 4.9 % (25-40); Mean Corpuscular HGB Conc 31.1 % (30-36); Mean Corpuscular Hemoglobin 20.7 PG (26-34); Mean Corpuscular Volume 66.4 fL (80-100); Monocytes Absolute Auto 1200 /uL (0-900); Monocytes Percent Auto 10.4 % (3-14); Neutrophils Absolute Auto 9700 /uL (1500-7000); Neutrophils Percent Auto 84.5 % (50-75); Platelet Count 438 X10^3/uL (150-400); Red Blood Cell Count 4.22 X10^6/uL (4.0-5.2); Red Cell Distribution Width 19.2 % (11.6-14.8); White Blood Cell Count 11.5 X10^3/uL (4.5-11.0)
[2021-10-17] MEDS: SODIUM CHLORIDE 0.9% 1,000 ML 100 ML IV (05:31)
[2021-10-17 05:37] LABS: Add Manual Diff / Slide Review SLIDE REVIEW
[2021-10-17 06:29] LABS: Anisocytosis 2+; Hypochromasia 1+; Microcytosis 2+
[2021-10-17] MEDS: VENLAFAXINE ER 75 MG CAP 225 MG PO (09:53)
[2021-10-17] MEDS: HEPARIN 5,000 UNIT/ML VIAL 5000 UNIT SUBCUT (09:53)
[2021-10-17] MEDS: DOCUSATE 100 MG CAPSULE PO ×2 (09:53→21:37)
--- NOTE | 2021-10-17 10:12 | P.PN_ITS ---
Subjective Subjective Date Patient Seen: 10/17/21 Time Patient Seen: 10:14 Interval history: No acute events. Tolerated sips of clears. No flatus or bowel movement. No fever. Exam Vital Signs (past 8 hours): - 10/17/21 04:00 10/17/21 05:30 10/17/21 07:50 Temperature 98.7 F 99.3 F Pulse Rate 82 85 Respiratory Rate 18 16 Blood Pressure 173/82 H 176/76 H Pulse Oximetry 92 95 96 10/17/21 08:00 10/17/21 09:46 Temperature Pulse Rate Respiratory Rate Blood Pressure Pulse Oximetry 94 96 Fraction of Inspired Oxygen 21 Oxygen Delivery Method Room Air Oxygen Flow Rate 0 Narrative Exam Narrative: General morbidly obese elderly female alert oriented no acute distress Abdomen soft appropriately tender to palpation. Midline incision with dressing clean dry intact. Drain serosanguineous. Objective Labs Result Diagrams: 10/17/21 04:45 10/16/21 12:05 Labs: Laboratory Results - last 24 hr 10/16/21 10/16/21 10/16/21 12:05 12:05 12:05 WBC 10.8 RBC 4.44 Hgb 9.3 L Hct 29.6 L MCV 66.7 L MCH 20.9 L MCHC 31.3 RDW 19.7 H Plt Count 482 H Neut % (Auto) 89.5 H Lymph % (Auto) 5.8 L [place] % (Auto) 4.6 Eos % (Auto) 0.0 L Baso % (Auto) 0.1 Neut # (Auto) 9700 H Lymph # (Auto) 600 L [place] # (Auto) 500 Eos # (Auto) 0 Baso # (Auto) 0 RBC Morphology Not Reportable Hypochromasia Anisocytosis Microcytosis 2+ H PT 14.5 H INR 1.3 APTT 35 D Sodium 135 L Potassium 3.9 Chloride 101 Carbon Dioxide 24 BUN 22 H Creatinine 0.81 Estimated GFR > 60.0 BUN/Creatinine Ratio 27.2 H Glucose 204 H Lactate Calcium 9.6 Total Bilirubin 0.8 AST 27 ALT 18 Alkaline Phosphatase 125 Total Creatine Kinase CK-MB (CK-2) CK-MB (CK-2) Rel Index Troponin I Total Protein 8.4 H Albumin 4.8 Globulin 3.6 Albumin/Globulin Ratio 1.3 Lipase 122 SARS-CoV-2 (PCR) 10/16/21 10/16/21 10/16/21 12:05 12:05 15:41 WBC RBC Hgb Hct MCV MCH MCHC RDW Plt Count Neut % (Auto) Lymph % (Auto) [place] % (Auto) Eos % (Auto) Baso % (Auto) Neut # (Auto) Lymph # (Auto) [place] # (Auto) Eos # (Auto) Baso # (Auto) RBC Morphology Hypochromasia Anisocytosis Microcytosis PT INR APTT Sodium Potassium Chloride Carbon Dioxide BUN Creatinine Estimated GFR BUN/Creatinine Ratio Glucose Lactate 1.5 Calcium Total Bilirubin AST ALT Alkaline Phosphatase Total Creatine Kinase 122 CK-MB (CK-2) 5.83 H CK-MB (CK-2) Rel Index 4.8 Troponin I 0.015 Total Protein Albumin Globulin Albumin/Globulin Ratio Lipase SARS-CoV-2 (PCR) Negative 10/17/21 04:45 WBC 11.5 H RBC 4.22 Hgb 8.7 L Hct 28.1 L MCV 66.4 L MCH 20.7 L MCHC 31.1 RDW 19.2 H Plt Count 438 H Neut % (Auto) 84.5 H Lymph % (Auto) 4.9 L [place] % (Auto) 10.4 Eos % (Auto) 0.1 L Baso % (Auto) 0.1 Neut # (Auto) 9700 H Lymph # (Auto) 600 L [place] # (Auto) 1200 H Eos # (Auto) 0 Baso # (Auto) 0 RBC Morphology See below Hypochromasia 1+ H Anisocytosis 2+ H Microcytosis 2+ H PT INR APTT Sodium Potassium Chloride Carbon Dioxide BUN Creatinine Estimated GFR BUN/Creatinine Ratio Glucose Lactate Calcium Total Bilirubin AST ALT Alkaline Phosphatase Total Creatine Kinase CK-MB (CK-2) CK-MB (CK-2) Rel Index Troponin I Total Protein Albumin Globulin Albumin/Globulin Ratio Lipase SARS-CoV-2 (PCR) [facility] Medical History Breast cancer Depression Febrile illness Hypothyroidism Lymphedema Morbid obesity with BMI of 40.0-44.9, adult Morbid obesity with body mass index (BMI) of 50.0 to 59.9 in adult Obstructive sleep apnea of adult Primary insomnia Sarcoidosis Snoring UTI (urinary tract infection) Surgical History H/O exploratory laparotomy S/P lumpectomy, right breast Family History Father Leukemia Brother Diabetes mellitus Sister Diabetes mellitus Breast cancer Mother Ovarian cancer Social History household members: children lives independently: Yes caregiver/support person: No Smoking Status: Former smoker alcohol intake: current substance use type: does not use Assessment & Plan Post-op Postoperative Procedures: Procedures Operation Date: 10/16/21 14:45 Actual Procedure Side Surgeon p Exploratory Laparotomy INCISIONAL HERNIA Not Applicable Isaac Paez MD Postoperative status narrative: 70-year-old woman postoperative day 1 status post exploratory laparotomy repair of incarcerated ventral hernia bowel was viable. -diet as tolerated -okay to discharge when tolerant of diet pain is controlled. -follow-up next week surgical clinic for drain removed from subcutaneous tissue. Quality VTE Deep Vein Thrombosis/Pulmonary Embolism Present on Admission: No
--- NOTE | 2021-10-17 10:33 | CM.DANOTE ---
DCP: Case received, EMR reviewed and met with patient. Family at bedside. Introduced self and role. Was able to obtain information from patient regarding her baseline activity at home prior to hospitalization, as well as her current living situation. DCP assessment completed with information currently available. Patient is a 70 year old female who admitted yesterday afternoon to the care of the hospitalist team. PCP: Dr. Avani Chavez. Payer: confirmed: [employer]. Patient came to the hospital via private vehicle secondary to having acute abdominal pain, as well a dry heaving. Patient was diagnosed with strangulated small bowel secondary to hernia. Patient had laparotomy procedure yesterday by surgeon, Dr. Paez. Met with patient in her room. She was laying in bed, daughter in the room who she lives with. She is independent at home, does use a cane for mobility. She resides here in [place]. P: DCP to continue to follow for any needs. Patient should be able to go home when she is deemed medically stable. Narda Figueroa RN/Crew Caller
[2021-10-17] MEDS: ONDANSETRON 4 MG/2 ML INJ IV ×2 (10:55→20:59)
[2021-10-17] MEDS: CLINDAMYCIN 900 MG/50 ML PIGGYBACK 50 MG IV ×2 (10:57→14:52)
[2021-10-17] MEDS: MORPHINE 2 MG/ML INJ IV ×2 (10:59→20:59)
--- NOTE | 2021-10-17 13:09 | P.PN_ITS ---
Subjective Subjective Date Patient Seen: 10/17/21 Interval history: 70-year-old female admitted to the hospital for treatment of an incarcerated hernia. Patient underwent operative repair last evening. The patient also has a history of multiple pulmonary emboli, hypo thyroidism, and depression. Care discussed with General surgery, they agree to resuming her usual anticoagulation. The patient will be placed on Lovenox 140 subQ b.i.d.. Will transition her to Eliquis starting tomorrow. In addition she will continue her usual thyroid medication as well as her Effexor as an outpatient. Her diet has been advanced. Hopefully if she tolerates that well she will be appropriate for discharge home tomorrow Exam Vital Signs (past 8 hours): - 10/17/21 05:30 10/17/21 07:50 10/17/21 08:00 Temperature 98.7 F 99.3 F Pulse Rate 82 85 Respiratory Rate 18 16 Blood Pressure 173/82 H 176/76 H Pulse Oximetry 95 96 94 10/17/21 09:46 10/17/21 11:34 10/17/21 12:29 Temperature 98.4 F Pulse Rate 91 H Respiratory Rate 18 Blood Pressure 184/82 H Pulse Oximetry 96 95 96 Fraction of Inspired Oxygen 21 Oxygen Delivery Method Room Air Oxygen Flow Rate 0 Narrative Exam Narrative: Pleasant female lying in bed in no obvious distress Resp Other: Lungs clear to auscultation Cardio Other: Cardiac exam: Regular rate rhythm normal S1-S2 GI Other: Abdomen obese soft mildly tender, abdominal binder in place, abdominal drain in place, midline incision with dressing in place and no exudate Extrem Other: No edema Objective Labs Result Diagrams: 10/17/21 04:45 10/16/21 12:05 Labs: Laboratory Results - last 24 hr 10/16/21 10/16/21 10/16/21 12:05 12:05 15:41 WBC RBC Hgb Hct MCV MCH MCHC RDW Plt Count Neut % (Auto) Lymph % (Auto) [place] % (Auto) Eos % (Auto) Baso % (Auto) Neut # (Auto) Lymph # (Auto) [place] # (Auto) Eos # (Auto) Baso # (Auto) RBC Morphology Hypochromasia Anisocytosis Microcytosis Lactate 1.5 CK-MB (CK-2) 5.83 H CK-MB (CK-2) Rel Index 4.8 Troponin I 0.015 SARS-CoV-2 (PCR) Negative 10/17/21 04:45 WBC 11.5 H RBC 4.22 Hgb 8.7 L Hct 28.1 L MCV 66.4 L MCH 20.7 L MCHC 31.1 RDW 19.2 H Plt Count 438 H Neut % (Auto) 84.5 H Lymph % (Auto) 4.9 L [place] % (Auto) 10.4 Eos % (Auto) 0.1 L Baso % (Auto) 0.1 Neut # (Auto) 9700 H Lymph # (Auto) 600 L [place] # (Auto) 1200 H Eos # (Auto) 0 Baso # (Auto) 0 RBC Morphology See below Hypochromasia 1+ H Anisocytosis 2+ H Microcytosis 2+ H Lactate CK-MB (CK-2) CK-MB (CK-2) Rel Index Troponin I SARS-CoV-2 (PCR) PFSH Medical History Breast cancer Depression Febrile illness Hypothyroidism Lymphedema Morbid obesity with BMI of 40.0-44.9, adult Morbid obesity with body mass index (BMI) of 50.0 to 59.9 in adult Obstructive sleep apnea of adult Primary insomnia Sarcoidosis Snoring UTI (urinary tract infection) Surgical History H/O exploratory laparotomy S/P lumpectomy, right breast Family History Father Leukemia Brother Diabetes mellitus Sister Diabetes mellitus Breast cancer Mother Ovarian cancer Social History household members: children lives independently: Yes caregiver/support person: No Smoking Status: Former smoker alcohol intake: current substance use type: does not use Assessment & Plan Assessment & Plan narrative: 70-year-old female with a history of morbid obesity, hypothyroidism, multiple PEs, admitted to the hospital for an incarcerated hernia * Patient is status post exploratory laparotomy and repair of an incarcerated ventral hernia * Drain in place per surgery, postoperative care per surgery * Clear liquid diet, advanced as tolerated * Will resume Lovenox 1 mg per kg twice daily * Will convert to Eliquis starting tomorrow Morbid obesity * Needs a dietary consultation History of multiple PEs * Lovenox 1 milligram/kilogram b.i.d. * Transition to Eliquis tomorrow Hypertension * New diagnosis * Will start her on low-dose MARK-inhibitor Elevated blood sugar Question type 2 diet Will obtain a hemoglobin A1c Will continue to follow blood sugar Will Hep-Lock IV fluids If the patient can tolerate her diet she will be discharged tomorrow with a drain in place. Plans underway for her to follow-up with Dr. Paez as an outpatient. Time Spent With Patient Critical Care time: I spent a total of [] minutes of critical care time on this patient's care to day; this time is exclusive of procedural time. Quality VTE Deep Vein Thrombosis/Pulmonary Embolism Present on Admission: No
[2021-10-17] MEDS: LOSARTAN 25 MG TABLET PO (14:52)
[2021-10-17 15:24] LABS: Hemoglobin A1C% w Est Avg Glu 5.6 % (4.0-6.0)
[2021-10-17 15:26] LABS: HEMOLYSIS < 15 (0-50); Iron 14 ug/dL (37-170)
[2021-10-17 15:37] LABS: Percent Iron Saturation 4 % (15-50); Total Iron Binding Capacity 363 ug/dL (265-497); Transferrin 296 mg/dL (206-381)
--- NOTE | 2021-10-17 16:31 | PT-IP ANOTE ---
checked on pt and pt refused PT cam. stated that she is trying to get a sleep and every time she was about to sleep, somebody comes in and wakes her up. Pt does not want to do PT today. will f/u tomorrow.
[2021-10-17] MEDS: ENOXAPARIN 150 MG/ML SYRINGE 140 MG SUBCUT (20:59)
[2021-10-18] VITALS (10 sets, daily range): BP systolic 104–189; BP diastolic 68–83; PULSE 76–102; RESP 16–18; TEMP 36.2–37.6; O2SAT 93–98
[2021-10-18] MEDS: MORPHINE 2 MG/ML INJ IV ×2 (00:35→23:16)
[2021-10-18] MEDS: LABETALOL 20 MG/4 ML SYRINGE 10 MG IV (00:35)
[2021-10-18] MEDS: ONDANSETRON 4 MG/2 ML INJ IV ×3 (01:31→23:16)
[2021-10-18 05:48] LABS: Add Manual Diff / Slide Review NO; Basophils Absolute Auto 0 /uL (0-100); Basophils Percent Auto 0.2 % (0-2); Eosinophils Absolute Auto 0 /uL (0-450); Eosinophils Percent Auto 0.5 % (2-4); Hematocrit 25.7 % (36-46); Hemoglobin 8.1 g/dL (12.0-16.0); Lymphocytes Absolute Auto 800 /uL (1100-4500); Lymphocytes Percent Auto 11.3 % (25-40); Mean Corpuscular HGB Conc 31.6 % (30-36); Mean Corpuscular Hemoglobin 20.8 PG (26-34); Mean Corpuscular Volume 65.8 fL (80-100); Monocytes Absolute Auto 1300 /uL (0-900); Monocytes Percent Auto 17.3 % (3-14); Neutrophils Absolute Auto 5200 /uL (1500-7000); Neutrophils Percent Auto 70.7 % (50-75); Platelet Count 414 X10^3/uL (150-400); Red Blood Cell Count 3.91 X10^6/uL (4.0-5.2); Red Cell Distribution Width 19.2 % (11.6-14.8); White Blood Cell Count 7.3 X10^3/uL (4.5-11.0)
[2021-10-18 06:11] LABS: Anisocytosis 2+; Hypochromasia 1+; Microcytosis 2+
[2021-10-18] MEDS: HYDROCODONE/ACET 5/325 TABLET 1 TAB PO ×3 (07:34→20:33)
--- NOTE | 2021-10-18 08:10 | PC.NURSE ---
Addendum entered by Cherry Cowan R.N. 10/18/21 18:20: Patient given another vicodin for back and abdominal pain, she ate some mashed potatoes at dinner but does not have much of an appetite. She has her cpap on now and is resting. Original Note: Patient complained of 4/10 pain to her abdomen, given vicodin and also zofran for nausea. She has a light putting out yellow urine and her drain has minimal ss drainage. BS cta, mid 90s RA. Patient wears a cpap at night. Upon ausculation of heart, patient has a soft murmur and her bowel tones are hypoactive. She states that she has not passed gas but her stomach feels like it is rolling around.
[2021-10-18] MEDS: INSULIN LISPRO 100 UNIT/ML 3ML VIAL SUBCUT (08:28)
[2021-10-18] MEDS: DOCUSATE 100 MG CAPSULE PO ×2 (08:43→20:34)
[2021-10-18] MEDS: VENLAFAXINE ER 75 MG CAP 225 MG PO (08:43)
[2021-10-18] MEDS: ENOXAPARIN 150 MG/ML SYRINGE 140 MG SUBCUT (08:43)
[2021-10-18] MEDS: LOSARTAN 25 MG TABLET PO (08:43)
[2021-10-18] MEDS: ANASTROZOLE 1 MG TABLET PO (08:44)
--- NOTE | 2021-10-18 10:50 | PT.IIE ---
Current Diagnoses Other and unspecified ventral hernia with obstruction, without gangrene (10/16/21) Encounter for follow-up examination after completed treatment for conditions other than malignant neoplasm (10/16/21) Surgery Performed Operation Date: 10/16/21 14:45 Actual Procedures p Exploratory Laparotomy INCISIONAL HERNIA(Not Applicable) - Isaac Paez MD Medical History (Last Reviewed 10/16/21 @ 20:02 by Alfredo Arana MD) Breast cancer Depression Febrile illness Hypothyroidism Lymphedema Morbid obesity with BMI of 40.0-44.9, adult Morbid obesity with body mass index (BMI) of 50.0 to 59.9 in adult Obstructive sleep apnea of adult Primary insomnia Sarcoidosis Snoring UTI (urinary tract infection) Physical Therapy Inpatient Evaluation/Re-Eval M1 PT/OT-IP Prior Functional Status Start: 10/18/21 14:29 Freq: NEEDED Status: Active Protocol: Document 10/18/21 10:50 AB (Rec: 10/18/21 14:39 AB [email or web address]) Medical Review Prior Functional Status Medical History Reviewed Yes Communication able to make needs known Mobility and Gait pt stated that she is independent with all mobilities and ambulation using SPC on/off depending on how she feels Social History Household Members children Living Arrangements House Number of Floors (Floors) One Floor Number of Stairs To Enter/Railing? ramp to enter Home Environment High Toilet,Walk in Shower, Built-In Shower Seat Home Equipment Straight Cane,Hand Held Shower ,Grab Bars Near Toilet,Grab Bars In Shower Additional Social History Comment pt tated that her daughter will be able to assist her M2 PT-IP Current Condition Start: 10/18/21 14:29 Freq: NEEDED Status: Active Protocol: Document 10/18/21 10:50 AB (Rec: 10/18/21 14:39 AB [email or web address]) Physical Therapy Current Condition Current Condition Evaluation Date 10/18/21 Treatment Diagnosis obtructed hernia s/p ex-lap; difficulty in walking Onset Date 10/16/21 M3 PT-IP Subjective Start: 10/18/21 14:29 Freq: NEEDED Status: Active Protocol: Document 10/18/21 10:50 AB (Rec: 10/18/21 14:39 AB [email or web address]) Subjective Physical Therapy Visit Type Type Initial Evaluation Visit Start Time 10:50 Visit Stop Time 11:20 Total Visit Minutes 30 Number of SUPERVISOR FIREARMS Visits 0 Physical Therapy Visit Comments Patient Comments agreeable to do PT Therapy Pain Assessment Pain When Pain Assessed At Rest Pain Present Pain Present Pain Reported Location Abdomen Scale Used pain scale not stated Pain Management Techniques Distraction,Modification of Treatment,Re-positioning, Timing of Activity with Medications M4 PT-IP Mobility and Gait Start: 10/18/21 14:29 Freq: NEEDED Status: Active Protocol: Document 10/18/21 10:50 AB (Rec: 10/18/21 14:39 AB [email or web address]) PT-Bed Mobility Assessment Rolling Type of Rolling Log Rolling Level of Assist Maximal Assistance Supine to Sit Supine to Sit Maximum Assistance Scooting Scooting to Edge of Bed Maximum Assistance PT-Transfer Assessment Sit to and From Stand Sit to and from Stand Maximum Assistance,1 Person Assistance,Use of Upper Extremities Equipment Transfer Assistive Device Gait Belt,Front Wheeled Walker Orthotic/Prosthetic Devices or Brace: No Transfers Transfer Destination Chair Transfer Technique Stand Step Pivot Transfer Ability Level of Assist Maximum Assistance,1 Person Assistance,Use of Upper Extremities Comments Mobility Comments pt educated on abdominal precautions and log roll bed mobility. completed supine to sit max A and max cues. able to sit on EOB CGA. completed sit to stand max A and cues and instructed to ambulate, pt took a few steps but stated that she just wants to sit on chair and transferred to chair. positioned pt on chair . call light and table placed within reach. Gait Assessment Comments Gait Comments steps during transfer using FWW max A PT-Balance Assessment Sitting Balance and Reactions Static Sitting Balance Ability Good Dynamic Sitting Balance Ability Fair Standing Balance and Reactions Static Standing Balance Ability Fair Dynamic Standing Balance Ability Poor Device Used FWW M5 PT-IP Objective Assessments Start: 10/18/21 14:29 Freq: NEEDED Status: Active Protocol: Document 10/18/21 10:50 AB (Rec: 10/18/21 14:39 AB [email or web address]) Orientation Orientation/Cognition Level of Alertness Alert Orientation Name,Place,Situation Language Function Ability Hard of Hearing Safety Awareness Decreased Safety Awareness Memory Description No Deficits Noted,Short Term Impaired Strength Lower Extremity Strength Assessment Bilaterally Impaired Hip 3+/5 Knee 4-/5 Sensation Assessment Sensation Gross Sensation WNL Muscle Tone Muscle Tone WNL Yes M6 PT-IP Treatment Start: 10/18/21 14:29 Freq: NEEDED Status: Active Protocol: Document 10/18/21 10:50 AB (Rec: 10/18/21 14:39 AB [email or web address]) Physical Therapy Treatment Education Education Provided Precautions,Weight Bearing Status,Post-Op Packet,Safety M7 PT-IP Assessment and Plan Start: 10/18/21 14:29 Freq: NEEDED Status: Active Protocol: Document 10/18/21 10:50 AB (Rec: 10/18/21 14:39 AB [email or web address]) PT Summary Assessment and Plan Potential Rehabilitation Potential Fair Status of Condition at Evaluation Evolving Summary Impairments Pain,ROM,Strength,Balance, Coordination,Sensation,Tone, Cognition,Bed Mobility, Transfers,Gait,Activity Tolerance Assessment Summary pt requiring max A with mobility and unable to tolerate much activity. pt stated that her daughter will be able to assist her at home. will conduct caregiver training when appropriate but at this time, pt will need SNF rehab. will continue to assess progress. Goals Bed Mobility Goal Minimal Assistance Transfer Goal Minimal Assistance,Front Wheeled Walker Gait Goal Minimal Assistance,Front Wheel Walker Gait Distance 150 Other Goals improve bed mboility, transfers SBA using FWW improve ambulation using FWW SBA 200 ft Days to Meet Goals 10 Frequency of Treatment Frequency Of Treatment Once a Day Treatment Plan Physical Therapy Treatment Plan Bed Mobility Training,Transfer Training,Gait Training, Therapeutic Exercise,Balance Retraining,Post Op Education, Discharge Planning,Hot or Cold Pack,Neuromuscular Re-ed, Coordination Retraining,Manual Therapy Precautions Abdominal Surgery Precautions Log Roll,Lifting Restrictions, Gait Belt above Incisional Area Recommendations To Nursing Amount of Assist Needed 2 Person Assist Discharge Recommendations PT Discharge Recommendations SNF Rehab Equipment Needed for Home Before FWW Discharge Transportation Needs at Discharge Private Vehicle,Wheelchair/ Cabulance
--- NOTE | 2021-10-18 14:14 | PM.PN.1 ---
Subjective Subjective Date Patient Seen: 10/18/21 Time Patient Seen: 14:14 Interval history: Tolerating some clears and passing gas. Exam Vital Signs (past 8 hours): - 10/18/21 08:40 10/18/21 10:00 Temperature 98.4 F Pulse Rate 83 Respiratory Rate 18 Blood Pressure 184/80 H Pulse Oximetry 95 94 Fraction of Inspired Oxygen 21 Oxygen Delivery Method Room Air Oxygen Flow Rate 0 Narrative Exam Narrative: Drain is sero sang Dressing in place Nontender abdomen Objective Labs Result Diagrams: 10/18/21 05:31 10/16/21 12:05 Labs: Laboratory Results - last 24 hr 10/17/21 10/17/21 10/18/21 14:50 14:50 05:31 WBC 7.3 RBC 3.91 L Hgb 8.1 L Hct 25.7 L MCV 65.8 L MCH 20.8 L MCHC 31.6 RDW 19.2 H Plt Count 414 H Neut % (Auto) 70.7 Lymph % (Auto) 11.3 L [place] % (Auto) 17.3 H Eos % (Auto) 0.5 L Baso % (Auto) 0.2 Neut # (Auto) 5200 Lymph # (Auto) 800 L [place] # (Auto) 1300 H Eos # (Auto) 0 Baso # (Auto) 0 RBC Morphology See below Hypochromasia 1+ H Anisocytosis 2+ H Microcytosis 2+ H Hemoglobin A1c 5.6 Iron 14 L TIBC 363 % Saturation 4 L Transferrin 296 PFSH Medical History Breast cancer Depression Febrile illness Hypothyroidism Lymphedema Morbid obesity with BMI of 40.0-44.9, adult Morbid obesity with body mass index (BMI) of 50.0 to 59.9 in adult Obstructive sleep apnea of adult Primary insomnia Sarcoidosis Snoring UTI (urinary tract infection) Surgical History H/O exploratory laparotomy S/P lumpectomy, right breast Family History Father Leukemia Brother Diabetes mellitus Sister Diabetes mellitus Breast cancer Mother Ovarian cancer Social History household members: children lives independently: Yes caregiver/support person: No Smoking Status: Former smoker alcohol intake: current substance use type: does not use Assessment & Plan Assessment and plan (1) Postoperative examination: Status: Acute Plan Advance diet as tolerates Time Spent With Patient Critical Care time: I spent a total of [] minutes of critical care time on this patient's care today; this time is exclusive of procedural time. Quality VTE Deep Vein Thrombosis/Pulmonary Embolism Present on Admission: No
--- NOTE | 2021-10-18 14:50 | P.PN_ITS ---
Subjective Subjective Date Patient Seen: 10/18/21 Interval history: 70-year-old female admitted to the hospital for treatment of an incarcerated hernia.? Patient underwent operative repair 10/16/2021. Patient complains of nausea and incisional abdominal pain. Tolerating small amounts of clears and passing gas. Exam Vital Signs (past 8 hours): - 10/18/21 08:40 10/18/21 10:00 Temperature 98.4 F Pulse Rate 83 Respiratory Rate 18 Blood Pressure 184/80 H Pulse Oximetry 95 94 Fraction of Inspired Oxygen 21 Oxygen Delivery Method Room Air Oxygen Flow Rate 0 Narrative Exam Narrative: General: Alert, NAD Lungs: Clear Abdomen: Surgical dressing clean and dry Extremities: No edema Objective Labs Result Diagrams: 10/18/21 05:31 10/16/21 12:05 Labs: Laboratory Results - last 24 hr 10/17/21 10/17/21 10/18/21 14:50 14:50 05:31 WBC 7.3 RBC 3.91 L Hgb 8.1 L Hct 25.7 L MCV 65.8 L MCH 20.8 L MCHC 31.6 RDW 19.2 H Plt Count 414 H Neut % (Auto) 70.7 Lymph % (Auto) 11.3 L [place] % (Auto) 17.3 H Eos % (Auto) 0.5 L Baso % (Auto) 0.2 Neut # (Auto) 5200 Lymph # (Auto) 800 L [place] # (Auto) 1300 H Eos # (Auto) 0 Baso # (Auto) 0 RBC Morphology See below Hypochromasia 1+ H Anisocytosis 2+ H Microcytosis 2+ H Hemoglobin A1c 5.6 Iron 14 L TIBC 363 % Saturation 4 L Transferrin 296 PFSH Medical History Breast cancer Depression Febrile illness Hypothyroidism Lymphedema Morbid obesity with BMI of 40.0-44.9, adult Morbid obesity with body mass index (BMI) of 50.0 to 59.9 in adult Obstructive sleep apnea of adult Primary insomnia Sarcoidosis Snoring UTI (urinary tract infection) Surgical History H/O exploratory laparotomy S/P lumpectomy, right breast Family History Father Leukemia Brother Diabetes mellitus Sister Diabetes mellitus Breast cancer Mother Ovarian cancer Social History household members: children lives independently: Yes caregiver/support person: No Smoking Status: Former smoker alcohol intake: current substance use type: does not use Assessment & Plan Assessment & Plan narrative: 70-year-old female with a history of morbid obesity, hypothyroidism, multiple PEs, admitted to the hospital for an incarcerated hernia * Patient is status post exploratory laparotomy and repair of an incarcerated ventral hernia * postoperative care per surgery * Clear liquid diet, advanced as tolerated * Stop Lovenox and start Eliquis per home routine for history of PE * Persistent/chronic hypertension * Started losartan 50 mg q.day * Continue anastrozole, venlafaxine, thyroid replacement per home routine Time Spent With Patient Critical Care time: I spent a total of [] minutes of critical care time on this patient's care today; this time is exclusive of procedural time. Quality VTE Deep Vein Thrombosis/Pulmonary Embolism Present on Admission: No
--- NOTE | 2021-10-18 18:02 | DIET.CONS ---
Dietary Consultation Note Admission Date: 10/16/2021 15:45 Assessment: 70-year-old female admitted to the hospital for treatment of an incarcerated hernia.? Patient underwent operative repair 10/16/2021. Endorses some difficulty with tolerating diet. In visit she was eating some jello and about to eat mashed potatoes. Interested in protein shake. Reports she has been working on intentional weight loss. Eats mostly pescitarian/vegetarian diet, which can make protein a challenge. Main barrier to weight loss seems to be physical activity. Reports 500-1000 steps per day. Knee pain barrier. Ht: 167.64 cm Wt: 141.974 kg BMI: 50.5 UBW: unsure (per EMR 140-144kg) Last BM: 10/16/21 (10/16/21 20:05) MNA: 14 Cristhian Score: 20 Diet: 10/16/21 Breakfast Clear Liquid Diet Diet Modifications: 10/18/21 Dinner General (Regular) Diet Diet Modifications: Nutrition Percent Meal Consumed 10% 10/17/21 18:29 Percent Meal Consumed 15% 10/17/21 14:22 Labs: RBC 3.91 X10^6/uL (4.0-5.2) L 10/18/21 05:31 Hgb 8.1 g/dL (12.0-16.0) L 10/18/21 05:31 Hct 25.7 % (36-46) L 10/18/21 05:31 Creatinine 0.81 mg/dL (0.52-1.04) 10/16/21 12:05 Hemoglobin A1c 5.6 % (4.0-6.0) 10/17/21 14:50 Lactate 1.5 mmol/L (0.7-2.1) 10/16/21 12:05 Iron 14 ug/dL (37-170) L 10/17/21 14:50 % Saturation 4 % (15-50) L 10/17/21 14:50 Nutrition Diagnosis: Obesity r/t knee pain barrier to being active aeb by pt report and BMI of 50; Nutrition and food related knowledge deficit r/t limited nutrition ed around nutrition for wt loss or healing aeb pt report Interventions: MNT for weight loss and impact on injury. MNT for healing and focusing on protein. Will ask kitchen to bring her an Ensure Max to try (low carb and high pro). Rec OP MNT. Monitoring/Evaluations: consult prn Electronically Signed by: Ama Gant 10/18/21 18:02 Clinical Dietitian [address] [id number]
[2021-10-18] MEDS: APIXABAN 5 MG TABLET PO (20:34)
[2021-10-19] VITALS (16 sets, daily range): BP systolic 159–184; BP diastolic 67–97; PULSE 75–88; RESP 16–19; TEMP 36–36.6; O2SAT 93–95
[2021-10-19] MEDS: HYDROCODONE/ACET 5/325 TABLET 1 TAB PO ×2 (01:26→05:23)
[2021-10-19] MEDS: ONDANSETRON 4 MG/2 ML INJ IV ×3 (05:05→16:27)
[2021-10-19] MEDS: SODIUM CHLORIDE 0.9% FLUSH 10 ML IV ×2 (05:05→20:54)
[2021-10-19 05:38] LABS: Add Manual Diff / Slide Review NO; Basophils Absolute Auto 0 /uL (0-100); Basophils Percent Auto 0.1 % (0-2); Eosinophils Absolute Auto 0 /uL (0-450); Eosinophils Percent Auto 0.8 % (2-4); Hematocrit 26.2 % (36-46); Hemoglobin 8.1 g/dL (12.0-16.0); Lymphocytes Absolute Auto 700 /uL (1100-4500); Lymphocytes Percent Auto 10.2 % (25-40); Mean Corpuscular HGB Conc 30.8 % (30-36); Mean Corpuscular Hemoglobin 20.4 PG (26-34); Mean Corpuscular Volume 66.3 fL (80-100); Monocytes Absolute Auto 1100 /uL (0-900); Monocytes Percent Auto 17.9 % (3-14); Neutrophils Absolute Auto 4500 /uL (1500-7000); Platelet Count 437 X10^3/uL (150-400); Red Blood Cell Count 3.95 X10^6/uL (4.0-5.2); Red Cell Distribution Width 19.5 % (11.6-14.8); White Blood Cell Count 6.4 X10^3/uL (4.5-11.0)
[2021-10-19 06:01] LABS: Anisocytosis 2+; Hypochromasia 1+; Microcytosis 2+
[2021-10-19] MEDS: MORPHINE 2 MG/ML INJ IV ×4 (06:14→20:53)
[2021-10-19] MEDS: MAG HYDROX/ALUM/SIMETH 30 ML UDC PO (06:52)
[2021-10-19] MEDS: SODIUM CHLORIDE 0.9% 1,000 ML 150 ML IV ×2 (10:00→18:26)
--- NOTE | 2021-10-19 10:52 | PT-IP ANOTE ---
Attempted to see pt at 10:52 and 11:56, pt refused therapy both times due to pain and fatigue but states she may try in PM.
--- NOTE | 2021-10-19 11:48 | PM.PN.1 ---
Subjective Subjective Date Patient Seen: 10/19/21 Time Patient Seen: 11:48 Interval history: She was not able to tolerate regular diet due to decreased appetite. She has not passed gas today Exam Vital Signs (past 8 hours): - 10/19/21 04:00 10/19/21 04:12 10/19/21 05:44 Temperature 97.9 F Pulse Rate 84 Respiratory Rate 18 Blood Pressure 159/70 H Pulse Oximetry 93 94 94 10/19/21 07:35 10/19/21 09:17 Temperature 96.8 F L Pulse Rate 79 Respiratory Rate 19 Blood Pressure 160/67 H Pulse Oximetry 93 95 Fraction of Inspired Oxygen 21 Oxygen Delivery Method Room Air Oxygen Flow Rate 0 Narrative Exam Narrative: The dressing the binder remain in place and the drain has some serosanguineous output Objective Labs Result Diagrams: 10/19/21 04:48 10/16/21 12:05 Labs: Laboratory Results - last 24 hr 10/19/21 04:48 WBC 6.4 RBC 3.95 L Hgb 8.1 L Hct 26.2 L MCV 66.3 L MCH 20.4 L MCHC 30.8 RDW 19.5 H Plt Count 437 H Neut % (Auto) 71.0 Lymph % (Auto) 10.2 L [place] % (Auto) 17.9 H Eos % (Auto) 0.8 L Baso % (Auto) 0.1 Neut # (Auto) 4500 Lymph # (Auto) 700 L [place] # (Auto) 1100 H Eos # (Auto) 0 Baso # (Auto) 0 RBC Morphology See below Hypochromasia 1+ H Anisocytosis 2+ H Microcytosis 2+ H PFSH Medical History Breast cancer Depression Febrile illness Hypothyroidism Lymphedema Morbid obesity with BMI of 40.0-44.9, adult Morbid obesity with body mass index (BMI) of 50.0 to 59.9 in adult Obstructive sleep apnea of adult Primary insomnia Sarcoidosis Snoring UTI (urinary tract infection) Surgical History H/O exploratory laparotomy S/P lumpectomy, right breast Family History Father Leukemia Brother Diabetes mellitus Sister Diabetes mellitus Breast cancer Mother Ovarian cancer Social History household members: children lives independently: Yes caregiver/support person: No Smoking Status: Former smoker alcohol intake: current substance use type: does not use Assessment & Plan Assessment and plan (1) Postoperative examination: Status: Acute Plan Await flatus prior to trying to advance her diet again Time Spent With Patient Critical Care time: I spent a total of [] minutes of critical care time on this patient's care today; this time is exclusive of procedural time. Quality VTE Deep Vein Thrombosis/Pulmonary Embolism Present on Admission: No
--- NOTE | 2021-10-19 14:19 | P.PN_ITS ---
Subjective Subjective Date Patient Seen: 10/19/21 Interval history: 70-year-old female admitted to the hospital for treatment of an incarcerated hernia.? Patient underwent operative repair 10/16/2021. Patient with minimal p.o. intake and having significant amount of abdominal pain and nausea. No flatus. Exam Vital Signs (past 8 hours): - 10/19/21 07:35 10/19/21 09:17 Temperature 96.8 F L Pulse Rate 79 Respiratory Rate 19 Blood Pressure 160/67 H Pulse Oximetry 93 95 Fraction of Inspired Oxygen 21 Oxygen Delivery Method Room Air Oxygen Flow Rate 0 Narrative Exam Narrative: General: Alert and cooperative in some distress Lungs: Clear Heart: Regular Abdomen: Distended, abdominal binder on drain with serosanguineous fluid Extremities: No edema Objective Labs Result Diagrams: 10/19/21 04:48 10/16/21 12:05 Labs: Laboratory Results - last 24 hr 10/19/21 04:48 WBC 6.4 RBC 3.95 L Hgb 8.1 L Hct 26.2 L MCV 66.3 L MCH 20.4 L MCHC 30.8 RDW 19.5 H Plt Count 437 H Neut % (Auto) 71.0 Lymph % (Auto) 10.2 L [place] % (Auto) 17.9 H Eos % (Auto) 0.8 L Baso % (Auto) 0.1 Neut # (Auto) 4500 Lymph # (Auto) 700 L [place] # (Auto) 1100 H Eos # (Auto) 0 Baso # (Auto) 0 RBC Morphology See below Hypochromasia 1+ H Anisocytosis 2+ H Microcytosis 2+ H PFSH Medical History Breast cancer Depression Febrile illness Hypothyroidism Lymphedema Morbid obesity with BMI of 40.0-44.9, adult Morbid obesity with body mass index (BMI) of 50.0 to 59.9 in adult Obstructive sleep apnea of adult Primary insomnia Sarcoidosis Snoring UTI (urinary tract infection) Surgical History H/O exploratory laparotomy S/P lumpectomy, right breast Family History Father Leukemia Brother Diabetes mellitus Sister Diabetes mellitus Breast cancer Mother Ovarian cancer Social History household members: children lives independently: Yes caregiver/support person: No Smoking Status: Former smoker alcohol intake: current substance use type: does not use Assessment & Plan Assessment & Plan narrative: 1. Incarcerated ventral hernia -status post exploratory laparotomy and repair -surgery following -clear liquid diet advance as tolerated -restarted Eliquis for known history of pulmonary embolism 2. Persistent hypertension -started losartan 50 mg q.d. 3. Acute on chronic iron deficiency anemia -does not require transfusion -etiology of iron deficiency and extent of prior evaluation unknown although it looks like she had a colonoscopy in January 2017 -follow-up with PCP to get referred for EGD and colonoscopy 4. Continue anastrozole, venlafaxine, thyroid replacement per home routine Time Spent With Patient Critical Care time: I spent a total of [] minutes of critical care time on this patient's care today; this time is exclusive of procedural time. Quality VTE Deep Vein Thrombosis/Pulmonary Embolism Present on Admission: No
--- NOTE | 2021-10-19 15:52 | PT.IPTN ---
Current Diagnoses Other and unspecified ventral hernia with obstruction, without gangrene (10/16/21) Encounter for follow-up examination after completed treatment for conditions other than malignant neoplasm (10/16/21) Surgery Performed Operation Date: 10/16/21 14:45 Actual Procedures p Exploratory Laparotomy INCISIONAL HERNIA(Not Applicable) - Isaac Paez MD Physical Therapy Treatment Note M2 PT-IP Current Condition Start: 10/18/21 14:29 Freq: NEEDED Status: Active Protocol: Document 10/18/21 10:50 AB (Rec: 10/18/21 14:39 AB [id number]) Physical Therapy Current Condition Current Condition Evaluation Date 10/18/21 Treatment Diagnosis obtructed hernia s/p ex-lap; difficulty in walking Onset Date 10/16/21 M3 PT-IP Subjective Start: 10/18/21 14:29 Freq: NEEDED Status: Active Protocol: Document 10/19/21 15:32 KS (Rec: 10/19/21 16:56 KS [id number]) Subjective Physical Therapy Visit Type Type Treatment Note Visit Start Time 15:32 Visit Stop Time 15:52 Total Visit Minutes 20 Number of GRADES 1 THROUGH 6 TEACHER Visits 1 Physical Therapy Visit Comments Patient Comments agreeable to do PT Therapy Pain Assessment Pain When Pain Assessed At Rest Pain Present Pain Present Pain Reported M4 PT-IP Mobility and Gait Start: 10/18/21 14:29 Freq: NEEDED Status: Active Protocol: Document 10/19/21 15:32 KS (Rec: 10/19/21 16:56 KS [id number]) PT-Transfer Assessment Sit to and From Stand Sit to and from Stand Minimal Assistance,1 Person Assistance,Use of Upper Extremities Equipment Transfer Assistive Device Gait Belt,Front Wheeled Walker Orthotic/Prosthetic Devices or Brace: No Transfers Transfer Destination Chair Transfer Technique sit<>stand Transfer Ability Level of Assist Minimal Assistance,1 Person Assistance,Use of Upper Extremities Comments Mobility Comments Pt in chair upon arrival and requiring motivation to participate and increased time to perform tasks. CGA for scooting to edge of chair and Min A and cues for hand placement for sit<>stand w/ FWW. Pt able to perform 2x sit <>stands w/ ~5 min seated rest break between and ~[address] w/ each stand. Limited by weakness, low activity tolerance, and pain. RN arrived and offered to come back but pt stating no, we are so done due to fatigue. Gait Assessment Comments Gait Comments [address] 30 seconds each, too fatigued to ambulate but agreeable to possibly try tomorrow. PT-Balance Assessment Sitting Balance and Reactions Static Sitting Balance Ability Good Dynamic Sitting Balance Ability Fair Standing Balance and Reactions Static Standing Balance Ability Fair Dynamic Standing Balance Ability Fair Device Used FWW M5 PT-IP Objective Assessments Start: 10/18/21 14:29 Freq: NEEDED Status: Active Protocol: Document 10/18/21 10:50 AB (Rec: 10/18/21 14:39 AB [id number]) Orientation Orientation/Cognition Level of Alertness Alert Orientation Name,Place,Situation Language Function Ability Hard of Hearing Safety Awareness Decreased Safety Awareness Memory Description No Deficits Noted,Short Term Impaired Strength Lower Extremity Strength Assessment Bilaterally Impaired Hip 3+/5 Knee 4-/5 Sensation Assessment Sensation Gross Sensation WNL Muscle Tone Muscle Tone WNL Yes M6 PT-IP Treatment Start: 10/18/21 14:29 Freq: NEEDED Status: Active Protocol: Document 10/19/21 15:32 KS (Rec: 10/19/21 16:56 KS [id number]) Physical Therapy Treatment Education Education Provided Precautions,Weight Bearing Status,Post-Op Packet,Safety Other Treatments Other Treatment Performed Marching in place. M7 PT-IP Assessment and Plan Start: 10/18/21 14:29 Freq: NEEDED Status: Active Protocol: Document 10/19/21 15:32 KS (Rec: 10/19/21 16:56 KS [id number]) PT Summary Assessment and Plan Potential Rehabilitation Potential Fair Status of Condition at Evaluation Evolving Summary Impairments Pain,ROM,Strength,Balance, Coordination,Sensation,Tone, Cognition,Bed Mobility, Transfers,Gait,Activity Tolerance Assessment Summary Pt requiring motivation and increased time during treatment today. Able to sit<> stand w/ Min A w/ FWW w/ verbal cues for hand placement . Quick approach to fatigue following marching in place. Could have likely progressed ambulation today, however pt stating she would like to be done w/ PT when RN arrived. Will continue to assess progress, but at this time pt will benefit from SNF to improve activity tolerance and functional mobility. Goals Bed Mobility Goal Minimal Assistance Transfer Goal Minimal Assistance,Front Wheeled Walker Gait Goal Minimal Assistance,Front Wheel Walker Gait Distance 150 Other Goals improve bed mboility, transfers SBA using FWW improve ambulation using FWW SBA 200 ft Days to Meet Goals 10 Frequency of Treatment Frequency Of Treatment Once a Day Treatment Plan Physical Therapy Treatment Plan Bed Mobility Training,Transfer Training,Gait Training, Therapeutic Exercise,Balance Retraining,Post Op Education, Discharge Planning,Hot or Cold Pack,Neuromuscular Re-ed, Coordination Retraining,Manual Therapy Precautions Abdominal Surgery Precautions Log Roll,Lifting Restrictions, Gait Belt above Incisional Area Recommendations To Nursing Amount of Assist Needed 2 Person Assist Discharge Recommendations PT Discharge Recommendations SNF Rehab Equipment Needed for Home Before FWW Discharge Transportation Needs at Discharge Private Vehicle,Wheelchair/ Cabulance
--- NOTE | 2021-10-19 19:52 | PC.NURSE ---
Pt has refused all PO meds today including her BP meds due to nausea. Pt has been educated as to the possible consequences and zofran administrated to help with nausea, 2mg Morpine IV administered for pain 11/24. Upon reassessment Pt was sleeping comfortably in her bed. Pt's BP was elevated this afternoon at 195/102 and again 5mins later 184/97. Pts IV was found to be compromised and a new one placed 30mins later. BP was reassessed at this time at 170/82. Pts BP had fallen outside of the Labatolol administration parameters and it was not given at this time.
[2021-10-19] MEDS: DOCUSATE 100 MG CAPSULE PO (20:53)
[2021-10-20] VITALS (12 sets, daily range): BP systolic 172–194; BP diastolic 73–96; PULSE 72–88; RESP 18–22; TEMP 36.3–37.2; O2SAT 90–96
[2021-10-20] MEDS: SODIUM CHLORIDE 0.9% 1,000 ML 150 ML IV ×4 (00:54→22:00)
[2021-10-20] MEDS: MORPHINE 2 MG/ML INJ IV ×5 (03:42→21:52)
[2021-10-20] MEDS: SODIUM CHLORIDE 0.9% FLUSH 10 ML IV ×3 (03:43→21:53)
--- NOTE | 2021-10-20 04:04 | PC.NURSE ---
This RN was told in report that pt has had poor intake and has refused all oral medications. At 2100 medication pass, pt was offered oral medications and declined all, however agreed to take Colace after education. Pt has declined all oral pain medications this shift and is only requesting IV pain medication. Pts bowel sounds are hypoactive to absent at this time and pt was educated on the importance of moving to help stimulate bowel movement as well as the effects of pain medication on peristalsis. Will continue to monitor and notify provider as needed.
[2021-10-20] MEDS: THYROID, PORK 30 MG TABLET 90 MG PO (06:30)
[2021-10-20] MEDS: ONDANSETRON 4 MG/2 ML INJ IV ×3 (08:54→17:44)
[2021-10-20] MEDS: ANASTROZOLE 1 MG TABLET PO (09:51)
[2021-10-20] MEDS: DOCUSATE 100 MG CAPSULE PO ×2 (09:52→20:55)
[2021-10-20] MEDS: APIXABAN 5 MG TABLET PO ×2 (09:52→20:55)
[2021-10-20] MEDS: LOSARTAN 25 MG TABLET 50 MG PO (09:52)
[2021-10-20] MEDS: VENLAFAXINE ER 75 MG CAP 225 MG PO (09:53)
--- NOTE | 2021-10-20 10:27 | PM.PN.1 ---
Subjective Subjective Date Patient Seen: 10/20/21 Time Patient Seen: 10:27 Interval history: Complains of back pain. Still not tolerating very much of a liquid diet. She denies flatus. She has been out of bed and in a chair but remains very inactive. Exam Vital Signs (past 8 hours): - 10/20/21 04:00 10/20/21 07:55 10/20/21 10:14 Temperature 97.3 F L 98.9 F Pulse Rate 79 80 Respiratory Rate 18 20 Blood Pressure 172/79 H 191/84 H Pulse Oximetry 96 92 94 Fraction of Inspired Oxygen 21 Oxygen Delivery Method Room Air,CPAP Oxygen Flow Rate 0 Narrative Exam Narrative: No peritoneal signs Drain with serosanguineous output Objective Labs Result Diagrams: 10/19/21 04:48 10/16/21 12:05 [facility] Medical History Breast cancer Depression Febrile illness Hypothyroidism Lymphedema Morbid obesity with BMI of 40.0-44.9, adult Morbid obesity with body mass index (BMI) of 50.0 to 59.9 in adult Obstructive sleep apnea of adult Primary insomnia Sarcoidosis Snoring UTI (urinary tract infection) Surgical History H/O exploratory laparotomy S/P lumpectomy, right breast Family History Father Leukemia Brother Diabetes mellitus Sister Diabetes mellitus Breast cancer Mother Ovarian cancer Social History household members: children lives independently: Yes caregiver/support person: No Smoking Status: Former smoker alcohol intake: current substance use type: does not use Assessment & Plan Assessment and plan (1) Postoperative examination: Status: Acute Plan Await flatus prior to advancing diet Out of bed with much possible Time Spent With Patient Critical Care time: I spent a total of [] minutes of critical care time on this patient's care today; this time is exclusive of procedural time. Quality VTE Deep Vein Thrombosis/Pulmonary Embolism Present on Admission: No
--- NOTE | 2021-10-20 11:43 | PM.PN.1 ---
Subjective Subjective Date Patient Seen: 10/20/21 Interval history: 70-year-old female with history of obesity, breast CA, bilateral PE, hypothyroidism admitted to the hospital for treatment of an incarcerated hernia.? Patient underwent operative repair 10/16/2021. Patient complaining of significant abdominal and back pain, not passing flatus, tolerating ice chips only, not moving around much. Exam Vital Signs (past 8 hours): - 10/20/21 04:00 10/20/21 07:55 10/20/21 10:14 Temperature 97.3 F L 98.9 F Pulse Rate 79 80 Respiratory Rate 18 20 Blood Pressure 172/79 H 191/84 H Pulse Oximetry 96 92 94 10/20/21 10:37 Temperature Pulse Rate Respiratory Rate Blood Pressure Pulse Oximetry 92 Fraction of Inspired Oxygen 21 Oxygen Delivery Method Room Air,CPAP Oxygen Flow Rate 0 Narrative Exam Narrative: General: Alert uncomfortable appearing female Lungs: Clear Abdomen: Obese, surgical binder on Extremities: No edema Neurological: Fully oriented, affect slightly diminished, speech normal Objective Labs Result Diagrams: 10/19/21 04:48 10/16/21 12:05 [facility] Medical History (Updated 10/20/21 @ 11:46 by Alexis Sadler MD) Bilateral pulmonary embolism Breast cancer Depression Febrile illness Hypothyroidism Lymphedema Morbid obesity with BMI of 40.0-44.9, adult Morbid obesity with body mass index (BMI) of 50.0 to 59.9 in adult Obstructive sleep apnea of adult Primary insomnia Sarcoidosis Snoring UTI (urinary tract infection) Surgical History H/O exploratory laparotomy S/P lumpectomy, right breast Family History Father Leukemia Brother Diabetes mellitus Sister Diabetes mellitus Breast cancer Mother Ovarian cancer Social History household members: children lives independently: Yes caregiver/support person: No Smoking Status: Former smoker alcohol intake: current substance use type: does not use Assessment & Plan Assessment & Plan narrative: 1. Incarcerated ventral hernia -status post exploratory laparotomy and repair -surgery following -slow to recover bowel function -restarted Eliquis for known history of bilateral pulmonary embolism 2. Persistent hypertension -started losartan 50 mg q.d. on this admission 3.? Acute on chronic iron deficiency anemia -does not require transfusion -etiology of iron deficiency and extent of prior evaluation unknown although it looks like she had a colonoscopy in January 2017 -follow-up with PCP to get referred for EGD and colonoscopy -iron sucrose 200 mg IV given on 10/20/2021 4. Continue anastrozole, venlafaxine, thyroid replacement per home routine Time Spent With Patient Critical Care time: I spent a total of [] minutes of critical care time on this patient's care today; this time is exclusive of procedural time. Quality VTE Deep Vein Thrombosis/Pulmonary Embolism Present on Admission: No
[2021-10-20] MEDS: IRON SUCROSE 200 MG in SODIUM CHLORIDE 0.9% 100 ML 220 ML IV (11:47)
--- NOTE | 2021-10-20 13:45 | PT.IPTN ---
Current Diagnoses Other and unspecified ventral hernia with obstruction, without gangrene (10/16/21) Encounter for follow-up examination after completed treatment for conditions other than malignant neoplasm (10/16/21) Surgery Performed Operation Date: 10/16/21 14:45 Actual Procedures p Exploratory Laparotomy INCISIONAL HERNIA(Not Applicable) - Isaac Paez MD Physical Therapy Treatment Note M2 PT-IP Current Condition Start: 10/18/21 14:29 Freq: NEEDED Status: Active Protocol: Document 10/20/21 13:27 SP (Rec: 10/20/21 14:09 SP [id number]) Physical Therapy Current Condition Current Condition Evaluation Date 10/18/21 Treatment Diagnosis obtructed hernia s/p ex-lap; difficulty in walking Onset Date 10/16/21 M3 PT-IP Subjective Start: 10/18/21 14:29 Freq: NEEDED Status: Active Protocol: Document 10/20/21 13:27 SP (Rec: 10/20/21 14:09 SP [id number]) Subjective Physical Therapy Visit Type Type Treatment Note Visit Start Time 13:27 Visit Stop Time 13:45 Total Visit Minutes 18 Notes Vitals pre tx seated in chair: BP on L forearm 184/91, HR 89 , SaO2 93% on RA. Number of FUEL CELL DESIGNER Visits 2 Physical Therapy Visit Comments Patient Comments Agreeable to working with PT. Therapy Pain Assessment Pain When Pain Assessed At Rest Pain Present Pain Present Pain Reported Location Abdomen Intensity 6 Scale Used Numeric (0 - 10) Pain Behaviors Facial Grimacing Pain Management Techniques Distraction,Modification of Treatment,Re-positioning, Timing of Activity with Medications M4 PT-IP Mobility and Gait Start: 10/18/21 14:29 Freq: NEEDED Status: Active Protocol: Document 10/20/21 13:27 SP (Rec: 10/20/21 14:09 SP [id number]) PT-Bed Mobility Assessment Rolling Type of Rolling Log Rolling,Roll to Right Sit to Supine Sit to Supine Minimal Assistance,Moderate Assistance,1 Person Assistance ,Bedrails PT-Transfer Assessment Sit to and From Stand Sit to and from Stand Moderate Assistance,Maximum Assistance,2 Person Assistance ,Use of Upper Extremities Equipment Transfer Assistive Device Gait Belt,Front Wheeled Walker Orthotic/Prosthetic Devices or Brace: No Transfers Transfer Destination Bed,Chair Transfer Technique Stand Step Pivot Transfer Ability Level of Assist Minimal Assistance,1 Person Assistance,Use of Upper Extremities Comments Mobility Comments Pt upright in chair when arrived. Scoot to EOchair SBA with extra time to complete. Sit<>stand Max A x1 1st attempt unsuccessful, FUEL CELL DESIGNER requested nurse assist to stabilize FWW and added support 2nd person Min A with success. SPT using FWW Min-Mod A x2, cued for quad facilitation, FUEL CELL DESIGNER also provided IV pole mgt. Cued back up fully to bed and reach back Min A. Sit>L SL w/ use of bed rails and Mod A for LE support into bed. Pt initially LR to R into modified supine then LR back onto L side w/use of bed rail CGA. Pt stated wanted to stay on her side, Min A for LE repositioning posteriorly while on her L side self scoot retro w/ use of bed rail CGA. FUEL CELL DESIGNER and nurse provided pillows between BLE, front trunk and posteriorly for comfort and trunk alignment.Pt had call light and all needs in reach including CPAP and requested ice water, donned SCDs BLE, alarmed bed before left. Will continue to assess progress. Gait Assessment Comments Gait Comments STS x2, successful on 2nd attempt, SPT to bed w/ FWW, step to patterning, decrease foot clearance and moderate BUE WB on FWW. Unableto progress further distance due to decreased strength, pain and lack of activity tolerance . Stair Climbing Assessment Comments Stair Climbing Comments no stairs needed to assess. PT-Balance Assessment Sitting Balance and Reactions Static Sitting Balance Ability Good Dynamic Sitting Balance Ability Fair Standing Balance and Reactions Static Standing Balance Ability Fair Dynamic Standing Balance Ability Fair Device Used FWW M5 PT-IP Objective Assessments Start: 10/18/21 14:29 Freq: NEEDED Status: Active Protocol: Document 10/18/21 10:50 AB (Rec: 10/18/21 14:39 AB [id number]) Orientation Orientation/Cognition Level of Alertness Alert Orientation Name,Place,Situation Language Function Ability Hard of Hearing Safety Awareness Decreased Safety Awareness Memory Description No Deficits Noted,Short Term Impaired Strength Lower Extremity Strength Assessment Bilaterally Impaired Hip 3+/5 Knee 4-/5 Sensation Assessment Sensation Gross Sensation WNL Muscle Tone Muscle Tone WNL Yes M6 PT-IP Treatment Start: 10/18/21 14:29 Freq: NEEDED Status: Active Protocol: Document 10/20/21 13:27 SP (Rec: 10/20/21 14:09 SP [id number]) Physical Therapy Treatment Education Education Provided Precautions,Weight Bearing Status,Post-Op Packet,Safety M7 PT-IP Assessment and Plan Start: 10/18/21 14:29 Freq: NEEDED Status: Active Protocol: Document 10/20/21 13:27 SP (Rec: 10/20/21 14:09 SP [id number]) PT Summary Assessment and Plan Potential Rehabilitation Potential Fair Status of Condition at Evaluation Evolving Summary Impairments Pain,ROM,Strength,Balance, Coordination,Sensation,Tone, Cognition,Bed Mobility, Transfers,Gait,Activity Tolerance Progress Towards Goals Slow Progress due to Pain,Slow Progress due to Activity Tolerance Assessment Summary Pt required Mod-Max A x2 w/FWW during STS and transfer, requires support to stabilize FWW. SPT Min A x1, Sit>Supine ModA x1. Pt unable to progress further gait due to decrease strength and activity tolerance. Pt stated I can't do anymore when seated at EOB . Will continue to assess progress, but at this time pt will benefit from SNF to improve activity tolerance and functional mobility. Goals Bed Mobility Goal Minimal Assistance Transfer Goal Minimal Assistance,Front Wheeled Walker Gait Goal Minimal Assistance,Front Wheel Walker Gait Distance 150 Other Goals improve bed mboility, transfers SBA using FWW improve ambulation using FWW SBA 200 ft Days to Meet Goals 10 Frequency of Treatment Frequency Of Treatment Once a Day Treatment Plan Physical Therapy Treatment Plan Bed Mobility Training,Transfer Training,Gait Training, Therapeutic Exercise,Balance Retraining,Post Op Education, Discharge Planning,Hot or Cold Pack,Neuromuscular Re-ed, Coordination Retraining,Manual Therapy Other Recommendations and Next Treatment bed mob, transfers, gait w/ Focus FWW. Precautions Abdominal Surgery Precautions Log Roll,Lifting Restrictions, Gait Belt above Incisional Area Recommendations To Nursing Amount of Assist Needed 2 Person Assist Discharge Recommendations PT Discharge Recommendations SNF Rehab Equipment Needed for Home Before FWW Discharge Transportation Needs at Discharge Private Vehicle,Wheelchair/ Cabulance
[2021-10-20] MEDS: HYDROCODONE/ACET 5/325 TABLET 1 TAB PO (18:54)
--- NOTE | 2021-10-20 19:20 | PC.NURSE ---
Pt has been reporting pain to her abdm as 4-7/10 on the pain scale. She had refused PO pain meds and instead asks for the prescribed 2mg IV morphine with 4mg IV zofran administered consecutively and approx. every four hours. Pt has requested to be repositioned in bed frequently as she also reported back pain. Pillow positioning and turning were tried to accomplish comfort. Pt has refused to have Simpson catheter removed and has been educated to the risks. SCD's to bilateral calves in place. Pt was encouraged to transfer to the chair for a period of time this afternoon for better perfusion and oxygenation. She tolerated this for approx. an hour and was encouraged to stay in the chair until PT came to work with her shortly after. Pt was encouraged and educated to be as active as possible in order to prevent blood clots. She was agreeable to do some activity with PT.
[2021-10-21] VITALS (13 sets, daily range): BP systolic 155–191; BP diastolic 66–92; PULSE 88–94; RESP 18–21; TEMP 36–36.9; O2SAT 91–95
[2021-10-21] MEDS: MORPHINE 2 MG/ML INJ IV ×3 (02:07→18:23)
[2021-10-21] MEDS: SODIUM CHLORIDE 0.9% FLUSH 10 ML IV ×3 (02:08→21:24)
[2021-10-21] MEDS: SODIUM CHLORIDE 0.9% 1,000 ML 150 ML IV ×2 (04:48→11:40)
[2021-10-21 06:03] LABS: Add Manual Diff / Slide Review NO; BUN Creatinine Ratio 25.6 (6-22); Basophils Absolute Auto 0 /uL (0-100); Basophils Percent Auto 0.1 % (0-2); Blood Urea Nitrogen 21 mg/dL (7-17); Calcium 8.5 mg/dL (8.4-10.2); Carbon Dioxide 31 mmol/L (22-32); Chloride 102 mmol/L (98-107); Eosinophils Absolute Auto 100 /uL (0-450); Eosinophils Percent Auto 0.9 % (2-4); Estimated Glomerular Filt Rate > 60.0 mL/min (>60); Glucose 113 mg/dL (80-110); HEMOLYSIS < 15 (0-50); Hemoglobin 7.5 g/dL (12.0-16.0); Lymphocytes Absolute Auto 500 /uL (1100-4500); Lymphocytes Percent Auto 8.2 % (25-40); Mean Corpuscular HGB Conc 30.5 % (30-36); Mean Corpuscular Hemoglobin 20.6 PG (26-34); Mean Corpuscular Volume 67.4 fL (80-100); Monocytes Absolute Auto 1100 /uL (0-900); Monocytes Percent Auto 17.8 % (3-14); Neutrophils Absolute Auto 4700 /uL (1500-7000); Platelet Count 426 X10^3/uL (150-400); Potassium 3.5 mmol/L (3.4-5.1); Red Blood Cell Count 3.66 X10^6/uL (4.0-5.2); Sodium 138 mmol/L (137-145); White Blood Cell Count 6.4 X10^3/uL (4.5-11.0)
[2021-10-21 06:07] LABS: Hematocrit 24.7 % (36-46)
[2021-10-21] MEDS: THYROID, PORK 30 MG TABLET 90 MG PO (06:12)
[2021-10-21 06:38] LABS: Anisocytosis 2+; Hypochromasia 1+; Polychromasia 1+
[2021-10-21 06:39] LABS: Microcytosis 2+
[2021-10-21] MEDS: ANASTROZOLE 1 MG TABLET PO (09:08)
[2021-10-21] MEDS: APIXABAN 5 MG TABLET PO ×2 (09:08→22:24)
[2021-10-21] MEDS: LOSARTAN 25 MG TABLET 50 MG PO (09:08)
[2021-10-21] MEDS: HYDROCODONE/ACET 5/325 TABLET 1 TAB PO ×3 (09:09→23:00)
[2021-10-21] MEDS: DOCUSATE 100 MG CAPSULE PO (09:09)
[2021-10-21] MEDS: VENLAFAXINE ER 75 MG CAP 225 MG PO (09:09)
--- NOTE | 2021-10-21 13:56 | PM.PN.1 ---
Subjective Subjective Date Patient Seen: 10/21/21 Time Patient Seen: 13:56 Interval history: Feeling a little better today, passing some flatus but no bowel movements today. Tolerating clears though does have abdominal pain after drinking. No fever, chills, chest pain, shortness of breath. Remains weak and tired. Exam Vital Signs (past 8 hours): - 10/21/21 06:00 10/21/21 07:30 10/21/21 09:16 Temperature 98.3 F 97.9 F Pulse Rate 88 92 H Respiratory Rate 20 20 Blood Pressure 186/74 H 191/92 H Pulse Oximetry 93 91 95 10/21/21 13:00 Temperature 96.8 F L Pulse Rate 94 H Respiratory Rate 20 Blood Pressure 155/77 H Pulse Oximetry 93 Fraction of Inspired Oxygen 21 Oxygen Delivery Method Room Air,CPAP Oxygen Flow Rate 0 Narrative Exam Narrative: General:? Alert uncomfortable appearing female Lungs:? CTA b/l without wheezing, rhonchi, rales CV: RRR no m/r/g. Abdomen:? Obese, surgical binder on but feels soft, mild distension epigastric region. Extremities:? No edema Neurological:? Fully oriented, affect slightly flat, speech normal Objective Labs Result Diagrams: 10/21/21 05:30 10/21/21 05:30 Labs: Laboratory Results - last 24 hr 10/21/21 10/21/21 05:30 05:30 WBC 6.4 RBC 3.66 L Hgb 7.5 L Hct 24.7 L MCV 67.4 L MCH 20.6 L MCHC 30.5 RDW 20.0 H Plt Count 426 H Neut % (Auto) 73.0 Lymph % (Auto) 8.2 L [place] % (Auto) 17.8 H Eos % (Auto) 0.9 L Baso % (Auto) 0.1 Neut # (Auto) 4700 Lymph # (Auto) 500 L [place] # (Auto) 1100 H Eos # (Auto) 100 Baso # (Auto) 0 RBC Morphology See below Polychromasia 1+ H Hypochromasia 1+ H Anisocytosis 2+ H Microcytosis 2+ H Sodium 138 Potassium 3.5 Chloride 102 Carbon Dioxide 31 BUN 21 H Creatinine 0.82 Estimated GFR > 60.0 BUN/Creatinine Ratio 25.6 H Glucose 113 H Calcium 8.5 PFSH Medical History (Updated 10/20/21 @ 11:46 by Alexis Sadler MD) Bilateral pulmonary embolism Breast cancer Depression Febrile illness Hypothyroidism Lymphedema Morbid obesity with BMI of 40.0-44.9, adult Morbid obesity with body mass index (BMI) of 50.0 to 59.9 in adult Obstructive sleep apnea of adult Primary insomnia Sarcoidosis Snoring UTI (urinary tract infection) Surgical History H/O exploratory laparotomy S/P lumpectomy, right breast Family History Father Leukemia Brother Diabetes mellitus Sister Diabetes mellitus Breast cancer Mother Ovarian cancer Social History household members: children lives independently: Yes caregiver/support person: No Smoking Status: Former smoker alcohol intake: current substance use type: does not use Assessment & Plan Assessment & Plan narrative: 1. Incarcerated ventral hernia -status post exploratory laparotomy and repair -surgery following -slow to recover bowel function -restarted Eliquis for known history of bilateral pulmonary embolism 2. Persistent hypertension -started losartan 50 mg q.d. on this admission 3.? Acute on chronic iron deficiency anemia -does not require transfusion -etiology of iron deficiency and extent of prior evaluation unknown although it looks like she had a colonoscopy in January 2017 -follow-up with PCP to get referred for EGD and colonoscopy -iron sucrose 200 mg IV given on 10/20/2021 4. Continue anastrozole, venlafaxine, thyroid replacement per home routine Time Spent With Patient Critical Care time: I spent a total of [] minutes of critical care time on this patient's care today; this time is exclusive of procedural time. Quality VTE Deep Vein Thrombosis/Pulmonary Embolism Present on Admission: No
--- NOTE | 2021-10-21 14:54 | PT-IP ANOTE ---
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
--- NOTE | 2021-10-21 15:52 | CM.DPC ---
DCP Cont: Patient has noted weakness, she did not want to work with P.T. today. Looked at physical therapy notes from yesterday, and they recommend alf. Attempted to speak to patient about this today, but she is sleeping with her breathing machine on. She is [employer] Medicare, went ahead and faxed referral over to [facility] . [facility] called back and indicated, she will review, barrier may be that she's bariatric, and they need to get equipment. P: DCP to continue to follow. Referrals sent to [facility] and [facility], will follow up tomorrow. Narda Figueroa RN/Musical String Maker
[2021-10-21] MEDS: SODIUM CHLORIDE 0.9% 1,000 ML 30 ML IV (18:22)
[2021-10-21] MEDS: ONDANSETRON 4 MG/2 ML INJ IV (18:30)
--- NOTE | 2021-10-21 18:49 | P.PN_ITS ---
Subjective Subjective Date Patient Seen: 10/21/21 Time Patient Seen: 18:49 Interval history: Had 2 bowel movements today. Tolerating clear liquids but not willing to try solid yet Exam Vital Signs (past 8 hours): - 10/21/21 13:00 10/21/21 16:49 Temperature 96.8 F L 97.9 F Pulse Rate 94 H 93 H Respiratory Rate 20 21 Blood Pressure 155/77 H 175/84 H Pulse Oximetry 93 94 Fraction of Inspired Oxygen 21 Oxygen Delivery Method Room Air,CPAP Oxygen Flow Rate 0 Narrative Exam Narrative: Soft, drain has serosanguineous output Objective Labs Result Diagrams: 10/21/21 05:30 10/21/21 05:30 Labs: Laboratory Results - last 24 hr 10/21/21 10/21/21 05:30 05:30 WBC 6.4 RBC 3.66 L Hgb 7.5 L Hct 24.7 L MCV 67.4 L MCH 20.6 L MCHC 30.5 RDW 20.0 H Plt Count 426 H Neut % (Auto) 73.0 Lymph % (Auto) 8.2 L [place] % (Auto) 17.8 H Eos % (Auto) 0.9 L Baso % (Auto) 0.1 Neut # (Auto) 4700 Lymph # (Auto) 500 L [place] # (Auto) 1100 H Eos # (Auto) 100 Baso # (Auto) 0 RBC Morphology See below Polychromasia 1+ H Hypochromasia 1+ H Anisocytosis 2+ H Microcytosis 2+ H Sodium 138 Potassium 3.5 Chloride 102 Carbon Dioxide 31 BUN 21 H Creatinine 0.82 Estimated GFR > 60.0 BUN/Creatinine Ratio 25.6 H Glucose 113 H Calcium 8.5 PFSH Medical History (Updated 10/20/21 @ 11:46 by Alexis Sadler MD) Bilateral pulmonary embolism Breast cancer Depression Febrile illness Hypothyroidism Lymphedema Morbid obesity with BMI of 40.0-44.9, adult Morbid obesity with body mass index (BMI) of 50.0 to 59.9 in adult Obstructive sleep apnea of adult Primary insomnia Sarcoidosis Snoring UTI (urinary tract infection) Surgical History H/O exploratory laparotomy S/P lumpectomy, right breast Family History Father Leukemia Brother Diabetes mellitus Sister Diabetes mellitus Breast cancer Mother Ovarian cancer Social History household members: children lives independently: Yes caregiver/support person: No Smoking Status: Former smoker alcohol intake: current substance use type: does not use Assessment & Plan Assessment and plan (1) Postoperative examination: Status: Acute Plan Will try regular diet tomorrow Time Spent With Patient Critical Care time: I spent a total of [] minutes of critical care time on this patient's care today; this time is exclusive of procedural time. Quality VTE Deep Vein Thrombosis/Pulmonary Embolism Present on Admission: No
[2021-10-22] VITALS (9 sets, daily range): BP systolic 127–185; BP diastolic 69–93; PULSE 80–101; RESP 18–23; TEMP 35.5–36.6; O2SAT 93–96
[2021-10-22] MEDS: MORPHINE 2 MG/ML INJ IV ×3 (00:41→19:18)
[2021-10-22 06:09] LABS: Add Manual Diff / Slide Review NO; Basophils Absolute Auto 0 /uL (0-100); Basophils Percent Auto 0.1 % (0-2); Eosinophils Absolute Auto 100 /uL (0-450); Eosinophils Percent Auto 0.8 % (2-4); Hematocrit 23.5 % (36-46); Hemoglobin 7.2 g/dL (12.0-16.0); Lymphocytes Absolute Auto 600 /uL (1100-4500); Lymphocytes Percent Auto 6.7 % (25-40); Mean Corpuscular HGB Conc 30.7 % (30-36); Mean Corpuscular Hemoglobin 20.9 PG (26-34); Mean Corpuscular Volume 68.1 fL (80-100); Monocytes Absolute Auto 1500 /uL (0-900); Monocytes Percent Auto 17.9 % (3-14); Neutrophils Absolute Auto 6400 /uL (1500-7000); Neutrophils Percent Auto 74.5 % (50-75); Platelet Count 440 X10^3/uL (150-400); Red Blood Cell Count 3.44 X10^6/uL (4.0-5.2); Red Cell Distribution Width 20.1 % (11.6-14.8); White Blood Cell Count 8.5 X10^3/uL (4.5-11.0)
[2021-10-22 06:17] LABS: BUN Creatinine Ratio 21.4 (6-22); Blood Urea Nitrogen 18 mg/dL (7-17); Calcium 8.5 mg/dL (8.4-10.2); Carbon Dioxide 24 mmol/L (22-32); Chloride 105 mmol/L (98-107); Estimated Glomerular Filt Rate > 60.0 mL/min (>60); Glucose 125 mg/dL (80-110); HEMOLYSIS < 15 (0-50); Potassium 3.6 mmol/L (3.4-5.1); Sodium 135 mmol/L (137-145)
[2021-10-22 07:08] LABS: Microcytosis 2+
[2021-10-22 07:10] LABS: Anisocytosis 2+; Hypochromasia 1+
--- NOTE | 2021-10-22 07:40 | CM.DPC ---
DCP Cont: Annalee from [facility] left a message inquiring upon patient's weight, as well if she has her own CPAP. Also, requested med list. Went ahead and left Annalee a message on weight, and faxed over med list. Will speak to patient today about skilled versus home, for [employer] auth will need to be obtained if skilled is where she goes. P: DCP to continue to follow and attempt to meet with patient today regarding plan. So far, [facility] and [facility] have referral. Narda Figueroa RN/Resident In Diagnostic Radiology
[2021-10-22] MEDS: THYROID, PORK 30 MG TABLET 90 MG PO (09:56)
[2021-10-22] MEDS: DOCUSATE 100 MG CAPSULE PO ×2 (10:16→21:18)
[2021-10-22] MEDS: APIXABAN 5 MG TABLET PO (10:16)
[2021-10-22] MEDS: VENLAFAXINE ER 75 MG CAP 225 MG PO (10:16)
[2021-10-22] MEDS: HYDROCODONE/ACET 5/325 TABLET 1 TAB PO ×2 (10:17→15:52)
[2021-10-22] MEDS: SODIUM CHLORIDE 0.9% FLUSH 10 ML IV ×4 (10:17→21:18)
[2021-10-22] MEDS: ANASTROZOLE 1 MG TABLET PO (10:17)
[2021-10-22] MEDS: LOSARTAN 25 MG TABLET 50 MG PO (10:18)
--- NOTE | 2021-10-22 11:25 | CM.DPC ---
Addendum entered by Narda Figueroa R.N. 10/22/21 15:53: Patient did work with therapy, per SOLITARIO Clinton. She mentioned, patient is hopeful for home. Met with patient, she was up in her chair. She stated that her cousin from [place] is coming up and can help her. She is hoping to go home with home health, she has not used them before, and has no preference on agencies. Asked patient if she is sure that her cousin can assist her, since her daughter works, and she stated, she can. Asked her if she was coming up soon, and she stated, she is. Still have referrals at [facility], but [facility] can't secure bariatric equipment. Annalee at [facility] had initially indicated that she may need to come and see patient, but have not yet heard back. Will leave referral with her, but it is uncertain if auth has been started with Laura, she may need to see her first. Original Note: DCP Cont: SOLITARIO Concepcion indicated that patient did not want to work with her due to weakness. Let her know that this digital sales planner will meet with patient and discuss skilled options, and significance of working with therapy to get her skilled. Met with patient and daughter, Joseph, who is at bedside. Daughter flat expression, did not offer much in the conversation. Asked daughter and patient if she had help at home. Patient stated, I might be able to get my cousin to come in next week. Asked patient and daughter if she is medically ready tomorrow, if daughter could assist, or if skilled is optional. Daughter did not answer the question, stated, needed time to discuss with her mother. Encouraged patient to work with P.T. Let her know that the significance of this is to get her authorized for rehab. Let her know that [facility] and [facility] do take her insurance. She is willing to go to skilled if needed, would rather go home. She stated, she will try to work with therapy this afternoon. In the mean time, [facility] is reviewing, and Nikia at [facility] stated, she is unsure if she can get bariatric equipment in time. P: DCP to continue to follow. Will see if [facility] or [facility] can initiate the auth process, if one of them can accept patient. Narda Figueroa RN/Clinical Veterinarian
[2021-10-22] MEDS: PANTOPRAZOLE 40 MG VIAL IV ×2 (11:29→21:18)
--- NOTE | 2021-10-22 12:56 | PM.PN.1 ---
Subjective Subjective Date Patient Seen: 10/22/21 Time Patient Seen: 12:56 Interval history: Feeling a bit stronger today, though h/h continues to downtrend. Started on PPI, discontinued eliquis for now. She tolerated a diet this morning, pain is controlled, no nausea or vomiting. Exam Vital Signs (past 8 hours): - 10/22/21 05:00 10/22/21 09:00 10/22/21 09:35 Temperature 97.9 F 96.6 F L Pulse Rate 85 90 Respiratory Rate 18 20 Blood Pressure 185/74 H 146/69 H Pulse Oximetry 93 94 93 Fraction of Inspired Oxygen 21 Oxygen Delivery Method Room Air,CPAP Oxygen Flow Rate 0 Narrative Exam Narrative: General:? Alert uncomfortable appearing female Lungs:? CTA b/l without wheezing, rhonchi, rales CV: RRR no m/r/g. Abdomen:? Obese, surgical binder on but feels soft, mild distension epigastric region. Extremities:? No edema Neurological:? Fully oriented, affect slightly flat, speech normal Objective Labs Result Diagrams: 10/22/21 05:25 10/22/21 05:25 Labs: Laboratory Results - last 24 hr 10/22/21 10/22/21 05:25 05:25 WBC 8.5 RBC 3.44 L Hgb 7.2 L Hct 23.5 L MCV 68.1 L MCH 20.9 L MCHC 30.7 RDW 20.1 H Plt Count 440 H Neut % (Auto) 74.5 Lymph % (Auto) 6.7 L [place] % (Auto) 17.9 H Eos % (Auto) 0.8 L Baso % (Auto) 0.1 Neut # (Auto) 6400 Lymph # (Auto) 600 L [place] # (Auto) 1500 H Eos # (Auto) 100 Baso # (Auto) 0 RBC Morphology See below Hypochromasia 1+ H Anisocytosis 2+ H Microcytosis 2+ H Sodium 135 L Potassium 3.6 Chloride 105 Carbon Dioxide 24 BUN 18 H Creatinine 0.84 Estimated GFR > 60.0 BUN/Creatinine Ratio 21.4 Glucose 125 H Calcium 8.5 PFSH Medical History (Updated 10/20/21 @ 11:46 by Alexis Sadler MD) Bilateral pulmonary embolism Breast cancer Depression Febrile illness Hypothyroidism Lymphedema Morbid obesity with BMI of 40.0-44.9, adult Morbid obesity with body mass index (BMI) of 50.0 to 59.9 in adult Obstructive sleep apnea of adult Primary insomnia Sarcoidosis Snoring UTI (urinary tract infection) Surgical History H/O exploratory laparotomy S/P lumpectomy, right breast Family History Father Leukemia Brother Diabetes mellitus Sister Diabetes mellitus Breast cancer Mother Ovarian cancer Social History household members: children lives independently: Yes caregiver/support person: No Smoking Status: Former smoker alcohol intake: current substance use type: does not use Assessment & Plan Assessment & Plan narrative: 1. Incarcerated ventral hernia -status post exploratory laparotomy and repair -surgery following -slow to recover bowel function -restarted Eliquis for known history of bilateral pulmonary embolism 2. Persistent hypertension -started losartan 50 mg q.d. on this admission 3.? Acute on chronic iron deficiency anemia, likely acute blood loss anemia. -does not require transfusion yet, but continues to downtrend. -etiology of iron deficiency and extent of prior evaluation unknown although it looks like she had a colonoscopy in January 2017 -iron sucrose 200 mg IV given on 10/20/2021 -continue to follow. Started PPI for possible stress ulcer and stopped apixaban today. 4. Continue anastrozole, venlafaxine, thyroid replacement per home routine Time Spent With Patient Critical Care time: I spent a total of [] minutes of critical care time on this patient's care today; this time is exclusive of procedural time. Quality VTE Deep Vein Thrombosis/Pulmonary Embolism Present on Admission: No
--- NOTE | 2021-10-22 14:14 | PT.IPTN ---
Current Diagnoses Other and unspecified ventral hernia with obstruction, without gangrene (10/16/21) Encounter for follow-up examination after completed treatment for conditions other than malignant neoplasm (10/16/21) Surgery Performed Operation Date: 10/16/21 14:45 Actual Procedures p Exploratory Laparotomy INCISIONAL HERNIA(Not Applicable) - Isaac Paez MD Physical Therapy Treatment Note M2 PT-IP Current Condition Start: 10/18/21 14:29 Freq: NEEDED Status: Active Protocol: Document 10/20/21 13:27 SP (Rec: 10/20/21 14:09 SP [id number]) Physical Therapy Current Condition Current Condition Evaluation Date 10/18/21 Treatment Diagnosis obtructed hernia s/p ex-lap; difficulty in walking Onset Date 10/16/21 M3 PT-IP Subjective Start: 10/18/21 14:29 Freq: NEEDED Status: Active Protocol: Document 10/22/21 13:50 KS (Rec: 10/22/21 14:45 KS [id number]) Subjective Physical Therapy Visit Type Type Treatment Note Visit Start Time 13:50 Visit Stop Time 14:14 Total Visit Minutes 24 Number of DEPARTMENT CLERK Visits 3 Physical Therapy Visit Comments Patient Comments Agreeable to working with PT. M4 PT-IP Mobility and Gait Start: 10/18/21 14:29 Freq: NEEDED Status: Active Protocol: Document 10/22/21 13:50 KS (Rec: 10/22/21 14:45 KS [id number]) PT-Bed Mobility Assessment Supine to Sit Supine to Sit Moderate Assistance,1 Person Assistance,Head of Bed Elevated,Bedrails Scooting Scooting to Edge of Bed Moderate Assistance PT-Transfer Assessment Sit to and From Stand Sit to and from Stand Minimal Assistance,1 Person Assistance,Use of Upper Extremities Equipment Transfer Assistive Device Gait Belt,Front Wheeled Walker Orthotic/Prosthetic Devices or Brace: No Transfers Transfer Destination Chair Transfer Technique Pt ambulated w/ FWW Transfer Ability Level of Assist Moderate Assistance,1 Person Assistance,Use of Upper Extremities Comments Mobility Comments Pt in bed upon arrival and agreeable to ambulation. Mod A for sup<>sit w/ HOB elevated and Mod A for scooting to EOB. Pt SOB w/ exertion. Min A for sit<>Stand w/ FWW cues for and placement. Pt denied dizziness or lightheadedness and ambulated ~30 ft w/ FWW CGA and transferred to chair. Pt left in chair w/ all needs in reach. Gait Assessment Gait Gait Assistance Required: Contact Guard Assist,1 Person Assist Distance (Feet) 30 Assistive Devices Assistive Device Gait Belt,Front Wheeled Walker Orthotic/Prosthetic Devices or Brace: No Gait Deviations General Gait Pattern Antalgic,Decreased Stride Length,Decreased Feet Clearance,Flexed Trunk,Wide Based Gait Factors Limiting Gait Function Factors Limiting Gait Function Decreased Activity Tolerance, Decreased Strength,Limited Range of Motion,Pain,Poor Balance,Respiratory Distress Comments Gait Comments Pt ambulated ~30 ft w/ FWW CGA w/ very quick approach to fatigue and SOB. Pt w/ decreased stride and foot clearance w/ WBOS increasing risk for falls. Pt states she would need to ambulated ~30-35 ft from car to chair inside house and has no steps to enter. Stair Climbing Assessment Comments Stair Climbing Comments no stairs needed to assess. PT-Balance Assessment Sitting Balance and Reactions Static Sitting Balance Ability Good Dynamic Sitting Balance Ability Fair Standing Balance and Reactions Static Standing Balance Ability Fair Dynamic Standing Balance Ability Fair Device Used FWW M5 PT-IP Objective Assessments Start: 10/18/21 14:29 Freq: NEEDED Status: Active Protocol: Document 10/18/21 10:50 AB (Rec: 10/18/21 14:39 AB [id number]) Orientation Orientation/Cognition Level of Alertness Alert Orientation Name,Place,Situation Language Function Ability Hard of Hearing Safety Awareness Decreased Safety Awareness Memory Description No Deficits Noted,Short Term Impaired Strength Lower Extremity Strength Assessment Bilaterally Impaired Hip 3+/5 Knee 4-/5 Sensation Assessment Sensation Gross Sensation WNL Muscle Tone Muscle Tone WNL Yes M6 PT-IP Treatment Start: 10/18/21 14:29 Freq: NEEDED Status: Active Protocol: Document 10/22/21 13:50 KS (Rec: 10/22/21 14:45 KS [id number]) Physical Therapy Treatment Education Education Provided Precautions,Weight Bearing Status,Post-Op Packet,Safety Other Treatments Other Treatment Performed Discussed HHPT vs SNF M7 PT-IP Assessment and Plan Start: 10/18/21 14:29 Freq: NEEDED Status: Active Protocol: Document 10/22/21 13:50 KS (Rec: 10/22/21 14:45 KS [id number]) PT Summary Assessment and Plan Potential Rehabilitation Potential Fair Status of Condition at Evaluation Evolving Summary Impairments Pain,ROM,Strength,Balance, Coordination,Sensation,Tone, Cognition,Bed Mobility, Transfers,Gait,Activity Tolerance Progress Towards Goals Slow Progress due to Pain,Slow Progress due to Activity Tolerance Assessment Summary Pt limited in mobility secondary to pain and low activity tolerance. She becomes fatigued and SOB upon extertion and requires extra time to complete tasks. Mod A for bed mobility, Min A for sit<>Stand and CGA for 30 ft ambulation w/ FWW however pt not able to amublate farther. Increased fall risk due to quick approach to fatigue, SOB , and weakness. She would benefit from SNF to improve strength and functional mobility, will continue to assess. If pt goes home she will require HHPT and 09/03 caregiver. Goals Bed Mobility Goal Minimal Assistance Transfer Goal Minimal Assistance,Front Wheeled Walker Gait Goal Minimal Assistance,Front Wheel Walker Gait Distance 150 Other Goals improve bed mboility, transfers SBA using FWW improve ambulation using FWW SBA 200 ft Days to Meet Goals 10 Frequency of Treatment Frequency Of Treatment Once a Day Treatment Plan Physical Therapy Treatment Plan Bed Mobility Training,Transfer Training,Gait Training, Therapeutic Exercise,Balance Retraining,Post Op Education, Discharge Planning,Hot or Cold Pack,Neuromuscular Re-ed, Coordination Retraining,Manual Therapy Other Recommendations and Next Treatment bed mob, transfers, gait w/ Focus FWW. Precautions Abdominal Surgery Precautions Log Roll,Lifting Restrictions, Gait Belt above Incisional Area Recommendations To Nursing Amount of Assist Needed 2 Person Assist Discharge Recommendations PT Discharge Recommendations SNF Rehab Equipment Needed for Home Before FWW Discharge Transportation Needs at Discharge Private Vehicle,Wheelchair/ Cabulance
[2021-10-23] VITALS (10 sets, daily range): BP systolic 140–175; BP diastolic 68–87; PULSE 84–99; RESP 18–20; TEMP 36.3–37.7; O2SAT 93–96
[2021-10-23] MEDS: HYDROCODONE/ACET 5/325 TABLET 1 TAB PO ×2 (01:06→05:41)
[2021-10-23 05:06] LABS: Add Manual Diff / Slide Review NO; Basophils Absolute Auto 0 /uL (0-100); Basophils Percent Auto 0.1 % (0-2); Eosinophils Absolute Auto 100 /uL (0-450); Eosinophils Percent Auto 0.8 % (2-4); Hematocrit 25.3 % (36-46); Hemoglobin 7.6 g/dL (12.0-16.0); Lymphocytes Absolute Auto 800 /uL (1100-4500); Lymphocytes Percent Auto 9.3 % (25-40); Mean Corpuscular HGB Conc 29.9 % (30-36); Mean Corpuscular Hemoglobin 20.5 PG (26-34); Mean Corpuscular Volume 68.5 fL (80-100); Monocytes Absolute Auto 1300 /uL (0-900); Monocytes Percent Auto 15.6 % (3-14); Neutrophils Absolute Auto 6200 /uL (1500-7000); Neutrophils Percent Auto 74.2 % (50-75); Platelet Count 472 X10^3/uL (150-400); Red Cell Distribution Width 19.8 % (11.6-14.8); White Blood Cell Count 8.3 X10^3/uL (4.5-11.0)
[2021-10-23 05:15] LABS: BUN Creatinine Ratio 17.8 (6-22); Blood Urea Nitrogen 16 mg/dL (7-17); Calcium 8.7 mg/dL (8.4-10.2); Carbon Dioxide 25 mmol/L (22-32); Chloride 105 mmol/L (98-107); Estimated Glomerular Filt Rate > 60.0 mL/min (>60); Glucose 107 mg/dL (80-110); HEMOLYSIS < 15 (0-50); Potassium 3.9 mmol/L (3.4-5.1); Sodium 136 mmol/L (137-145)
[2021-10-23] MEDS: THYROID, PORK 30 MG TABLET 90 MG PO (05:41)
[2021-10-23 05:46] LABS: Hypochromasia 1+; Polychromasia 1+
[2021-10-23 05:47] LABS: Anisocytosis 2+; Microcytosis 2+
[2021-10-23] MEDS: VENLAFAXINE ER 75 MG CAP 225 MG PO (09:15)
[2021-10-23] MEDS: DOCUSATE 100 MG CAPSULE PO (09:15)
[2021-10-23] MEDS: PANTOPRAZOLE 40 MG VIAL IV (09:16)
[2021-10-23] MEDS: LOSARTAN 25 MG TABLET 50 MG PO (09:16)
[2021-10-23] MEDS: SODIUM CHLORIDE 0.9% FLUSH 10 ML IV ×2 (09:16→20:38)
[2021-10-23] MEDS: ANASTROZOLE 1 MG TABLET PO (09:16)
[2021-10-23] MEDS: OXYCODONE IR 10 MG TABLET PO ×3 (10:49→20:38)
--- NOTE | 2021-10-23 11:40 | PT-IP ANOTE ---
Pt supine in bed, refused working with therapy when arrived. Pt stated I knew you were going to come after just got back into bed. I can't do anything right now, can come back later. PHARMACEUTICAL WORKER provided education on importance of mobility, pt verbalized understanding. PHARMACEUTICAL WORKER unable to see pt for am appt. Pt reported agreeable to returning in afternoon. Will continue to assess progress.
--- NOTE | 2021-10-23 12:02 | CM.DPC ---
Addendum entered by Narda Figueroa R.N. 10/23/21 14:45: Have vaccine information in case patient goes to custodial. Did also send referral to [facility], should she go home tomorrow. Updated Raghu at [facility]. Faxed her over face sheet, face to face, orders, H&P, P.T. note and latest progress note. Confirmed with [facility] that they do take [employer]. Went ahead and completed PASSR as well. Addendum entered by Narda Figueroa R.N. 10/23/21 12:49: Received an email back from Miri in admissions at [facility]. She stated that they had to run referral by their DNS for approval since she is bariatric. She stated that if she is approved, Annalee will come and do an onsight visit. Barrier, is patient not wanting to participate. Dr. Frausto indicated that he will keep her another day due to her anemia, and plan on discharging her home tomorrow with [facility]. Should hear back from [facility] today. Original Note: DCP Cont: Patient refused therapy this morning, according to Percy Masters, she just went back to bed. Encouraged P.T. to come and get this menu planner when she attempts to work with her this pm, for she needs to work with therapy if she is to be skilled, and all recommendations are for custodial. Informed Dr. Paez this morning that patient wanted to go home, and let hospitalist know, but concerns are her going home due to weakness. Sent an email to Venkat in admissions at [facility], for have not heard back, and left another message with Annalee this morning. Annalee originally had mentioned that she may be coming over to see patient, and inquired if she has her own CPAP, which this menu planner already told her that she has. Will await response. Nikia at [facility] has already indicated that she has no bariatric beds. Reminded Annalee and Miri that auth needs to be started as soon as possible, if they can accept he since she is [employer] Medicare. P: DCP to continue to follow. Will attempt to meet with patient and P.T. when she arrives in her room to encourage her to work with P.T. Patient has volunteered her cousin to help her at home, but no specific answer as to when she can come and assist, and how much assist she can give her. Narda Braswell RN/Business Intelligence Developer
--- NOTE | 2021-10-23 13:44 | CM.DPNOTE ---
Emailed PT notes from 10/22 per [facility] to Rafaela Harding. Joy Preciado CM Assist.
--- NOTE | 2021-10-23 13:49 | PC.NURSE ---
Day Shift Note Pt up in chair with CPAP in place this morning, awoken at 1000 (per pt request) for breakfast and meds, oxycodone administered for 6/10 pain to back and abdomen. Pt reports effective for pain control. Resistant to mobilize, requires much coaxing and encouragement to get out of bed and chair. One person assist with FWW, slow but steady. Dressing to abdomen C/D/I. CHRIS drain removed per Dr. Paez's order without issue. Call light within reach, using appropriately to make needs known.
--- NOTE | 2021-10-23 15:12 | P.PN_ITS ---
Subjective Subjective Date Patient Seen: 10/23/21 Time Patient Seen: 15:13 Interval history: Feeling weaker today, tired. Started on PPI yesterday, discontinued eliquis for now. She tolerated a diet this morning, pain is controlled, no nausea or vomiting. h/h stilll borderline at 7.6. Exam Vital Signs (past 8 hours): - 10/23/21 07:30 10/23/21 11:01 10/23/21 12:00 Temperature 99.5 F 97.4 F L Pulse Rate 88 84 Respiratory Rate 20 20 Blood Pressure 175/78 H 144/69 H Pulse Oximetry 95 95 93 Fraction of Inspired Oxygen 21 Oxygen Delivery Method Room Air,CPAP Oxygen Flow Rate 0 Narrative Exam Narrative: General:? Alert uncomfortable appearing female Lungs:? CTA b/l without wheezing, rhonchi, rales CV: RRR no m/r/g. Abdomen:? Obese, surgical binder on but feels soft, mild distension epigastric region. Extremities:? No edema Neurological:? Fully oriented, affect slightly flat, speech normal Objective Labs Result Diagrams: 10/23/21 04:37 10/23/21 04:37 Labs: Laboratory Results - last 24 hr 10/23/21 10/23/21 04:37 04:37 WBC 8.3 RBC 3.70 L Hgb 7.6 L Hct 25.3 L MCV 68.5 L MCH 20.5 L MCHC 29.9 L RDW 19.8 H Plt Count 472 H Neut % (Auto) 74.2 Lymph % (Auto) 9.3 L Garfield % (Auto) 15.6 H Eos % (Auto) 0.8 L Baso % (Auto) 0.1 Neut # (Auto) 6200 Lymph # (Auto) 800 L Garfield # (Auto) 1300 H Eos # (Auto) 100 Baso # (Auto) 0 RBC Morphology See below Polychromasia 1+ H Hypochromasia 1+ H Anisocytosis 2+ H Microcytosis 2+ H Sodium 136 L Potassium 3.9 Chloride 105 Carbon Dioxide 25 BUN 16 Creatinine 0.90 Estimated GFR > 60.0 BUN/Creatinine Ratio 17.8 Glucose 107 Calcium 8.7 PFSH Medical History (Updated 10/20/21 @ 11:46 by Alexis Sadler MD) Bilateral pulmonary embolism Breast cancer Depression Febrile illness Hypothyroidism Lymphedema Morbid obesity with BMI of 40.0-44.9, adult Morbid obesity with body mass index (BMI) of 50.0 to 59.9 in adult Obstructive sleep apnea of adult Primary insomnia Sarcoidosis Snoring UTI (urinary tract infection) Surgical History H/O exploratory laparotomy S/P lumpectomy, right breast Family History Father Leukemia Brother Diabetes mellitus Sister Diabetes mellitus Breast cancer Mother Ovarian cancer Social History household members: children lives independently: Yes caregiver/support person: No Smoking Status: Former smoker alcohol intake: current substance use type: does not use Assessment & Plan Assessment & Plan narrative: 1. Incarcerated ventral hernia -status post exploratory laparotomy and repair -surgery following -slow to recover bowel function, now improved. -restarted Eliquis for known history of bilateral pulmonary embolism, though stopped 10/22 again given declining anemia. Consider restarting in a few weeks if h/h improves again. 2. Persistent hypertension -started losartan 50 mg q.d. on this admission 3.? Acute on chronic iron deficiency anemia, likely acute blood loss anemia. -does not require transfusion yet, but now stable still Hg is 7.6 today. Will watch a bit longer to make sure no active bleeding. -etiology of iron deficiency and extent of prior evaluation unknown although it looks like she had a colonoscopy in January 2017 -iron sucrose 200 mg IV given on 10/20/2021, consider repeat dose tomorrow if under 8 Hg. -continue to follow. Started PPI for possible stress ulcer and stopped apixaban on 10/22. 4. Continue anastrozole, venlafaxine, thyroid replacement per home routine Dispo: if h/h stable, discharge home with home health vs. SNF tomorrow. Time Spent With Patient Critical Care time: I spent a total of [] minutes of critical care time on this patient's care today; this time is exclusive of procedural time. Quality VTE Deep Vein Thrombosis/Pulmonary Embolism Present on Admission: No
--- NOTE | 2021-10-23 16:18 | PT.IPTN ---
Current Diagnoses Other and unspecified ventral hernia with obstruction, without gangrene (10/16/21) Encounter for follow-up examination after completed treatment for conditions other than malignant neoplasm (10/16/21) Surgery Performed Operation Date: 10/16/21 14:45 Actual Procedures p Exploratory Laparotomy INCISIONAL HERNIA(Not Applicable) - Isaac Paez MD Physical Therapy Treatment Note M2 PT-IP Current Condition Start: 10/18/21 14:29 Freq: NEEDED Status: Active Protocol: Document 10/23/21 15:30 SP (Rec: 10/23/21 17:52 SP [id number]) Physical Therapy Current Condition Current Condition Evaluation Date 10/18/21 Treatment Diagnosis obtructed hernia s/p ex-lap; difficulty in walking Onset Date 10/16/21 M3 PT-IP Subjective Start: 10/18/21 14:29 Freq: NEEDED Status: Active Protocol: Document 10/23/21 15:30 SP (Rec: 10/23/21 17:52 SP [id number]) Subjective Physical Therapy Visit Type Type Treatment Note Visit Start Time 15:30 Visit Stop Time 16:18 Total Visit Minutes 48 Number of [employer] Visits 4 Physical Therapy Visit Comments Patient Comments Agreeable to working with PT after 3rd attempt. Therapy Pain Assessment Pain When Pain Assessed At Rest Pain Present Pain Present Pain Reported Location Abdomen Intensity 6 Scale Used Numeric (0 - 10) Pain Management Techniques Distraction,Modification of Treatment,Re-positioning, Timing of Activity with Medications M4 PT-IP Mobility and Gait Start: 10/18/21 14:29 Freq: NEEDED Status: Active Protocol: Document 10/23/21 15:30 SP (Rec: 10/23/21 17:52 SP [id number]) PT-Bed Mobility Assessment Rolling Type of Rolling Log Rolling,Roll to Right Level of Assist Standby Assistance,1 Person Assistance Supine to Sit Supine to Sit Contact Guard Assistance,1 Person Assistance,Head of Bed Elevated,Bedrails Scooting Scooting to Edge of Bed Contact Guard Assistance PT-Transfer Assessment Sit to and From Stand Sit to and from Stand Minimal Assistance,Moderate Assistance,1 Person Assistance ,Use of Upper Extremities Equipment Transfer Assistive Device Gait Belt,Front Wheeled Walker Orthotic/Prosthetic Devices or Brace: No Transfers Transfer Destination Chair,Toilet Transfer Technique Pt ambulated w/ FWW Transfer Ability Level of Assist Contact Guard Assistance, Minimal Assistance,1 Person Assistance,Use of Upper Extremities Comments Mobility Comments Pt completed high elevated LR L and L SL to sit with use bed rail, CGA, scoot to EOB CGA with extra time to complete. [employer] has flat bed at home and discussed with pt and daughter in room would need alot support to complete, both agreed and daughter stated I can't help you. Sit>stand ambulated into bathroom w/ FWW CG-Min A approx 10 ft, SPT front toilet, A for brief mgt lowering, Min A for slow descent to toilet with cues use of grab bar. Pt had loose stool in brief, assist brief mgt doff. I am going to need more help cleaning up well. [employer] notified nursing assist with pt toileting. Pt completed STS Min A w/ grab bar and static standing approx 1.5 min BUE support on FWW while, CG- Min A for stand balance, nurse assisted pericare, pt returned to sit on toilet Min A, required rest . Sit>stand Min A x1 ambulated to chair approx 8 ft w/ fWW CGA, cues centering and reach back cGA to sit. [employer] provided hand clothes for self hygiene, provided assist for elevating BLE. Pt had call light and all needs in reach. [employer] recommended SNF for increase strengthening toward functional mobility, pt and daughter in agreement. Will continue to assess progress tomorrow. Gait Assessment Gait Gait Assistance Required: Contact Guard Assist,1 Person Assist Distance (Feet) 10 Assistive Devices Assistive Device Gait Belt,Front Wheeled Walker Orthotic/Prosthetic Devices or Brace: No Gait Deviations General Gait Pattern Antalgic,Decreased Stride Length,Decreased Feet Clearance,Flexed Trunk,Wide Based Gait Factors Limiting Gait Function Factors Limiting Gait Function Decreased Activity Tolerance, Decreased Strength,Limited Range of Motion,Pain,Poor Balance,Respiratory Distress Comments Gait Comments Pt decreased gait endurance, cues for body closer to FWW and NBOS for BLE inside FWW, improved posture carryover. Stair Climbing Assessment Comments Stair Climbing Comments no stairs needed to assess. PT-Balance Assessment Sitting Balance and Reactions Static Sitting Balance Ability Good Dynamic Sitting Balance Ability Fair Standing Balance and Reactions Static Standing Balance Ability Fair Dynamic Standing Balance Ability Fair Device Used FWW M5 PT-IP Objective Assessments Start: 10/18/21 14:29 Freq: NEEDED Status: Active Protocol: Document 10/18/21 10:50 AB (Rec: 10/18/21 14:39 AB [id number]) Orientation Orientation/Cognition Level of Alertness Alert Orientation Name,Place,Situation Language Function Ability Hard of Hearing Safety Awareness Decreased Safety Awareness Memory Description No Deficits Noted,Short Term Impaired Strength Lower Extremity Strength Assessment Bilaterally Impaired Hip 3+/5 Knee 4-/5 Sensation Assessment Sensation Gross Sensation WNL Muscle Tone Muscle Tone WNL Yes M6 PT-IP Treatment Start: 10/18/21 14:29 Freq: NEEDED Status: Active Protocol: Document 10/23/21 15:30 SP (Rec: 10/23/21 17:52 SP [id number]) Physical Therapy Treatment Education Education Provided Precautions,Weight Bearing Status,Post-Op Packet,Safety Other Treatments Other Treatment Performed Discussed SNF due to increased assist, daughter stated is unable to provide. M7 PT-IP Assessment and Plan Start: 10/18/21 14:29 Freq: NEEDED Status: Active Protocol: Document 10/23/21 15:30 SP (Rec: 10/23/21 17:52 SP [id number]) PT Summary Assessment and Plan Potential Rehabilitation Potential Fair Status of Condition at Evaluation Evolving Summary Impairments Pain,ROM,Strength,Balance, Coordination,Sensation,Tone, Cognition,Bed Mobility, Transfers,Gait,Activity Tolerance Progress Towards Goals Slow Progress due to Pain,Slow Progress due to Activity Tolerance Assessment Summary Pt limited in mobility secondary to pain and low activity tolerance. She becomes fatigued and SOB upon extertion and requires extra time to complete tasks. CGA for bed mobility with bed high elevation but home bed is flat, will required alot of support daughter unable to provide. Mod> Min A for sit<> Stand and CGA-Asha x1 for 10 ft ambulation w/ FWW however pt not able to amublate farther. Increased fall risk due to quick approach to fatigue, SOB, and weakness. She would benefit from SNF to improve strength and functional mobility with pt and daughter in agreement, will continue to assess. Goals Bed Mobility Goal Minimal Assistance Transfer Goal Minimal Assistance,Front Wheeled Walker Gait Goal Minimal Assistance,Front Wheel Walker Gait Distance 150 Other Goals improve bed mboility, transfers SBA using FWW improve ambulation using FWW SBA 200 ft Days to Meet Goals 10 Frequency of Treatment Frequency Of Treatment Once a Day Treatment Plan Physical Therapy Treatment Plan Bed Mobility Training,Transfer Training,Gait Training, Therapeutic Exercise,Balance Retraining,Post Op Education, Discharge Planning,Hot or Cold Pack,Neuromuscular Re-ed, Coordination Retraining,Manual Therapy Other Recommendations and Next Treatment bed mob, transfers, gait w/ Focus FWW. Precautions Abdominal Surgery Precautions Log Roll,Lifting Restrictions, Gait Belt above Incisional Area Recommendations To Nursing Amount of Assist Needed 1 Person Assist Discharge Recommendations PT Discharge Recommendations SNF Rehab Equipment Needed for Home Before FWW Discharge Transportation Needs at Discharge Private Vehicle,Wheelchair/ Cabulance
[2021-10-24] VITALS: BP 152/77; PULSE 99; RESP 19; TEMP 37.7; O2SAT 95
[2021-10-24 00:15] VITALS: O2SAT 94
[2021-10-24] MEDS: OXYCODONE IR 10 MG TABLET PO (00:25)
[2021-10-24] MEDS: THYROID, PORK 30 MG TABLET 90 MG PO (06:13)
[2021-10-24] MEDS: PANTOPRAZOLE DR 40 MG TABLET PO (06:13)
[2021-10-24 06:31] LABS: BUN Creatinine Ratio 12.2 (6-22); Blood Urea Nitrogen 17 mg/dL (7-17); Carbon Dioxide 18 mmol/L (22-32); Chloride 106 mmol/L (98-107); Estimated Glomerular Filt Rate 37.5 mL/min (>60); Glucose 169 mg/dL (80-110); HEMOLYSIS < 15 (0-50); Potassium 3.8 mmol/L (3.4-5.1); Sodium 135 mmol/L (137-145)
[2021-10-24 06:34] LABS: Add Manual Diff / Slide Review NO; Basophils Absolute Auto 0 /uL (0-100); Basophils Percent Auto 0.1 % (0-2); Eosinophils Absolute Auto 100 /uL (0-450); Eosinophils Percent Auto 0.4 % (2-4); Hematocrit 28.5 % (36-46); Hemoglobin 8.5 g/dL (12.0-16.0); Lymphocytes Absolute Auto 1200 /uL (1100-4500); Lymphocytes Percent Auto 8.6 % (25-40); Mean Corpuscular HGB Conc 29.8 % (30-36); Mean Corpuscular Hemoglobin 20.6 PG (26-34); Mean Corpuscular Volume 69.2 fL (80-100); Monocytes Absolute Auto 1500 /uL (0-900); Monocytes Percent Auto 10.7 % (3-14); Neutrophils Absolute Auto 11400 /uL (1500-7000); Neutrophils Percent Auto 80.2 % (50-75); Platelet Count 629 X10^3/uL (150-400); Red Blood Cell Count 4.12 X10^6/uL (4.0-5.2); Red Cell Distribution Width 20.3 % (11.6-14.8); White Blood Cell Count 14.2 X10^3/uL (4.5-11.0)
[2021-10-24 07:00] VITALS: TEMP 36.8
[2021-10-24 07:18] LABS: Anisocytosis 2+; Hypochromasia 2+; Poikilocytosis 1+; Polychromasia 1+
--- NOTE | 2021-10-24 08:21 | P.DS_ITS ---
History of Present Illness History of Present Illness Date Patient Seen: 10/24/21 Time Patient Seen: 18:19 Chief complaint: pain/heat in stomach, dry heaving, dehydrated Narrative: Per Dr. Arana, Pt presented with acute abdominal pain dry heaving dehydration found to have strangulated hernia now s/p repair by Dr. Paez. She does have hx of colon resection for benign tumor.? Gets around ok with cane at baseline. Allergic to percocet davocet NSAIDs and Sulfas. Pt seen in postop she is feeling much better now. Discharge Providers Provider Date of admission: 10/16/21 15:45 Discharge Date: 10/24/21 Primary care physician: Avani Chavez MD Consults: 10/16/21 16:35 Consult to Respiratory Therapy Evaluate & Treat Comment: Physician Instructions: Evaluate and treat 10/16/21 18:27 Consult to Dietitian, Adult Routine Comment: Reason For Exam: bmi 50 Consult to Discharge Planning Routine Comment: Consult to Physical Therapy Evaluate & Treat Comment: Physician Instructions: Evaluate and Treat 10/23/21 14:32 Consult to Home Health Routine Comment: Reason For Exam: Home Health RN, P.T, O.T, bath aide Discharge provider: Yang Frausto DO Summary Hospital Course Discharge Diagnosis: 1. Incarcerated ventral hernia 2. Persistent hypertension 3.? Acute on chronic iron deficiency anemia, likely acute blood loss anemia. 4. History of pulmonary embolism. Hospital Course: This is a 70-year-old female who was admitted with an incarcerated ventral hernia. She underwent exploratory laparotomy and repair which General surgery. Her bowel function was slow to recover but ultimately improved. Her course was complicated by a slight acute on chronic iron deficiency anemia, likely exacerbated by acute blood loss in the setting of surgery. This declined to a hemoglobin as low as 7.6. She was given a dose of IV iron. Shortly prior to discharge she was started on a PPI for a possible stress ulcer and her apixaban was held briefly. Her H&H responded quite well and she had no overt evidence of bleeding. Her Eliquis can be resumed at the time of discharge and she was started on an oral PPI. For elevated blood pressures she was started on losartan this admission. No other changes were made to her home medications. Patient had difficulty ambulating after surgery and was ultimately transferred to long-term facility for further physical and occupational therapy prior to likely returning home. Time Spent with Patient Time spent: Greater than 30 minutes Exam Vital Signs (past 8 hours): - 10/24/21 07:00 Temperature 98.3 F Fraction of Inspired Oxygen 21 Oxygen Delivery Method Room Air,CPAP Oxygen Flow Rate 0 Narrative Exam Narrative: General:? Alert uncomfortable appearing female Lungs:? CTA b/l without wheezing, rhonchi, rales CV: RRR no m/r/g. Abdomen:? Obese, surgical binder on but feels soft, mild distension epigastric region. Extremities:? No edema Neurological:? Fully oriented, affect slightly flat, speech normal Objective Labs Result Diagrams: 10/24/21 06:05 10/24/21 06:05 Labs: Laboratory Results - last 24 hr 10/24/21 10/24/21 06:05 06:05 WBC 14.2 H D RBC 4.12 Hgb 8.5 L Hct 28.5 L MCV 69.2 L MCH 20.6 L MCHC 29.8 L RDW 20.3 H Plt Count 629 H Neut % (Auto) 80.2 H Lymph % (Auto) 8.6 L Sharp % (Auto) 10.7 Eos % (Auto) 0.4 L Baso % (Auto) 0.1 Neut # (Auto) 99225 H Lymph # (Auto) 1200 Sharp # (Auto) 1500 H Eos # (Auto) 100 Baso # (Auto) 0 RBC Morphology Not Reportable Polychromasia 1+ H Hypochromasia 2+ H Poikilocytosis 1+ H Anisocytosis 2+ H Sodium 135 L Potassium 3.8 Chloride 106 Carbon Dioxide 18 L BUN 17 Creatinine 1.39 H Estimated GFR 37.5 L BUN/Creatinine Ratio 12.2 Glucose 169 H Calcium 9.0 PFSH Medical History (Updated 10/20/21 @ 11:46 by Alexis Sadler MD) Bilateral pulmonary embolism Breast cancer Depression Febrile illness Hypothyroidism Lymphedema Morbid obesity with BMI of 40.0-44.9, adult Morbid obesity with body mass index (BMI) of 50.0 to 59.9 in adult Obstructive sleep apnea of adult Primary insomnia Sarcoidosis Snoring UTI (urinary tract infection) Surgical History H/O exploratory laparotomy S/P lumpectomy, right breast Family History Father Leukemia Brother Diabetes mellitus Sister Diabetes mellitus Breast cancer Mother Ovarian cancer Social History household members: children lives independently: Yes caregiver/support person: No Smoking Status: Former smoker alcohol intake: current substance use type: does not use Discharge Plan Discharge Plan Patient Disposition: SNF Provider Discharge Comment: Patient was admitted for hernia with bowel obstruction for which she underwent surgery. Was slow to improve. Started on BP medications during her stay. Transfer to SNF for continued PT/OT prior to returning home. 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 TAKES AN EXTRA 15MG ON AND anastrozole 1 mg tablet 1 mg PO DAILY 0RF thyroid (pork) 15 mg Capsule 15 mg PO 2XW 0RF Rx Instructions: thursday and morning Eliquis 5 mg tablet 5 mg PO BID 0RF Label Comments: TAKE 1 TABLET BY MOUTH TWICE DAILY (DME) Respironics Dreamstation BIPAP Qty: 1 0RF Dose Instruction: As directed Label Comments: Pressure: IPAP 16 EPAP 6 Min/Max 4 DME: [facility] Rx Instructions: As directed Follow up/Referrals: Avani Chavez MD [Primary Care Provider] - Discharge Health Status Multidrug resistant organism: No MDRO Precautions: [place] Diet/Activity/Treatments Diet: Diet as Tolerated Activity: As tolerated, no heavy lifting (15 lbs) [facility] Reason for rehabilitation: Post-operative therapy Rehab type: Physical therapy and Occupational therapy Visit Report/Discharge Packet Instructions: DI for Laparoscopy, Ventral Hernia, [facility]: Wound Care Discharge Data Primary Care Provider: Avani Chavez Quality VTE Deep Vein Thrombosis/Pulmonary Embolism Present on Admission: No
[2021-10-24] MEDS: VENLAFAXINE ER 75 MG CAP 225 MG PO (10:46)
[2021-10-24] MEDS: SODIUM CHLORIDE 0.9% FLUSH 10 ML IV (10:46)
[2021-10-24 10:47] VITALS: BP 149/79; PULSE 94
[2021-10-24] MEDS: LOSARTAN 25 MG TABLET 50 MG PO (10:47)
[2021-10-24] MEDS: DOCUSATE 100 MG CAPSULE PO (10:48)
[2021-10-24] MEDS: ANASTROZOLE 1 MG TABLET PO (10:48)
[2021-10-24 10:50] VITALS: BP 149/79; PULSE 94; TEMP 36.1; O2SAT 94
[2021-10-24 11:30] VITALS: O2SAT 94
--- NOTE | 2021-10-24 11:55 | PT-IP ANOTE ---
Attempted to see pt at 11:55 AM, pt refused treatment due to wanting to rest prior to transfer to SNF.
[2021-10-24 12:57] LABS: COVID19 -Nasal RAPID Negative (Negative)
[2021-10-24] MEDS: HYDROCODONE/ACET 5/325 TABLET 1 TAB PO (14:47)
--- NOTE | 2021-10-24 15:33 | PC.NURSE ---
Pt received sleeping with CPAP machine. She is easily awakened and A&Ox3 requesting to rest this a.m. She denies pain this a.m. Abdominal incision with aquacel with shadow drainage. BS+x4, abdomen soft and tender. She declines to eat breakfast, only requesting to drink juice and go back to sleep. She requires assistance to reposition. She is medically cleared for discharge today to a SNF, and is agreeable with discharge plan. VSS, afebrile on RA. She has much difficulty getting up to the bed, requiring 2 person assist to the BR. She requires assistance to clean after loose stool. Transporter arrived at 1445 and patient patient is transported via wheelchair at 1505 with discharge packet given to facility designee. Daughter at bedside supportive.
== END 2021-10-24 15:05 | DRG 354 ==
LOC: ED 15:42 → AC 16:10
PROVIDERS: Emergency Medicine; Internal Medicine; Surgery; Admitting Provider Family Medicine; Emergency Provider Nurse Practitioner Family; Family Provider Internal Medicine; PCP Internal Medicine; Referring Provider Nurse Practitioner Family; Visit Provider Internal Medicine
PROC: 0WUF0JZ Supplement Abdominal Wall with Synthetic Substitute, Open Approach (ICD-10-PCS; CPT 49000; principal; 2021-10-16 14:45)
DX: K43.0 Incisional hernia with obstruction, without gangrene (principal); Z68.43 Body mass index [BMI] 50.0-59.9, adult; D62 Acute posthemorrhagic anemia; F32.1 Major depressive disorder, single episode, moderate; E66.01 Morbid (severe) obesity due to excess calories; D50.9 Iron deficiency anemia, unspecified; E03.9 Hypothyroidism, unspecified; I10 Essential (primary) hypertension; E86.0 Dehydration; G47.33 Obstructive sleep apnea (adult) (pediatric); Z87.891 Personal history of nicotine dependence; Z20.822 Contact with and (suspected) exposure to COVID-19; Z85.3 Personal history of malignant neoplasm of breast; Z86.711 Personal history of pulmonary embolism; Z79.01 Long term (current) use of anticoagulants
CPT/HCPCS: 36415; 74177; 80048; 80053; 81003; 82550; 82553; 82962; 83036; 83540; 83550; 83605; 83690; 84484; 85025; 85610; 85730; 87635; 93005; 94760; 96361; 96374; 96375; 97116; 97162; 97530; 99284; C9803; C9113; J1100; J1644; J1650; J1756; J1815; J2250; J2270; J2405; J2704; J3010; Q9967

== ENCOUNTER 2021-11-13 18:05 | Emergency (ER) | payer OTHER, SELFPAY ==
[2021-10-16 20:05] VITALS: BMI 50.5
[2021-11-13] VITALS (16 sets, daily range): BP systolic 164–217; BP diastolic 69–97; PULSE 79–115; RESP 17–31; TEMP 36.1; O2SAT 83–100
[2021-11-13 19:39] LABS: Appearance Urine UA SL CLOUDY; Bilirubin Urine UA NEGATIVE (NEGATIVE); Color Urine UA YELLOW; Glucose Urine UA NEGATIVE (Negative); Ketones Urine UA NEGATIVE (NEGATIVE); Leukocyte Esterase Urine UA 1+ (NEGATIVE); Nitrite Urine UA POSITIVE (Negative); Occult Blood Urine UA 1+ (Negative); Protein Urine UA TRACE (Negative); Specific Gravity Urine UA <=1.005 (1.000-1.035); Urobilinogen Urine UA 0.2 E.U./dL (0.2)
--- NOTE | 2021-11-13 19:39 | ED_ITS ---
HPI - General Adult General Chief complaint: Urogenital-Female Stated complaint: back pain Time Seen by Provider: 11/13/21 19:05 Source: patient and family Mode of arrival: Wheelchair History of Present Illness HPI narrative: 70-year-old woman with morbid obesity I history of hypothyroidism, depression recent incarcerated abdominal wall hernia with surgical repair in discharge from the hospital on October 24 presents with left flank pain up to the lower posterior lungs that is been worse for the last 4 days. Today was hurting enough that she was no longer able to tolerate being at home. She notes that she has not had fevers, she is not having diarrhea or vomiting. She notes that she does have some mild dysuria and complains that she is becoming increasingly weak to the point where it is difficult to walk. She reports no cough, no anterior chest pain and no palpitations. No recent headaches. Related Data Home Medications Medication Instructions Recorded Confirmed RespirTrueSpans Dreamstation BIPAP #1 ea 12/23/18 10/16/21 thyroid (pork) 90 mg tablet (ASSIGNMENT EDITOR 90 mg PO DAILY 08/07/19 10/16/21 Thyroid) venlafaxine 150 mg 225 mg PO QAM 08/07/19 10/16/21 capsule,extended release 24 hr (Effexor XR) anastrozole 1 mg tablet 1 mg PO DAILY 12/05/20 10/16/21 thyroid (pork) 15 mg capsule 15 mg PO 2XW 05/27/21 10/16/21 apixaban 5 mg tablet (Eliquis) 5 mg PO BID 10/18/21 10/18/21 Previous Rx's Medication Instructions Recorded docusate sodium 100 mg capsule 100 mg PO BID 30 Days #60 cap 10/24/21 losartan 50 mg tablet 50 mg PO DAILY 30 Days #30 tab 10/24/21 pantoprazole 40 mg tablet,delayed 40 mg PO DAILY 30 Days #30 tab 10/24/21 release levofloxacin 500 mg tablet 500 mg PO DAILY #5 tab 11/14/21 ondansetron 4 mg disintegrating 4 mg PO Q8H PRN #10 tab 11/14/21 tablet Allergies Allergy/AdvReac Type Severity Reaction Status Date / Time amoxicillin [AMOXICILLIN] Allergy Severe HIVES Verified 10/16/21 14:07 NSAIDS (Non-Steroidal Allergy Severe ANAPHYLAXIS Verified 10/16/21 14:07 Anti-Inflamma [NSAIDS (NON-STEROIDAL ANTI-INFLAMMA] Penicillins [PENICILLINS] Allergy Intermediate HIVES Verified 10/16/21 14:07 Sulfa (Sulfonamide Allergy Intermediate ITCH Verified 10/16/21 14:07 Antibiotics) [SULFA (SULFONAMIDE ANTIBIOTICS)] cephalexin [From KEFLEX] Allergy Mild ITCHY Verified 10/16/21 14:07 oxycodone [OXYCODONE] AdvReac Intermediate AMNESIA Verified 10/16/21 14:07 meperidine [MEPERIDINE] AdvReac Mild AMNESIA Verified 10/16/21 14:07 Review of Systems Review of Systems Narrative: Remainder of complete review of systems is otherwise unremarkable except for that included in the HPI. Patient History Medical History Bilateral pulmonary embolism Breast cancer Depression Febrile illness Hypothyroidism Lymphedema Morbid obesity with BMI of 40.0-44.9, adult Morbid obesity with body mass index (BMI) of 50.0 to 59.9 in adult Obstructive sleep apnea of adult Primary insomnia Sarcoidosis Snoring UTI (urinary tract infection) Surgical History H/O exploratory laparotomy S/P lumpectomy, right breast Family History Father Leukemia Brother Diabetes mellitus Sister Diabetes mellitus Breast cancer Mother Ovarian cancer Social History household members: children lives independently: Yes caregiver/support person: No Smoking Status: Former smoker alcohol intake: current substance use type: does not use Smoking Status: Former smoker alcohol intake frequency: a few times a month Substance Use Type: does not use Exam Initial Vital Signs Initial Vital Signs: Vital Signs Temperature 96.9 F L 11/13/21 18:11 Pulse Rate 115 H 11/13/21 18:11 Respiratory Rate 24 11/13/21 18:11 Blood Pressure 164/97 H 11/13/21 18:11 Pulse Oximetry 97 11/13/21 18:11 General: Appears to be uncomfortable, slightly pale but then Able to give a complete and coherent history. Well-nourished well-developed HEENT: Moist mucous membranes, normal sclera with reactive pupils, Neck: No cervical adenopathy supple Respiratory: Lungs are clear to auscultation, no wheezing no rales no rhonchi. Full and symmetrical air movement Cardiac: Regular rate and rhythm no murmurs no bruits Abdomen: Soft, left flank pain and mild left upper abdominal tenderness. No rebound or guarding. Skin: Warm and dry, no rashes Neurologic: Grossly neurologically intact with no obvious asymmetries or abnormalities Extremities: No trauma, well perfused Psych: Cooperative, appropriate insight and affect Course Orders Ordered: ED Orders 11/13/21 19:10 Urinalysis and Microscopic Stat Urine Culture Stat 11/13/21 19:47 XR chest 1V Stat 11/13/21 20:00 Complete Blood Count AUTO DIFF Stat Comprehensive Metabolic Panel Stat Lactate (Lactic Acid) Stat Lipase Stat Procalcitonin Stat 11/13/21 20:54 Blood Culture Stat 11/13/21 21:20 COVID19 -Nasal swab/Pre-Proc Stat 11/13/21 23:39 CT abdomen pelvis w con Stat Discontinued Medications Hydrocodone Bitart/Acetaminophen (Hydrocodone/Acet 5/325 Tablet) 2 tab PO NOW ONE Stop: 11/14/21 01:29 Last Admin: 11/14/21 01:36 Dose: 2 tab Documented by: CHASIDY Hydrocodone Bitart/Acetaminophen (Hydrocodone/Acet 5/325 Prepack) 1 bottle MISC SEEINSTR ONE Stop: 11/14/21 01:29 Last Admin: 11/14/21 01:36 Dose: 1 bottle Documented by: CHASIDY Hydromorphone HCl (Hydromorphone 0.5 Mg Inj) 0.5 mg IV Q15MIN PRN PRN Reason: Pain, Last Admin: 11/13/21 22:37 Dose: 0.5 mg Documented by: Admin: 11/13/21 20:03 Dose: 0.5 mg Documented by: DEBRA Sodium Chloride (Normal Saline 0.9%) 1,000 mls @ 1,000 mls/hr IV BOLUS ONE Stop: 11/13/21 20:45 Last Infusion: 11/13/21 22:43 Dose: 0 mls/hr Documented by: Admin: 11/13/21 20:02 Dose: 1,000 mls/hr Documented by: DEBRA Levofloxacin (Levaquin) 750 mg in 150 mls @ 100 mls/hr IV NOW ONE Stop: 11/13/21 21:17 Last Infusion: 11/13/21 22:11 Dose: 0 mls/hr Documented by: Admin: 11/13/21 20:59 Dose: 100 mls/hr Documented by: CHASIDY Ondansetron HCl (Ondansetron 4 Mg/2 Ml Inj) 4 mg IV NOW ONE Stop: 11/13/21 19:47 Last Admin: 11/13/21 20:03 Dose: 4 mg Documented by: DEBRA Vital Signs Vital signs: Vital Signs - 8 hr 11/13/21 20:20 11/13/21 20:24 11/13/21 20:30 Pulse Rate 98 H 82 92 H Respiratory Rate Blood Pressure 195/83 H Pulse Oximetry 83 L 99 100 11/13/21 21:00 11/13/21 21:17 11/13/21 21:30 Pulse Rate 85 86 85 Respiratory Rate 19 23 Blood Pressure 191/77 H Pulse Oximetry 93 95 96 11/13/21 21:31 11/13/21 22:00 11/13/21 22:01 Pulse Rate 88 86 91 H Respiratory Rate 23 31 H 29 H Blood Pressure 217/84 H 179/69 H Pulse Oximetry 96 98 97 11/13/21 22:30 11/13/21 22:31 11/13/21 23:00 Pulse Rate 80 79 83 Respiratory Rate 23 24 23 Blood Pressure 206/81 H Pulse Oximetry 95 96 94 11/13/21 23:01 11/13/21 23:30 11/13/21 23:31 Pulse Rate 80 82 83 Respiratory Rate 17 20 23 Blood Pressure 212/77 H 188/72 H Pulse Oximetry 93 98 98 11/14/21 00:04 11/14/21 00:30 11/14/21 01:00 Pulse Rate 88 73 73 Respiratory Rate 18 19 Blood Pressure Pulse Oximetry 98 99 100 11/14/21 01:30 Pulse Rate 73 Respiratory Rate 22 Blood Pressure Pulse Oximetry 99 Medical Decision Making Lab Data Result diagrams: 11/13/21 20:00 11/13/21 20:00 Labs: Lab Results 11/13/21 11/13/21 11/13/21 Range/Units 19:10 20:00 20:00 WBC 6.6 (4.5-11.0) X10^3/uL RBC 3.72 L (4.0-5.2) X10^6/uL Hgb 8.4 L (12.0-16.0) g/dL Hct 26.1 L (36-46) % MCV 70.3 L (80-100) fL MCH 22.5 L (26-34) PG MCHC 32.0 (30-36) % RDW 25.2 H (11.6-14.8) % Plt Count 401 H (150-400) X10^3/uL Neut % (Auto) 64.8 (50-75) % Lymph % (Auto) 20.3 L (25-40) % Mcmullen % (Auto) 11.6 (3-14) % Eos % (Auto) 2.9 (2-4) % Baso % (Auto) 0.4 (0-2) % Neut # (Auto) 4300 (0865-3476) /uL Lymph # (Auto) 1300 (2893-7048) /uL Mcmullen # (Auto) 800 (0-900) /uL Eos # (Auto) 200 (0-450) /uL Baso # (Auto) 0 (0-100) /uL Platelet Estimate Increased on smear RBC Morphology See below Hypochromasia 2+ H Anisocytosis 3+ H Microcytosis 2+ H Spherocytes 1+ H Ovalocytes 1+ H Sodium 137 (137-145) mmol/L Potassium 3.7 (3.4-5.1) mmol/L Chloride 104 (98-107) mmol/L Carbon Dioxide 28 (22-32) mmol/L BUN 15 (7-17) mg/dL Creatinine 1.05 H (0.52-1.04) mg/dL Estimated GFR 51.8 L (>60) mL/min BUN/Creatinine Ratio 14.3 (6-22) Glucose 101 (80-110) mg/dL Lactate (0.7-2.1) mmol/L Calcium 9.3 (8.4-10.2) mg/dL Total Bilirubin 0.6 (0.2-1.3) mg/dL AST 25 (14-36) IU/L ALT 20 (<35) IU/L Alkaline Phosphatase 101 (38-126) U/L Total Protein 6.9 (6.3-8.2) g/dL Albumin 3.9 (3.5-5.0) g/dL Globulin 3.0 (1.7-4.1) g/dL Albumin/Globulin Ratio 1.3 (1.0-2.8) Lipase (23-300) U/L Procalcitonin (<0.5) ng/mL Urine Color Yellow Urine Appearance Sl cloudy Urine pH 7.0 (4.5-8.0) Ur Specific [place] <=1.005 (1.000-1.035) Urine Protein Trace H (Negative) Urine Glucose (UA) Negative (Negative) g/dL Urine Ketones Negative (NEGATIVE) Urine Occult Blood 1+ H (Negative) Urine Nitrate Positive H (Negative) Urine Bilirubin Negative (NEGATIVE) Urine Urobilinogen 0.2 (0.2) E.U./dL Ur Leukocyte Esterase 1+ H (NEGATIVE) Urine RBC 1-5/hpf (0-5/HPF) Urine WBC 30-100/hpf H (0-5/HPF) Ur Squamous Epith Cells 0-1 /hpf (0-5/HPF) Urine Bacteria Many (>30) H (None) Ur Culture Indicated? Specimen cultured SARS-CoV-2 (PCR) (Negative) 11/13/21 11/13/21 11/13/21 Range/Units 20:00 20:00 21:20 WBC (4.5-11.0) X10^3/uL RBC (4.0-5.2) X10^6/uL Hgb (12.0-16.0) g/dL Hct (36-46) % MCV (80-100) fL MCH (26-34) PG MCHC (30-36) % RDW (11.6-14.8) % Plt Count (150-400) X10^3/uL Neut % (Auto) (50-75) % Lymph % (Auto) (25-40) % Mcmullen % (Auto) (3-14) % Eos % (Auto) (2-4) % Baso % (Auto) (0-2) % Neut # (Auto) (3234-0435) /uL Lymph # (Auto) (8290-4799) /uL Mcmullen # (Auto) (0-900) /uL Eos # (Auto) (0-450) /uL Baso # (Auto) (0-100) /uL Platelet Estimate RBC Morphology Hypochromasia Anisocytosis Microcytosis Spherocytes Ovalocytes Sodium (137-145) mmol/L Potassium (3.4-5.1) mmol/L Chloride (98-107) mmol/L Carbon Dioxide (22-32) mmol/L BUN (7-17) mg/dL Creatinine (0.52-1.04) mg/dL Estimated GFR (>60) mL/min BUN/Creatinine Ratio (6-22) Glucose (80-110) mg/dL Lactate 1.5 (0.7-2.1) mmol/L Calcium (8.4-10.2) mg/dL Total Bilirubin (0.2-1.3) mg/dL AST (14-36) IU/L ALT (<35) IU/L Alkaline Phosphatase (38-126) U/L Total Protein (6.3-8.2) g/dL Albumin (3.5-5.0) g/dL Globulin (1.7-4.1) g/dL Albumin/Globulin Ratio (1.0-2.8) Lipase 198 (23-300) U/L Procalcitonin 0.13 (<0.5) ng/mL Urine Color Urine Appearance Urine pH (4.5-8.0) Ur Specific [place] (1.000-1.035) Urine Protein (Negative) Urine Glucose (UA) (Negative) g/dL Urine Ketones (NEGATIVE) Urine Occult Blood (Negative) Urine Nitrate (Negative) Urine Bilirubin (NEGATIVE) Urine Urobilinogen (0.2) E.U./dL Ur Leukocyte Esterase (NEGATIVE) Urine RBC (0-5/HPF) Urine WBC (0-5/HPF) Ur Squamous Epith Cells (0-5/HPF) Urine Bacteria (None) Ur Culture Indicated? SARS-CoV-2 (PCR) Negative (Negative) Imaging Data Chest x-ray: Radiologist's Impression: FINDINGS:? ? Surgical changes and devices:? None.? ? Lungs and pleura:? Evaluation is limited by lordotic projection.? There is increased opacities within the lung bases which may represent atelectasis, consolidation, or artifact from lordotic projection.? No definite pleural effusions or pneumothorax.? ? Mediastinum:? There is widening of the mediastinal contours and enlargement of the heart contours which may be due to technique. ? Bones and chest wall:? No suspicious bony lesions.? Overlying soft tissues appear unremarkable.? ? IMPRESSION:? ? 1. Limited evaluation due to lordotic projection with increased basilar opacities which may represent atelectasis, consolidation, or artifact from technique.? Recommend a repeat PA and lateral study when clinically feasible. ? ? Dictated by: Deshaun Small M.D. on 11/13/2021 at 20:55 ? ? CT scan - abdomen/pelvis: Radiologist's Impression: FINDINGS:? Image quality:? Excellent.? ? Lung bases:? There are new clustered nodules within the right middle lobe i nferiorly along the major fissure with bibasilar patchy indistinct ground-glass opacities.? The findings are suggestive pneumonia or other infectious/inflammatory process.? Mild dependent atelectasis is demonstrated bilaterally.? ? Heart:? Heart is normal in size. ? ? ABDOMEN: Liver:? There is a subcapsular region of hypoattenuation redemonstrated medially within segment 7 of the right hepatic lobe measuring up to 1.6 x 1.5 cm which appears similar to the prior studies.? Anteriorly within segment 4 the left hepatic lobe, there is an indistinct lesion with eccentric peripheral hypervascular enhancement likely representing a hemangioma and which appears similar in size compared to the prior studies given differences in the phase of enhancement. Gallbladder:? Within normal limits without calcified gallstones.? ? Biliary ducts:? No biliary ductal dilatation.? ? Pancreas:? Within the pancreatic tail, there is an oval fat-containing lesion measuring up to 1.9 x 1.4 cm in transverse dimension which appears similar in size compared to the prior studies.? The findings likely represent a lipoma.? No pancreatic duct dilatation.? No peripancreatic fat stranding or fluid collections.? ? Spleen:? Normal in size.? ? Adrenal Glands:? No adrenal nodules.? ? Kidneys and Ureters:? No hydronephrosis.? Multiple bilateral renal cysts are redemonstrated including multiple small left parapelvic cysts.? ? ? Stomach and Bowel:? A gastric lap band is present.? Stomach, small bowel loops, and colon are normal in caliber and wall thickness.? Peritoneum:? No abnormal intraperitoneal fluid.? No free air.? ? Ventral Wall: ? There are postsurgical changes within the ventral abdominal wall consistent with interval hernia repair.? There is a loculated supraumbilical subcutaneous fluid collection demonstrated along the surgical bed measuring approximately 6.4 x 3.3 cm in transverse dimension by 6.6 cm in craniocaudal dimension Abdominal Nodes:? No retroperitoneal or mesenteric adenopathy by size criteria.? Vessels:? Aorta and inferior vena cava are normal in size.? ? PELVIS: Pelvic Organs:? Unremarkable.? ? Bladder:? Unremarkable.? ? Pelvic Nodes: No enlarged lymph nodes.? Miscellaneous: No inguinal hernias are seen. ? ? ? Bones:? Visualized osseous structures demonstrate no suspicious focal lesions. ? IMPRESSION:? ? 1.? Loculated subcutaneous fluid collection demonstrated within the ventral a bdominal wall along the surgical site from prior hernia repair is suggestive of an abscess collection.? The differential includes a resolving hematoma/seroma.? Recommend correlation clinically. ? 2. Colonic diverticulosis without acute diverticulitis.? ? ? Dictated by: Deshaun Small M.D. on 11/14/2021 at 0:10 ? [facility] Narrative Medical decision making narrative: 70-year-old woman presents with left abdominal and flank pain with urine that does look like it is infected no significantly elevated white blood cell count but increasing abdominal and retroperitoneal pain in the setting of recent abdominal surgery as well as anticoagulation on Eliquis. She has a history of sarcoidosis prior bilateral pulmonary emboli. She is tachycardic on arrival and she looks like she is more toxic than 1 could explain with a simple bladder infection and lab work does not suggest she has severe pyelonephritis nor sepsis. Will go ahead and do a CT scan of the abdomen to make sure there are no additional findings, surgical complications or retroperitoneal bleeding CT scan is essentially unremarkable. There is a description of loculated supraumbilical subcutaneous fluid collection measuring 6.4 x 3.3 x 6.6 cm. On clinical exam there is no corresponding tenderness, erythema or drainage. H&H is not significantly decreased to suggest that this would be a hematoma. I suspect that this is of a seroma that does not appear to be infected at this time. Will treat her for a bladder infection and will give her a couple of days of Vicodin as this is the oral narcotic that she tolerates best. Fortunately no significant abnormalities appreciated on CT scan specifically no kidney stones, retroperitoneal hematoma, surgical complications, colitis, diverticulitis, pancreatitis or alternate explanations for the left-sided pain that would require hospitalization. Heart rate has come down nicely with L of fluid, she has never been hypotensive, lactic acid is not elevated nor is procalcitonin suggesting the absence of sepsis. Reviewed questions are answered and she is safe for home discharge Discharge Plan Departure Patient Disposition: Home Clinical Impression: UTI (urinary tract infection), Abdominal pain Instructions: DI for Urinary Tract Infection (UTI) Activity Restrictions/Additional Instructions: Thank you for coming in today You do have a bladder infection and I do want you to finish 5 days of Levaquin. I have also given you a short prescription for Vicodin to help with pain control as well as Zofran to help with nausea. [facility] Your workup today does not suggest sepsis(overwhelming infection), kidney stone, abscess in your abdomen, diverticulitis, complications of your recent surgery or recurrent hernia, bleeding inside your abdomen or other complications that would require hospitalization. If you find that you are not improving over the next 24-48 hours please feel free to return to the emergency department. Prescriptions: New levofloxacin 500 mg tablet 500 mg PO DAILY Qty: 5 0RF ondansetron 4 mg tablet,disintegrating 4 mg PO Q8H PRN (Reason: nausea and vomiting) Qty: 10 0RF No Action venlafaxine [Effexor XR] 150 mg Capsule,Extended Release 24hr 225 mg PO QAM 0RF Label Comments: states takes 225 mg once/day thyroid (pork) [ASSIGNMENT EDITOR Thyroid] 90 mg Tablet 90 mg PO DAILY 0RF Label Comments: Norman thyroid. TAKES AN EXTRA 15MG ON AND anastrozole 1 mg tablet 1 mg PO DAILY 0RF thyroid (pork) 15 mg Capsule 15 mg PO 2XW 0RF Rx Instructions: thursday and morning Eliquis 5 mg tablet 5 mg PO BID 0RF Label Comments: TAKE 1 TABLET BY MOUTH TWICE DAILY docusate sodium 100 mg Capsule 100 mg PO BID 30 Days Qty: 60 0RF losartan 50 mg tablet 50 mg PO DAILY 30 Days Qty: 30 0RF pantoprazole 40 mg Tablet,Delayed Release (Dr/Ec) 40 mg PO DAILY 30 Days Qty: 30 0RF (DME) RespirFlexiroam Dreamstation BIPAP Qty: 1 0RF Dose Instruction: As directed Label Comments: Pressure: IPAP 16 EPAP 6 Min/Max 4 DME: [facility] Rx Instructions: As directed Referrals: Avani Chavez MD [Primary Care Provider] -
--- NOTE | 2021-11-13 19:47 | DI.RAD.S_ITS ---
PROCEDURE: XR CHEST 1V INDICATIONS: left post lower lung pain TECHNIQUE: One view of the chest was acquired. COMPARISON: [facility], , XR CHEST 2V, 06/07/2020, 11:50. FINDINGS: Surgical changes and devices: None. Lungs and pleura: Evaluation is limited by lordotic projection. There is increased opacities within the lung bases which may represent atelectasis, consolidation, or artifact from lordotic projection. No definite pleural effusions or pneumothorax. Mediastinum: There is widening of the mediastinal contours and enlargement of the heart contours which may be due to technique. Bones and chest wall: No suspicious bony lesions. Overlying soft tissues appear unremarkable. IMPRESSION: 1. Limited evaluation due to lordotic projection with increased basilar opacities which may represent atelectasis, consolidation, or artifact from technique. Recommend a repeat PA and lateral study when clinically feasible. Dictated by: Deshaun Small M.D. on 11/13/2021 at 20:55 Approved by: Deshaun Small M.D. on 11/13/2021 at 20:57
[2021-11-13 19:53] LABS: Bacteria Urine Many (>30); Culture Indicated Urine Specimen Cultured; RBC Urine 1-5/HPF (0-5/HPF); Squamous Epithelial Cell Urine 0-1 /HPF (0-5/HPF); WBC Urine 30-100/HPF (0-5/HPF)
[2021-11-13] MEDS: SODIUM CHLORIDE 0.9% 1,000 ML 1000 ML IV (20:02)
[2021-11-13] MEDS: HYDROMORPHONE 0.5 MG INJ IV ×2 (20:03→22:37)
[2021-11-13] MEDS: ONDANSETRON 4 MG/2 ML INJ IV (20:03)
[2021-11-13 20:39] LABS: Lipase 198 U/L (23-300)
[2021-11-13 20:40] LABS: Alanine Aminotransferase 20 IU/L (<35); Albumin 3.9 g/dL (3.5-5.0); Albumin Globulin Ratio 1.3 (1.0-2.8); Alkaline Phosphatase 101 U/L (38-126); Aspartate Aminotransferase 25 IU/L (14-36); BUN Creatinine Ratio 14.3 (6-22); Bilirubin Total 0.6 mg/dL (0.2-1.3); Blood Urea Nitrogen 15 mg/dL (7-17); Calcium 9.3 mg/dL (8.4-10.2); Carbon Dioxide 28 mmol/L (22-32); Chloride 104 mmol/L (98-107); Estimated Glomerular Filt Rate 51.8 mL/min (>60); Glucose 101 mg/dL (80-110); HEMOLYSIS < 15 (0-50); Potassium 3.7 mmol/L (3.4-5.1); Sodium 137 mmol/L (137-145); Total Protein 6.9 g/dL (6.3-8.2)
[2021-11-13 20:41] LABS: Lactate (Lactic Acid) 1.5 mmol/L (0.7-2.1)
[2021-11-13 20:44] LABS: Add Manual Diff / Slide Review NO; Basophils Absolute Auto 0 /uL (0-100); Basophils Percent Auto 0.4 % (0-2); Eosinophils Absolute Auto 200 /uL (0-450); Eosinophils Percent Auto 2.9 % (2-4); Hematocrit 26.1 % (36-46); Hemoglobin 8.4 g/dL (12.0-16.0); Lymphocytes Absolute Auto 1300 /uL (1100-4500); Lymphocytes Percent Auto 20.3 % (25-40); Mean Corpuscular Hemoglobin 22.5 PG (26-34); Mean Corpuscular Volume 70.3 fL (80-100); Monocytes Absolute Auto 800 /uL (0-900); Monocytes Percent Auto 11.6 % (3-14); Neutrophils Absolute Auto 4300 /uL (1500-7000); Neutrophils Percent Auto 64.8 % (50-75); Platelet Count 401 X10^3/uL (150-400); Red Blood Cell Count 3.72 X10^6/uL (4.0-5.2); Red Cell Distribution Width 25.2 % (11.6-14.8); White Blood Cell Count 6.6 X10^3/uL (4.5-11.0)
[2021-11-13 20:56] LABS: Procalcitonin 0.13 ng/mL (<0.5)
[2021-11-13] MEDS: levoFLOXacin 750 MG/150 ML PIGGYBACK 100 MG IV (20:59)
[2021-11-13 21:28] LABS: Anisocytosis 3+; Platelet Estimate Increased on smear
[2021-11-13 21:31] LABS: Hypochromasia 2+; Microcytosis 2+; Ovalocytes 1+; Spherocytes 1+
[2021-11-13 21:46] LABS: COVID19 -Nasal RAPID Negative (Negative)
--- NOTE | 2021-11-13 23:39 | DI.CT.S_ITS ---
PROCEDURE: CT ABDOMEN PELVIS W CON INDICATIONS: left flank/abdl pain, 15 days post op abd hernia surg TECHNIQUE: After the administration of oral and IV contrast, axial sections were acquired from the lung bases to the pubic symphysis. Coronal and sagittal reformats were performed. For radiation dose reduction, the following was used: automated exposure control, adjustment of mA and/or kV according to patient size. COMPARISON: [facility], CT, ABDOMEN/PELVIS WITH CONTRAST, 01/15/2017, 15:23. [facility], CT, CT ABDOMEN PELVIS W CON, 10/16/2021, 13:38. FINDINGS: Image quality: Excellent. Lung bases: There are new clustered nodules within the right middle lobe inferiorly along the major fissure with bibasilar patchy indistinct ground-glass opacities. The findings are suggestive pneumonia or other infectious/inflammatory process. Mild dependent atelectasis is demonstrated bilaterally. Heart: Heart is normal in size. ABDOMEN: Liver: There is a subcapsular region of hypoattenuation redemonstrated medially within segment 7 of the right hepatic lobe measuring up to 1.6 x 1.5 cm which appears similar to the prior studies. Anteriorly within segment 4 the left hepatic lobe, there is an indistinct lesion with eccentric peripheral hypervascular enhancement likely representing a hemangioma and which appears similar in size compared to the prior studies given differences in the phase of enhancement. Gallbladder: Within normal limits without calcified gallstones. Biliary ducts: No biliary ductal dilatation. Pancreas: Within the pancreatic tail, there is an oval fat-containing lesion measuring up to 1.9 x 1.4 cm in transverse dimension which appears similar in size compared to the prior studies. The findings likely represent a lipoma. No pancreatic duct dilatation. No peripancreatic fat stranding or fluid collections. Spleen: Normal in size. Adrenal Glands: No adrenal nodules. Kidneys and Ureters: No hydronephrosis. Multiple bilateral renal cysts are redemonstrated including multiple small left parapelvic cysts. Stomach and Bowel: A gastric lap band is present. Stomach, small bowel loops, and colon are normal in caliber and wall thickness. Peritoneum: No abnormal intraperitoneal fluid. No free air. Ventral Wall: There are postsurgical changes within the ventral abdominal wall consistent with interval hernia repair. There is a loculated supraumbilical subcutaneous fluid collection demonstrated along the surgical bed measuring approximately 6.4 x 3.3 cm in transverse dimension by 6.6 cm in craniocaudal dimension Abdominal Nodes: No retroperitoneal or mesenteric adenopathy by size criteria. Vessels: Aorta and inferior vena cava are normal in size. PELVIS: Pelvic Organs: Unremarkable. Bladder: Unremarkable. Pelvic Nodes: No enlarged lymph nodes. Miscellaneous: No inguinal hernias are seen. Bones: Visualized osseous structures demonstrate no suspicious focal lesions. IMPRESSION: 1. Loculated subcutaneous fluid collection demonstrated within the ventral abdominal wall along the surgical site from prior hernia repair is suggestive of an abscess collection. The differential includes a resolving hematoma/seroma. Recommend correlation clinically. 2. Colonic diverticulosis without acute diverticulitis. Dictated by: Deshaun Small M.D. on 11/14/2021 at 0:10 Approved by: Deshaun Small M.D. on 11/14/2021 at 0:21
[2021-11-14 00:04] VITALS: PULSE 88; O2SAT 98
[2021-11-14 00:30] VITALS: PULSE 73; RESP 18; O2SAT 99
[2021-11-14 01:00] VITALS: PULSE 73; RESP 19; O2SAT 100
[2021-11-14 01:30] VITALS: PULSE 73; RESP 22; O2SAT 99
[2021-11-14] MEDS: HYDROCODONE/ACET 5/325 TABLET 2 TAB PO (01:36)
[2021-11-14] MEDS: HYDROCODONE/ACET 5/325 PREPACK 1 BOTTLE MISC (01:36)
== END 2021-11-14 02:08 | disposition home or self-care (01) ==
PROVIDERS: Emergency Provider Emergency Medicine; Family Provider Internal Medicine; PCP Internal Medicine
DX: N39.0 Urinary tract infection, site not specified (principal); R10.9 Unspecified abdominal pain; R10.12 Left upper quadrant pain; Z87.891 Personal history of nicotine dependence; Z88.5 Allergy status to narcotic agent; Z88.0 Allergy status to penicillin; Z88.2 Allergy status to sulfonamides; Z20.822 Contact with and (suspected) exposure to COVID-19
CPT/HCPCS: 36415; 71045; 74177; 80053; 81001; 83605; 83690; 84145; 85025; 87040; 87077; 87086; 87186; 87635; 96361; 96365; 96375; 99284; C9803; J1170; J1956; J2405; Q9967

== ENCOUNTER 2021-11-15 08:18 | Emergency (ER) | payer OTHER, SELFPAY ==
[2021-10-16 20:05] VITALS: BMI 50.5
[2021-11-15] VITALS (17 sets, daily range): BP systolic 131–184; BP diastolic 66–83; PULSE 80–99; RESP 16–29; TEMP 36.6; O2SAT 86–99; BMI 50.4
--- NOTE | 2021-11-15 08:39 | ED_ITS ---
HPI - Back Pain/Injury General Chief Complaint: Back Pain/Injury Stated Complaint: intense back pain, uti Time Seen by Provider: 11/15/21 08:22 History of Present Illness HPI Narrative: 70-year-old female former smoker with relatively recent history of abdominal surgery for incarcerated ventral hernia returns for evaluation of back pain. She had been seen and evaluated few nights ago and had a large workup including blood work as well as advanced imaging. Her urine suggested a urinary tract infection and she was prescribed Levaquin. She had been in contact with her primary care provider and had actually switched over to ciprofloxacin which she has been taking. She denies any fever chills nor nausea or vomiting. She states that the urinary complaints are largely improved but her back is continuing to bother her. She denies any significant abdominal pain, CT noted a fluid collection but there is no redness, pain, wound dehiscence or noted pain in her anterior abdomen. She denies any numbness, tingling or weakness. She has had no loss of control of bowel or bladder. She states that her pain is significantly works in her left flank but now she has some on the right. She states it is worse when she moves and improves with rest. 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 08/07/19 10/16/21 Thyroid) venlafaxine 150 mg 225 mg PO QAM 08/07/19 10/16/21 capsule,extended release 24 hr (Effexor XR) anastrozole 1 mg tablet 1 mg PO DAILY 12/05/20 10/16/21 thyroid (pork) 15 mg capsule 15 mg PO 2XW 05/27/21 10/16/21 apixaban 5 mg tablet (Eliquis) 5 mg PO BID 10/18/21 10/18/21 Previous Rx's Medication Instructions Recorded docusate sodium 100 mg capsule 100 mg PO BID 30 Days #60 cap 10/24/21 losartan 50 mg tablet 50 mg PO DAILY 30 Days #30 tab 10/24/21 pantoprazole 40 mg tablet,delayed 40 mg PO DAILY 30 Days #30 tab 10/24/21 release levofloxacin 500 mg tablet 500 mg PO DAILY #5 tab 11/14/21 ondansetron 4 mg disintegrating 4 mg PO Q8H PRN #10 tab 11/14/21 tablet gabapentin 300 mg capsule 300 mg PO BEDTIME #14 cap 11/15/21 hydrocodone 5 mg-acetaminophen 325 1 tab PO Q4-6H PRN #10 tab 11/15/21 mg tablet valacyclovir 1 gram tablet 1,000 mg PO TID 10 Days #30 tab 11/15/21 Allergies Allergy/AdvReac Type Severity Reaction Status Date / Time amoxicillin [AMOXICILLIN] Allergy Severe HIVES Verified 10/16/21 14:07 NSAIDS (Non-Steroidal Allergy Severe ANAPHYLAXIS Verified 10/16/21 14:07 Anti-Inflamma [NSAIDS (NON-STEROIDAL ANTI-INFLAMMA] Penicillins [PENICILLINS] Allergy Intermediate HIVES Verified 10/16/21 14:07 Sulfa (Sulfonamide Allergy Intermediate ITCH Verified 10/16/21 14:07 Antibiotics) [SULFA (SULFONAMIDE ANTIBIOTICS)] cephalexin [From KEFLEX] Allergy Mild ITCHY Verified 10/16/21 14:07 oxycodone [OXYCODONE] AdvReac Intermediate AMNESIA Verified 10/16/21 14:07 meperidine [MEPERIDINE] AdvReac Mild AMNESIA Verified 10/16/21 14:07 Review of Systems Review of Systems Narrative: GENERAL: Denies chills, fatigue, malaise, fever, sweats. HEENT: Denies sinus pain, ear pain, sore throat, difficulty swallowing, dizziness. RESPIRATORY: Denies dyspnea, cough, wheezing, hemoptysis, sputum. CARDIOVASCULAR: Denies chest pain, palpitations, orthopnea, edema, GASTROINTESTINAL: Denies nausea, vomiting, abdominal pain, diarrhea, constipation, melena. : See HPI MUSCULOSKELETAL: See HPI SKIN: Denies rash, skin lesions, or other NEUROLOGIC: Denies weakness, headache, numbness, change in speech, confusion, seizures, incoordination. PSYCHIATRIC: No concerning psychosocial issues. 12 point review of systems is negative except for those stated above Patient History Medical History Bilateral pulmonary embolism Breast cancer Depression Febrile illness Hypothyroidism Lymphedema Morbid obesity with BMI of 40.0-44.9, adult Morbid obesity with body mass index (BMI) of 50.0 to 59.9 in adult Obstructive sleep apnea of adult Primary insomnia Sarcoidosis Snoring UTI (urinary tract infection) Surgical History H/O exploratory laparotomy S/P lumpectomy, right breast Family History Father Leukemia Brother Diabetes mellitus Sister Diabetes mellitus Breast cancer Mother Ovarian cancer Social History household members: children lives independently: Yes caregiver/support person: No Smoking Status: Former smoker alcohol intake: current substance use type: does not use Smoking Status: Former smoker alcohol intake frequency: a few times a month Substance Use Type: does not use Exam Narrative Exam Narrative: GENERAL: [70 year old patient appears stated age. Well-developed patient, in mild distress. HEAD: Atraumatic. Normocephalic. EYES: Pupils equal round and reactive. Extraocular motions intact. No scleral icterus. No injection or drainage. ENT: Nose without bleeding, purulent drainage. Throat without erythema, tonsillar hypertrophy or exudate. Airway patent. NECK: Trachea midline. Non tender CARDIOVASCULAR: Regular rate and rhythm without murmurs, gallops, or rubs. RESPIRATORY: Clear to auscultation. Breath sounds equal bilaterally. No wheezes, rales, or rhonchi. GASTROINTESTINAL: Abdomen soft, bowel sounds present in all 4 quadrants, incision is clean, dry and intact, no dehiscence, erythema, pain palpation. EXTREMITIES: No edema or joint tenderness. BACK: Left upper bareback rider to slight palpation, erythematous rash in the distribution of a single dermatome noted, no obvious clear fluid-filled vesicles, however this appears to be consistent with shingles. NEURO: AOx3. SKIN: No rash or erythema of visible areas Initial Vital Signs Initial Vital Signs: Vital Signs Temperature 97.8 F 11/15/21 08:30 Pulse Rate 99 H 11/15/21 08:30 Respiratory Rate 18 11/15/21 08:30 Blood Pressure 131/66 11/15/21 08:30 Pulse Oximetry 96 11/15/21 08:30 Course Orders Ordered: ED Orders 11/15/21 09:30 Complete Blood Count AUTO DIFF Stat Comprehensive Metabolic Panel Stat Lactate (Lactic Acid) Stat Lipase Stat 11/15/21 09:59 Urine Culture Stat Urine Microscopic Stat 11/15/21 10:40 Blood Culture Stat Discontinued Medications Hydromorphone HCl (Hydromorphone 0.5 Mg Inj) 0.5 mg IV NOW ONE Stop: 11/15/21 10:11 Last Admin: 11/15/21 10:34 Dose: 0.5 mg Documented by: RAE Sodium Chloride (Normal Saline 0.9%) 500 mls @ 1,000 mls/hr IV BOLUS ONE Stop: 11/15/21 09:09 Last Infusion: 11/15/21 10:30 Dose: 0 mls/hr Documented by: Admin: 11/15/21 09:08 Dose: 1,000 mls/hr Documented by: RAE Vital Signs Vital signs: Vital Signs - 8 hr 11/15/21 08:30 11/15/21 08:38 11/15/21 09:00 Temperature 97.8 F Pulse Rate 99 H 94 H 81 Respiratory Rate 18 23 Blood Pressure 131/66 Pulse Oximetry 96 95 94 11/15/21 09:03 11/15/21 09:30 11/15/21 10:00 Temperature Pulse Rate 80 85 85 Respiratory Rate 23 Blood Pressure 162/72 H Pulse Oximetry 93 97 96 11/15/21 10:30 11/15/21 10:44 11/15/21 10:47 Temperature Pulse Rate 93 H 83 Respiratory Rate 25 H Blood Pressure 181/83 H Pulse Oximetry 95 86 L 96 11/15/21 10:55 11/15/21 11:00 11/15/21 11:15 Temperature Pulse Rate 81 80 83 Respiratory Rate 27 H 16 18 Blood Pressure 175/81 H 184/83 H 182/72 H Pulse Oximetry 95 96 97 11/15/21 11:30 11/15/21 12:00 11/15/21 12:30 Temperature Pulse Rate 94 H 82 80 Respiratory Rate 29 H 27 H 21 Blood Pressure Pulse Oximetry 98 99 98 11/15/21 13:00 11/15/21 13:30 Temperature Pulse Rate 81 88 Respiratory Rate 20 20 Blood Pressure Pulse Oximetry 98 97 MDM - Back Pain/Injury Lab Data Result diagrams: 11/15/21 09:30 11/15/21 09:30 Labs: Lab Results 11/15/21 11/15/21 11/15/21 Range/Units 09:30 09:30 09:30 WBC 4.6 (4.5-11.0) X10^3/uL RBC 3.65 L (4.0-5.2) X10^6/uL Hgb 8.1 L (12.0-16.0) g/dL Hct 25.7 L (36-46) % MCV 70.3 L (80-100) fL MCH 22.1 L (26-34) PG MCHC 31.5 (30-36) % RDW 25.1 H (11.6-14.8) % Plt Count 413 H (150-400) X10^3/uL Neut % (Auto) 69.9 (50-75) % Lymph % (Auto) 13.9 L (25-40) % [place] % (Auto) 11.7 (3-14) % Eos % (Auto) 3.9 (2-4) % Baso % (Auto) 0.6 (0-2) % Neut # (Auto) 3200 (6456-4062) /uL Lymph # (Auto) 600 L (6167-0902) /uL [place] # (Auto) 500 (0-900) /uL Eos # (Auto) 200 (0-450) /uL Baso # (Auto) 0 (0-100) /uL RBC Morphology See below Hypochromasia 1+ H Anisocytosis 2+ H Microcytosis 2+ H Ovalocytes 1+ H Sodium 137 (137-145) mmol/L Potassium 3.7 (3.4-5.1) mmol/L Chloride 102 (98-107) mmol/L Carbon Dioxide 29 (22-32) mmol/L BUN 11 (7-17) mg/dL Creatinine 1.06 H (0.52-1.04) mg/dL Estimated GFR 51.2 L (>60) mL/min BUN/Creatinine Ratio 10.4 (6-22) Glucose 126 H (80-110) mg/dL Lactate 2.2 H (0.7-2.1) mmol/L Calcium 9.0 (8.4-10.2) mg/dL Total Bilirubin 0.5 (0.2-1.3) mg/dL AST 20 (14-36) IU/L ALT 19 (<35) IU/L Alkaline Phosphatase 100 (38-126) U/L Total Protein 7.0 (6.3-8.2) g/dL Albumin 3.9 (3.5-5.0) g/dL Globulin 3.1 (1.7-4.1) g/dL Albumin/Globulin Ratio 1.3 (1.0-2.8) Lipase 58 D (23-300) U/L Urine RBC (0-5/HPF) Urine WBC (0-5/HPF) Ur Squamous Epith Cells (0-5/HPF) Amorphous Sediment Urine Bacteria (None) Ur Culture Indicated? 11/15/21 11/15/21 Range/Units 09:59 12:00 WBC (4.5-11.0) X10^3/uL RBC (4.0-5.2) X10^6/uL Hgb (12.0-16.0) g/dL Hct (36-46) % MCV (80-100) fL MCH (26-34) PG MCHC (30-36) % RDW (11.6-14.8) % Plt Count (150-400) X10^3/uL Neut % (Auto) (50-75) % Lymph % (Auto) (25-40) % [place] % (Auto) (3-14) % Eos % (Auto) (2-4) % Baso % (Auto) (0-2) % Neut # (Auto) (6149-2230) /uL Lymph # (Auto) (3302-5050) /uL [place] # (Auto) (0-900) /uL Eos # (Auto) (0-450) /uL Baso # (Auto) (0-100) /uL RBC Morphology Hypochromasia Anisocytosis Microcytosis Ovalocytes Sodium (137-145) mmol/L Potassium (3.4-5.1) mmol/L Chloride (98-107) mmol/L Carbon Dioxide (22-32) mmol/L BUN (7-17) mg/dL Creatinine (0.52-1.04) mg/dL Estimated GFR (>60) mL/min BUN/Creatinine Ratio (6-22) Glucose (80-110) mg/dL Lactate 0.9 (0.7-2.1) mmol/L Calcium (8.4-10.2) mg/dL Total Bilirubin (0.2-1.3) mg/dL AST (14-36) IU/L ALT (<35) IU/L Alkaline Phosphatase (38-126) U/L Total Protein (6.3-8.2) g/dL Albumin (3.5-5.0) g/dL Globulin (1.7-4.1) g/dL Albumin/Globulin Ratio (1.0-2.8) Lipase (23-300) U/L Urine RBC 0-1/hpf (0-5/HPF) Urine WBC 1-5/hpf (0-5/HPF) Ur Squamous Epith Cells 1-5 /hpf (0-5/HPF) Amorphous Sediment 1+ Urine Bacteria None seen (None) Ur Culture Indicated? Specimen cultured Urine Dip Bedside Urine Glucose Negative Bedside Urine Bilirubin - Negative Bedside Urine Ketone - Negative Urine Specific [place] 1.015 Bedside Urine Occult Blood +/- Bedside Urine pH 6.0 Bedside Urine Protein +/- 15 Bedside Urine Urobilinogen 0.2 Bedside Urine Nitrite - Negative Bedside Urine Leukocytes + 70 Esterase MDM Narrative Medical decision making narrative: Patient without signs of sepsis presents with improved urinary symptoms but persistent if not worsening back pain. Labs are repeated and are unremarkable. Physical exam suggest the presence of a rash consistent with shingles noted today. There is no indication for repeat imaging, abdomen is soft and nontender, incision is clean, dry and intact. Patient given return precautions and questions answered to her apparent satisfaction Discharge Plan Departure Patient Disposition: Home Clinical Impression: Acute UTI, Shingles Instructions: DI for Shingles, DI for Urinary Tract Infection (UTI) Activity Restrictions/Additional Instructions: *You have been diagnosed with [back pain, urinary tract infection, shingles. *What to do: *Please continue to take your regular medications as directed. [x ] New medication prescriptions sent to your pharmacy: [ ] [ ] New medication written as a paper prescription [ ] No new medications given *Please follow up with your primary care provider in 2-3 days, call for an ap pointment. Let them know you were seen in the Emergency Department and that we ask that you be seen in follow up. We will electronically transmit a record of today's note if your PCP is in our system *If you do not have a primary care provider please contact the [facility] Resource line at [phone]. They will ask some questions about your medical history and help get you set up with a doctor in the community. 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 TAKES AN EXTRA 15MG ON AND anastrozole 1 mg tablet 1 mg PO DAILY 0RF thyroid (pork) 15 mg Capsule 15 mg PO 2XW 0RF Rx Instructions: thursday and morning Eliquis 5 mg tablet 5 mg PO BID 0RF Label Comments: TAKE 1 TABLET BY MOUTH TWICE DAILY docusate sodium 100 mg Capsule 100 mg PO BID 30 Days Qty: 60 0RF losartan 50 mg tablet 50 mg PO DAILY 30 Days Qty: 30 0RF pantoprazole 40 mg Tablet,Delayed Release (Dr/Ec) 40 mg PO DAILY 30 Days Qty: 30 0RF levofloxacin 500 mg tablet 500 mg PO DAILY Qty: 5 0RF ondansetron 4 mg tablet,disintegrating 4 mg PO Q8H PRN (Reason: nausea and vomiting) Qty: 10 0RF (DME) Respironics Dreamstation BIPAP Qty: 1 0RF Dose Instruction: As directed Label Comments: Pressure: IPAP 16 EPAP 6 Min/Max 4 DME: [facility] Rx Instructions: As directed Referrals: Avani Chavez MD [Primary Care Provider] -
[2021-11-15] MEDS: SODIUM CHLORIDE 0.9% 500 ML 1000 ML IV (09:08)
[2021-11-15 09:51] LABS: Add Manual Diff / Slide Review NO; Basophils Absolute Auto 0 /uL (0-100); Basophils Percent Auto 0.6 % (0-2); Eosinophils Absolute Auto 200 /uL (0-450); Eosinophils Percent Auto 3.9 % (2-4); Hematocrit 25.7 % (36-46); Hemoglobin 8.1 g/dL (12.0-16.0); Lymphocytes Absolute Auto 600 /uL (1100-4500); Lymphocytes Percent Auto 13.9 % (25-40); Mean Corpuscular HGB Conc 31.5 % (30-36); Mean Corpuscular Hemoglobin 22.1 PG (26-34); Mean Corpuscular Volume 70.3 fL (80-100); Monocytes Absolute Auto 500 /uL (0-900); Monocytes Percent Auto 11.7 % (3-14); Neutrophils Absolute Auto 3200 /uL (1500-7000); Neutrophils Percent Auto 69.9 % (50-75); Platelet Count 413 X10^3/uL (150-400); Red Blood Cell Count 3.65 X10^6/uL (4.0-5.2); Red Cell Distribution Width 25.1 % (11.6-14.8); White Blood Cell Count 4.6 X10^3/uL (4.5-11.0)
[2021-11-15 09:56] LABS: Lactate (Lactic Acid) 2.2 mmol/L (0.7-2.1)
[2021-11-15 09:57] LABS: Alanine Aminotransferase 19 IU/L (<35); Albumin 3.9 g/dL (3.5-5.0); Albumin Globulin Ratio 1.3 (1.0-2.8); Alkaline Phosphatase 100 U/L (38-126); Aspartate Aminotransferase 20 IU/L (14-36); BUN Creatinine Ratio 10.4 (6-22); Bilirubin Total 0.5 mg/dL (0.2-1.3); Blood Urea Nitrogen 11 mg/dL (7-17); Carbon Dioxide 29 mmol/L (22-32); Chloride 102 mmol/L (98-107); Estimated Glomerular Filt Rate 51.2 mL/min (>60); Globulin 3.1 g/dL (1.7-4.1); Glucose 126 mg/dL (80-110); HEMOLYSIS < 15 (0-50); Lipase 58 U/L (23-300); Potassium 3.7 mmol/L (3.4-5.1); Sodium 137 mmol/L (137-145)
[2021-11-15 10:18] LABS: RBC Urine 0-1/HPF (0-5/HPF); Squamous Epithelial Cell Urine 1-5 /HPF (0-5/HPF); WBC Urine 1-5/HPF (0-5/HPF)
[2021-11-15 10:19] LABS: Amorphous Sediment Urine 1+; Bacteria Urine None Seen; Culture Indicated Urine Specimen Cultured
[2021-11-15] MEDS: HYDROMORPHONE 0.5 MG INJ IV (10:34)
[2021-11-15 10:48] LABS: Anisocytosis 2+; Hypochromasia 1+; Microcytosis 2+
[2021-11-15 10:49] LABS: Ovalocytes 1+
[2021-11-15 11:41] LABS: Reflexed Lactate in 2 Hours Y
[2021-11-15 12:38] LABS: Lactate 2HR (Lactic Acid Rflx) 0.9 mmol/L (0.7-2.1)
--- NOTE | 2021-11-15 13:29 | PC.NURSE ---
Patient discharge education provided, emphasized education regarding pain management r/t nerve pain r/t shingles. Pt verbalized understanding, further states Vicodin does not improve her pain. Dr Drake notified and RN returned to pt room, re-educated pt on indications for other prescriptions to treat underlying pain, pt states Dilauded improves her pain and requests a dose prior to discharge, educated pt on earlier dose and short duration of effect, pt states request prescription for Dilauded and states her pain has returned, Dr Drake notified.
== END 2021-11-15 14:14 | disposition home or self-care (01) ==
PROVIDERS: Emergency Provider Emergency Medicine; Family Provider Internal Medicine; PCP Internal Medicine
DX: N39.0 Urinary tract infection, site not specified (principal); B02.9 Zoster without complications
CPT/HCPCS: 36415; 80053; 81003; 81015; 83605; 83690; 85025; 87040; 87086; 96374; 99284; J1170